=== PATIENT | male | born 1960 | race Caucasian/White ===

== ENCOUNTER 2018-02-01 15:57 | Emergency (ER) | payer OTHER ==
[2018-02-01 18:37] LABS: Absolute Lymphocytes (CBC) 0.8 K/uL (0.7-4.9); Absolute Monocytes 0.9 K/uL (0.1-1.3); Absolute Neutrophil 6.6 K/uL (1.8-8.0); Basophils % 0.3 % (0-1.3); Eosinophils % 0.9 % (0-4.4); Hematocrit 43.7 % (39.6-49.0); Lymphocytes % 9.2 % (15.3-44.8); MCH 28.8 pg (27.0-35.0); MCV 84.3 fL (80-100); MPV 9.5 fL (7.6-11.3); Monocytes % 10.8 % (3.3-12.3); RBC Red Blood Cell Count 5.19 M/uL (4.33-5.43)
[2018-02-01 18:41] LABS: Protime INR 1.15
[2018-02-01 18:49] LABS: Potassium 3.8 mmol/L (3.5-5.1)
--- NOTE | 2018-02-01 19:10 | RAD REPORT ---
EXAM DESCRIPTION: VAS - Extremity Venous Uni Ltd - 02/01/2018 7:02 pm CLINICAL HISTORY: Pain;Swelling Leg swelling and edema. COMPARISON: Extremity Venous Uni Ltd dated 12/02/2015Extremity Venous Uni Ltd dated 12/02/2015 FINDINGS: Right lower extremity venous system was interrogated with Doppler technique. Normal flow, compressibility and augmentation was noted. There is no DVT present. IMPRESSION: No evidence of right lower extremity deep venous thrombosis.
--- NOTE | 2018-02-01 19:13 | RAD REPORT ---
EXAM DESCRIPTION: VAS - Lower Extremity Artery Uni Ltd - 02/01/2018 7:02 pm CLINICAL HISTORY: Swelling;Pain COMPARISON: Extremity Venous Uni Ltd dated 12/02/2015 FINDINGS: The examination was very limited by body habitus. Grayscale, color, Doppler and spectral D oppler was performed. Flow was seen in the MOLD YARD SUPERVISOR, SFA, popliteal and posterior tibial arteries, however , waveforms are very blunted and accuracy of the amplitude measurements and waveforms is questionable . The vessels, however, do not appear occluded. Right dorsalis pedis was not well seen. IMPRESSION: Very limited study as detailed above. A vessel occlusion is not seen to the level of the ankle. Further diagnostic information is not possible from this exam.
--- NOTE | 2018-02-01 21:18 | EDPHYS ---
Physician Documentation [facility] Name: Lyle Kilpatrick Age: 57 yrs Sex: Male : 1960 Arrival Date: 02/01/2018 Time: 16:02 Bed 5 Private MD: Jason Treviño ED Physician Baltazar Still HPI: 02/01 18:00 This 57 yrs old Male presents to ER via Wheelchair with complaints of Right pm1 leg swelling and pain. 18:00 The patient presents with pain, swelling. The complaints affect the medial aspect of pm1 right thigh. Context: The problem was sustained at home, resulted from an unknown cause, the patient can fully bear weight, the patient is able to ambulate, Problem is a result from a previous injury: No. Onset: The symptoms/episode began/occurred yesterday. Modifying factors: The symptoms are alleviated by nothing. the symptoms are aggravated by nothing. Associated signs and symptoms: Pertinent negatives fever, chest pain, shortness of breath. Treatment prior to arrival includes: prescription medications, Ultram or Ultracet. Severity of symptoms: in the emergency department the symptoms are unchanged. Patient was seen at [facility] and had ultrasounds preformed of right lower leg and discharged to home with tramadol. Historical: - Allergies: 16:05 No Known Allergies; sv - PMHx: 16:05 CHF; Atrial Fib; Hypothyroidism; sv - PSHx: 16:05 Cholecystectomy; sv - Immunization history:: Adult Immunizations up to date. - Social history:: Smoking status: Patient/guardian denies using tobacco. - Ebola Screening: : No symptoms or risks identified at this time. ROS: 18:00 Constitutional: Negative for fever, chills, and weight loss, Eyes: Negative for injury, pm1 pain, redness, and discharge, ENT: Negative for injury, pain, and discharge, Neck: Negative for injury, pain, and swelling, Respiratory: Negative for shortness of breath, cough, wheezing, and pleuritic chest pain, Abdomen/GI: Negative for abdominal pain, nausea, vomiting, diarrhea, and constipation. 18:00 Back: Negative for injury and pain, : Negative for injury, bleeding, discharge, and swelling, MS/Extremity: Negative for injury and deformity, Skin: Negative for injury, rash, and discoloration, Neuro: Negative for headache, weakness, numbness, tingling, and seizure. 18:00 Cardiovascular: Positive for edema, right lower leg, Negative for chest pain, orthopnea, palpitations. Exam: 18:00 Constitutional: This is a well developed, well nourished patient who is awake, alert, pm1 and in no acute distress. Head/Face: Normocephalic, atraumatic. Eyes: Pupils equal round and reactive to light, extra-ocular motions intact. Lids and lashes normal. Conjunctiva and sclera are non-icteric and not injected. Cornea within normal limits. Periorbital areas with no swelling, redness, or edema. ENT: Nares patent. No nasal discharge, no septal abnormalities noted. Tympanic membranes are normal and external auditory canals are clear. Oropharynx with no redness, swelling, or masses, exudates, or evidence of obstruction, uvula midline. Mucous membranes moist. Neck: Trachea midline, no thyromegaly or masses palpated, and no cervical lymphadenopathy. Supple, full range of motion without nuchal rigidity, or vertebral point tenderness. No Meningismus. Chest/axilla: Normal chest wall appearance and motion. Nontender with no deformity. No lesions are appreciated. Cardiovascular: Regular rate and rhythm with a normal S1 and S2. No gallops, murmurs, or rubs. Normal PMI, no JVD. No pulse deficits. Respiratory: Lungs have equal breath sounds bilaterally, clear to auscultation and percussion. No rales, rhonchi or wheezes noted. No increased work of breathing, no retractions or nasal flaring. 18:00 Back: No spinal tenderness. No costovertebral tenderness. Full range of motion. Skin: Warm, dry with normal turgor. Normal color with no rashes, no lesions, and no evidence of cellulitis. 18:00 Abdomen/GI: Inspection: obese Bowel sounds: normal, Palpation: abdomen is soft and non-tender. 18:00 Musculoskeletal/extremity: Extremities: grossly normal except: noted in the medial aspect of right thigh: swelling, ROM: intact in all extremities, Circulation is intact in all extremities. Pulses: noted to be 2+ in the right dorsalis pedis artery. Vital Signs: 16:05 BP 158 / 81; Pulse 69; Resp 22; Temp 97; Pulse Ox 95% ; Weight 215 kg; Height 5 ft. 9 sv in. (175.26 cm); Pain 8/10; 17:55 BP 162 / 80; Pulse 72; Resp 21; Pulse Ox 95% on R/A; sg 19:40 BP 159 / 80; Pulse 64; Resp 17; Pulse Ox 95% on R/A; tl2 21:32 BP 141 / 71; Pulse 64; Resp 20; Temp 97.2; Pulse Ox 97% ; Pain 5/10; tl1 16:05 Body Mass Index 70.00 (215.00 kg, 175.26 cm) sv MDM: 17:43 Patient medically screened. pm1 21:00 Data reviewed: vital signs. Data interpreted: Pulse oximetry: on room air is 95 %. pm1 Interpretation: normal. Counseling: I had a detailed discussion with the patient and/or guardian regarding: the historical points, exam findings, and any diagnostic results supporting the discharge/admit diagnosis. 02/01 18:20 Order name: CBC with Diff; Complete Time: 18:53 pm1 02/01 18:20 Order name: Ptt, Activated; Complete Time: 18:53 pm1 02/01 17:58 Order name: Lower Extremity Artery Leosphere US; Complete Time: 19:24 pm1 02/01 17:58 Order name: Extremity Venous Leosphere US; Complete Time: 19:24 pm1 02/01 18:20 Order name: PT-INR; Complete Time: 18:53 pm1 02/01 18:20 Order name: BMP; Complete Time: 18:53 pm1 02/01 18:20 Order name: IV Saline Lock; Complete Time: 18:24 pm1 Administered Medications: 21:26 Drug: [place] 10 mg-325 mg 1 tabs Route: PO; tl1 21:27 Follow up: Response: No adverse reaction; Medication administered at discharge. tl1 Disposition: 02/02 10:58 Co-signature as Attending Physician, Baltazar Still MD I agree with the assessment and kdr plan of care. Disposition: 02/01/18 21:18 Discharged to Home. Impression: Edema, unspecified - right leg. - Condition is Stable. - Discharge Instructions: Peripheral Edema. - Prescriptions for Tylenol- Codeine #3 300-30 mg Oral Tablet - take 2 tablets by ORAL route every 6 hours As needed; 20 tablet. - Medication Reconciliation Form, Thank You Letter, Antibiotic Education, Prescription Opioid Use form. - Follow up: Emergency Department; When: As needed; Reason: Worsening of condition. Follow up: Jason Treviño DO; When: 2 - 3 days; Reason: Recheck today's complaints, Continuance of care, Re-evaluation by your physician. - Problem is new. - Symptoms have improved. Signatures: Dispatcher [employer] EDRose Marie Levine RN RN Baltazar Still MD MD [facility] Jami Huddleston RN RN tl1 Neo Foster NP WOOD MACHINIST pm1 Corrections: (The following items were deleted from the chart) 02/01 21:34 21:18 02/01/2018 21:18 Discharged to Home. Impression: Edema, unspecified - right leg. tl1 Condition is Stable. Forms are Medication Reconciliation Form, Thank You Letter, Antibiotic Education, Prescription Opioid Use. Follow up: Emergency Department; When: As needed; Reason: Worsening of condition. Follow up: Jason Treviño; When: 2 - 3 days; Reason: Recheck today's complaints, Continuance of care, Re-evaluation by your physician. Problem is new. Symptoms have improved. pm1
--- NOTE | 2018-02-01 21:18 | ER ---
Nurse's Notes [facility] Name: Lyle Kilpatrick Age: 57 yrs Sex: Male : 1960 Arrival Date: 02/01/2018 Time: 16:02 Bed 5 Private MD: Jason Treviño Diagnosis: Edema, unspecified-right leg Presentation: 02/01 16:03 Presenting complaint: Patient states: right leg and foot numbness and swelling started sv yesterday. Pt was seen at [facility] and discharged home. Tramadol taken before coming. Transition of care: patient was not received from another setting of care. Onset of symptoms was January 31, 2018. Care prior to arrival: None. 16:03 Method Of Arrival: Wheelchair sv 16:03 Acuity: HETAL 3 sv 17:30 Risk Assessment: Do you want to hurt yourself or someone else? Patient reports no hb desire to harm self or others. Initial Sepsis Screen: Does the patient meet any 2 criteria? No. Patient's initial sepsis screen is negative. Does the patient have a suspected source of infection? No. Patient's initial sepsis screen is negative. Historical: - Allergies: 16:05 No Known Allergies; sv - PMHx: 16:05 CHF; Atrial Fib; Hypothyroidism; sv - PSHx: 16:05 Cholecystectomy; sv - Immunization history:: Adult Immunizations up to date. - Social history:: Smoking status: Patient/guardian denies using tobacco. - Ebola Screening: : No symptoms or risks identified at this time. Screenin:00 Abuse screen: Denies threats or abuse. Denies injuries from another. Nutritional hb screening: No deficits noted. Tuberculosis screening: No symptoms or risk factors identified. Fall Risk Total Nair Fall Scale indicates Low Risk Score (25-44 pts). Fall prevention measures have been instituted. Side Rails Up X 2 Frequent Obs/Assesments occuring Family Present and informed to notify staff if they need to leave bedside As available Patient and Family Educated on Fall Prevention Program and strategies. Assessment: 17:20 General: Appears in no apparent distress. comfortable, well groomed, well developed, sg well nourished, Behavior is calm, cooperative, appropriate for age. Pain: Denies pain. Neuro: No deficits noted. Cardiovascular: Heart tones S1 S2 present Capillary refill is sluggish in bilateral fingers toes Patient's skin is warm and dry. Chest pain is denied. Cardiovascular: Edema is 2+ to left midcalf, left ankle, left foot, right midcalf, right ankle and right foot. Respiratory: Airway is patent Respiratory effort is even, labored, Respiratory pattern is regular, symmetrical, Breath sounds are clear. GI: Abdomen is round obese, Reports normal bowel habits, tolerance of fluids, tolerance of food. : No signs and/or symptoms were reported regarding the genitourinary system. EENT: No signs and/or symptoms were reported regarding the EENT system. Derm: Skin is intact, is healthy with good turgor, Skin is dry, Skin is normal, Skin temperature is warm. Musculoskeletal: Circulation, motion, and sensation intact. Range of motion: intact in all extremities, Swelling present in RLE and LLE. 18:20 Reassessment: Patient appears in no apparent distress at this time. Patient is alert, sg oriented x 3, equal unlabored respirations, skin warm/dry/pink. Vital Signs: 16:05 BP 158 / 81; Pulse 69; Resp 22; Temp 97; Pulse Ox 95% ; Weight 215 kg; Height 5 ft. 9 sv in. (175.26 cm); Pain 8/10; 17:55 BP 162 / 80; Pulse 72; Resp 21; Pulse Ox 95% on R/A; sg 19:40 BP 159 / 80; Pulse 64; Resp 17; Pulse Ox 95% on R/A; tl2 21:32 BP 141 / 71; Pulse 64; Resp 20; Temp 97.2; Pulse Ox 97% ; Pain 5/10; tl1 16:05 Body Mass Index 70.00 (215.00 kg, 175.26 cm) sv ED Course: 16:02 Patient arrived in ED. sb2 16:02 Jason Treviño DO is Private Physician. sb2 16:04 Triage completed. sv 16:05 Arm band placed on right wrist. sv 17:43 Neo Foster NP is PHCP. pm1 17:43 Baltazar Still MD is Attending Physician. pm1 17:53 Inserted saline lock: 20 gauge in right antecubital area, using aseptic technique. 3 Blood collected. 18:28 Initial lab(s) drawn, by in, sent to lab. 3 18:35 Patient has correct armband on for positive identification. Placed in gown. Bed in low hb position. Call light in reach. Side rails up X 1. 19:02 Lower Extremity Artery Uni Ltd US In Process Unspecified. EDMS 19:03 Extremity Venous Uni Ltd US In Process Unspecified. EDMS 21:16 Jami Huddleston, RN is Primary Nurse. tl1 21:16 Jason Treviño DO is Referral Physician. pm1 21:34 No provider procedures requiring assistance completed. IV discontinued, intact, tl1 bleeding controlled, No redness/swelling at site. Administered Medications: 21:26 Drug: [place] 10 mg-325 mg 1 tabs Route: PO; tl1 21:27 Follow up: Response: No adverse reaction; Medication administered at discharge. tl1 Outcome: 21:18 Discharge ordered by MD. pm1 21:33 Discharged to home via wheelchair. tl1 21:33 Condition: stable 21:33 Discharge instructions given to patient, family, Instructed on discharge instructions, follow up and referral plans. medication usage, Demonstrated understanding of instructions, follow-up care, medications, Prescriptions given X 1. 21:34 Patient left the ED. tl1 Signatures: Dispatcher [employer] EDRose Marie Levine RN RN sv Gay, Steven, RN RN Jami Huddleston, RN RN tl1 Neo Foster, URVASHI BLASTING GANG MINER pm1 Brooklyn Enciso RN RN hb Knox, Taylor, RN RN tl2 Kendy Lopez 3 Lilliana Regan sb2 Corrections: (The following items were deleted from the chart) 16:06 16:03 Presenting complaint: Patient states: right leg and foot numbness and swelling sv started yesterday. Pt was seen at [facility] and discharged home. sv
[2018-02-01] MEDS ORDERED: HYDROCODONE/APAP 10/325 TAB ONE (21:23)
[2018-02-01 21:59] VITALS: BP 141/71; TEMP 97.2; O2SAT 97
== END 2018-02-01 21:34 | disposition home or self-care (01) ==
LOC: ER 15:57
DX: R60.9 Edema, unspecified (principal)
CPT/HCPCS: 36415; 80048; 85025; 85610; 85730; 93926; 93971; 99284

== ENCOUNTER 2019-05-12 10:29 | Emergency (ER) | payer OTHER ==
[2019-05-12 11:39] LABS: Absolute Lymphocytes (CBC) 0.7 K/uL (0.7-4.9); Basophils % 0.6 % (0-1.3); Hematocrit 38.2 % (39.6-49.0); Lymphocytes % 14.8 % (15.3-44.8); MPV 9.1 fL (7.6-11.3); RBC Red Blood Cell Count 4.52 M/uL (4.33-5.43)
[2019-05-12 11:58] LABS: Albumin 3.6 g/dL (3.4-5.0); Bilirubin Total 0.6 mg/dL (0.2-1.0); Potassium 4.2 mmol/L (3.5-5.1); Protein, Total 7.3 g/dL (6.4-8.2)
[2019-05-12] MEDS ORDERED: CLINDAMYCIN 600MG/D5W 600 MG/50 ML BAG IV ONE (12:03)
--- NOTE | 2019-05-12 12:05 | ER ---
Nurse's Notes [facility] Name: Lyle Kilpatrick Age: 58 yrs Sex: Male : 1960 Arrival Date: 05/12/2019 Time: 10:33 Bed 25 Private MD: Diagnosis: Cellulitis and acute lymphangitis of other parts of limb Presentation: 05/12 10:41 Presenting complaint: Patient states: Home health nurse sent patient to ER for ss evaluation of wound to R leg. patient has been having treatment for wound to R leg x 3 months, and has had wound vac in place, but when the nurse this morning came to look at it, she told him that she saw another blister that was concerning. Wound vac was removed and sent to ER. Transition of care: patient was not received from another setting of care. Onset of symptoms is unknown. Risk Assessment: Do you want to hurt yourself or someone else? Patient reports no desire to harm self or others. Initial Sepsis Screen: Does the patient meet any 2 criteria? No. Patient's initial sepsis screen is negative. Does the patient have a suspected source of infection? Yes: Skin breakdown/wound. Care prior to arrival: None. 10:41 Method Of Arrival: Wheelchair ss 10:41 Acuity: HETAL 3 ss Historical: - Allergies: 10:45 No Known Allergies; ss - PMHx: 10:45 Atrial Fib; CHF; Hypothyroidism; ss - PSHx: 10:45 Cholecystectomy; ss - Immunization history:: Flu vaccine is not up to date. - Social history:: Smoking status: Patient/guardian denies using tobacco, Patient/guardian denies using alcohol, street drugs, The patient lives with family. - Ebola Screening: : Patient denies exposure to infectious person Patient denies travel to an Ebola-affected area in the 21 days before illness onset. - Family history:: not pertinent. Screenin:10 Abuse screen: Denies threats or abuse. Denies injuries from another. Nutritional ca1 screening: No deficits noted. Tuberculosis screening: No symptoms or risk factors identified. Fall Risk IV access (20 points). Gait- Impaired (20 pts.). Assessment: 11:10 General: Appears in no apparent distress. comfortable, obese, Behavior is calm, ca1 cooperative, appropriate for age. Pain: Complains of pain in lateral aspect of right calf Pain currently is 4 out of 10 on a pain scale. Pain began 2-3 days ago. Neuro: Level of Consciousness is awake, alert, obeys commands, Oriented to person, place, time, situation, Appropriate for age. Derm: Skin is healthy with good turgor, Skin is pink, warm \T\ dry. Wound noted lateral aspect of right calf Wound is draining pus which is foul smelling.. Red and raised with a blister >2.5cm in diameter. Musculoskeletal: Circulation, motion, and sensation intact. Capillary refill < 3 seconds, Swelling present in right foot and left foot. 12:05 Reassessment: Patient appears in no apparent distress at this time. Patient and/or ca1 family updated on plan of care and expected duration. Pain level reassessed. Patient is alert, oriented x 3, equal unlabored respirations, skin warm/dry/pink. Pending completion of IV antibiotics. To be discharged once completed. 12:51 Reassessment: Patient appears in no apparent distress at this time. Patient is alert, ca1 oriented x 3, equal unlabored respirations, skin warm/dry/pink. Wound dressed, wet to dry. Instructed to follow up with Home Health nurse. Vital Signs: 10:41 BP 129 / 68; Pulse 67; Resp 17; Temp 98.5(TE); Pulse Ox 98% on R/A; Weight 198.67 kg ss (M); Height 5 ft. 9 in. (175.26 cm); Pain 0/10; 12:30 BP 132 / 72; Pulse 71; Resp 16 S; Pulse Ox 98% on R/A; ca1 10:41 Body Mass Index 64.68 (198.67 kg, 175.26 cm) ED Course: 10:33 Patient arrived in ED. mr 10:41 Arm band placed on right wrist. ss 10:44 Triage completed. ss 10:49 Martha Rg MD is Attending Physician. ma2 11:05 Kimberly Rajan RN is Primary Nurse. ca1 11:10 Patient has correct armband on for positive identification. Placed in gown. Bed in low ca1 position. Call light in reach. Side rails up X 1. Pulse ox on. NIBP on. Warm blanket given. 11:20 No provider procedures requiring assistance completed. Inserted saline lock: 22 gauge ca1 in left antecubital area, using aseptic technique. Blood collected. 11:20 Initial lab(s) drawn, by me, sent to lab. First set of blood cultures drawn by me. ca1 11:59 Second set of blood cultures drawn by lab staff. ca1 12:30 Dressings: 4X4s. Dressings: Pito wrap applied over. ca1 12:45 IV discontinued, intact, bleeding controlled, No redness/swelling at site. Pressure ca1 dressing applied. Administered Medications: 12:09 Drug: Clindamycin 600 mg Route: IVPB; Infused Over: 30 mins; Site: left antecubital; ca1 12:50 Follow up: Response: No adverse reaction; IV Status: Completed infusion ca1 Outcome: 12:04 Discharge ordered by . ma2 12:45 Discharged to home via ambulance, with family. ca1 12:45 Condition: stable 12:45 Discharge instructions given to patient, Instructed on discharge instructions, follow up and referral plans. no drinking with medication, no driving heavy equipment, medication usage, Demonstrated understanding of instructions, follow-up care, medications, wound care, Prescriptions given X 2. 12:55 Patient left the ED. eb Addendum: 05/15/2019 08:06 Addendum: Culture Results: Positive wound culture. Bacteria is resistant to, has i w intermediate sensitivity, or is not tested against prescribed antibiotics. Report given to MANDI for further evaluation and then to supervisor evaporator for follow up with patient. Phone call Attempt #1 sister states pt has a follow up with Dr. hernandez today at 1:45, will wait to see Dr. Hernandez, advised to call back if needed. Signatures: Evelia Elizabeth Laney Giron RN RN Radha Dockery RN RN Martha Rg MD MD [facility] Yumiko Juarez Kimberly Rajan RN RN ca1 Corrections: (The following items were deleted from the chart) 05/12 12:54 12:53 IV discontinued, intact, bleeding controlled, No redness/swelling at site. ca1 Pressure dressing applied, ca1
--- NOTE | 2019-05-12 12:05 | EDPHYS ---
Physician Documentation [facility] Name: Lyle Kilpatrick Age: 58 yrs Sex: Male : 1960 Arrival Date: 05/12/2019 Time: 10:33 Bed 25 Private MD: ED Physician aMrtha Rg HPI: 05/12 11:20 This 58 yrs old Male presents to ER via Wheelchair with complaints of Wound ma2 Infection. 11:20 Associated signs and symptoms: Pertinent negatives: apnea, burning of skin, diarrhea, ma2 dizziness, loss of consciousness, palpitations, tearfulness, vomiting. Severity of symptoms: At their worst the symptoms were moderate in the emergency department the symptoms are unchanged. has a chronic wound of right leg that got worse over the last 3 days, no fever. Historical: - Allergies: 10:45 No Known Allergies; ss - PMHx: 10:45 Atrial Fib; CHF; Hypothyroidism; ss - PSHx: 10:45 Cholecystectomy; ss - Immunization history:: Flu vaccine is not up to date. - Social history:: Smoking status: Patient/guardian denies using tobacco, Patient/guardian denies using alcohol, street drugs, The patient lives with family. - Ebola Screening: : Patient denies exposure to infectious person Patient denies travel to an Ebola-affected area in the 21 days before illness onset. - Family history:: not pertinent. ROS: 11:20 Constitutional: Negative for fever, chills, and weight loss. ma2 11:20 All other systems are negative. Exam: 11:20 Constitutional: This is a well developed, well nourished patient who is awake, alert, ma2 and in no acute distress. Chest/axilla: Normal chest wall appearance and motion. Nontender with no deformity. No lesions are appreciated. Cardiovascular: Regular rate and rhythm with a normal S1 and S2. No gallops, murmurs, or rubs. Normal PMI, no JVD. No pulse deficits. Respiratory: Lungs have equal breath sounds bilaterally, clear to auscultation and percussion. No rales, rhonchi or wheezes noted. No increased work of breathing, no retractions or nasal flaring. Abdomen/GI: Soft, non-tender, with normal bowel sounds. No distension or tympany. No guarding or rebound. No evidence of tenderness throughout. MS/ Extremity: right lower leg cellulitis 5x5cm with puss draining, mild edema around, no subqair.. Pulses equal, no cyanosis. Neurovascular intact. Full, normal range of motion. Vital Signs: 10:41 BP 129 / 68; Pulse 67; Resp 17; Temp 98.5(TE); Pulse Ox 98% on R/A; Weight 198.67 kg ss (M); Height 5 ft. 9 in. (175.26 cm); Pain 0/10; 12:30 BP 132 / 72; Pulse 71; Resp 16 S; Pulse Ox 98% on R/A; ca1 10:41 Body Mass Index 64.68 (198.67 kg, 175.26 cm) ss MDM: 10:49 Patient medically screened. [facility] 11:20 Differential diagnosis: cellulitis, draining abscess no symstemic evolvement. [facility] 12:04 Data reviewed: vital signs, nurses notes. Counseling: I had a detailed discussion with [facility] the patient and/or guardian regarding: the historical points, exam findings, and any diagnostic results supporting the discharge/admit diagnosis, the presence of at least one elevated blood pressure reading (>120/80) during this emergency department visit, the need for outpatient follow up. Response to treatment: the patient's symptoms have markedly improved after treatment. 05/12 11:20 Order name: CMP; Complete Time: 12:02 [facility] 05/12 11:20 Order name: CBC with Diff; Complete Time: 11:41 [facility] 05/12 11:20 Order name: Blood Culture Adult (2) [facility] 05/12 11:31 Order name: Wound Culture ca1 Administered Medications: 12:09 Drug: Clindamycin 600 mg Route: IVPB; Infused Over: 30 mins; Site: left antecubital; ca1 12:50 Follow up: Response: No adverse reaction; IV Status: Completed infusion ca1 Disposition: 05/12/19 12:04 Discharged to Home. Impression: Cellulitis and acute lymphangitis of other parts of limb. - Condition is Stable. - Discharge Instructions: Cellulitis, Adult. - Prescriptions for Clindamycin HCl 300 mg Oral Capsule - take 1 capsule by ORAL route every 6 hours for 10 days; 40 capsule. Tylenol- Codeine #3 300-30 mg Oral Tablet - take 2 tablet by ORAL route every 6 hours As needed; 30 tablet. - Medication Reconciliation Form, Thank You Letter, Antibiotic Education, Prescription Opioid Use form. - Follow up: Private Physician; When: Tomorrow; Reason: Continuance of care. Signatures: Dispatcher [employer] Radha Miguel RN RN Martha Rg MD MD ma2 Yumiko Juarez Cheryl, RN RN ca1 Corrections: (The following items were deleted from the chart) 12:55 12:04 05/12/2019 12:04 Discharged to Home. Impression: Cellulitis and acute eb lymphangitis of other parts of limb. Condition is Stable. Forms are Medication Reconciliation Form, Thank You Letter, Antibiotic Education, Prescription Opioid Use. Follow up: Private Physician; When: Tomorrow; Reason: Continuance of care. ma2
[2019-05-12 13:04] VITALS: TEMP 98.5; O2SAT 98
[2019-05-12 13:06] VITALS: BP 132/72
--- OUTSIDE RECORDS SUMMARY | 2019-05-13 07:08 | XMS REPORT ---
:1960 [facility] [address] [place] [address] Dr. Pereira [address] [place] [id number] Care Team Providers Name Role Phone POONAM SHEPHERD Unavailable Unavailable Problems This patient has no known problems. Allergies, Adverse Reactions, Alerts This patient has no known allergies or adverse reactions. Medications This patient has no known medications. Results Test Description Test Time Test Comments Text Results Atomic Results Result Comments AFB CULTURE + SMEAR 2018-03-25 20:40:00 Test Item Value Reference Range Comments CULTURE (BEAKER) (test ktrm=5127) No acid-fast bacilli isolated in 42 days AFB SMEAR (BEAKER) (test mmfv=710) No acid fast bacilli seen FUNGUS CULTURE + [id number] 09:54:00 Test Item Value Reference Range Comments CULTURE (BEAKER) (test No fungus isolated in 28 days tjby=4934) FUNGUS SMEAR (BEAKER) (test No fungi seen qsat=3176) RAD, CHEST, 1 VIEW, NON [id number] 09:28:00Reason for exam:->preopShould this be performed at the bedside?->YesAddendum BeginsREPORT STATUS:A Reason for exam: Peroneal nerve biopsy right Signed: Dung Cartagena Verified Date/Time: 03/12/2018 09:28:11 Reading Location: [facility] B1 C013V Neuro Reading RoomAddendum EndsFINAL REPORT Chest one view compared to May 07, 2014 Discussion: There is cardiac prominence. There may be some mild interstitial congestion butno focal infiltrate. No effusion or pneumothorax. Signed: Dung Cartagena Verified Date/Time:02/19 14:22:08 Reading Location: [facility] B1 C013W Consult Reading Room POCT- GLUCOSE [id number] 18:10:00 Test Item Value Reference Range Comments POC-GLUCOSE METER (BEAKER) 125 mg/dL 70-110 TESTED AT [address] (test vixx=6320) [facility] [address] [id number] 15:30:00 Test Item Value Reference Range Comments MAGNESIUM (BEAKER) (test jifc=237) 1.8 mg/dL 1.6-2.6 BASIC METABOLIC [id number] 09:22:00 Test Item Value Reference Range Comments SODIUM (BEAKER) (test 134 meq/L 136-145 ukgk=773) POTASSIUM (BEAKER) (test 4.4 meq/L 3.5-5.1 Specimen slightly xouc=542) hemolyzed CHLORIDE (BEAKER) (test 99 meq/L 98-107 tlzz=423) CO2 (BEAKER) (test 27 meq/L 22-29 vkoi=155) BLOOD UREA NITROGEN 18 mg/dL 7-21 (BEAKER) (test ynuu=561) CREATININE (BEAKER) (test 1.13 mg/dL 0.57-1.25 Specimen slightly ribl=880) hemolyzed GLUCOSE RANDOM (BEAKER) 103 mg/dL 70-105 (test dkss=303) CALCIUM (BEAKER) (test 9.6 mg/dL 8.4-10.2 wgns=062) EGFR (BEAKER) (test 66 mL/min/1.73 sq m ESTIMATED GFR IS NOT dszr=0511) ACCURATE CREATININE CLEARANCE IN PREDICTING GLOMERULAR FILTRATION RATE. ESTIMATED GFR IS NOT APPLICABLE FOR DIALYSIS PATIENTS. POCT-GLUCOSE [id number] 08:38:00 Test Item Value Reference Range Comments POC-GLUCOSE METER (BEAKER) 112 mg/dL 70-110 TESTED AT [address] (test snfu=4517) [facility] [address] CREATINE KINASE (CK)2018-02-24 07:12:00 Test Item Value Reference Range Comments CREATINE KINASE TOTAL (BEAKER) (test onws=612) 1449 U/L 29-200 PROTHROMBIN [id number] 06:24:00 Test Item Value Reference Range Comments PROTIME (BEAKER) (test lvph=703) 17.4 seconds 11.7-14.7 INR (BEAKER) (test omeu=853) 1.4 <=5.9 RECOMMENDED COUMADIN/WARFARIN INR THERAPY RANGESSTANDARD DOSE: 2.0 - 3.0 Includes: PROPHYLAXIS forvenous thrombosis, systemic embolization; TREATMENT for venous thrombosis and/or pulmonary embolus.HIGH RISK: Target INR is 2.5-3.5 for patients with mechanical heart valves.While on warfarin.CBC W/PLT COUNT &amp ; AUTO [id number] 06:02:00 Test Item Value Reference Range Comments WHITE BLOOD CELL COUNT (BEAKER) (test tbug=705) 5.9 K/ L 3.5-10.5 RED BLOOD CELL COUNT (BEAKER) (test xwet=625) 4.03 M/ L 4.63-6.08 HEMOGLOBIN (BEAKER) (test csrf=857) 11.2 GM/DL 13.7-17.5 HEMATOCRIT (BEAKER) (test iohx=721) 35.5 % 40.1-51.0 MEAN CORPUSCULAR VOLUME (BEAKER) (test ohsr=126) 88.1 fL 79.0-92.2 MEAN CORPUSCULAR HEMOGLOBIN (BEAKER) (test 27.8 pg 25.7-32.2 zckq=681) MEAN CORPUSCULAR HEMOGLOBIN CONC (BEAKER) (test 31.5 GM/DL 32.3-36.5 wuuu=296) RED CELL DISTRIBUTION WIDTH (BEAKER) (test 14.8 % 11.6-14.4 nsrn=445) PLATELET COUNT (BEAKER) (test sqpl=048) 355 K/CU MM 150-450 MEAN PLATELET VOLUME (BEAKER) (test kbnj=336) 9.4 fL 9.4-12.4 NUCLEATED RED BLOOD CELLS (BEAKER) (test 0 /100 WBC 0-0 veit=688) NEUTROPHILS RELATIVE PERCENT (BEAKER) (test 61 % jgny=067) LYMPHOCYTES RELATIVE PERCENT (BEAKER) (test 17 % fiei=150) MONOCYTES RELATIVE PERCENT (BEAKER) (test 13 % dmtr=477) EOSINOPHILS RELATIVE PERCENT (BEAKER) (test 7 % lfob=171) BASOPHILS RELATIVE PERCENT (BEAKER) (test 1 % gjiq=803) NEUTROPHILS ABSOLUTE COUNT (BEAKER) (test 3.63 K/ L 1.78-5.38 klqu=666) LYMPHOCYTES ABSOLUTE COUNT (BEAKER) (test 1.03 K/ L 1.32-3.57 nkeo=541) MONOCYTES ABSOLUTE COUNT (BEAKER) (test 0.77 K/ L 0.30-0.82 ivrz=365) EOSINOPHILS ABSOLUTE COUNT (BEAKER) (test 0.39 K/ L 0.04-0.54 bbuf=649) BASOPHILS ABSOLUTE COUNT (BEAKER) (test 0.04 K/ L 0.01-0.08 whst=345) IMMATURE GRANULOCYTES-RELATIVE PERCENT (BEAKER) 1 % 0-1 (test trre=1669) POCT-GLUCOSE [id number] 20:59:00 Test Item Value Reference Range Comments POC-GLUCOSE METER (BEAKER) 112 mg/dL 70-110 TESTED AT [address] (test jark=2267) [place] [id number] POCT-GLUCOSE [id number] 17:02:00 Test Item Value Reference Range Comments POC-GLUCOSE METER (BEAKER) 109 mg/dL 70-110 TESTED AT [address] (test tfnu=1387) [place] [id number] POCT-GLUCOSE [id number] 11:39:00 Test Item Value Reference Range Comments POC-GLUCOSE METER (BEAKER) 97 mg/dL 70-110 TESTED AT [address] (test flda=0169) [place] [id number] POCT-GLUCOSE [id number] 07:35:00 Test Item Value Reference Range Comments POC-GLUCOSE METER (BEAKER) 109 mg/dL 70-110 TESTED AT [address] (test sdow=8432) [place] [address] CREATINE KINASE (CK)2018-02-23 07:19:00 Test Item Value Reference Range Comments CREATINE KINASE TOTAL (BEAKER) (test mqqg=969) 1548 U/L 29-200 PROTHROMBIN [id number] 07:06:00 Test Item Value Reference Range Comments PROTIME (BEAKER) (test fegn=858) 18.5 seconds 11.7-14.7 INR (BEAKER) (test ziss=181) 1.5 <=5.9 RECOMMENDED COUMADIN/WARFARIN INR THERAPY RANGESSTANDARD DOSE: 2.0 - 3.0 Includes: PROPHYLAXIS forvenous thrombosis, systemic embolization; TREATMENT for venous thrombosis and/or pulmonary embolus.HIGH RISK: Target INR is 2.5-3.5 for patients with mechanical heart valves.While on warfarin.CBC W/PLT COUNT &amp ; AUTO [id number] 06:54:00 Test Item Value Reference Range Comments WHITE BLOOD CELL COUNT (BEAKER) (test wpvx=182) 5.4 K/ L 3.5-10.5 RED BLOOD CELL COUNT (BEAKER) (test ftxd=916) 4.17 M/ L 4.63-6.08 HEMOGLOBIN (BEAKER) (test cozf=428) 11.7 GM/DL 13.7-17.5 HEMATOCRIT (BEAKER) (test sfjz=427) 36.9 % 40.1-51.0 MEAN CORPUSCULAR VOLUME (BEAKER) (test ubqe=590) 88.5 fL 79.0-92.2 MEAN CORPUSCULAR HEMOGLOBIN (BEAKER) (test 28.1 pg 25.7-32.2 opar=852) MEAN CORPUSCULAR HEMOGLOBIN CONC (BEAKER) (test 31.7 GM/DL 32.3-36.5 sfxl=435) RED CELL DISTRIBUTION WIDTH (BEAKER) (test 15.1 % 11.6-14.4 dkul=611) PLATELET COUNT (BEAKER) (test fntm=237) 363 K/CU MM 150-450 MEAN PLATELET VOLUME (BEAKER) (test hpyd=085) 9.6 fL 9.4-12.4 NUCLEATED RED BLOOD CELLS (BEAKER) (test 0 /100 WBC 0-0 mbae=941) NEUTROPHILS RELATIVE PERCENT (BEAKER) (test 61 % ylyp=066) LYMPHOCYTES RELATIVE PERCENT (BEAKER) (test 16 % zrkx=911) MONOCYTES RELATIVE PERCENT (BEAKER) (test 14 % jpax=732) EOSINOPHILS RELATIVE PERCENT (BEAKER) (test 7 % qbjk=586) BASOPHILS RELATIVE PERCENT (BEAKER) (test 1 % nlmp=362) NEUTROPHILS ABSOLUTE COUNT (BEAKER) (test 3.29 K/ L 1.78-5.38 utah=904) LYMPHOCYTES ABSOLUTE COUNT (BEAKER) (test 0.85 K/ L 1.32-3.57 ecug=165) MONOCYTES ABSOLUTE COUNT (BEAKER) (test 0.73 K/ L 0.30-0.82 eldb=793) EOSINOPHILS ABSOLUTE COUNT (BEAKER) (test 0.39 K/ L 0.04-0.54 fsnu=586) BASOPHILS ABSOLUTE COUNT (BEAKER) (test 0.05 K/ L 0.01-0.08 neft=322) IMMATURE GRANULOCYTES-RELATIVE PERCENT (BEAKER) 2 % 0-1 (test rogl=1917) POCT-GLUCOSE [id number] 21:04:00 Test Item Value Reference Range Comments POC-GLUCOSE METER (BEAKER) 135 mg/dL 70-110 TESTED AT [address] (test xhdb=7380) [facility] [address] POCT-GLUCOSE [id number] 17:31:00 Test Item Value Reference Range Comments POC-GLUCOSE METER (BEAKER) 113 mg/dL 70-110 TESTED AT [address] (test ykja=1177) [facility] [address] POCT-GLUCOSE [id number] 12:18:00 Test Item Value Reference Range Comments POC-GLUCOSE METER (BEAKER) 107 mg/dL 70-110 TESTED AT [address] (test ixru=0046) [place] [id number] POCT-GLUCOSE [id number] 08:14:00 Test Item Value Reference Range Comments POC-GLUCOSE METER (BEAKER) 107 mg/dL 70-110 TESTED AT [address] (test cxwq=6016) [facility] [address] CREATINE KINASE (CK)2018-02-22 07:55:00 Test Item Value Reference Range Comments CREATINE KINASE TOTAL (BEAKER) (test dbzz=435) 1559 U/L 29-200 PROTHROMBIN [id number] 06:50:00 Test Item Value Reference Range Comments PROTIME (BEAKER) (test emix=568) 18.4 seconds 11.7-14.7 INR (BEAKER) (test sirw=041) 1.5 <=5.9 RECOMMENDED COUMADIN/WARFARIN INR THERAPY RANGESSTANDARD DOSE: 2.0 - 3.0 Includes: PROPHYLAXIS forvenous thrombosis, systemic embolization; TREATMENT for venous thrombosis and/or pulmonary embolus.HIGH RISK: Target INR is 2.5-3.5 for patients with mechanical heart valves.While on warfarin.CBC W/PLT COUNT &amp ; AUTO [id number] 06:33:00 Test Item Value Reference Range Comments WHITE BLOOD CELL COUNT (BEAKER) (test qywh=942) 5.9 K/ L 3.5-10.5 RED BLOOD CELL COUNT (BEAKER) (test hdrr=742) 4.18 M/ L 4.63-6.08 HEMOGLOBIN (BEAKER) (test ydll=352) 11.7 GM/DL 13.7-17.5 HEMATOCRIT (BEAKER) (test acui=897) 37.3 % 40.1-51.0 MEAN CORPUSCULAR VOLUME (BEAKER) (test vprl=050) 89.2 fL 79.0-92.2 MEAN CORPUSCULAR HEMOGLOBIN (BEAKER) (test 28.0 pg 25.7-32.2 sots=500) MEAN CORPUSCULAR HEMOGLOBIN CONC (BEAKER) (test 31.4 GM/DL 32.3-36.5 humh=543) RED CELL DISTRIBUTION WIDTH (BEAKER) (test 14.9 % 11.6-14.4 dfap=493) PLATELET COUNT (BEAKER) (test sqte=897) 387 K/CU MM 150-450 MEAN PLATELET VOLUME (BEAKER) (test hqgf=937) 9.8 fL 9.4-12.4 NUCLEATED RED BLOOD CELLS (BEAKER) (test 0 /100 WBC 0-0 odxg=035) NEUTROPHILS RELATIVE PERCENT (BEAKER) (test 64 % umik=998) LYMPHOCYTES RELATIVE PERCENT (BEAKER) (test 15 % fevi=028) MONOCYTES RELATIVE PERCENT (BEAKER) (test 14 % mbav=874) EOSINOPHILS RELATIVE PERCENT (BEAKER) (test 5 % bepe=377) BASOPHILS RELATIVE PERCENT (BEAKER) (test 1 % yrhu=267) NEUTROPHILS ABSOLUTE COUNT (BEAKER) (test 3.78 K/ L 1.78-5.38 omdv=605) LYMPHOCYTES ABSOLUTE COUNT (BEAKER) (test 0.87 K/ L 1.32-3.57 gatz=361) MONOCYTES ABSOLUTE COUNT (BEAKER) (test 0.82 K/ L 0.30-0.82 xsps=793) EOSINOPHILS ABSOLUTE COUNT (BEAKER) (test 0.31 K/ L 0.04-0.54 kguo=242) BASOPHILS ABSOLUTE COUNT (BEAKER) (test 0.04 K/ L 0.01-0.08 nnji=602) IMMATURE GRANULOCYTES-RELATIVE PERCENT (BEAKER) 1 % 0-1 (test calh=6002) POCT-GLUCOSE [id number] 21:52:00 Test Item Value Reference Range Comments POC-GLUCOSE METER (BEAKER) 124 mg/dL 70-110 TESTED AT [address] (test lnom=9746) [facility] [address] POCT-GLUCOSE [id number] 17:58:00 Test Item Value Reference Range Comments POC-GLUCOSE METER (BEAKER) 111 mg/dL 70-110 TESTED AT [address] (test dpzq=2496) [facility] [address] POCT-GLUCOSE [id number] 12:17:00 Test Item Value Reference Range Comments POC-GLUCOSE METER (BEAKER) 115 mg/dL 70-110 TESTED AT [address] (test ckgz=8185) [facility] [address] POCT-GLUCOSE [id number] 09:11:00 Test Item Value Reference Range Comments POC-GLUCOSE METER (BEAKER) 112 mg/dL 70-110 TESTED AT [address] (test eilf=8009) [facility] [address] CREATINE KINASE (CK)2018-02-21 06:20:00 Test Item Value Reference Range Comments CREATINE KINASE TOTAL (BEAKER) (test sucp=318) 1509 U/L 29-200 PROTHROMBIN [id number] 05:55:00 Test Item Value Reference Range Comments PROTIME (BEAKER) (test anoe=929) 17.7 seconds 11.7-14.7 INR (BEAKER) (test kbgg=838) 1.5 <=5.9 RECOMMENDED COUMADIN/WARFARIN INR THERAPY RANGESSTANDARD DOSE: 2.0 - 3.0 Includes: PROPHYLAXIS forvenous thrombosis, systemic embolization; TREATMENT for venous thrombosis and/or pulmonary embolus.HIGH RISK: Target INR is 2.5-3.5 for patients with mechanical heart valves.While on warfarin.CBC W/PLT COUNT &amp ; AUTO [id number] 05:42:00 Test Item Value Reference Range Comments WHITE BLOOD CELL COUNT (BEAKER) (test mwuo=482) 7.5 K/ L 3.5-10.5 RED BLOOD CELL COUNT (BEAKER) (test elph=656) 4.16 M/ L 4.63-6.08 HEMOGLOBIN (BEAKER) (test voax=172) 11.6 GM/DL 13.7-17.5 HEMATOCRIT (BEAKER) (test xmxd=258) 36.8 % 40.1-51.0 MEAN CORPUSCULAR VOLUME (BEAKER) (test wsxf=605) 88.5 fL 79.0-92.2 MEAN CORPUSCULAR HEMOGLOBIN (BEAKER) (test 27.9 pg 25.7-32.2 upbo=756) MEAN CORPUSCULAR HEMOGLOBIN CONC (BEAKER) (test 31.5 GM/DL 32.3-36.5 qaad=105) RED CELL DISTRIBUTION WIDTH (BEAKER) (test 15.1 % 11.6-14.4 ftrs=821) PLATELET COUNT (BEAKER) (test wzyf=225) 388 K/CU MM 150-450 MEAN PLATELET VOLUME (BEAKER) (test zyfg=210) 9.4 fL 9.4-12.4 NUCLEATED RED BLOOD CELLS (BEAKER) (test 0 /100 WBC 0-0 lzfj=583) NEUTROPHILS RELATIVE PERCENT (BEAKER) (test 67 % bycd=519) LYMPHOCYTES RELATIVE PERCENT (BEAKER) (test 12 % grwr=565) MONOCYTES RELATIVE PERCENT (BEAKER) (test 14 % lqsg=451) EOSINOPHILS RELATIVE PERCENT (BEAKER) (test 4 % kjic=430) BASOPHILS RELATIVE PERCENT (BEAKER) (test 1 % lyte=177) NEUTROPHILS ABSOLUTE COUNT (BEAKER) (test 5.00 K/ L 1.78-5.38 blnl=272) LYMPHOCYTES ABSOLUTE COUNT (BEAKER) (test 0.90 K/ L 1.32-3.57 vsdz=600) MONOCYTES ABSOLUTE COUNT (BEAKER) (test 1.07 K/ L 0.30-0.82 ifvj=902) EOSINOPHILS ABSOLUTE COUNT (BEAKER) (test 0.33 K/ L 0.04-0.54 zhag=244) BASOPHILS ABSOLUTE COUNT (BEAKER) (test 0.05 K/ L 0.01-0.08 ltht=659) IMMATURE GRANULOCYTES-RELATIVE PERCENT (BEAKER) 2 % 0-1 (test rdwe=6815) POCT-GLUCOSE [id number] 21:06:00 Test Item Value Reference Range Comments POC-GLUCOSE METER (BEAKER) 153 mg/dL 70-[address] [facility] [address] [facility] (test lfow=5853) [facility] [address] POCT-GLUCOSE [id number] 12:35:00 Test Item Value Reference Range Comments POC-GLUCOSE METER (BEAKER) 99 mg/dL 70-[address] [facility] [address] [facility] (test mial=2817) [facility] [address] POCT-GLUCOSE [id number] 08:20:00 Test Item Value Reference Range Comments POC-GLUCOSE METER (BEAKER) 92 mg/dL 70-[address] [facility] [address] [facility] (test mcdi=8099) [facility] [address] T4, [id number] 07:10:00 Test Item Value Reference Range Comments FREE T4 (BEAKER) (test lflc=083) 0.97 ng/dL 0.70-1.48 TSH/FREE T4 IF [id number] 06:18:00 Test Item Value Reference Range Comments THYROID STIMULATING HORMONE (BEAKER) (test 20.29 uIU/mL 0.35-4.94 hxnf=676) BASIC METABOLIC [id number] 05:55:00 Test Item Value Reference Range Comments SODIUM (BEAKER) (test 133 meq/L 136-145 ianl=689) POTASSIUM (BEAKER) (test 4.6 meq/L 3.5-5.1 zxoh=822) CHLORIDE (BEAKER) (test 101 meq/L 98-107 prno=431) CO2 (BEAKER) (test 26 meq/L 22-29 tnsc=679) BLOOD UREA NITROGEN 20 mg/dL 7-21 (BEAKER) (test veli=022) CREATININE (BEAKER) (test 0.99 mg/dL 0.57-1.25 zpvf=753) GLUCOSE RANDOM (BEAKER) 99 mg/dL 70-105 (test izez=555) CALCIUM (BEAKER) (test 9.2 mg/dL 8.4-10.2 flic=033) EGFR (BEAKER) (test 77 mL/min/1.73 sq m ESTIMATED GFR IS NOT coac=7825) ACCURATE CREATININE CLEARANCE IN PREDICTING GLOMERULAR FILTRATION RATE. ESTIMATED GFR IS NOT APPLICABLE FOR DIALYSIS PATIENTS. CREATINE KINASE (CK)2018-02-20 05:55:00 Test Item Value Reference Range Comments CREATINE KINASE TOTAL (BEAKER) (test sjsa=891) 1481 U/L 29-200 PROTHROMBIN [id number] 05:36:00 Test Item Value Reference Range Comments PROTIME (BEAKER) (test onkf=698) 16.0 seconds 11.7-14.7 INR (BEAKER) (test yglv=326) 1.3 <=5.9 RECOMMENDED COUMADIN/WARFARIN INR THERAPY RANGESSTANDARD DOSE: 2.0 - 3.0 Includes: PROPHYLAXIS forvenous thrombosis, systemic embolization; TREATMENT for venous thrombosis and/or pulmonary embolus.HIGH RISK: Target INR is 2.5-3.5 for patients with mechanical heart valves.While on warfarin.CBC W/PLT COUNT &amp ; AUTO [id number] 05:19:00 Test Item Value Reference Range Comments WHITE BLOOD CELL COUNT (BEAKER) (test bczv=752) 6.8 K/ L 3.5-10.5 RED BLOOD CELL COUNT (BEAKER) (test lumf=303) 4.20 M/ L 4.63-6.08 HEMOGLOBIN (BEAKER) (test sann=925) 11.6 GM/DL 13.7-17.5 HEMATOCRIT (BEAKER) (test mzix=759) 37.3 % 40.1-51.0 MEAN CORPUSCULAR VOLUME (BEAKER) (test tbts=370) 88.8 fL 79.0-92.2 MEAN CORPUSCULAR HEMOGLOBIN (BEAKER) (test 27.6 pg 25.7-32.2 mzox=563) MEAN CORPUSCULAR HEMOGLOBIN CONC (BEAKER) (test 31.1 GM/DL 32.3-36.5 bgep=709) RED CELL DISTRIBUTION WIDTH (BEAKER) (test 15.2 % 11.6-14.4 rfdv=734) PLATELET COUNT (BEAKER) (test nwyh=357) 385 K/CU MM 150-450 MEAN PLATELET VOLUME (BEAKER) (test yspb=537) 9.4 fL 9.4-12.4 NUCLEATED RED BLOOD CELLS (BEAKER) (test 0 /100 WBC 0-0 fmzq=895) NEUTROPHILS RELATIVE PERCENT (BEAKER) (test 66 % xwyo=962) LYMPHOCYTES RELATIVE PERCENT (BEAKER) (test 14 % awwv=359) MONOCYTES RELATIVE PERCENT (BEAKER) (test 12 % nqko=877) EOSINOPHILS RELATIVE PERCENT (BEAKER) (test 5 % kcdg=437) BASOPHILS RELATIVE PERCENT (BEAKER) (test 1 % mtvc=445) NEUTROPHILS ABSOLUTE COUNT (BEAKER) (test 4.49 K/ L 1.78-5.38 qpfu=476) LYMPHOCYTES ABSOLUTE COUNT (BEAKER) (test 0.92 K/ L 1.32-3.57 vzup=121) MONOCYTES ABSOLUTE COUNT (BEAKER) (test 0.81 K/ L 0.30-0.82 pasi=873) EOSINOPHILS ABSOLUTE COUNT (BEAKER) (test 0.33 K/ L 0.04-0.54 uquy=500) BASOPHILS ABSOLUTE COUNT (BEAKER) (test 0.04 K/ L 0.01-0.08 xhqg=070) IMMATURE GRANULOCYTES-RELATIVE PERCENT (BEAKER) 3 % 0-1 (test pcun=9257) POCT-GLUCOSE [id number] 21:57:00 Test Item Value Reference Range Comments POC-GLUCOSE METER (BEAKER) 115 mg/dL 70-110 TESTED AT [address] (test weje=0020) [place] [address] POCT-GLUCOSE [id number] 18:03:00 Test Item Value Reference Range Comments POC-GLUCOSE METER (BEAKER) 138 mg/dL 70-110 TESTED AT [address] (test rjtg=4354) [place] [address] PROTEIN ELECTROPHORESIS, [id number] 17:26:00 Test Item Value Reference Range Comments ALBUMIN FRACTION (BEAKER) 2.2 g/dL 3.5-5.5 (test urwz=218) ALPHA 1 FRACTION (BEAKER) 0.5 g/dL 0.2-0.4 (test iqdf=743) ALPHA 2 FRACTION (BEAKER) 1.1 g/dL 0.5-0.9 (test xrjg=773) BETA FRACTION (BEAKER) (test 1.2 g/dL 0.6-1.1 xtzo=986) GAMMA GLOBULIN FRACTION 1.2 g/dL 0.7-1.7 (BEAKER) (test rfxb=011) INTERPRETATION-119 (BEAKER) Pattern consistent with acute (test qotj=3166) inflammation as well as renal protein loss. No monoclonal bands detected. [id number] Yumiko Wagner MD (BEAKER) (test yleq=3834) (electronic signature) PROTEIN TOTAL SERUM, SPEP 6.1 gm/dL 6.0-8.3 (BEAKER) (test qxnp=2052) [id number] 14:35:00 Test Item Value Reference Range Comments PARTIAL THROMBOPLASTIN TIME (BEAKER) (test 33.7 seconds 22.5-36.0 thwv=275) PROTHROMBIN [id number] 14:34:00 Test Item Value Reference Range Comments PROTIME (BEAKER) (test zrby=732) 16.1 seconds 11.7-14.7 INR (BEAKER) (test twfg=077) 1.3 <=5.9 RECOMMENDED COUMADIN/WARFARIN INR THERAPY RANGESSTANDARD DOSE: 2.0 - 3.0 Includes: PROPHYLAXIS forvenous thrombosis, systemic embolization; TREATMENT for venous thrombosis and/or pulmonary embolus.HIGH RISK: Target INR is 2.5-3.5 for patients with mechanical heart valves.POCT-GLUCOSE [id number] 13:04:00 Test Item Value Reference Range Comments POC-GLUCOSE METER (BEAKER) 111 mg/dL 70-110 TESTED AT [address] (test kdzq=2529) [facility] [id number] POCT-GLUCOSE [id number] 08:53:00 Test Item Value Reference Range Comments POC-GLUCOSE METER (BEAKER) 98 mg/dL 70-110 TESTED AT [address] (test laby=7779) [facility] [id number] CREATINE KINASE (CK)2018-02-19 03:18:00 Test Item Value Reference Range Comments CREATINE KINASE TOTAL (BEAKER) (test fedl=667) 1587 U/L 29-200 PROTHROMBIN [id number] 03:17:00 Test Item Value Reference Range Comments PROTIME (BEAKER) (test jbqz=138) 17.2 seconds 11.7-14.7 INR (BEAKER) (test zcis=386) 1.4 <=5.9 RECOMMENDED COUMADIN/WARFARIN INR THERAPY RANGESSTANDARD DOSE: 2.0 - 3.0 Includes: PROPHYLAXIS forvenous thrombosis, systemic embolization; TREATMENT for venous thrombosis and/or pulmonary embolus.HIGH RISK: Target INR is 2.5-3.5 for patients with mechanical heart valves.While on warfarin.CBC W/PLT COUNT &amp ; AUTO [id number] 02:48:00 Test Item Value Reference Range Comments WHITE BLOOD CELL COUNT (BEAKER) (test yjld=092) 8.2 K/ L 3.5-10.5 RED BLOOD CELL COUNT (BEAKER) (test jvqo=688) 4.37 M/ L 4.63-6.08 HEMOGLOBIN (BEAKER) (test uwgh=150) 12.1 GM/DL 13.7-17.5 HEMATOCRIT (BEAKER) (test qkyz=963) 38.8 % 40.1-51.0 MEAN CORPUSCULAR VOLUME (BEAKER) (test ykxm=065) 88.8 fL 79.0-92.2 MEAN CORPUSCULAR HEMOGLOBIN (BEAKER) (test 27.7 pg 25.7-32.2 cioj=601) MEAN CORPUSCULAR HEMOGLOBIN CONC (BEAKER) (test 31.2 GM/DL 32.3-36.5 nkam=603) RED CELL DISTRIBUTION WIDTH (BEAKER) (test 15.2 % 11.6-14.4 uiqh=469) PLATELET COUNT (BEAKER) (test ghgb=033) 395 K/CU MM 150-450 MEAN PLATELET VOLUME (BEAKER) (test jgsa=853) 9.3 fL 9.4-12.4 NUCLEATED RED BLOOD CELLS (BEAKER) (test 0 /100 WBC 0-0 rgbs=907) NEUTROPHILS RELATIVE PERCENT (BEAKER) (test 67 % iokk=405) LYMPHOCYTES RELATIVE PERCENT (BEAKER) (test 13 % xuxv=061) MONOCYTES RELATIVE PERCENT (BEAKER) (test 12 % dagm=570) EOSINOPHILS RELATIVE PERCENT (BEAKER) (test 5 % zyos=867) BASOPHILS RELATIVE PERCENT (BEAKER) (test 1 % cfhs=140) NEUTROPHILS ABSOLUTE COUNT (BEAKER) (test 5.53 K/ L 1.78-5.38 voax=023) LYMPHOCYTES ABSOLUTE COUNT (BEAKER) (test 1.03 K/ L 1.32-3.57 taxi=711) MONOCYTES ABSOLUTE COUNT (BEAKER) (test 1.00 K/ L 0.30-0.82 ezwh=471) EOSINOPHILS ABSOLUTE COUNT (BEAKER) (test 0.37 K/ L 0.04-0.54 kswd=502) BASOPHILS ABSOLUTE COUNT (BEAKER) (test 0.04 K/ L 0.01-0.08 muhj=784) IMMATURE GRANULOCYTES-RELATIVE PERCENT (BEAKER) 3 % 0-1 (test vvxd=3890) POCT-GLUCOSE [id number] 23:49:00 Test Item Value Reference Range Comments POC-GLUCOSE METER (BEAKER) 161 mg/dL 70-110 TESTED AT [address] (test kvsf=4100) [facility] [id number] POCT-GLUCOSE [id number] 16:11:00 Test Item Value Reference Range Comments POC-GLUCOSE METER (BEAKER) 124 mg/dL 70-110 TESTED AT [address] (test aizb=8872) [facility] [address] POCT-GLUCOSE [id number] 12:21:00 Test Item Value Reference Range Comments POC-GLUCOSE METER (BEAKER) 145 mg/dL 70-110 TESTED AT [address] (test vvph=2624) [facility] [address] POCT-GLUCOSE [id number] 08:06:00 Test Item Value Reference Range Comments POC-GLUCOSE METER (BEAKER) 98 mg/dL 70-110 TESTED AT [address] (test ngzp=6681) [facility] [address] PROTHROMBIN [id number] 03:22:00 Test Item Value Reference Range Comments PROTIME (BEAKER) (test wbyc=044) 15.8 seconds 11.7-14.7 INR (BEAKER) (test egle=563) 1.3 <=5.9 RECOMMENDED COUMADIN/WARFARIN INR THERAPY RANGESSTANDARD DOSE: 2.0 - 3.0 Includes: PROPHYLAXIS forvenous thrombosis, systemic embolization; TREATMENT for venous thrombosis and/or pulmonary embolus.HIGH RISK: Target INR is 2.5-3.5 for patients with mechanical heart valves.While on warfarin.CREATINE KINASE (CK) 2018-02-18 03:11:00 Test Item Value Reference Range Comments CREATINE KINASE TOTAL (BEAKER) (test lxud=514) 1703 U/L 29-200 CBC W/PLT COUNT & AUTO [id number] 02:56:00 Test Item Value Reference Range Comments WHITE BLOOD CELL COUNT (BEAKER) (test nuzd=067) 10.2 K/ L 3.5-10.5 RED BLOOD CELL COUNT (BEAKER) (test sobv=899) 4.22 M/ L 4.63-6.08 HEMOGLOBIN (BEAKER) (test tvhq=538) 11.7 GM/DL 13.7-17.5 HEMATOCRIT (BEAKER) (test otuo=124) 37.4 % 40.1-51.0 MEAN CORPUSCULAR VOLUME (BEAKER) (test svhz=743) 88.6 fL 79.0-92.2 MEAN CORPUSCULAR HEMOGLOBIN (BEAKER) (test 27.7 pg 25.7-32.2 weaj=439) MEAN CORPUSCULAR HEMOGLOBIN CONC (BEAKER) (test 31.3 GM/DL 32.3-36.5 wuhk=254) RED CELL DISTRIBUTION WIDTH (BEAKER) (test 15.2 % 11.6-14.4 xstk=613) PLATELET COUNT (BEAKER) (test pxhl=684) 414 K/CU MM 150-450 MEAN PLATELET VOLUME (BEAKER) (test zlho=327) 9.5 fL 9.4-12.4 NUCLEATED RED BLOOD CELLS (BEAKER) (test 0 /100 WBC 0-0 ibfo=209) NEUTROPHILS RELATIVE PERCENT (BEAKER) (test 68 % shgu=219) LYMPHOCYTES RELATIVE PERCENT (BEAKER) (test 13 % qied=702) MONOCYTES RELATIVE PERCENT (BEAKER) (test 10 % aahw=297) EOSINOPHILS RELATIVE PERCENT (BEAKER) (test 4 % lomp=359) BASOPHILS RELATIVE PERCENT (BEAKER) (test 1 % hqxz=780) NEUTROPHILS ABSOLUTE COUNT (BEAKER) (test 6.88 K/ L 1.78-5.38 hubd=414) LYMPHOCYTES ABSOLUTE COUNT (BEAKER) (test 1.27 K/ L 1.32-3.57 wjis=365) MONOCYTES ABSOLUTE COUNT (BEAKER) (test 1.06 K/ L 0.30-0.82 uqtf=331) EOSINOPHILS ABSOLUTE COUNT (BEAKER) (test 0.39 K/ L 0.04-0.54 iydc=514) BASOPHILS ABSOLUTE COUNT (BEAKER) (test 0.06 K/ L 0.01-0.08 hyig=988) IMMATURE GRANULOCYTES-RELATIVE PERCENT (BEAKER) 5 % 0-1 (test ytvy=1025) POCT-GLUCOSE [id number] 20:48:00 Test Item Value Reference Range Comments POC-GLUCOSE METER (BEAKER) 148 mg/dL 70-110 TESTED AT [address] (test msla=9485) [facility] [address] POCT-GLUCOSE [id number] 16:47:00 Test Item Value Reference Range Comments POC-GLUCOSE METER (BEAKER) 106 mg/dL 70-110 TESTED AT [address] (test kadu=9456) [place] [address] CBC W/PLT COUNT & AUTO [id number] 12:51:00 Test Item Value Reference Range Comments WHITE BLOOD CELL COUNT (BEAKER) (test acxk=871) 9.8 K/ L 3.5-10.5 RED BLOOD CELL COUNT (BEAKER) (test pfqg=874) 4.35 M/ L 4.63-6.08 HEMOGLOBIN (BEAKER) (test koey=545) 12.0 GM/DL 13.7-17.5 HEMATOCRIT (BEAKER) (test kfhq=118) 38.8 % 40.1-51.0 MEAN CORPUSCULAR VOLUME (BEAKER) (test ltzn=570) 89.2 fL 79.0-92.2 MEAN CORPUSCULAR HEMOGLOBIN (BEAKER) (test 27.6 pg 25.7-32.2 klsw=957) MEAN CORPUSCULAR HEMOGLOBIN CONC (BEAKER) (test 30.9 GM/DL 32.3-36.5 cvxa=805) RED CELL DISTRIBUTION WIDTH (BEAKER) (test 15.2 % 11.6-14.4 uazl=960) PLATELET COUNT (BEAKER) (test pmtw=043) 422 K/CU MM 150-450 MEAN PLATELET VOLUME (BEAKER) (test fddz=944) 9.8 fL 9.4-12.4 NUCLEATED RED BLOOD CELLS (BEAKER) (test 0 /100 WBC 0-0 lkuj=705) (CELLAVISION MANUAL DIFF)2018-02-17 12:51:00 Test Item Value Reference Range Comments NEUTROPHILS - REL (CELLAVISION)(BEAKER) (test 71 % icfi=9219) LYMPHOCYTES - REL (CELLAVISION)(BEAKER) (test 13 % rkvc=7291) MONOCYTES - REL (CELLAVISION)(BEAKER) (test 4 % urhp=5030) EOSINOPHILS - REL (CELLAVISION)(BEAKER) (test 3 % nblr=9242) METAMYELOCYTES - REL (CELLAVISION)(BEAKER) (test 2 % 0-0 jltx=8426) MYELOCYTES - REL (CELLAVISION)(BEAKER) (test 1 % 0-0 ylde=2670) BANDS - REL (CELLAVISION)(BEAKER) (test inlt=9535) 5 % 0-10 ATYPICAL LYMPHOCYTES - REL (CELLAVISION)(BEAKER) 1 % 0-0 (test yiym=6119) NEUTROPHILS - ABS (CELLAVISION)(BEAKER) (test 6.96 K/ul 1.78-5.38 suxc=4108) LYMPHOCYTES - ABS (CELLAVISION)(BEAKER) (test 1.27 K/ul 1.32-3.57 jfyd=7325) MONOCYTES - ABS (CELLAVISION)(BEAKER) (test 0.39 K/uL 0.30-0.82 vazb=0264) EOSINOPHILS - ABS (CELLAVISION)(BEAKER) (test 0.29 K/uL 0.04-0.54 lbjl=7886) METAMYELOCYTES - ABS (CELLAVISION)(BEAKER) (test 0.20 K/uL 0.00-0.00 vxkg=7634) MYELOCYTES-ABS (CELLAVISION)(BEAKER) (test 0.10 K/uL 0.00-0.00 mzkg=0692) BANDS - ABS (CELLAVISION)(BEAKER) (test xxot=8812) 0.49 K/uL 0.00-0.80 ATYPICAL LYMPHOCYTES - ABS (CELLAVISION)(BEAKER) 0.10 K/uL 0.00-0.00 (test kfqv=4115) TOTAL COUNTED (BEAKER) (test orsg=2901) 100 SMUDGE CELLS (BEAKER) (test clsl=0603) Present GIANT PLATELETS (BEAKER) (test pxnc=661) Present POLYCHROMATOPHILLIC RBCS(BEAKER) (test ydsh=566) 1+ few ANISOCYTOSIS (BEAKER) (test urpa=110) 1+ few MICROCYTES (BEAKER) (test niru=505) 1+ few PLATELET CONCENTRATION (CELLAVISION)(BEAKER) (test Adequate zcgs=1830) Received comment: User comments: Slide comments:POCT-GLUCOSE [id number] 12: 34:00 Test Item Value Reference Range Comments POC-GLUCOSE METER (BEAKER) 114 mg/dL 70-[address] [facility] [address] (test vzaa=4015) [facility] [address] SURGICALLY OBTAINED CULTURE + GRAM [id number] 08:07:00 Test Item Value Reference Range Comments CULTURE (BEAKER) (test zwkq=4847) No growth GRAM STAIN RESULT (BEAKER) (test No WBCs dsdg=5617) GRAM STAIN RESULT (BEAKER) (test No organisms seen reyf=27092) POCT-GLUCOSE [id number] 07:35:00 Test Item Value Reference Range Comments POC-GLUCOSE METER (BEAKER) 108 mg/dL 70-[address] [facility] [address] [facility] (test odks=9780) [facility] [address] BASIC METABOLIC [id number] 07:06:00 Test Item Value Reference Range Comments SODIUM (BEAKER) (test 132 meq/L 136-145 afov=513) POTASSIUM (BEAKER) (test 4.9 meq/L 3.5-5.1 gife=342) CHLORIDE (BEAKER) (test 101 meq/L 98-107 gprl=193) CO2 (BEAKER) (test 22 meq/L 22-29 wshc=585) BLOOD UREA NITROGEN 17 mg/dL 7-21 (BEAKER) (test aqyo=125) CREATININE (BEAKER) (test 1.02 mg/dL 0.57-1.25 zuzf=961) GLUCOSE RANDOM (BEAKER) 97 mg/dL 70-105 (test frpi=487) CALCIUM (BEAKER) (test 9.7 mg/dL 8.4-10.2 tbcs=458) EGFR (BEAKER) (test 75 mL/min/1.73 sq m ESTIMATED GFR IS NOT wsow=0571) ACCURATE CREATININE CLEARANCE IN PREDICTING GLOMERULAR FILTRATION RATE. ESTIMATED GFR IS NOT APPLICABLE FOR DIALYSIS PATIENTS. CREATINE KINASE (CK)2018-02-17 07:06:00 Test Item Value Reference Range Comments CREATINE KINASE TOTAL (BEAKER) (test zcbh=560) 1855 U/L 29-200 PROTHROMBIN [id number] 06:47:00 Test Item Value Reference Range Comments PROTIME (BEAKER) (test vbqu=101) 15.7 seconds 11.7-14.7 INR (BEAKER) (test xolw=826) 1.3 <=5.9 RECOMMENDED COUMADIN/WARFARIN INR THERAPY RANGESSTANDARD DOSE: 2.0 - 3.0 Includes: PROPHYLAXIS forvenous thrombosis, systemic embolization; TREATMENT for venous thrombosis and/or pulmonary embolus.HIGH RISK: Target INR is 2.5-3.5 for patients with mechanical heart valves.While on warfarin.POCT-GLUCOSE [id number] 21:29:00 Test Item Value Reference Range Comments POC-GLUCOSE METER (NELL) 124 mg/dL 70-[address] [facility] [address] (test aqgw=8310) [facility] [address] NEEDLE EMG, 2 [id number] 19:19:00Reason for exam:->muscle weakness and numbness in RLE. Myopathy vs vasculitisShould this be performed at the bedside?->YesBaylor Mad [facility] HospitalNeurophysiology DepartmentELECTROMYOGRAPHY/NERVE CONDUCTION STUDY [address] [place] [address] Name: Og Kilpatrick : Date of : 1960 Gender: Male Date of Exam: 02/16/2018 6:18 PMReferring Physician: Dr. Brannon SharpExamining Physician: Dr. Alicia Mead Patient History: Patient presents with a 2 week history of sudden onset of numbness in the right leg that then progressed to weakness of the foot and leg over the next day or so, accompanied by progressive swelling, erythema, bruising and blistering of right matos and inner thigh on right side. He endorses some improvement in foot strength. Exam shows no strength with right dorsiflexion/eversion/inversion and toe flexion/extension, moderate weakness in plantar flexion, knee extension and hipflexion, good strength in knee flexion; normal findings in upper and left lower limbs. This study was done to evaluate for myopathy (had elevated CK), right lumbosacral plexopathy or mononeuropathyTemperature: 29 CMotor Nerve Conduction:Nerve and Site Latency Amplitude Segment LatencyDifference Distance ConductionVelocityMedian.RWrist 4.2 ms 10.1 mV Abductor pollicis brevis-Wrist 4.2 ms Elbow 9.3 ms 8.4 mV Wrist- Elbow 5.1 ms 260 mm 51 m/sUlnar.RWrist 3.0 ms 14.5 mV Abductor digiti minimi ( manus)-Wrist 3.0 ms Below elbow 7.8 ms 13.0 mV Wrist-Below elbow 4.8 ms 250 mm 52 m/sAbove elbow 10.2 ms 13.0 mV Below elbow-Above elbow 2.4 ms 110 mm 46 m/ sTibial.R *Edema and thick scaly skinAnkle NR NR Abductor hallucis-Ankle Popliteal fossa NR NR Ankle-Popliteal fossa Peroneal.R *Edema and thick scaly skinAnkle NR NR Extensor digitorum brevis-Ankle Fibula (head) NR NR Ankle- Fibula (head) Tibial.LAnkle 6.3 ms 6.1 mV Abductor hallucis-Ankle Poplitealfossa TI TI Ankle-Popliteal fossa * Technically limited by body habitusPeroneal.R *Thick scaly skinAnkle NR NR Extensor digitorum brevis-Ankle Fibula (head) NR NR Ankle-Fibula (head) Peroneal.LFibula 1.8 ms 3.0 mV Tibialis anterior-Fibula Knee 4.5 ms 3.4 mV Fibula-Knee 2.7 ms 100 mm 37 m/sF- Wave StudiesNerve M-Latency F-LatencyMedian.R 9.3 28.3Ulnar.R 10.2 33.0Tibial.L 7.7 55.0Sensory Nerve Conduction:Nerve and Site Onset Latency PeakLatency Amplitude Segment LatencyDifference Distance ConductionVelocityMedian.RWrist 2.8 ms 4.1 ms *3.3 corrected for temp 37 彚V Digit II (index finger)- Wrist 2.8 ms 130 mm 46 m/sUlnar.RWrist 2.7 ms 4.0 ms *3.2 corrected for temp 15 𓮝V Digit V (little finger)-Wrist 2.7 ms 110 mm 41 m/sRadial.RForearm 1.7 ms 2.8 ms 34 륦V Anatomical snuff box-Forearm 1.7 ms 100 mm 36 m/ sSural.R *Edema and thick scaly skinLower leg NR NR NR Ankle-Lower leg 140 mm Sural.L *Edema and thick scaly skinLower leg NR NR NR Ankle-Lower leg 140mm Needle EMG Examination: Insertional Spontaneous Activity Volitional MUAPsMuscle Insertional Fibs +Wave Fasc Duration Amplitude Poly Recruitment Gastrocnemius (Medial head).R Increased 1+ 2+ None Normal Normal None Normal Vastus medialis.R Increased 2+ 2+ None - - - No units Vastus lateralis.R Normal None None None Normal Normal None Normal Tibialis posterior.R CRD 2+ 2+ None - - - No units Extensor hallucis longus.R Normal None None None - - - No units Gluteus Medius.R Normal None None None Normal Normal None Normal Tibialis anterior.L Normal None None None Normal Normal None Normal Gastrocnemius ( Medial head).L Normal None None None Normal Normal None Normal Vastus medialis.L Normal None None None Normal Normal None Normal 1st dorsal interosseous.R Normal None None None Normal Normal None Normal Biceps brachii.R Normal None None None Normal Normal None Normal Deltoid.R Normal None None None Normal Normal None Normal Biceps femoris (short head).R Normal None None None Normal Normal None Normal Summary of findings: 1. Sensory studies of the sural nerves showed no response, but limited by artifact likely secondary to marked thickening of skin. The right median, ulnar, and radial nerves showed normal peak latencies when corrected for temperature and normal amplitudes.2. Motor studies of the right median and ulnar nerves showed normal findings. The left tibial distal stimulation was normal, but proximal stimulation limited by body habitus. The left peroneal at TA showed normal findingsexcept mild velocity slowing. The right tibial and both peroneal at EDB's studies showed no responses, but noted severe thick skin changes bilaterally and edema on the right. F-wave latencies of the right median, ulnar and left tibial nerves were normal.3. Electromyography of the right upper and both lower limbs was done using a disposable concentric needle. There was abnormal spontaneous activity in the right gastrocnemius, vastus medialis, and tibialis posterior. There were no units recruitedin right EHL, tibialis posterior and vastus medialis. The remainder of the muscles tested showed normal findings. Limitations:- Severe edema in right lower limb and thickened skin in both feet limitedstudies of sural, right tibial and peroneal nerves - Deferred right peroneal at TA due to open skin lesions- Electromyography of the right iliopsoas and paraspinals limited by body habitus- Electromyography of the tibialis anterior and adductor longus deferred due to skin changesConclusions: This is an abnormal but limited (see above) electrodiagnostic study due to the followin. Subacute severe denervation in selected muscles of the right lower limb (vastus medialis, tibialis posterior, gastrocnemius) but unclear if this is myopathic or neurogenic in origin since no units were recruited and conductions were limited by edema and thickened skin changes. The differential for these findings includes partial neurogenic injury at the distal sciatic and femoral nerves, a partial lumbosacral plexopathy, or focal muscle necrosis (though the latter does not explain clinical sensory deficits). There is no electrophysiologic evidence of generalized myopathy. A large-fiber peripheral polyneuropathy could not be properly evaluated given limitations in conductions but no findings in the upper limb. Alicia Kimble M.D. 07: 19 PMPOCT-GLUCOSE [id number] 17:14:00 Test Item Value Reference Range Comments POC-GLUCOSE METER (BEAKER) 115 mg/dL 70-110 TESTED AT [address] (test gnvi=6839) [place] [id number] POCT-GLUCOSE [id number] 12:59:00 Test Item Value Reference Range Comments POC-GLUCOSE METER (BEAKER) 100 mg/dL 70-110 TESTED AT [address] (test cuvh=1859) [place] [id number] CBC W/PLT COUNT & AUTO [id number] 11:12:00 Test Item Value Reference Range Comments WHITE BLOOD CELL COUNT (BEAKER) (test iuwd=811) 11.4 K/ L 3.5-10.5 RED BLOOD CELL COUNT (BEAKER) (test wcna=092) 4.34 M/ L 4.63-6.08 HEMOGLOBIN (BEAKER) (test zgdq=651) 12.0 GM/DL 13.7-17.5 HEMATOCRIT (BEAKER) (test zlox=651) 39.2 % 40.1-51.0 MEAN CORPUSCULAR VOLUME (BEAKER) (test bqik=616) 90.3 fL 79.0-92.2 MEAN CORPUSCULAR HEMOGLOBIN (BEAKER) (test 27.6 pg 25.7-32.2 grql=378) MEAN CORPUSCULAR HEMOGLOBIN CONC (BEAKER) (test 30.6 GM/DL 32.3-36.5 eild=085) RED CELL DISTRIBUTION WIDTH (BEAKER) (test 15.4 % 11.6-14.4 zqaj=382) PLATELET COUNT (BEAKER) (test ezwm=339) 368 K/CU MM 150-450 MEAN PLATELET VOLUME (BEAKER) (test kkgi=605) 9.8 fL 9.4-12.4 NUCLEATED RED BLOOD CELLS (BEAKER) (test 0 /100 WBC 0-0 tfgk=035) (CELLAVISION MANUAL DIFF)2018-02-16 11:12:00 Test Item Value Reference Range Comments NEUTROPHILS - REL (CELLAVISION)(BEAKER) (test 68 % fwai=8757) LYMPHOCYTES - REL (CELLAVISION)(BEAKER) (test 14 % swlg=4145) MONOCYTES - REL (CELLAVISION)(BEAKER) (test 7 % ungy=2397) EOSINOPHILS - REL (CELLAVISION)(BEAKER) (test 3 % tdbc=4029) METAMYELOCYTES - REL (CELLAVISION)(BEAKER) (test 2 % 0-0 vgam=7959) MYELOCYTES - REL (CELLAVISION)(BEAKER) (test 3 % 0-0 bnkj=9326) BANDS - REL (CELLAVISION)(BEAKER) (test npss=0924) 3 % 0-10 NEUTROPHILS - ABS (CELLAVISION)(BEAKER) (test 7.75 K/ul 1.78-5.38 dqrz=4854) LYMPHOCYTES - ABS (CELLAVISION)(BEAKER) (test 1.60 K/ul 1.32-3.57 kawk=4724) MONOCYTES - ABS (CELLAVISION)(BEAKER) (test 0.80 K/uL 0.30-0.82 qnxw=7090) EOSINOPHILS - ABS (CELLAVISION)(BEAKER) (test 0.34 K/uL 0.04-0.54 zqld=7096) METAMYELOCYTES - ABS (CELLAVISION)(BEAKER) (test 0.23 K/uL 0.00-0.00 aesu=8786) MYELOCYTES-ABS (CELLAVISION)(BEAKER) (test 0.34 K/uL 0.00-0.00 jdic=4747) BANDS - ABS (CELLAVISION)(BEAKER) (test qobd=8987) 0.34 K/uL 0.00-0.80 TOTAL COUNTED (BEAKER) (test xkgs=1381) 100 WBC MORPHOLOGY (BEAKER) (test khwg=831) Normal PLT MORPHOLOGY (BEAKER) (test kgzr=046) Normal POIKILOCYTES (BEAKER) (test utqc=927) 1+ few SPHEROCYTES (BEAKER) (test ndnb=929) 1+ few ARTIFACT (CELLAVISION)(BEAKER) (test wpki=7959) Present PLATELET CONCENTRATION (CELLAVISION)(BEAKER) (test Adequate vlpd=9719) Received comment: User comments: Slide comments:POCT-GLUCOSE [id number] 08: 46:00 Test Item Value Reference Range Comments POC-GLUCOSE METER (BEAKER) 149 mg/dL 70-110 TESTED AT [address] (test gcwv=7690) [facility] [address] PROTHROMBIN [id number] 07:02:00 Test Item Value Reference Range Comments PROTIME (BEAKER) (test xjmg=896) 16.1 seconds 11.7-14.7 INR (BEAKER) (test zyhh=831) 1.3 <=5.9 RECOMMENDED COUMADIN/WARFARIN INR THERAPY RANGESSTANDARD DOSE: 2.0 - 3.0 Includes: PROPHYLAXIS forvenous thrombosis, systemic embolization; TREATMENT for venous thrombosis and/or pulmonary embolus.HIGH RISK: Target INR is 2.5-3.5 for patients with mechanical heart valves.While on warfarin.BASIC METABOLIC [id number] 06:42:00 Test Item Value Reference Range Comments SODIUM (BEAKER) (test 133 meq/L 136-145 selv=257) POTASSIUM (BEAKER) (test 4.9 meq/L 3.5-5.1 daib=533) CHLORIDE (BEAKER) (test 100 meq/L 98-107 vlbw=101) CO2 (BEAKER) (test 25 meq/L 22-29 fsya=561) BLOOD UREA NITROGEN 17 mg/dL 7-21 (BEAKER) (test llwm=932) CREATININE (BEAKER) (test 1.11 mg/dL 0.57-1.25 itne=529) GLUCOSE RANDOM (BEAKER) 97 mg/dL 70-105 (test pcmh=762) CALCIUM (BEAKER) (test 9.7 mg/dL 8.4-10.2 pshu=928) EGFR (BEAKER) (test 68 mL/min/1.73 sq m ESTIMATED GFR IS NOT gnyz=7920) ACCURATE CREATININE CLEARANCE IN PREDICTING GLOMERULAR FILTRATION RATE. ESTIMATED GFR IS NOT APPLICABLE FOR DIALYSIS PATIENTS. CREATINE KINASE (CK)2018-02-16 06:42:00 Test Item Value Reference Range Comments CREATINE KINASE TOTAL (BEAKER) (test aisa=186) 2082 U/L 29-200 POCT-GLUCOSE [id number] 21:35:00 Test Item Value Reference Range Comments POC-GLUCOSE METER (BEAKER) 134 mg/dL 70-[address] [facility] [address] [facility] (test zxxy=9896) [facility] [address] CBC W/PLT COUNT & AUTO [id number] 12:57:00 Test Item Value Reference Range Comments WHITE BLOOD CELL COUNT (BEAKER) (test bzff=456) 12.6 K/ L 3.5-10.5 RED BLOOD CELL COUNT (BEAKER) (test pwpg=123) 4.26 M/ L 4.63-6.08 HEMOGLOBIN (BEAKER) (test hilm=476) 11.7 GM/DL 13.7-17.5 HEMATOCRIT (BEAKER) (test lzjw=056) 37.6 % 40.1-51.0 MEAN CORPUSCULAR VOLUME (BEAKER) (test awcq=877) 88.3 fL 79.0-92.2 MEAN CORPUSCULAR HEMOGLOBIN (BEAKER) (test 27.5 pg 25.7-32.2 uiij=531) MEAN CORPUSCULAR HEMOGLOBIN CONC (BEAKER) (test 31.1 GM/DL 32.3-36.5 tytu=179) RED CELL DISTRIBUTION WIDTH (BEAKER) (test 15.6 % 11.6-14.4 homt=123) PLATELET COUNT (BEAKER) (test fquw=965) 329 K/CU MM 150-450 MEAN PLATELET VOLUME (BEAKER) (test aihz=397) 9.8 fL 9.4-12.4 NUCLEATED RED BLOOD CELLS (BEAKER) (test 0 /100 WBC 0-0 jupb=155) (CELLAVISION MANUAL DIFF)2018-02-15 12:57:00 Test Item Value Reference Range Comments NEUTROPHILS - REL (CELLAVISION)(BEAKER) (test 68 % rnzv=0402) LYMPHOCYTES - REL (CELLAVISION)(BEAKER) (test 8 % rcjv=8246) MONOCYTES - REL (CELLAVISION)(BEAKER) (test 13 % zebs=9760) EOSINOPHILS - REL (CELLAVISION)(BEAKER) (test 2 % dxne=0629) METAMYELOCYTES - REL (CELLAVISION)(BEAKER) (test 3 % 0-0 ihvm=0398) MYELOCYTES - REL (CELLAVISION)(BEAKER) (test 2 % 0-0 yjln=9331) BANDS - REL (CELLAVISION)(BEAKER) (test yaan=9405) 2 % 0-10 ATYPICAL LYMPHOCYTES - REL (CELLAVISION)(BEAKER) 2 % 0-0 (test mhhj=2666) NEUTROPHILS - ABS (CELLAVISION)(BEAKER) (test 8.57 K/ul 1.78-5.38 gumr=5988) LYMPHOCYTES - ABS (CELLAVISION)(BEAKER) (test 1.01 K/ul 1.32-3.57 ppsw=2829) MONOCYTES - ABS (CELLAVISION)(BEAKER) (test 1.64 K/uL 0.30-0.82 tuzx=7487) EOSINOPHILS - ABS (CELLAVISION)(BEAKER) (test 0.25 K/uL 0.04-0.54 vjnx=2129) METAMYELOCYTES - ABS (CELLAVISION)(BEAKER) (test 0.38 K/uL 0.00-0.00 jjhz=2638) MYELOCYTES-ABS (CELLAVISION)(BEAKER) (test 0.25 K/uL 0.00-0.00 xqcj=5997) BANDS - ABS (CELLAVISION)(BEAKER) (test lgvu=0031) 0.25 K/uL 0.00-0.80 ATYPICAL LYMPHOCYTES - ABS (CELLAVISION)(BEAKER) 0.25 K/uL 0.00-0.00 (test wotx=7099) TOTAL COUNTED (BEAKER) (test efhk=2992) 100 RBC MORPHOLOGY (BEAKER) (test hmak=530) Normal SMUDGE CELLS (BEAKER) (test usrk=9334) Present GIANT PLATELETS (BEAKER) (test nkin=334) Present ARTIFACT (CELLAVISION)(BEAKER) (test mwuf=2139) Present PLATELET CONCENTRATION (CELLAVISION)(BEAKER) (test Adequate sgkm=8657) Received comment: User comments: Slide comments:U/S, EXTREMITY (NON-VASCULAR), RIGHT, [id number] 12:55:00Reason for exam:->R thigh, if any collection , concern for hematomaFINAL REPORT TECHNIQUE: Focused navarro scale ultrasound of the right thigh to assess for fluid collection. INDICATION: 57-year-old man with weakness of right lower extremity. COMPARISON: None. IMPRESSION:Edema in the soft tissues of the visualized right thigh. No fluid collection/hematoma. Signed: Angy Bautistaeprosalind Verified Date/Time: 02/15/2018 12:55:15 Reading Location:[address] Ultrasound Reading Room CREATINE KINASE (CK)2018-02-15 08:12:00 Test Item Value Reference Range Comments CREATINE KINASE TOTAL (BEAKER) (test lhwc=178) 2222 U/L 29-200 BASIC METABOLIC [id number] 07:16:00 Test Item Value Reference Range Comments SODIUM (BEAKER) (test 132 meq/L 136-145 kgug=243) POTASSIUM (BEAKER) (test 4.9 meq/L 3.5-5.1 pgjk=922) CHLORIDE (BEAKER) (test 101 meq/L 98-107 dala=431) CO2 (BEAKER) (test 20 meq/L 22-29 soki=515) BLOOD UREA NITROGEN 17 mg/dL 7-21 (BEAKER) (test kbof=491) CREATININE (BEAKER) (test 1.01 mg/dL 0.57-1.25 kfmg=147) GLUCOSE RANDOM (BEAKER) 92 mg/dL 70-105 (test ahfb=412) CALCIUM (BEAKER) (test 9.2 mg/dL 8.4-10.2 odad=967) EGFR (BEAKER) (test 76 mL/min/1.73 sq m ESTIMATED GFR IS NOT biuq=7106) ACCURATE CREATININE CLEARANCE IN PREDICTING GLOMERULAR FILTRATION RATE. ESTIMATED GFR IS NOT APPLICABLE FOR DIALYSIS PATIENTS. HIV-1 ANTIGEN WITH HIV-1/2 [id number] 07:04:00 Test Item Value Reference Range Comments HIV-1 ANTIGEN WITH HIV 1\\T\\2 ANTIBODY (2) Nonreactive Nonreactive (BEAKER) (test spjw=4057) PROTHROMBIN [id number] 06:29:00 Test Item Value Reference Range Comments PROTIME (BEAKER) (test kifi=705) 16.1 seconds 11.7-14.7 INR (BEAKER) (test ibwd=075) 1.3 <=5.9 RECOMMENDED COUMADIN/WARFARIN INR THERAPY RANGESSTANDARD DOSE: 2.0 - 3.0 Includes: PROPHYLAXIS forvenous thrombosis, systemic embolization; TREATMENT for venous thrombosis and/or pulmonary embolus.HIGH RISK: Target INR is 2.5-3.5 for patients with mechanical heart valves.While on warfarin.POCT-GLUCOSE [id number] 21:17:00 Test Item Value Reference Range Comments POC-GLUCOSE METER (BEAKER) 113 mg/dL 70-[address] [facility] [address] [facility] (test ztps=8328) [facility] [address] CBC W/PLT COUNT & AUTO [id number] 12:43:00 Test Item Value Reference Range Comments WHITE BLOOD CELL COUNT (BEAKER) (test cjmx=637) 11.8 K/ L 3.5-10.5 RED BLOOD CELL COUNT (BEAKER) (test xaxv=244) 4.11 M/ L 4.63-6.08 HEMOGLOBIN (BEAKER) (test fndd=543) 11.4 GM/DL 13.7-17.5 HEMATOCRIT (BEAKER) (test immv=636) 36.1 % 40.1-51.0 MEAN CORPUSCULAR VOLUME (BEAKER) (test qcvb=172) 87.8 fL 79.0-92.2 MEAN CORPUSCULAR HEMOGLOBIN (BEAKER) (test 27.7 pg 25.7-32.2 wtmg=887) MEAN CORPUSCULAR HEMOGLOBIN CONC (BEAKER) (test 31.6 GM/DL 32.3-36.5 swns=123) RED CELL DISTRIBUTION WIDTH (BEAKER) (test 15.5 % 11.6-14.4 spsf=294) PLATELET COUNT (BEAKER) (test ehtv=444) 307 K/CU MM 150-450 MEAN PLATELET VOLUME (BEAKER) (test wxmb=884) 10.2 fL 9.4-12.4 NUCLEATED RED BLOOD CELLS (BEAKER) (test 0 /100 WBC 0-0 lcdp=272) (CELLAVISION MANUAL DIFF)2018-02-14 12:43:00 Test Item Value Reference Range Comments NEUTROPHILS - REL (CELLAVISION)(BEAKER) (test 62 % irvf=3275) LYMPHOCYTES - REL (CELLAVISION)(BEAKER) (test 9 % pjyp=2416) MONOCYTES - REL (CELLAVISION)(BEAKER) (test 7 % trgp=9160) EOSINOPHILS - REL (CELLAVISION)(BEAKER) (test 6 % bloi=1872) METAMYELOCYTES - REL (CELLAVISION)(BEAKER) (test 2 % 0-0 nvrr=4999) MYELOCYTES - REL (CELLAVISION)(BEAKER) (test 1 % 0-0 pspc=7504) BANDS - REL (CELLAVISION)(BEAKER) (test hyyg=6059) 13 % 0-10 NEUTROPHILS - ABS (CELLAVISION)(BEAKER) (test 7.32 K/ul 1.78-5.38 elrf=4173) LYMPHOCYTES - ABS (CELLAVISION)(BEAKER) (test 1.06 K/ul 1.32-3.57 fdyi=3207) MONOCYTES - ABS (CELLAVISION)(BEAKER) (test 0.83 K/uL 0.30-0.82 cosx=2814) EOSINOPHILS - ABS (CELLAVISION)(BEAKER) (test 0.71 K/uL 0.04-0.54 mmwk=7954) METAMYELOCYTES - ABS (CELLAVISION)(BEAKER) (test 0.24 K/uL 0.00-0.00 pkqy=3414) MYELOCYTES-ABS (CELLAVISION)(BEAKER) (test 0.12 K/uL 0.00-0.00 abto=0473) BANDS - ABS (CELLAVISION)(BEAKER) (test hakt=0218) 1.53 K/uL 0.00-0.80 TOTAL COUNTED (BEAKER) (test abdu=9096) 100 WBC MORPHOLOGY (BEAKER) (test bukp=658) Normal PLT MORPHOLOGY (BEAKER) (test anjk=647) Normal POLYCHROMATOPHILLIC RBCS(BEAKER) (test hsto=558) 1+ few ANISOCYTOSIS (BEAKER) (test tmhp=349) 1+ few POIKILOCYTES (BEAKER) (test mhfl=051) 1+ few ARTIFACT (CELLAVISION)(BEAKER) (test wtfo=5548) Present PLATELET CONCENTRATION (CELLAVISION)(BEAKER) (test Adequate wtin=2014) Received comment: User comments: Slide comments:TISSUE [id number] 11:47: 00Surgical Pathology Report Case: [id number] Authorizing Provider: Gilles Muñoz MD Collected : 02/12/2018 1602 Ordering Location: [address] Received: 02/12/2018 1602 Service Pathologist: Shona Faust MD Specimen: Skin A. RIGHT LEG, SKIN PUNCH BIOPSY- LYMPHEDEMA- PURPURA- STASIS CHANGES- SUBEPIDERMAL VESICLE, POSSIBLY SECONDARY(SEE NOTE BELOW)NOTE: The differential diagnosis for the subepidermal vesicle includes secondary to vascular compromise, Clinical correlation is recommended.This case has also been reviewed at the [facility] Dermatopathology Consensus Conference. Signing Pathologist Direct Phone Line:[phone] signed by Shona Faust MD on 02/14/2018 at 11:47 AMPreliminary result electronically signed by Shona Faust MD on 02/13/2018 at 5:10 [id number]; [id number] obesity, non-traumatic rhabdomyolysis, weakness of right lower extremity, atrial fibrillation, hypertension. Right leg pain with numbness. Differential diagnosis: purpura, necrosis due to vasoocclusive phenomenon, rule out dermatomyositis.Skin punch biopsy right legThe specimen is received in a formalin-filled containerand labeled with the patient's information and labeled "skin punch biopsy right leg" and consisting of skin punch biopsy measuring 0.3 cm in diameter x 0.5 cm in depth. Resection margin is inked blue. The specimen is bisected submitted entirely A1. CG/pl A. Sections reveal skin with increased blood vessels, focally with fibrin thrombi, and extravasated red blood cells, consistent with stasis changes. There is also dermal edema, with dilated vascular channels without blood. There is focal epidermal necrosis/necrotic keratinocytes with separation of the epidermis from the dermis.The following special studies were performed on this case and the interpretation is incorporated in the diagnostic reportabove:D2-40 - Positive in lymphatic channelsCOMPREHENSIVE METABOLIC [id number] 11:40:00 Test Item Value Reference Range Comments TOTAL PROTEIN (BEAKER) 6.8 gm/dL 6.0-8.3 (test zlaz=988) ALBUMIN (BEAKER) (test 2.7 g/dL 3.5-5.0 xlmu=5421) ALKALINE PHOSPHATASE 109 U/L 40-150 (BEAKER) (test glas=478) BILIRUBIN TOTAL (BEAKER) 0.6 mg/dL 0.2-1.2 (test idfl=069) SODIUM (BEAKER) (test 133 meq/L 136-145 ymkd=858) POTASSIUM (BEAKER) (test 4.8 meq/L 3.5-5.1 qujv=779) CHLORIDE (BEAKER) (test 102 meq/L 98-107 krcx=761) CO2 (BEAKER) (test 25 meq/L 22-29 swqu=733) BLOOD UREA NITROGEN 15 mg/dL 7-21 (BEAKER) (test egvg=810) CREATININE (BEAKER) (test 0.93 mg/dL 0.57-1.25 eylu=259) GLUCOSE RANDOM (BEAKER) 114 mg/dL 70-105 (test cwmi=385) CALCIUM (BEAKER) (test 9.6 mg/dL 8.4-10.2 arkn=708) AST (SGOT) (BEAKER) (test 139 U/L 5-34 wbzz=133) ALT (SGPT) (BEAKER) (test 152 U/L 6-55 nfqz=825) EGFR (BEAKER) (test 83 mL/min/1.73 sq m ESTIMATED GFR IS NOT infm=5752) ACCURATE CREATININE CLEARANCE IN PREDICTING GLOMERULAR FILTRATION RATE. ESTIMATED GFR IS NOT APPLICABLE FOR DIALYSIS PATIENTS. CREATINE KINASE (CK)2018-02-14 11:40:00 Test Item Value Reference Range Comments CREATINE KINASE TOTAL (BEAKER) (test hxkc=709) 2477 U/L 29-200 CALCIUM, [id number] 07:18:00 Test Item Value Reference Range Comments CALCIUM IONIZED (BEAKER) (test mzue=911) 1.02 mmol/L 1.12-1.27 PH, BLOOD (BEAKER) (test fpxv=9310) 7.45 VITAMIN D, [id number] 06:53:00 Test Item Value Reference Range Comments VITAMIN D 25-OH (BEAKER) (test czjg=1099) 37.1 ng/mL 6.6-49.9 Effective 04/12/2017: Reference Range ChangeNew: 6.6-49.9 ng/mL Previous: 13.0 -47.8 ng/mLRecommended Vitamin D Target Range: 30.0-40.0 ng/mLPROTHROMBIN TIME/ [id number] 04:49:00 Test Item Value Reference Range Comments PROTIME (BEAKER) (test zkvp=317) 16.1 seconds 11.7-14.7 INR (BEAKER) (test llbo=093) 1.3 <=5.9 RECOMMENDED COUMADIN/WARFARIN INR THERAPY RANGESSTANDARD DOSE: 2.0 - 3.0 Includes: PROPHYLAXIS forvenous thrombosis, systemic embolization; TREATMENT for venous thrombosis and/or pulmonary embolus.HIGH RISK: Target INR is 2.5-3.5 for patients with mechanical heart valves.While on warfarin.ANTI-NUCLEAR ANTIBODY (OLIVIER)2018-02-14 03:08:00 Test Item Value Reference Range Comments ANTI-NUCLEAR ANTIBODY (OLIVIER) (BEAKER) (test Negative Negative vlpg=741) Test performed by IFA method.Test performed by IFA method.CBC W/PLT COUNT & AUTO [id number] 14:29:00 Test Item Value Reference Range Comments WHITE BLOOD CELL COUNT (BEAKER) (test rcjp=225) 12.9 K/ L 3.5-10.5 RED BLOOD CELL COUNT (BEAKER) (test tjfh=031) 4.10 M/ L 4.63-6.08 HEMOGLOBIN (BEAKER) (test wulx=391) 11.6 GM/DL 13.7-17.5 HEMATOCRIT (BEAKER) (test ytoj=629) 36.1 % 40.1-51.0 MEAN CORPUSCULAR VOLUME (BEAKER) (test kpwo=209) 88.0 fL 79.0-92.2 MEAN CORPUSCULAR HEMOGLOBIN (BEAKER) (test 28.3 pg 25.7-32.2 qscq=750) MEAN CORPUSCULAR HEMOGLOBIN CONC (BEAKER) (test 32.1 GM/DL 32.3-36.5 wohx=793) RED CELL DISTRIBUTION WIDTH (BEAKER) (test 15.5 % 11.6-14.4 mklw=301) PLATELET COUNT (BEAKER) (test rjxp=592) 289 K/CU MM 150-450 MEAN PLATELET VOLUME (BEAKER) (test jmff=288) 10.1 fL 9.4-12.4 NUCLEATED RED BLOOD CELLS (BEAKER) (test 0 /100 WBC 0-0 qfpi=846) (CELLAVISION MANUAL DIFF)2018-02-13 14:29:00 Test Item Value Reference Range Comments NEUTROPHILS - REL (CELLAVISION)(BEAKER) (test 74 % ixir=7405) LYMPHOCYTES - REL (CELLAVISION)(BEAKER) (test 4 % zajf=4202) MONOCYTES - REL (CELLAVISION)(BEAKER) (test 8 % fsih=3560) EOSINOPHILS - REL (CELLAVISION)(BEAKER) (test 2 % pszh=2858) METAMYELOCYTES - REL (CELLAVISION)(BEAKER) (test 1 % 0-0 evvt=9909) MYELOCYTES - REL (CELLAVISION)(BEAKER) (test 2 % 0-0 jgkn=3238) BANDS - REL (CELLAVISION)(BEAKER) (test 8 % 0-10 rqsw=9036) ATYPICAL LYMPHOCYTES - REL (CELLAVISION)(BEAKER) 1 % 0-0 (test fxsb=9233) NEUTROPHILS - ABS (CELLAVISION)(BEAKER) (test 9.55 K/ul 1.78-5.38 puxz=1447) LYMPHOCYTES - ABS (CELLAVISION)(BEAKER) (test 0.52 K/ul 1.32-3.57 pifs=0197) MONOCYTES - ABS (CELLAVISION)(BEAKER) (test 1.03 K/uL 0.30-0.82 lasr=5344) EOSINOPHILS - ABS (CELLAVISION)(BEAKER) (test 0.26 K/uL 0.04-0.54 iesp=0879) METAMYELOCYTES - ABS (CELLAVISION)(BEAKER) (test 0.13 K/uL 0.00-0.00 donr=2918) MYELOCYTES-ABS (CELLAVISION)(BEAKER) (test 0.26 K/uL 0.00-0.00 yrro=7973) BANDS - ABS (CELLAVISION)(BEAKER) (test 1.03 K/uL 0.00-0.80 bvtx=7732) ATYPICAL LYMPHOCYTES - ABS (CELLAVISION)(BEAKER) 0.13 K/uL 0.00-0.00 (test yyvv=6209) TOTAL COUNTED (BEAKER) (test vzmi=1955) 100 MANUAL NRBC PER 100 CELLS (BEAKER) (test 1 /100 WBC 0-0 xwld=7480) WBC MORPHOLOGY (BEAKER) (test oslp=198) Normal PLT MORPHOLOGY (BEAKER) (test bawd=494) Normal POLYCHROMATOPHILLIC RBCS(BEAKER) (test ybcx=557) 1+ few ANISOCYTOSIS (BEAKER) (test hfao=093) 1+ few ARTIFACT (CELLAVISION)(BEAKER) (test weyw=7044) Present PLATELET CONCENTRATION (CELLAVISION)(BEAKER) Adequate (test mhlf=4845) Received comment: User comments: Slide comments:CREATINE KINASE (CK), TOTAL AND [id number] 06:58:00 Test Item Value Reference Range Comments CREATINE KINASE TOTAL (BEAKER) (test hyiz=737) 3865 U/L 29-200 CREATINE KINASE-MB (BEAKER) (test kkgf=234) 5.2 ng/mL 0.0-6.6 CREATINE KINASE-MB INDEX (BEAKER) (test yoky=241) 0.1 % CK-MB Reference Range:<6.7 Normal6.7-10.0 Borderline>10.0 AbnormalB-TYPE NATRIURETIC FACTOR (BNP)2018-02-13 06:52:00 Test Item Value Reference Range Comments B-TYPE NATRIURETIC PEPTIDE (BEAKER) (test 215 pg/mL 0-100 hdcc=619) COMPREHENSIVE METABOLIC [id number] 06:52:00 Test Item Value Reference Range Comments TOTAL PROTEIN (BEAKER) 6.7 gm/dL 6.0-8.3 (test ulus=277) ALBUMIN (BEAKER) (test 2.7 g/dL 3.5-5.0 ednx=5275) ALKALINE PHOSPHATASE 109 U/L 40-150 (BEAKER) (test dbbx=856) BILIRUBIN TOTAL (BEAKER) 0.8 mg/dL 0.2-1.2 (test qrek=933) SODIUM (BEAKER) (test 134 meq/L 136-145 dahu=390) POTASSIUM (BEAKER) (test 4.8 meq/L 3.5-5.1 pxjz=372) CHLORIDE (BEAKER) (test 103 meq/L 98-107 dexb=252) CO2 (BEAKER) (test 23 meq/L 22-29 aqhz=848) BLOOD UREA NITROGEN 15 mg/dL 7-21 (BEAKER) (test yscu=618) CREATININE (BEAKER) (test 0.94 mg/dL 0.57-1.25 rbce=433) GLUCOSE RANDOM (BEAKER) 93 mg/dL 70-105 (test oghh=970) CALCIUM (BEAKER) (test 9.1 mg/dL 8.4-10.2 kkye=603) AST (SGOT) (BEAKER) (test 170 U/L 5-34 fygh=392) ALT (SGPT) (BEAKER) (test 162 U/L 6-55 ieug=568) EGFR (BEAKER) (test 82 mL/min/1.73 sq m ESTIMATED GFR IS NOT xeea=0599) ACCURATE CREATININE CLEARANCE IN PREDICTING GLOMERULAR FILTRATION RATE. ESTIMATED GFR IS NOT APPLICABLE FOR DIALYSIS PATIENTS. PROTHROMBIN TIME/[id number] 06:49:00 Test Item Value Reference Range Comments PROTIME (BEAKER) (test ckbs=569) 16.5 seconds 11.7-14.7 INR (BEAKER) (test ytbp=050) 1.3 <=5.9 RECOMMENDED COUMADIN/WARFARIN INR THERAPY RANGESSTANDARD DOSE: 2.0 - 3.0 Includes: PROPHYLAXIS forvenous thrombosis, systemic embolization; TREATMENT for venous thrombosis and/or pulmonary embolus.HIGH RISK: Target INR is 2.5-3.5 for patients with mechanical heart valves.While on warfarin.HEPATITIS PANEL, [id number] 17:49:00 Test Item Value Reference Range Comments HEPATITIS A IGM ANTIBODY (BEAKER) (test Nonreactive Nonreactive pqmd=877) HEPATITIS B CORE IGM ANTIBODY (BEAKER) (test Nonreactive Nonreactive dbjb=478) HEPATITIS C ANTIBODY (BEAKER) (test vmxf=363) Nonreactive Nonreactive HEPATITIS B SURFACE ANTIGEN (2) (BEAKER) (test Nonreactive Nonreactive cdna=7632) PROTHROMBIN TIME/[id number] 17:21:00 Test Item Value Reference Range Comments PROTIME (BEAKER) (test euao=315) 15.8 seconds 11.7-14.7 INR (BEAKER) (test qbhn=824) 1.3 <=5.9 RECOMMENDED COUMADIN/WARFARIN INR THERAPY RANGESSTANDARD DOSE: 2.0 - 3.0 Includes: PROPHYLAXIS forvenous thrombosis, systemic embolization; TREATMENT for venous thrombosis and/or pulmonary embolus.HIGH RISK: Target INR is 2.5-3.5 for patients with mechanical heart valves.[id number] 15:12:00 Test Item Value Reference Range Comments CRYOGLOBULIN (BEAKER) (test zlsv=635) Negative CBC W/PLT COUNT & AUTO [id number] 15:01:00 Test Item Value Reference Range Comments WHITE BLOOD CELL COUNT (BEAKER) (test efpa=050) 12.7 K/ L 3.5-10.5 RED BLOOD CELL COUNT (BEAKER) (test bwku=738) 4.31 M/ L 4.63-6.08 HEMOGLOBIN (BEAKER) (test aeck=086) 11.9 GM/DL 13.7-17.5 HEMATOCRIT (BEAKER) (test nihv=192) 38.2 % 40.1-51.0 MEAN CORPUSCULAR VOLUME (BEAKER) (test xopc=209) 88.6 fL 79.0-92.2 MEAN CORPUSCULAR HEMOGLOBIN (BEAKER) (test 27.6 pg 25.7-32.2 ehcp=837) MEAN CORPUSCULAR HEMOGLOBIN CONC (BEAKER) (test 31.2 GM/DL 32.3-36.5 mgcu=242) RED CELL DISTRIBUTION WIDTH (BEAKER) (test 15.7 % 11.6-14.4 zbye=873) PLATELET COUNT (BEAKER) (test sjqs=761) 258 K/CU MM 150-450 MEAN PLATELET VOLUME (BEAKER) (test bbof=586) 10.4 fL 9.4-12.4 NUCLEATED RED BLOOD CELLS (BEAKER) (test 0 /100 WBC 0-0 zfzr=094) (CELLAVISION MANUAL DIFF)2018-02-12 15:01:00 Test Item Value Reference Range Comments NEUTROPHILS - REL (CELLAVISION)(BEAKER) (test 74 % twkq=5598) LYMPHOCYTES - REL (CELLAVISION)(BEAKER) (test 2 % hlfj=2728) MONOCYTES - REL (CELLAVISION)(BEAKER) (test 7 % ayrc=6645) METAMYELOCYTES - REL (CELLAVISION)(BEAKER) (test 1 % 0-0 bxzr=6958) MYELOCYTES - REL (CELLAVISION)(BEAKER) (test 2 % 0-0 wjto=7984) BANDS - REL (CELLAVISION)(BEAKER) (test rekx=8031) 14 % 0-10 NEUTROPHILS - ABS (CELLAVISION)(BEAKER) (test 9.40 K/ul 1.78-5.38 kggd=8637) LYMPHOCYTES - ABS (CELLAVISION)(BEAKER) (test 0.25 K/ul 1.32-3.57 qfws=0983) MONOCYTES - ABS (CELLAVISION)(BEAKER) (test 0.89 K/uL 0.30-0.82 ikbb=1730) METAMYELOCYTES - ABS (CELLAVISION)(BEAKER) (test 0.13 K/uL 0.00-0.00 evbj=9614) MYELOCYTES-ABS (CELLAVISION)(BEAKER) (test 0.25 K/uL 0.00-0.00 zhfv=8388) BANDS - ABS (CELLAVISION)(BEAKER) (test mhlg=5651) 1.78 K/uL 0.00-0.80 TOTAL COUNTED (BEAKER) (test cuhj=4420) 100 WBC MORPHOLOGY (BEAKER) (test bqld=135) Normal PLT MORPHOLOGY (BEAKER) (test znqs=642) Normal POLYCHROMATOPHILLIC RBCS(BEAKER) (test aega=433) 1+ few ANISOCYTOSIS (BEAKER) (test wnfj=819) 1+ few ARTIFACT (CELLAVISION)(BEAKER) (test rnsa=1682) Present PLATELET CONCENTRATION (CELLAVISION)(BEAKER) (test Adequate zhwb=6635) Received comment: User comments: Slide comments:RETICULOCYTE [id number] 14: 13:00 Test Item Value Reference Range Comments RETICULOCYTE COUNT PCT (BEAKER) (test boql=734) 1.5 % 0.5-1.8 DOUBLE-STRANDED DNA (DSDNA) [id number] 08:42:00 Test Item Value Reference Range Comments ANTI-DNA DS (BEAKER) (test jums=6199) Negative POCT-GLUCOSE [id number] 08:21:00 Test Item Value Reference Range Comments POC-GLUCOSE METER (BEAKER) 105 mg/dL 70-[address] [facility] [address] [facility] (test dxus=6179) [facility] [address] CREATINE KINASE (CK), TOTAL AND [id number] 07:18:00 Test Item Value Reference Range Comments CREATINE KINASE TOTAL (BEAKER) (test yvuf=270) 5563 U/L 29-200 CREATINE KINASE-MB (BEAKER) (test xkpt=250) 6.8 ng/mL 0.0-6.6 CREATINE KINASE-MB INDEX (BEAKER) (test wqho=185) 0.1 % CK-MB Reference Range:<6.7 Normal6.7-10.0 Borderline>10.0 [id number] 07:03:00 Test Item Value Reference Range Comments PHOSPHORUS (BEAKER) (test tsso=889) 3.4 mg/dL 2.3-4.7 [id number] 07:03:00 Test Item Value Reference Range Comments MAGNESIUM (BEAKER) (test bjor=603) 2.1 mg/dL 1.6-2.6 BASIC METABOLIC [id number] 07:03:00 Test Item Value Reference Range Comments SODIUM (BEAKER) (test 133 meq/L 136-145 gljg=343) POTASSIUM (BEAKER) (test 5.1 meq/L 3.5-5.1 qrwa=429) CHLORIDE (BEAKER) (test 101 meq/L 98-107 ypwq=064) CO2 (BEAKER) (test 24 meq/L 22-29 rcxx=827) BLOOD UREA NITROGEN 15 mg/dL 7-21 (BEAKER) (test otrs=931) CREATININE (BEAKER) (test 0.96 mg/dL 0.57-1.25 yicy=796) GLUCOSE RANDOM (BEAKER) 109 mg/dL 70-105 (test hhgh=510) CALCIUM (BEAKER) (test 9.5 mg/dL 8.4-10.2 cxtg=071) EGFR (BEAKER) (test 80 mL/min/1.73 sq m ESTIMATED GFR IS NOT mink=5349) ACCURATE CREATININE CLEARANCE IN PREDICTING GLOMERULAR FILTRATION RATE. ESTIMATED GFR IS NOT APPLICABLE FOR DIALYSIS PATIENTS. HEPATIC FUNCTION [id number] 07:03:00 Test Item Value Reference Range Comments TOTAL PROTEIN (BEAKER) (test lywm=261) 6.8 gm/dL 6.0-8.3 ALBUMIN (BEAKER) (test kynz=3205) 2.8 g/dL 3.5-5.0 BILIRUBIN TOTAL (BEAKER) (test zpla=254) 0.8 mg/dL 0.2-1.2 BILIRUBIN DIRECT (BEAKER) (test nzcz=237) 0.5 mg/dL 0.1-0.5 ALKALINE PHOSPHATASE (BEAKER) (test jeul=517) 120 U/L 40-150 AST (SGOT) (BEAKER) (test dtsi=374) 224 U/L 5-34 ALT (SGPT) (BEAKER) (test rehm=704) 193 U/L 6-55 RHEUMATOID FACTOR AB, REFLEX TO [id number] 05:42:00 Test Item Value Reference Range Comments RHEUMATOID FACTOR (BEAKER) (test btwj=244) Positive RHEUMATOID FACTOR [id number] 05:42:00 Test Item Value Reference Range Comments RHEUMATOID FACTOR TITER (BEAKER) (test ymgv=0565) :2 POCT-GLUCOSE [id number] 21:43:00 Test Item Value Reference Range Comments POC-GLUCOSE METER (BEAKER) 142 mg/dL 70-[address] [facility] [address] [facility] (test lrss=3134) [place] [address] CBC W/PLT COUNT & AUTO [id number] 12:18:00 Test Item Value Reference Range Comments WHITE BLOOD CELL COUNT (BEAKER) (test dzzg=984) 12.0 K/ L 3.5-10.5 RED BLOOD CELL COUNT (BEAKER) (test tgbh=694) 4.18 M/ L 4.63-6.08 HEMOGLOBIN (BEAKER) (test tbhu=041) 11.4 GM/DL 13.7-17.5 HEMATOCRIT (BEAKER) (test vtbr=397) 36.7 % 40.1-51.0 MEAN CORPUSCULAR VOLUME (BEAKER) (test iydl=864) 87.8 fL 79.0-92.2 MEAN CORPUSCULAR HEMOGLOBIN (BEAKER) (test 27.3 pg 25.7-32.2 kfje=364) MEAN CORPUSCULAR HEMOGLOBIN CONC (BEAKER) (test 31.1 GM/DL 32.3-36.5 mdux=980) RED CELL DISTRIBUTION WIDTH (BEAKER) (test 15.7 % 11.6-14.4 vvzd=853) PLATELET COUNT (BEAKER) (test tgrm=132) 255 K/CU MM 150-450 MEAN PLATELET VOLUME (BEAKER) (test uqbm=083) 10.3 fL 9.4-12.4 NUCLEATED RED BLOOD CELLS (BEAKER) (test 0 /100 WBC 0-0 qddp=477) (CELLAVISION MANUAL DIFF)2018-02-11 12:18:00 Test Item Value Reference Range Comments NEUTROPHILS - REL (CELLAVISION)(BEAKER) (test 71 % xcjl=6903) LYMPHOCYTES - REL (CELLAVISION)(BEAKER) (test 5 % axgz=3667) MONOCYTES - REL (CELLAVISION)(BEAKER) (test 9 % drvk=4388) EOSINOPHILS - REL (CELLAVISION)(BEAKER) (test 2 % cudp=7332) METAMYELOCYTES - REL (CELLAVISION)(BEAKER) (test 2 % 0-0 glds=2437) MYELOCYTES - REL (CELLAVISION)(BEAKER) (test 4 % 0-0 igei=1752) BANDS - REL (CELLAVISION)(BEAKER) (test uwun=2718) 7 % 0-10 NEUTROPHILS - ABS (CELLAVISION)(BEAKER) (test 8.52 K/ul 1.78-5.38 mqds=1133) LYMPHOCYTES - ABS (CELLAVISION)(BEAKER) (test 0.60 K/ul 1.32-3.57 bgdc=6175) MONOCYTES - ABS (CELLAVISION)(BEAKER) (test 1.08 K/uL 0.30-0.82 svdh=1646) EOSINOPHILS - ABS (CELLAVISION)(BEAKER) (test 0.24 K/uL 0.04-0.54 ikwf=4436) METAMYELOCYTES - ABS (CELLAVISION)(BEAKER) (test 0.24 K/uL 0.00-0.00 woyg=8204) MYELOCYTES-ABS (CELLAVISION)(BEAKER) (test 0.48 K/uL 0.00-0.00 ewsu=0450) BANDS - ABS (CELLAVISION)(BEAKER) (test iqnu=5407) 0.84 K/uL 0.00-0.80 TOTAL COUNTED (BEAKER) (test uccj=8096) 100 RBC MORPHOLOGY (BEAKER) (test lzqr=287) Normal SMUDGE CELLS (BEAKER) (test ctwo=5771) Present GIANT PLATELETS (BEAKER) (test kbqd=390) Present PLATELET CONCENTRATION (CELLAVISION)(BEAKER) (test Adequate tiqa=9874) Received comment: User comments: Slide comments:CREATINE KINASE (CK), TOTAL AND [id number] 07:41:00 Test Item Value Reference Range Comments CREATINE KINASE TOTAL (BEAKER) (test yzox=894) 6548 U/L 29-200 CREATINE KINASE-MB (BEAKER) (test xrsh=744) 7.2 ng/mL 0.0-6.6 CREATINE KINASE-MB INDEX (BEAKER) (test qqvi=204) 0.1 % CK-MB Reference Range:<6.7 Normal6.7-10.0 Borderline>10.0 [id number] 07:33:00 Test Item Value Reference Range Comments PHOSPHORUS (BEAKER) (test eefh=983) 3.5 mg/dL 2.3-4.7 [id number] 07:33:00 Test Item Value Reference Range Comments MAGNESIUM (BEAKER) (test xtxo=180) 2.2 mg/dL 1.6-2.6 BASIC METABOLIC [id number] 07:33:00 Test Item Value Reference Range Comments SODIUM (BEAKER) (test 136 meq/L 136-145 pmzg=313) POTASSIUM (BEAKER) (test 4.8 meq/L 3.5-5.1 xrst=293) CHLORIDE (BEAKER) (test 104 meq/L 98-107 tkvs=894) CO2 (BEAKER) (test 24 meq/L 22-29 pike=897) BLOOD UREA NITROGEN 18 mg/dL 7-21 (BEAKER) (test psul=413) CREATININE (BEAKER) (test 0.96 mg/dL 0.57-1.25 mzsi=774) GLUCOSE RANDOM (BEAKER) 104 mg/dL 70-105 (test tqjq=017) CALCIUM (BEAKER) (test 9.4 mg/dL 8.4-10.2 fvsl=368) EGFR (BEAKER) (test 80 mL/min/1.73 sq m ESTIMATED GFR IS NOT boic=5475) ACCURATE CREATININE CLEARANCE IN PREDICTING GLOMERULAR FILTRATION RATE. ESTIMATED GFR IS NOT APPLICABLE FOR DIALYSIS PATIENTS. HEPATIC FUNCTION [id number] 07:33:00 Test Item Value Reference Range Comments TOTAL PROTEIN (BEAKER) (test iwwb=306) 6.5 gm/dL 6.0-8.3 ALBUMIN (BEAKER) (test gkby=6883) 2.8 g/dL 3.5-5.0 BILIRUBIN TOTAL (BEAKER) (test ltpt=892) 0.7 mg/dL 0.2-1.2 BILIRUBIN DIRECT (BEAKER) (test lmfg=875) 0.5 mg/dL 0.1-0.5 ALKALINE PHOSPHATASE (BEAKER) (test awlo=445) 115 U/L 40-150 AST (SGOT) (BEAKER) (test etnp=945) 228 U/L 5-34 ALT (SGPT) (BEAKER) (test vhvl=415) 185 U/L 6-55 COMPLEMENT COMPONENT [id number] 07:13:00 Test Item Value Reference Range Comments C4 COMPLEMENT (BEAKER) (test dwzy=440) 33 mg/dL 15-57 COMPLEMENT COMPONENT [id number] 07:13:00 Test Item Value Reference Range Comments C3 COMPLEMENT (BEAKER) (test bdmv=766) 169 mg/dL 82-193 PTH, [id number] 07:12:00 Test Item Value Reference Range Comments PARATHYROID HORMONE INTACT (BEAKER) (test 92.1 pg/mL 8.5-72.5 ifov=616) CALCIUM, [id number] 07:09:00 Test Item Value Reference Range Comments CALCIUM IONIZED (BEAKER) (test twxs=205) 1.03 mmol/L 1.12-1.27 PH, BLOOD (BEAKER) (test izlz=2114) 7.44 POCT-GLUCOSE [id number] 21:37:00 Test Item Value Reference Range Comments POC-GLUCOSE METER (BEAKER) 146 mg/dL 70-[address] [facility] [address] [facility] (test qopc=8808) [facility] [address] PTH, [id number] 20:32:00 Test Item Value Reference Range Comments PARATHYROID HORMONE INTACT (BEAKER) (test 83.3 pg/mL 8.5-72.5 wpll=204) [id number] 20:26:00 Test Item Value Reference Range Comments FIBRINOGEN LEVEL (BEAKER) (test ltqb=950) 1018 mg/dl 225-434 CALCIUM, [id number] 19:27:00 Test Item Value Reference Range Comments CALCIUM IONIZED (BEAKER) (test gtch=461) 1.09 mmol/L 1.12-1.27 PH, BLOOD (BEAKER) (test oykf=8725) 7.32 CREATINE KINASE (CK), TOTAL AND [id number] 10:07:00 Test Item Value Reference Range Comments CREATINE KINASE TOTAL (BEAKER) (test olfr=393) 8268 U/L 29-200 CREATINE KINASE-MB (BEAKER) (test qnmh=190) 9.1 ng/mL 0.0-6.6 CREATINE KINASE-MB INDEX (BEAKER) (test kzvj=533) 0.1 % CK-MB Reference Range:<6.7 Normal6.7-10.0 Borderline>10.0 [id number] 07:12:00 Test Item Value Reference Range Comments PHOSPHORUS (BEAKER) (test vcds=840) 3.2 mg/dL 2.3-4.7 [id number] 07:12:00 Test Item Value Reference Range Comments MAGNESIUM (BEAKER) (test yzgp=831) 2.3 mg/dL 1.6-2.6 BASIC METABOLIC [id number] 07:12:00 Test Item Value Reference Range Comments SODIUM (BEAKER) (test 135 meq/L 136-145 vzht=618) POTASSIUM (BEAKER) (test 4.3 meq/L 3.5-5.1 zzgt=035) CHLORIDE (BEAKER) (test 101 meq/L 98-107 smen=262) CO2 (BEAKER) (test 25 meq/L 22-29 uxfm=853) BLOOD UREA NITROGEN 25 mg/dL 7-21 (BEAKER) (test jtcg=715) CREATININE (BEAKER) (test 1.21 mg/dL 0.57-1.25 lsky=376) GLUCOSE RANDOM (BEAKER) 119 mg/dL 70-105 (test cgzt=210) CALCIUM (BEAKER) (test 9.4 mg/dL 8.4-10.2 pkfb=222) EGFR (BEAKER) (test 61 mL/min/1.73 sq m ESTIMATED GFR IS NOT wckz=3364) ACCURATE CREATININE CLEARANCE IN PREDICTING GLOMERULAR FILTRATION RATE. ESTIMATED GFR IS NOT APPLICABLE FOR DIALYSIS PATIENTS. CBC W/PLT COUNT & AUTO [id number] 05:27:00 Test Item Value Reference Range Comments WHITE BLOOD CELL COUNT (BEAKER) (test ulib=963) 10.9 K/ L 3.5-10.5 RED BLOOD CELL COUNT (BEAKER) (test jzsb=654) 4.30 M/ L 4.63-6.08 HEMOGLOBIN (BEAKER) (test oaew=311) 11.9 GM/DL 13.7-17.5 HEMATOCRIT (BEAKER) (test nttu=374) 37.0 % 40.1-51.0 MEAN CORPUSCULAR VOLUME (BEAKER) (test jpcg=931) 86.0 fL 79.0-92.2 MEAN CORPUSCULAR HEMOGLOBIN (BEAKER) (test 27.7 pg 25.7-32.2 fsuj=584) MEAN CORPUSCULAR HEMOGLOBIN CONC (BEAKER) (test 32.2 GM/DL 32.3-36.5 ryxg=175) RED CELL DISTRIBUTION WIDTH (BEAKER) (test 15.4 % 11.6-14.4 czpp=848) PLATELET COUNT (BEAKER) (test xado=083) 274 K/CU MM 150-450 MEAN PLATELET VOLUME (BEAKER) (test tfzd=997) 10.7 fL 9.4-12.4 NUCLEATED RED BLOOD CELLS (BEAKER) (test 0 /100 WBC 0-0 kxkf=098) NEUTROPHILS RELATIVE PERCENT (BEAKER) (test 75 % iskd=433) LYMPHOCYTES RELATIVE PERCENT (BEAKER) (test 9 % tapz=678) MONOCYTES RELATIVE PERCENT (BEAKER) (test 10 % sauq=811) EOSINOPHILS RELATIVE PERCENT (BEAKER) (test 2 % zprz=827) BASOPHILS RELATIVE PERCENT (BEAKER) (test 1 % pstm=198) NEUTROPHILS ABSOLUTE COUNT (BEAKER) (test 8.13 K/ L 1.78-5.38 bpcp=085) LYMPHOCYTES ABSOLUTE COUNT (BEAKER) (test 0.92 K/ L 1.32-3.57 gzed=861) MONOCYTES ABSOLUTE COUNT (BEAKER) (test 1.07 K/ L 0.30-0.82 xlex=633) EOSINOPHILS ABSOLUTE COUNT (BEAKER) (test 0.18 K/ L 0.04-0.54 jbpz=958) BASOPHILS ABSOLUTE COUNT (BEAKER) (test 0.05 K/ L 0.01-0.08 kqnn=401) IMMATURE GRANULOCYTES-RELATIVE PERCENT (BEAKER) 5 % 0-1 (test zilf=8784) [id number] 02:32:00 Test Item Value Reference Range Comments FIBRINOGEN LEVEL (BEAKER) (test ixpy=120) 1050 mg/dl 225-434 RAPID DRUG SCREEN, [id number] 02:29:00 Test Item Value Reference Range Comments BARBITURATE URINE (BEAKER) (test lwno=352) Negative Negative BENZODIAZEPINE SCREEN URINE (BEAKER) (test Negative Negative khrr=758) COCAINE (METAB.) SCREEN (BEAKER) (test ktpm=0055) Negative Negative METHADONE SCREEN (BEAKER) (test leca=8458) Negative Negative OPIATE SCREEN URINE (BEAKER) (test ieyu=926) Positive Negative CANNABINOID SCREEN URINE (BEAKER) (test iszm=012) Negative Negative AMPH/METHAMPH SCREEN (BEAKER) (test ckmt=2394) Negative Negative PHENCYCLIDINE SCREEN URINE (BEAKER) (test mwnz=604) Negative Negative OXYCODONE SCREEN URINE (BEAKER) (test ubjh=9355) Negative Negative DRUG CUTOFF CONC.Cocaine 300 ng/mL Cannabinoid 50 ng/mL Benzodiazepine 200 ng/mLBarbiturate 200 ng/ mLPhencyclidine 25 ng/mLOpiate 300 ng/mLMethadone 300 ng/mLAmphetamine/ 1000 ng/mL MethamphetamineOxycodone 300 ng/mLThis assay provides an unconfirmed qualitative test result for the clinical management of patients in emergency situations. Chain of custody not maintained. Some yfsj-nqh-mygrjzq medications, as well as adulterants, may cause inaccurate results. Clinical correlation should be applied. A more comprehensive drug screen or confirmation of a detected drug may be performed upon request.[id number] 02:01:00 Test Item Value Reference Range Comments PHOSPHORUS (BEAKER) (test gieo=824) 2.7 mg/dL 2.3-4.7 [id number] 02:01:00 Test Item Value Reference Range Comments MAGNESIUM (BEAKER) (test avcq=013) 2.3 mg/dL 1.6-2.6 URINALYSIS W/ [id number] 01:40:00 Test Item Value Reference Range Comments COLOR (BEAKER) (test wqsp=403) Yellow CLARITY (BEAKER) (test trmz=346) Clear SPECIFIC GRAVITY UA (BEAKER) (test gkjz=770) 1.017 1.001-1.035 PH UA (BEAKER) (test cevv=801) 6.0 5.0-8.0 PROTEIN UA (BEAKER) (test ryqs=003) 20 mg/dL Negative GLUCOSE UA (BEAKER) (test mdqd=981) Negative Negative KETONES UA (BEAKER) (test bgfl=791) Negative Negative BILIRUBIN UA (BEAKER) (test lavl=787) Negative Negative BLOOD UA (BEAKER) (test cgpv=705) Moderate Negative NITRITE UA (BEAKER) (test utug=551) Negative Negative LEUKOCYTE ESTERASE UA (BEAKER) (test wofz=626) Negative Negative UROBILINOGEN UA (BEAKER) (test nsbk=405) 3.0 mg/dL 0.2-1.0 RBC UA (BEAKER) (test eeyb=952) 34 /HPF WBC UA (BEAKER) (test wqaz=113) 3 /HPF MUCUS (BEAKER) (test ntgr=3920) Rare SQUAMOUS EPITHELIAL (BEAKER) (test lauk=964) 1 /HPF SOURCE(BEAKER) (test vjdc=9136) POCT-GLUCOSE [id number] 21:30:00 Test Item Value Reference Range Comments POC-GLUCOSE METER (BEAKER) 96 mg/dL 70-[address] [facility] [address] (test shqd=9942) [facility] [address] U/S, ABDOMINAL, [id number] 19:51:00Reason for exam:->abd distensionFINAL REPORT HISTORY : Abdominal distention COMPARISON : None COMMENT : Complete ultrasound examination of the abdomen was performed. The liver is homogenous in echo-texture without evidence of a focal mass. The patient is status post cholecystectomy. The common bile duct was not visualized. The visualized portions of the pancreas are within normal limits. The spleen is enlarged measuring 13.7 cm in length. The right kidney measures 13.2 x 5.1 x 6.2 cm and the left kidney 14.8 x 5.7 x 5.6 cm in maximum size. There is no evidence of cysts, masses, stones or hydronephrosis. The portal vein measures to a maximum of 1.6 cm in diameter. There is no ascites or pleural effusion. The visualized inferior vena cava, hepatic veins and abdominal aorta are within normal limits. Themaximum diameter of the abdominal aorta is 2.0 cm. IMPRESSION : 1. Examination limited secondary tothe patient's body habitus and shadowing bowel gas. 2. Splenomegaly. 3. Status post cholecystectomy.4. Common bile duct not visualized. 5. Dilated main portal vein , a nonspecific finding but which can be seen in portal hypertension. Signed: Kim Whitaker Verified Date/Time: 02/09/2018 19:51:53 Reading Location : [address] Consult Reading Room C-REACTIVE [id number] 19:01:00 Test Item Value Reference Range Comments C-REACTIVE PROTEIN (BEAKER) (test mfig=475) 32.66 mg/dL 0.00-0.50 URIC [id number] 18:57:00 Test Item Value Reference Range Comments URIC ACID (BEAKER) (test sjpe=357) 8.8 mg/dL 2.6-7.2 LACTATE DEHYDROGENASE (LDH)2018-02-09 18:57:00 Test Item Value Reference Range Comments LACTATE DEHYDROGENASE (BEAKER) (test paim=943) 633 U/L 125-220 HEMOGLOBIN [id number] 18:50:00 Test Item Value Reference Range Comments HEMOGLOBIN A1C (BEAKER) (test bsip=129) 6.3 % 4.3-6.1 [id number] 18:05:00 Test Item Value Reference Range Comments PROTIME (BEAKER) (test jpwb=937) 16.5 seconds 11.7-14.7 INR (BEAKER) (test lcsl=299) 1.3 <=5.9 PARTIAL THROMBOPLASTIN TIME (BEAKER) (test 37.6 seconds 22.5-36.0 vrcq=029) RECOMMENDED COUMADIN/WARFARIN INR THERAPY RANGESSTANDARD DOSE: 2.0 - 3.0 Includes: PROPHYLAXIS forvenous thrombosis, systemic embolization; TREATMENT for venous thrombosis and/or pulmonary embolus.HIGH RISK: Target INR is 2.5-3.5 for patients with mechanical heart valves.CREATINE KINASE (CK), TOTAL AND [id number] 15:38:00 Test Item Value Reference Range Comments CREATINE KINASE TOTAL (BEAKER) (test dqpc=155) 39535 U/L 29-200 CREATINE KINASE-MB (BEAKER) (test dmnv=656) 21.6 ng/mL 0.0-6.6 CREATINE KINASE-MB INDEX (BEAKER) (test dkla=087) 0.2 % CK-MB Reference Range:<6.7 Normal6.7-10.0 Borderline>10.0 AbnormalTROPONIN [id number] 15:14:00 Test Item Value Reference Range Comments TROPONIN I (BEAKER) (test lroq=799) 0.03 ng/mL 0.00-0.03 Troponin I (TnI) levels must be interpreted in the context of the presenting symptoms and the clinical findings. Elevated TnI levels indicate myocardial damage, but are not specific for ischemic heart disease. Elevated TnI levels are seen in patients with other cardiac conditions (including myocarditis and congestive heart failure), and slight TnI elevations occur in patients with other conditions, including sepsis, renal failure, acidosis, acute neurological disease, and persistent tachyarrhythmia.CBC W/PLT COUNT & AUTO [id number] 15:14:00 Test Item Value Reference Range Comments WHITE BLOOD CELL COUNT (BEAKER) (test pehq=032) 12.8 K/ L 3.5-10.5 RED BLOOD CELL COUNT (BEAKER) (test qicu=247) 4.88 M/ L 4.63-6.08 HEMOGLOBIN (BEAKER) (test adxz=986) 13.5 GM/DL 13.7-17.5 HEMATOCRIT (BEAKER) (test vxlk=218) 42.1 % 40.1-51.0 MEAN CORPUSCULAR VOLUME (BEAKER) (test swbt=209) 86.3 fL 79.0-92.2 MEAN CORPUSCULAR HEMOGLOBIN (BEAKER) (test 27.7 pg 25.7-32.2 iwzh=131) MEAN CORPUSCULAR HEMOGLOBIN CONC (BEAKER) (test 32.1 GM/DL 32.3-36.5 iuhf=866) RED CELL DISTRIBUTION WIDTH (BEAKER) (test 15.3 % 11.6-14.4 xpdq=114) PLATELET COUNT (BEAKER) (test oyqm=670) 281 K/CU MM 150-450 MEAN PLATELET VOLUME (BEAKER) (test rnwd=548) 10.4 fL 9.4-12.4 NUCLEATED RED BLOOD CELLS (BEAKER) (test 0 /100 WBC 0-0 nceu=173) NEUTROPHILS RELATIVE PERCENT (BEAKER) (test 75 % zear=597) LYMPHOCYTES RELATIVE PERCENT (BEAKER) (test 7 % jdev=361) MONOCYTES RELATIVE PERCENT (BEAKER) (test 11 % vekg=229) EOSINOPHILS RELATIVE PERCENT (BEAKER) (test 2 % ecam=394) BASOPHILS RELATIVE PERCENT (BEAKER) (test 1 % toiv=024) NEUTROPHILS ABSOLUTE COUNT (BEAKER) (test 9.62 K/ L 1.78-5.38 dnac=583) LYMPHOCYTES ABSOLUTE COUNT (BEAKER) (test 0.91 K/ L 1.32-3.57 yfty=493) MONOCYTES ABSOLUTE COUNT (BEAKER) (test 1.42 K/ L 0.30-0.82 htoa=867) EOSINOPHILS ABSOLUTE COUNT (BEAKER) (test 0.19 K/ L 0.04-0.54 qnnk=302) BASOPHILS ABSOLUTE COUNT (BEAKER) (test 0.06 K/ L 0.01-0.08 dfys=899) IMMATURE GRANULOCYTES-RELATIVE PERCENT (BEAKER) 5 % 0-1 (test sola=8230) B-TYPE NATRIURETIC FACTOR (BNP)2018-02-09 15:11:00 Test Item Value Reference Range Comments B-TYPE NATRIURETIC PEPTIDE (BEAKER) (test 137 pg/mL 0-100 tjmn=061) BASIC METABOLIC [id number] 15:06:00 Test Item Value Reference Range Comments SODIUM (BEAKER) (test 134 meq/L 136-145 zmsw=311) POTASSIUM (BEAKER) (test 4.4 meq/L 3.5-5.1 ofoc=342) CHLORIDE (BEAKER) (test 99 meq/L 98-107 kzdr=243) CO2 (BEAKER) (test 23 meq/L 22-29 aenv=456) BLOOD UREA NITROGEN 25 mg/dL 7-21 (BEAKER) (test yuyo=367) CREATININE (BEAKER) (test 1.27 mg/dL 0.57-1.25 uflc=698) GLUCOSE RANDOM (BEAKER) 103 mg/dL 70-105 (test xruh=356) CALCIUM (BEAKER) (test 9.7 mg/dL 8.4-10.2 hdga=576) EGFR (BEAKER) (test 58 mL/min/1.73 sq m ESTIMATED GFR IS NOT fnvd=2178) ACCURATE CREATININE CLEARANCE IN PREDICTING GLOMERULAR FILTRATION RATE. ESTIMATED GFR IS NOT APPLICABLE FOR DIALYSIS PATIENTS.
== END 2019-05-12 12:55 | disposition home or self-care (01) ==
LOC: ER 10:29 → SUPCPDRO 10:29 → ER 12:55
DX: L03.115 Cellulitis of right lower limb (principal); L03.125 Acute lymphangitis of right lower limb
CPT/HCPCS: 36415; 80053; 85025; 87040; 87070; 87077; 87186; 87205; 96365; 99284

== ENCOUNTER 2019-05-17 10:48 | Inpatient (IN) | payer OTHER ==
[2019-05-16 12:24] LABS: Protime INR 1.38
--- OUTSIDE RECORDS SUMMARY | 2019-05-17 10:56 | XMS REPORT ---
:1960 [facility] Address [address] [place] [address] Dr. Pereira [address] [place] [id number] Care Team Providers Name Role Phone POONAM [...] Value Reference Range Comments CULTURE (BEAKER) (test ndft=8111) No acid-fast bacilli isolated in 42 days AFB SMEAR (BEAKER) (test kfbp=537) No acid fast bacilli seen FUNGUS CULTURE + [id number] 09:54:00 Test Item Value Reference Range Comments CULTURE (BEAKER) (test No fungus isolated in 28 days mrys=4678) FUNGUS SMEAR (BEAKER) (test No fungi seen rpdn=7051) RAD, CHEST, 1 VIEW, NON [id number] 09:28:00Reason for exam:->preopShould this be performed at the bedside?->YesAddendum BeginsREPORT STATUS:A Reason for exam: Peroneal nerve biopsy right Signed: Dung Cartagena Verified Date/Time: 03/12/2018 09:28:11 Reading Location: [facility] B1 C013V Neuro Reading RoomAddendum EndsFINAL REPORT Chest one view compared to May 07, 2014 Discussion: There is cardiac prominence. There may be some mild interstitial congestion butno focal infiltrate. No effusion or pneumothorax. Signed: Dung Cartagena Verified Date/Time:02/19 14:22:08 Reading Location: [facility] B1 C013W Consult Reading Room POCT- GLUCOSE [id number] 18:10:00 Test Item Value Reference Range Comments POC-GLUCOSE METER (BEAKER) 125 mg/dL 70-110 TESTED AT [address] (test egin=0837) [facility] [address] [id number] 15:30:00 Test Item Value Reference Range Comments MAGNESIUM (BEAKER) (test lnog=045) 1.8 mg/dL 1.6-2.6 BASIC METABOLIC [id number] 09:22:00 Test Item Value Reference Range Comments SODIUM (BEAKER) (test 134 meq/L 136-145 kugo=085) POTASSIUM (BEAKER) (test 4.4 meq/L 3.5-5.1 Specimen slightly ryzb=705) hemolyzed CHLORIDE (BEAKER) (test 99 meq/L 98-107 yuem=168) CO2 (BEAKER) (test 27 meq/L 22-29 gijx=842) BLOOD UREA NITROGEN 18 mg/dL 7-21 (BEAKER) (test hcmp=801) CREATININE (BEAKER) (test 1.13 mg/dL 0.57-1.25 Specimen slightly qiyg=379) hemolyzed GLUCOSE RANDOM (BEAKER) 103 mg/dL 70-105 (test xelb=525) CALCIUM (BEAKER) (test 9.6 mg/dL 8.4-10.2 wolr=527) EGFR (BEAKER) (test 66 mL/min/1.73 sq m ESTIMATED GFR IS NOT adpi=7071) ACCURATE CREATININE CLEARANCE IN PREDICTING GLOMERULAR FILTRATION RATE. ESTIMATED GFR IS NOT APPLICABLE FOR DIALYSIS PATIENTS. POCT-GLUCOSE [id number] 08:38:00 Test Item Value Reference Range Comments POC-GLUCOSE METER (BEAKER) 112 mg/dL 70-110 TESTED AT [address] (test notd=5911) [facility] [address] CREATINE KINASE (CK)2018-02-24 07:12:00 Test Item Value Reference Range Comments CREATINE KINASE TOTAL (BEAKER) (test kjun=875) 1449 U/L 29-200 PROTHROMBIN [id number] 06:24:00 Test Item Value Reference Range Comments PROTIME (BEAKER) (test cylx=879) 17.4 seconds 11.7-14.7 INR (BEAKER) (test cife=555) 1.4 <=5.9 RECOMMENDED COUMADIN/WARFARIN INR THERAPY RANGESSTANDARD DOSE: 2.0 - 3.0 Includes: PROPHYLAXIS forvenous thrombosis, systemic embolization; TREATMENT for venous thrombosis and/or pulmonary embolus.HIGH RISK: Target INR is 2.5-3.5 for patients with mechanical heart valves.While on warfarin.CBC W/PLT COUNT &amp ; AUTO [id number] 06:02:00 Test Item Value Reference Range Comments WHITE BLOOD CELL COUNT (BEAKER) (test foyw=629) 5.9 K/ L 3.5-10.5 RED BLOOD CELL COUNT (BEAKER) (test icpc=689) 4.03 M/ L 4.63-6.08 HEMOGLOBIN (BEAKER) (test cwbj=662) 11.2 GM/DL 13.7-17.5 HEMATOCRIT (BEAKER) (test kveh=862) 35.5 % 40.1-51.0 MEAN CORPUSCULAR VOLUME (BEAKER) (test tkps=873) 88.1 fL 79.0-92.2 MEAN CORPUSCULAR HEMOGLOBIN (BEAKER) (test 27.8 pg 25.7-32.2 thvh=547) MEAN CORPUSCULAR HEMOGLOBIN CONC (BEAKER) (test 31.5 GM/DL 32.3-36.5 fbso=227) RED CELL DISTRIBUTION WIDTH (BEAKER) (test 14.8 % 11.6-14.4 ydsx=759) PLATELET COUNT (BEAKER) (test idol=371) 355 K/CU MM 150-450 MEAN PLATELET VOLUME (BEAKER) (test rdub=457) 9.4 fL 9.4-12.4 NUCLEATED RED BLOOD CELLS (BEAKER) (test 0 /100 WBC 0-0 hkip=699) NEUTROPHILS RELATIVE PERCENT (BEAKER) (test 61 % wyvl=650) LYMPHOCYTES RELATIVE PERCENT (BEAKER) (test 17 % mgfz=106) MONOCYTES RELATIVE PERCENT (BEAKER) (test 13 % gsid=635) EOSINOPHILS RELATIVE PERCENT (BEAKER) (test 7 % pwxv=226) BASOPHILS RELATIVE PERCENT (BEAKER) (test 1 % zhoz=336) NEUTROPHILS ABSOLUTE COUNT (BEAKER) (test 3.63 K/ L 1.78-5.38 rrbz=169) LYMPHOCYTES ABSOLUTE COUNT (BEAKER) (test 1.03 K/ L 1.32-3.57 tdjf=768) MONOCYTES ABSOLUTE COUNT (BEAKER) (test 0.77 K/ L 0.30-0.82 xlyx=806) EOSINOPHILS ABSOLUTE COUNT (BEAKER) (test 0.39 K/ L 0.04-0.54 egwx=626) BASOPHILS ABSOLUTE COUNT (BEAKER) (test 0.04 K/ L 0.01-0.08 fgry=459) IMMATURE GRANULOCYTES-RELATIVE PERCENT (BEAKER) 1 % 0-1 (test djrr=3036) POCT-GLUCOSE [id number] 20:59:00 Test Item Value Reference Range Comments POC-GLUCOSE METER (BEAKER) 112 mg/dL 70-110 TESTED AT [address] (test qsiu=7690) [place] [id number] POCT-GLUCOSE [id number] 17:02:00 Test Item Value Reference Range Comments POC-GLUCOSE METER (BEAKER) 109 mg/dL 70-110 TESTED AT [address] (test rjwp=9896) [place] [id number] POCT-GLUCOSE [id number] 11:39:00 Test Item Value Reference Range Comments POC-GLUCOSE METER (BEAKER) 97 mg/dL 70-110 TESTED AT [address] (test etdz=6084) [place] [address] POCT-GLUCOSE [id number] 07:35:00 Test Item Value Reference Range Comments POC-GLUCOSE METER (BEAKER) 109 mg/dL 70-110 TESTED AT [address] (test dvks=2590) [place] [address] CREATINE KINASE (CK)2018-02-23 07:19:00 Test Item Value Reference Range Comments CREATINE KINASE TOTAL (BEAKER) (test czbu=692) 1548 U/L 29-200 PROTHROMBIN [id number] 07:06:00 Test Item Value Reference Range Comments PROTIME (BEAKER) (test uade=054) 18.5 seconds 11.7-14.7 INR (BEAKER) (test pkmw=280) 1.5 <=5.9 RECOMMENDED COUMADIN/WARFARIN INR THERAPY RANGESSTANDARD DOSE: 2.0 - 3.0 Includes: PROPHYLAXIS forvenous thrombosis, systemic embolization; TREATMENT for venous thrombosis and/or pulmonary embolus.HIGH RISK: Target INR is 2.5-3.5 for patients with mechanical heart valves.While on warfarin.CBC W/PLT COUNT &amp ; AUTO [id number] 06:54:00 Test Item Value Reference Range Comments WHITE BLOOD CELL COUNT (BEAKER) (test gtsu=681) 5.4 K/ L 3.5-10.5 RED BLOOD CELL COUNT (BEAKER) (test rlcp=676) 4.17 M/ L 4.63-6.08 HEMOGLOBIN (BEAKER) (test yttq=052) 11.7 GM/DL 13.7-17.5 HEMATOCRIT (BEAKER) (test ugqh=952) 36.9 % 40.1-51.0 MEAN CORPUSCULAR VOLUME (BEAKER) (test ibfg=444) 88.5 fL 79.0-92.2 MEAN CORPUSCULAR HEMOGLOBIN (BEAKER) (test 28.1 pg 25.7-32.2 mtgp=398) MEAN CORPUSCULAR HEMOGLOBIN CONC (BEAKER) (test 31.7 GM/DL 32.3-36.5 mgsl=224) RED CELL DISTRIBUTION WIDTH (BEAKER) (test 15.1 % 11.6-14.4 epaq=486) PLATELET COUNT (BEAKER) (test kisc=871) 363 K/CU MM 150-450 MEAN PLATELET VOLUME (BEAKER) (test ndmd=401) 9.6 fL 9.4-12.4 NUCLEATED RED BLOOD CELLS (BEAKER) (test 0 /100 WBC 0-0 pygf=894) NEUTROPHILS RELATIVE PERCENT (BEAKER) (test 61 % orjz=796) LYMPHOCYTES RELATIVE PERCENT (BEAKER) (test 16 % hadd=216) MONOCYTES RELATIVE PERCENT (BEAKER) (test 14 % caah=512) EOSINOPHILS RELATIVE PERCENT (BEAKER) (test 7 % kpjr=214) BASOPHILS RELATIVE PERCENT (BEAKER) (test 1 % beqm=889) NEUTROPHILS ABSOLUTE COUNT (BEAKER) (test 3.29 K/ L 1.78-5.38 yylo=961) LYMPHOCYTES ABSOLUTE COUNT (BEAKER) (test 0.85 K/ L 1.32-3.57 sfef=091) MONOCYTES ABSOLUTE COUNT (BEAKER) (test 0.73 K/ L 0.30-0.82 vwqk=648) EOSINOPHILS ABSOLUTE COUNT (BEAKER) (test 0.39 K/ L 0.04-0.54 ezsv=131) BASOPHILS ABSOLUTE COUNT (BEAKER) (test 0.05 K/ L 0.01-0.08 vhac=901) IMMATURE GRANULOCYTES-RELATIVE PERCENT (BEAKER) 2 % 0-1 (test vvqx=5158) POCT-GLUCOSE [id number] 21:04:00 Test Item Value Reference Range Comments POC-GLUCOSE METER (BEAKER) 135 mg/dL 70-110 TESTED AT [address] (test rkmd=1795) [facility] [address] POCT-GLUCOSE [id number] 17:31:00 Test Item Value Reference Range Comments POC-GLUCOSE METER (BEAKER) 113 mg/dL 70-110 TESTED AT [address] (test xciq=1139) [facility] [address] POCT-GLUCOSE [id number] 12:18:00 Test Item Value Reference Range Comments POC-GLUCOSE METER (BEAKER) 107 mg/dL 70-110 TESTED AT [address] (test dqxw=5262) [place] [id number] POCT-GLUCOSE [id number] 08:14:00 Test Item Value Reference Range Comments POC-GLUCOSE METER (BEAKER) 107 mg/dL 70-110 TESTED AT [address] (test riee=9106) [facility] [address] CREATINE KINASE (CK)2018-02-22 07:55:00 Test Item Value Reference Range Comments CREATINE KINASE TOTAL (BEAKER) (test vaxb=728) 1559 U/L 29-200 PROTHROMBIN TIME/ 06:50:00 Test Item Value Reference Range Comments PROTIME (BEAKER) (test wgxs=700) 18.4 seconds 11.7-14.7 INR (BEAKER) (test yyxk=956) 1.5 <=5.9 RECOMMENDED COUMADIN/WARFARIN INR THERAPY RANGESSTANDARD DOSE: 2.0 - 3.0 Includes: PROPHYLAXIS forvenous thrombosis, systemic embolization; TREATMENT for venous thrombosis and/or pulmonary embolus.HIGH RISK: Target INR is 2.5-3.5 for patients with mechanical heart valves.While on warfarin.CBC W/PLT COUNT &amp ; AUTO [id number] 06:33:00 Test Item Value Reference Range Comments WHITE BLOOD CELL COUNT (BEAKER) (test wfct=723) 5.9 K/ L 3.5-10.5 RED BLOOD CELL COUNT (BEAKER) (test akja=656) 4.18 M/ L 4.63-6.08 HEMOGLOBIN (BEAKER) (test qjaw=088) 11.7 GM/DL 13.7-17.5 HEMATOCRIT (BEAKER) (test gbgm=156) 37.3 % 40.1-51.0 MEAN CORPUSCULAR VOLUME (BEAKER) (test sddc=211) 89.2 fL 79.0-92.2 MEAN CORPUSCULAR HEMOGLOBIN (BEAKER) (test 28.0 pg 25.7-32.2 bpmb=174) MEAN CORPUSCULAR HEMOGLOBIN CONC (BEAKER) (test 31.4 GM/DL 32.3-36.5 lnji=345) RED CELL DISTRIBUTION WIDTH (BEAKER) (test 14.9 % 11.6-14.4 vxcp=817) PLATELET COUNT (BEAKER) (test yqzt=135) 387 K/CU MM 150-450 MEAN PLATELET VOLUME (BEAKER) (test wfzh=887) 9.8 fL 9.4-12.4 NUCLEATED RED BLOOD CELLS (BEAKER) (test 0 /100 WBC 0-0 ogdr=047) NEUTROPHILS RELATIVE PERCENT (BEAKER) (test 64 % fvzz=968) LYMPHOCYTES RELATIVE PERCENT (BEAKER) (test 15 % apac=521) MONOCYTES RELATIVE PERCENT (BEAKER) (test 14 % whft=558) EOSINOPHILS RELATIVE PERCENT (BEAKER) (test 5 % dcqr=237) BASOPHILS RELATIVE PERCENT (BEAKER) (test 1 % trbh=613) NEUTROPHILS ABSOLUTE COUNT (BEAKER) (test 3.78 K/ L 1.78-5.38 jytr=390) LYMPHOCYTES ABSOLUTE COUNT (BEAKER) (test 0.87 K/ L 1.32-3.57 jkrp=418) MONOCYTES ABSOLUTE COUNT (BEAKER) (test 0.82 K/ L 0.30-0.82 tbpy=690) EOSINOPHILS ABSOLUTE COUNT (BEAKER) (test 0.31 K/ L 0.04-0.54 dhne=081) BASOPHILS ABSOLUTE COUNT (BEAKER) (test 0.04 K/ L 0.01-0.08 havh=412) IMMATURE GRANULOCYTES-RELATIVE PERCENT (BEAKER) 1 % 0-1 (test zdfu=5788) POCT-GLUCOSE [id number] 21:52:00 Test Item Value Reference Range Comments POC-GLUCOSE METER (BEAKER) 124 mg/dL 70-110 TESTED AT [address] (test edmp=1491) [facility] [address] POCT-GLUCOSE [id number] 17:58:00 Test Item Value Reference Range Comments POC-GLUCOSE METER (BEAKER) 111 mg/dL 70-110 TESTED AT [address] (test wlmk=1384) [facility] [address] POCT-GLUCOSE [id number] 12:17:00 Test Item Value Reference Range Comments POC-GLUCOSE METER (BEAKER) 115 mg/dL 70-110 TESTED AT [address] (test jaah=3239) [facility] [address] POCT-GLUCOSE [id number] 09:11:00 Test Item Value Reference Range Comments POC-GLUCOSE METER (BEAKER) 112 mg/dL 70-110 TESTED AT [address] (test hssn=5970) [facility] [address] CREATINE KINASE (CK)2018-02-21 06:20:00 Test Item Value Reference Range Comments CREATINE KINASE TOTAL (BEAKER) (test ebqo=757) 1509 U/L 29-200 PROTHROMBIN [id number] 05:55:00 Test Item Value Reference Range Comments PROTIME (BEAKER) (test rrsr=724) 17.7 seconds 11.7-14.7 INR (BEAKER) (test cbef=264) 1.5 <=5.9 RECOMMENDED COUMADIN/WARFARIN INR THERAPY RANGESSTANDARD DOSE: 2.0 - 3.0 Includes: PROPHYLAXIS forvenous thrombosis, systemic embolization; TREATMENT for venous thrombosis and/or pulmonary embolus.HIGH RISK: Target INR is 2.5-3.5 for patients with mechanical heart valves.While on warfarin.CBC W/PLT COUNT &amp ; AUTO [id number] 05:42:00 Test Item Value Reference Range Comments WHITE BLOOD CELL COUNT (BEAKER) (test ecjl=386) 7.5 K/ L 3.5-10.5 RED BLOOD CELL COUNT (BEAKER) (test vkri=812) 4.16 M/ L 4.63-6.08 HEMOGLOBIN (BEAKER) (test ybvy=296) 11.6 GM/DL 13.7-17.5 HEMATOCRIT (BEAKER) (test ctsp=441) 36.8 % 40.1-51.0 MEAN CORPUSCULAR VOLUME (BEAKER) (test nysm=830) 88.5 fL 79.0-92.2 MEAN CORPUSCULAR HEMOGLOBIN (BEAKER) (test 27.9 pg 25.7-32.2 dejl=522) MEAN CORPUSCULAR HEMOGLOBIN CONC (BEAKER) (test 31.5 GM/DL 32.3-36.5 csbo=291) RED CELL DISTRIBUTION WIDTH (BEAKER) (test 15.1 % 11.6-14.4 lgta=744) PLATELET COUNT (BEAKER) (test jexk=717) 388 K/CU MM 150-450 MEAN PLATELET VOLUME (BEAKER) (test txed=975) 9.4 fL 9.4-12.4 NUCLEATED RED BLOOD CELLS (BEAKER) (test 0 /100 WBC 0-0 yndo=664) NEUTROPHILS RELATIVE PERCENT (BEAKER) (test 67 % xetn=075) LYMPHOCYTES RELATIVE PERCENT (BEAKER) (test 12 % srdi=293) MONOCYTES RELATIVE PERCENT (BEAKER) (test 14 % hxtx=689) EOSINOPHILS RELATIVE PERCENT (BEAKER) (test 4 % zpyp=174) BASOPHILS RELATIVE PERCENT (BEAKER) (test 1 % solz=433) NEUTROPHILS ABSOLUTE COUNT (BEAKER) (test 5.00 K/ L 1.78-5.38 fcgl=593) LYMPHOCYTES ABSOLUTE COUNT (BEAKER) (test 0.90 K/ L 1.32-3.57 uyni=385) MONOCYTES ABSOLUTE COUNT (BEAKER) (test 1.07 K/ L 0.30-0.82 olpe=624) EOSINOPHILS ABSOLUTE COUNT (BEAKER) (test 0.33 K/ L 0.04-0.54 jhzp=336) BASOPHILS ABSOLUTE COUNT (BEAKER) (test 0.05 K/ L 0.01-0.08 ijjl=737) IMMATURE GRANULOCYTES-RELATIVE PERCENT (BEAKER) 2 % 0-1 (test vjar=1143) POCT-GLUCOSE [id number] 21:06:00 Test Item Value Reference Range Comments POC-GLUCOSE METER (BEAKER) 153 mg/dL 70-110 TESTED AT [facility] [address] [facility] (test dvyb=8536) [facility] [address] POCT-GLUCOSE [id number] 12:35:00 Test Item Value Reference Range Comments POC-GLUCOSE METER (BEAKER) 99 mg/dL 70-110 TESTED AT [facility] [address] [facility] (test cfbk=7996) [facility] [address] POCT-GLUCOSE [id number] 08:20:00 Test Item Value Reference Range Comments POC-GLUCOSE METER (BEAKER) 92 mg/dL 70-110 TESTED AT [facility] [address] [facility] (test zsyf=1652) [facility] [address] T4, [id number] 07:10:00 Test Item Value Reference Range Comments FREE T4 (BEAKER) (test omtz=417) 0.97 ng/dL 0.70-1.48 TSH/FREE T4 IF [id number] 06:18:00 Test Item Value Reference Range Comments THYROID STIMULATING HORMONE (BEAKER) (test 20.29 uIU/mL 0.35-4.94 iohr=948) BASIC METABOLIC [id number] 05:55:00 Test Item Value Reference Range Comments SODIUM (BEAKER) (test 133 meq/L 136-145 rurk=604) POTASSIUM (BEAKER) (test 4.6 meq/L 3.5-5.1 ntuw=382) CHLORIDE (BEAKER) (test 101 meq/L 98-107 tbhj=184) CO2 (BEAKER) (test 26 meq/L 22-29 dxpd=942) BLOOD UREA NITROGEN 20 mg/dL 7-21 (BEAKER) (test lano=160) CREATININE (BEAKER) (test 0.99 mg/dL 0.57-1.25 roue=746) GLUCOSE RANDOM (BEAKER) 99 mg/dL 70-105 (test xrjb=196) CALCIUM (BEAKER) (test 9.2 mg/dL 8.4-10.2 xxqm=855) EGFR (BEAKER) (test 77 mL/min/1.73 sq m ESTIMATED GFR IS NOT tfsj=0742) ACCURATE CREATININE CLEARANCE IN PREDICTING GLOMERULAR FILTRATION RATE. ESTIMATED GFR IS NOT APPLICABLE FOR DIALYSIS PATIENTS. CREATINE KINASE (CK)2018-02-20 05:55:00 Test Item Value Reference Range Comments CREATINE KINASE TOTAL (BEAKER) (test ckdh=501) 1481 U/L 29-200 PROTHROMBIN [id number] 05:36:00 Test Item Value Reference Range Comments PROTIME (BEAKER) (test bjzb=127) 16.0 seconds 11.7-14.7 INR (BEAKER) (test tlxn=215) 1.3 <=5.9 RECOMMENDED COUMADIN/WARFARIN INR THERAPY RANGESSTANDARD DOSE: 2.0 - 3.0 Includes: PROPHYLAXIS forvenous thrombosis, systemic embolization; TREATMENT for venous thrombosis and/or pulmonary embolus.HIGH RISK: Target INR is 2.5-3.5 for patients with mechanical heart valves.While on warfarin.CBC W/PLT COUNT &amp ; AUTO [id number] 05:19:00 Test Item Value Reference Range Comments WHITE BLOOD CELL COUNT (BEAKER) (test zgpx=253) 6.8 K/ L 3.5-10.5 RED BLOOD CELL COUNT (BEAKER) (test sbuc=676) 4.20 M/ L 4.63-6.08 HEMOGLOBIN (BEAKER) (test ytxu=088) 11.6 GM/DL 13.7-17.5 HEMATOCRIT (BEAKER) (test abtf=826) 37.3 % 40.1-51.0 MEAN CORPUSCULAR VOLUME (BEAKER) (test jxcl=093) 88.8 fL 79.0-92.2 MEAN CORPUSCULAR HEMOGLOBIN (BEAKER) (test 27.6 pg 25.7-32.2 rmwl=953) MEAN CORPUSCULAR HEMOGLOBIN CONC (BEAKER) (test 31.1 GM/DL 32.3-36.5 nnjh=860) RED CELL DISTRIBUTION WIDTH (BEAKER) (test 15.2 % 11.6-14.4 tcdr=116) PLATELET COUNT (BEAKER) (test jvxk=948) 385 K/CU MM 150-450 MEAN PLATELET VOLUME (BEAKER) (test wudh=887) 9.4 fL 9.4-12.4 NUCLEATED RED BLOOD CELLS (BEAKER) (test 0 /100 WBC 0-0 thfc=564) NEUTROPHILS RELATIVE PERCENT (BEAKER) (test 66 % qqcb=381) LYMPHOCYTES RELATIVE PERCENT (BEAKER) (test 14 % duzk=633) MONOCYTES RELATIVE PERCENT (BEAKER) (test 12 % elec=145) EOSINOPHILS RELATIVE PERCENT (BEAKER) (test 5 % qndl=936) BASOPHILS RELATIVE PERCENT (BEAKER) (test 1 % xgnu=254) NEUTROPHILS ABSOLUTE COUNT (BEAKER) (test 4.49 K/ L 1.78-5.38 aoul=732) LYMPHOCYTES ABSOLUTE COUNT (BEAKER) (test 0.92 K/ L 1.32-3.57 nwft=956) MONOCYTES ABSOLUTE COUNT (BEAKER) (test 0.81 K/ L 0.30-0.82 gtpw=392) EOSINOPHILS ABSOLUTE COUNT (BEAKER) (test 0.33 K/ L 0.04-0.54 ffxg=697) BASOPHILS ABSOLUTE COUNT (BEAKER) (test 0.04 K/ L 0.01-0.08 tyss=892) IMMATURE GRANULOCYTES-RELATIVE PERCENT (BEAKER) 3 % 0-1 (test xfip=5940) POCT-GLUCOSE [id number] 21:57:00 Test Item Value Reference Range Comments POC-GLUCOSE METER (BEAKER) 115 mg/dL 70-110 TESTED AT [address] (test fezm=2825) [place] [address] POCT-GLUCOSE [id number] 18:03:00 Test Item Value Reference Range Comments POC-GLUCOSE METER (BEAKER) 138 mg/dL 70-110 TESTED AT [address] (test igad=6184) [place] [address] PROTEIN ELECTROPHORESIS, [id number] 17:26:00 Test Item Value Reference Range Comments ALBUMIN FRACTION (BEAKER) 2.2 g/dL 3.5-5.5 (test jrjb=553) ALPHA 1 FRACTION (BEAKER) 0.5 g/dL 0.2-0.4 (test wmkb=137) ALPHA 2 FRACTION (BEAKER) 1.1 g/dL 0.5-0.9 (test syop=429) BETA FRACTION (BEAKER) (test 1.2 g/dL 0.6-1.1 acaj=680) GAMMA GLOBULIN FRACTION 1.2 g/dL 0.7-1.7 (BEAKER) (test wjks=274) INTERPRETATION-119 (BEAKER) Pattern consistent with acute (test idkx=9353) inflammation as well as renal protein loss. No monoclonal bands detected. [id number] Yumiko Wagner MD (BEAKER) (test kuys=2248) (electronic signature) PROTEIN TOTAL SERUM, SPEP 6.1 gm/dL 6.0-8.3 (BEAKER) (test vayq=3165) [id number] 14:35:00 Test Item Value Reference Range Comments PARTIAL THROMBOPLASTIN TIME (BEAKER) (test 33.7 seconds 22.5-36.0 mqqv=323) PROTHROMBIN TIME/[id number] 14:34:00 Test Item Value Reference Range Comments PROTIME (BEAKER) (test gkvv=073) 16.1 seconds 11.7-14.7 INR (BEAKER) (test usmp=062) 1.3 <=5.9 RECOMMENDED COUMADIN/WARFARIN INR THERAPY RANGESSTANDARD DOSE: 2.0 - 3.0 Includes: PROPHYLAXIS forvenous thrombosis, systemic embolization; TREATMENT for venous thrombosis and/or pulmonary embolus.HIGH RISK: Target INR is 2.5-3.5 for patients with mechanical heart valves.POCT-GLUCOSE [id number] 13:04:00 Test Item Value Reference Range Comments POC-GLUCOSE METER (BEAKER) 111 mg/dL 70-110 TESTED AT [address] (test ysnh=7537) [facility] [id number] POCT-GLUCOSE [id number] 08:53:00 Test Item Value Reference Range Comments POC-GLUCOSE METER (BEAKER) 98 mg/dL 70-110 TESTED AT [address] (test zgcr=5357) [facility] [id number] CREATINE KINASE (CK)2018-02-19 03:18:00 Test Item Value Reference Range Comments CREATINE KINASE TOTAL (BEAKER) (test lifu=820) 1587 U/L 29-200 PROTHROMBIN [id number] 03:17:00 Test Item Value Reference Range Comments PROTIME (BEAKER) (test fztb=312) 17.2 seconds 11.7-14.7 INR (BEAKER) (test aqmy=141) 1.4 <=5.9 RECOMMENDED COUMADIN/WARFARIN INR THERAPY RANGESSTANDARD DOSE: 2.0 - 3.0 Includes: PROPHYLAXIS forvenous thrombosis, systemic embolization; TREATMENT for venous thrombosis and/or pulmonary embolus.HIGH RISK: Target INR is 2.5-3.5 for patients with mechanical heart valves.While on warfarin.CBC W/PLT COUNT &amp ; AUTO [id number] 02:48:00 Test Item Value Reference Range Comments WHITE BLOOD CELL COUNT (BEAKER) (test oscl=431) 8.2 K/ L 3.5-10.5 RED BLOOD CELL COUNT (BEAKER) (test oayw=946) 4.37 M/ L 4.63-6.08 HEMOGLOBIN (BEAKER) (test npbq=567) 12.1 GM/DL 13.7-17.5 HEMATOCRIT (BEAKER) (test hsqj=366) 38.8 % 40.1-51.0 MEAN CORPUSCULAR VOLUME (BEAKER) (test hzqt=490) 88.8 fL 79.0-92.2 MEAN CORPUSCULAR HEMOGLOBIN (BEAKER) (test 27.7 pg 25.7-32.2 rmgf=266) MEAN CORPUSCULAR HEMOGLOBIN CONC (BEAKER) (test 31.2 GM/DL 32.3-36.5 mjvm=554) RED CELL DISTRIBUTION WIDTH (BEAKER) (test 15.2 % 11.6-14.4 dbsx=230) PLATELET COUNT (BEAKER) (test iktu=777) 395 K/CU MM 150-450 MEAN PLATELET VOLUME (BEAKER) (test vygb=362) 9.3 fL 9.4-12.4 NUCLEATED RED BLOOD CELLS (BEAKER) (test 0 /100 WBC 0-0 bpta=494) NEUTROPHILS RELATIVE PERCENT (BEAKER) (test 67 % icss=161) LYMPHOCYTES RELATIVE PERCENT (BEAKER) (test 13 % uhfo=387) MONOCYTES RELATIVE PERCENT (BEAKER) (test 12 % xtsg=089) EOSINOPHILS RELATIVE PERCENT (BEAKER) (test 5 % uqxw=637) BASOPHILS RELATIVE PERCENT (BEAKER) (test 1 % xpal=013) NEUTROPHILS ABSOLUTE COUNT (BEAKER) (test 5.53 K/ L 1.78-5.38 nvcg=799) LYMPHOCYTES ABSOLUTE COUNT (BEAKER) (test 1.03 K/ L 1.32-3.57 cfhz=111) MONOCYTES ABSOLUTE COUNT (BEAKER) (test 1.00 K/ L 0.30-0.82 gzhi=309) EOSINOPHILS ABSOLUTE COUNT (BEAKER) (test 0.37 K/ L 0.04-0.54 rftw=173) BASOPHILS ABSOLUTE COUNT (BEAKER) (test 0.04 K/ L 0.01-0.08 nalj=230) IMMATURE GRANULOCYTES-RELATIVE PERCENT (BEAKER) 3 % 0-1 (test mdtw=6192) POCT-GLUCOSE [id number] 23:49:00 Test Item Value Reference Range Comments POC-GLUCOSE METER (BEAKER) 161 mg/dL 70-110 TESTED AT [address] (test uflc=8943) [facility] [id number] POCT-GLUCOSE [id number] 16:11:00 Test Item Value Reference Range Comments POC-GLUCOSE METER (BEAKER) 124 mg/dL 70-110 TESTED AT [address] (test rekv=8289) [facility] [id number] POCT-GLUCOSE [id number] 12:21:00 Test Item Value Reference Range Comments POC-GLUCOSE METER (BEAKER) 145 mg/dL 70-110 TESTED AT [address] (test dzxr=4940) [facility] [address] POCT-GLUCOSE [id number] 08:06:00 Test Item Value Reference Range Comments POC-GLUCOSE METER (BEAKER) 98 mg/dL 70-110 TESTED AT [address] (test giqh=7014) [facility] [id number] PROTHROMBIN [id number] 03:22:00 Test Item Value Reference Range Comments PROTIME (BEAKER) (test djiw=556) 15.8 seconds 11.7-14.7 INR (BEAKER) (test wwro=363) 1.3 <=5.9 RECOMMENDED COUMADIN/WARFARIN INR THERAPY RANGESSTANDARD DOSE: 2.0 - 3.0 Includes: PROPHYLAXIS forvenous thrombosis, systemic embolization; TREATMENT for venous thrombosis and/or pulmonary embolus.HIGH RISK: Target INR is 2.5-3.5 for patients with mechanical heart valves.While on warfarin.CREATINE KINASE (CK) 2018-02-18 03:11:00 Test Item Value Reference Range Comments CREATINE KINASE TOTAL (BEAKER) (test bgul=603) 1703 U/L 29-200 CBC W/PLT COUNT & AUTO [id number] 02:56:00 Test Item Value Reference Range Comments WHITE BLOOD CELL COUNT (BEAKER) (test lcph=064) 10.2 K/ L 3.5-10.5 RED BLOOD CELL COUNT (BEAKER) (test qpfi=726) 4.22 M/ L 4.63-6.08 HEMOGLOBIN (BEAKER) (test vtpn=278) 11.7 GM/DL 13.7-17.5 HEMATOCRIT (BEAKER) (test ltwx=308) 37.4 % 40.1-51.0 MEAN CORPUSCULAR VOLUME (BEAKER) (test rrgg=239) 88.6 fL 79.0-92.2 MEAN CORPUSCULAR HEMOGLOBIN (BEAKER) (test 27.7 pg 25.7-32.2 rqvj=812) MEAN CORPUSCULAR HEMOGLOBIN CONC (BEAKER) (test 31.3 GM/DL 32.3-36.5 ewcg=777) RED CELL DISTRIBUTION WIDTH (BEAKER) (test 15.2 % 11.6-14.4 olkd=453) PLATELET COUNT (BEAKER) (test oaug=877) 414 K/CU MM 150-450 MEAN PLATELET VOLUME (BEAKER) (test vhrd=550) 9.5 fL 9.4-12.4 NUCLEATED RED BLOOD CELLS (BEAKER) (test 0 /100 WBC 0-0 drfr=273) NEUTROPHILS RELATIVE PERCENT (BEAKER) (test 68 % dwzg=806) LYMPHOCYTES RELATIVE PERCENT (BEAKER) (test 13 % oecu=085) MONOCYTES RELATIVE PERCENT (BEAKER) (test 10 % dmlg=096) EOSINOPHILS RELATIVE PERCENT (BEAKER) (test 4 % ztzg=539) BASOPHILS RELATIVE PERCENT (BEAKER) (test 1 % gwwo=527) NEUTROPHILS ABSOLUTE COUNT (BEAKER) (test 6.88 K/ L 1.78-5.38 qopj=597) LYMPHOCYTES ABSOLUTE COUNT (BEAKER) (test 1.27 K/ L 1.32-3.57 sfty=347) MONOCYTES ABSOLUTE COUNT (BEAKER) (test 1.06 K/ L 0.30-0.82 lisa=337) EOSINOPHILS ABSOLUTE COUNT (BEAKER) (test 0.39 K/ L 0.04-0.54 hzvy=569) BASOPHILS ABSOLUTE COUNT (BEAKER) (test 0.06 K/ L 0.01-0.08 bmnw=976) IMMATURE GRANULOCYTES-RELATIVE PERCENT (BEAKER) 5 % 0-1 (test unlt=4790) POCT-GLUCOSE [id number] 20:48:00 Test Item Value Reference Range Comments POC-GLUCOSE METER (BEAKER) 148 mg/dL 70-110 TESTED AT [address] (test zqlu=7742) [facility] [address] POCT-GLUCOSE [id number] 16:47:00 Test Item Value Reference Range Comments POC-GLUCOSE METER (BEAKER) 106 mg/dL 70-110 TESTED AT [address] (test vsou=0491) [place] [address] CBC W/PLT COUNT & AUTO [id number] 12:51:00 Test Item Value Reference Range Comments WHITE BLOOD CELL COUNT (BEAKER) (test wvot=418) 9.8 K/ L 3.5-10.5 RED BLOOD CELL COUNT (BEAKER) (test nahy=047) 4.35 M/ L 4.63-6.08 HEMOGLOBIN (BEAKER) (test zorv=302) 12.0 GM/DL 13.7-17.5 HEMATOCRIT (BEAKER) (test rzid=781) 38.8 % 40.1-51.0 MEAN CORPUSCULAR VOLUME (BEAKER) (test ppaj=704) 89.2 fL 79.0-92.2 MEAN CORPUSCULAR HEMOGLOBIN (BEAKER) (test 27.6 pg 25.7-32.2 lsvr=841) MEAN CORPUSCULAR HEMOGLOBIN CONC (BEAKER) (test 30.9 GM/DL 32.3-36.5 lxqq=786) RED CELL DISTRIBUTION WIDTH (BEAKER) (test 15.2 % 11.6-14.4 dvyb=868) PLATELET COUNT (BEAKER) (test gdyv=631) 422 K/CU MM 150-450 MEAN PLATELET VOLUME (BEAKER) (test hgnr=237) 9.8 fL 9.4-12.4 NUCLEATED RED BLOOD CELLS (BEAKER) (test 0 /100 WBC 0-0 ormc=090) (CELLAVISION MANUAL DIFF)2018-02-17 12:51:00 Test Item Value Reference Range Comments NEUTROPHILS - REL (CELLAVISION)(BEAKER) (test 71 % pqbb=6164) LYMPHOCYTES - REL (CELLAVISION)(BEAKER) (test 13 % leit=2489) MONOCYTES - REL (CELLAVISION)(BEAKER) (test 4 % ctst=3418) EOSINOPHILS - REL (CELLAVISION)(BEAKER) (test 3 % oplj=6082) METAMYELOCYTES - REL (CELLAVISION)(BEAKER) (test 2 % 0-0 hmtt=2706) MYELOCYTES - REL (CELLAVISION)(BEAKER) (test 1 % 0-0 vaaj=7580) BANDS - REL (CELLAVISION)(BEAKER) (test xneh=0034) 5 % 0-10 ATYPICAL LYMPHOCYTES - REL (CELLAVISION)(BEAKER) 1 % 0-0 (test bqjz=8075) NEUTROPHILS - ABS (CELLAVISION)(BEAKER) (test 6.96 K/ul 1.78-5.38 mwuj=9006) LYMPHOCYTES - ABS (CELLAVISION)(BEAKER) (test 1.27 K/ul 1.32-3.57 wcxq=0243) MONOCYTES - ABS (CELLAVISION)(BEAKER) (test 0.39 K/uL 0.30-0.82 vemd=3990) EOSINOPHILS - ABS (CELLAVISION)(BEAKER) (test 0.29 K/uL 0.04-0.54 yjdi=9953) METAMYELOCYTES - ABS (CELLAVISION)(BEAKER) (test 0.20 K/uL 0.00-0.00 fyca=8228) MYELOCYTES-ABS (CELLAVISION)(BEAKER) (test 0.10 K/uL 0.00-0.00 btdz=5044) BANDS - ABS (CELLAVISION)(BEAKER) (test ekdg=2317) 0.49 K/uL 0.00-0.80 ATYPICAL LYMPHOCYTES - ABS (CELLAVISION)(BEAKER) 0.10 K/uL 0.00-0.00 (test fxix=5330) TOTAL COUNTED (BEAKER) (test puux=7668) 100 SMUDGE CELLS (BEAKER) (test sclm=3480) Present GIANT PLATELETS (BEAKER) (test rjes=237) Present POLYCHROMATOPHILLIC RBCS(BEAKER) (test eopz=063) 1+ few ANISOCYTOSIS (BEAKER) (test jfxo=447) 1+ few MICROCYTES (BEAKER) (test jgue=329) 1+ few PLATELET CONCENTRATION (CELLAVISION)(BEAKER) (test Adequate kkjw=5606) Received comment: User comments: Slide comments:POCT-GLUCOSE [id number] 12: 34:00 Test Item Value Reference Range Comments POC-GLUCOSE METER (BEAKER) 114 mg/dL 70-110 TESTED AT [facility] [address] (test qxkz=6831) [facility] [address] SURGICALLY OBTAINED CULTURE + GRAM [id number] 08:07:00 Test Item Value Reference Range Comments CULTURE (BEAKER) (test tjtx=5467) No growth GRAM STAIN RESULT (BEAKER) (test No WBCs feoh=9143) GRAM STAIN RESULT (BEAKER) (test No organisms seen rnpn=91576) POCT-GLUCOSE [id number] 07:35:00 Test Item Value Reference Range Comments POC-GLUCOSE METER (BEAKER) 108 mg/dL 70-110 TESTED AT [facility] [address] [facility] (test wzvq=0512) [facility] [address] BASIC METABOLIC [id number] 07:06:00 Test Item Value Reference Range Comments SODIUM (BEAKER) (test 132 meq/L 136-145 ukaq=266) POTASSIUM (BEAKER) (test 4.9 meq/L 3.5-5.1 eire=091) CHLORIDE (BEAKER) (test 101 meq/L 98-107 nxuy=693) CO2 (BEAKER) (test 22 meq/L 22-29 qdvl=642) BLOOD UREA NITROGEN 17 mg/dL 7-21 (BEAKER) (test jtzv=593) CREATININE (BEAKER) (test 1.02 mg/dL 0.57-1.25 oqwj=949) GLUCOSE RANDOM (BEAKER) 97 mg/dL 70-105 (test iibq=396) CALCIUM (BEAKER) (test 9.7 mg/dL 8.4-10.2 cxmh=591) EGFR (BEAKER) (test 75 mL/min/1.73 sq m ESTIMATED GFR IS NOT kddx=6319) ACCURATE CREATININE CLEARANCE IN PREDICTING GLOMERULAR FILTRATION RATE. ESTIMATED GFR IS NOT APPLICABLE FOR DIALYSIS PATIENTS. CREATINE KINASE (CK)2018-02-17 07:06:00 Test Item Value Reference Range Comments CREATINE KINASE TOTAL (BEAKER) (test iqbw=328) 1855 U/L 29-200 PROTHROMBIN [id number] 06:47:00 Test Item Value Reference Range Comments PROTIME (BEAKER) (test vskt=860) 15.7 seconds 11.7-14.7 INR (BEAKER) (test ngcz=249) 1.3 <=5.9 RECOMMENDED COUMADIN/WARFARIN INR THERAPY RANGESSTANDARD DOSE: 2.0 - 3.0 Includes: PROPHYLAXIS forvenous thrombosis, systemic embolization; TREATMENT for venous thrombosis and/or pulmonary embolus.HIGH RISK: Target INR is 2.5-3.5 for patients with mechanical heart valves.While on warfarin.POCT-GLUCOSE [id number] 21:29:00 Test Item Value Reference Range Comments POC-GLUCOSE METER (NELL) 124 mg/dL 70-110 TESTED AT [facility] [address] (test lxci=6911) [facility] [address] NEEDLE EMG, 2 [id number] 19:19:00Reason for exam:->muscle weakness and numbness in RLE. Myopathy vs vasculitisShould this be performed at the bedside?->YesB[facility] CenterNeurophysiology DepartmentELECTROMYOGRAPHY/NERVE CONDUCTION STUDY [address] [place] [address] Name: Og Kilpatrick : Date [...] 4.1 ms *3.3 corrected for temp 37 𗨝V Digit II (index finger)- Wrist 2.8 ms 130 mm 46 m/sUlnar.RWrist 2.7 ms 4.0 ms *3.2 corrected for temp 15 ꘘV Digit V (little finger)-Wrist 2.7 ms 110 mm 41 m/sRadial.RForearm 1.7 ms 2.8 ms 34 㢢V Anatomical snuff box-Forearm 1.7 ms 100 mm [...] limb. Alicia Kimble M.D. 07: 19 PMPOCT-GLUCOSE [id number] 17:14:00 Test Item Value Reference Range Comments POC-GLUCOSE METER (BEAKER) 115 mg/dL 70-110 TESTED AT [address] (test rije=7943) [place] [id number] POCT-GLUCOSE [id number] 12:59:00 Test Item Value Reference Range Comments POC-GLUCOSE METER (BEAKER) 100 mg/dL 70-110 TESTED AT [address] (test jpuj=2395) [place] [id number] CBC W/PLT COUNT & AUTO [id number] 11:12:00 Test Item Value Reference Range Comments WHITE BLOOD CELL COUNT (BEAKER) (test nbfn=519) 11.4 K/ L 3.5-10.5 RED BLOOD CELL COUNT (BEAKER) (test qmou=458) 4.34 M/ L 4.63-6.08 HEMOGLOBIN (BEAKER) (test mmsl=902) 12.0 GM/DL 13.7-17.5 HEMATOCRIT (BEAKER) (test sldc=017) 39.2 % 40.1-51.0 MEAN CORPUSCULAR VOLUME (BEAKER) (test bjwl=330) 90.3 fL 79.0-92.2 MEAN CORPUSCULAR HEMOGLOBIN (BEAKER) (test 27.6 pg 25.7-32.2 afln=534) MEAN CORPUSCULAR HEMOGLOBIN CONC (BEAKER) (test 30.6 GM/DL 32.3-36.5 iycj=484) RED CELL DISTRIBUTION WIDTH (BEAKER) (test 15.4 % 11.6-14.4 dgek=009) PLATELET COUNT (BEAKER) (test gbah=827) 368 K/CU MM 150-450 MEAN PLATELET VOLUME (BEAKER) (test ezxg=454) 9.8 fL 9.4-12.4 NUCLEATED RED BLOOD CELLS (BEAKER) (test 0 /100 WBC 0-0 fkhc=533) (CELLAVISION MANUAL DIFF)2018-02-16 11:12:00 Test Item Value Reference Range Comments NEUTROPHILS - REL (CELLAVISION)(BEAKER) (test 68 % uayb=4801) LYMPHOCYTES - REL (CELLAVISION)(BEAKER) (test 14 % rvth=8927) MONOCYTES - REL (CELLAVISION)(BEAKER) (test 7 % gvpe=3754) EOSINOPHILS - REL (CELLAVISION)(BEAKER) (test 3 % vbtl=7869) METAMYELOCYTES - REL (CELLAVISION)(BEAKER) (test 2 % 0-0 gjzh=3992) MYELOCYTES - REL (CELLAVISION)(BEAKER) (test 3 % 0-0 wppg=3832) BANDS - REL (CELLAVISION)(BEAKER) (test enih=8900) 3 % 0-10 NEUTROPHILS - ABS (CELLAVISION)(BEAKER) (test 7.75 K/ul 1.78-5.38 tdcz=0446) LYMPHOCYTES - ABS (CELLAVISION)(BEAKER) (test 1.60 K/ul 1.32-3.57 cbmd=2833) MONOCYTES - ABS (CELLAVISION)(BEAKER) (test 0.80 K/uL 0.30-0.82 ektw=2660) EOSINOPHILS - ABS (CELLAVISION)(BEAKER) (test 0.34 K/uL 0.04-0.54 qidu=5923) METAMYELOCYTES - ABS (CELLAVISION)(BEAKER) (test 0.23 K/uL 0.00-0.00 twox=8660) MYELOCYTES-ABS (CELLAVISION)(BEAKER) (test 0.34 K/uL 0.00-0.00 jvvz=5316) BANDS - ABS (CELLAVISION)(BEAKER) (test fiah=6521) 0.34 K/uL 0.00-0.80 TOTAL COUNTED (BEAKER) (test kkqw=2316) 100 WBC MORPHOLOGY (BEAKER) (test fgyo=104) Normal PLT MORPHOLOGY (BEAKER) (test qkps=956) Normal POIKILOCYTES (BEAKER) (test elaf=505) 1+ few SPHEROCYTES (BEAKER) (test kxzs=056) 1+ few ARTIFACT (CELLAVISION)(BEAKER) (test vuug=4907) Present PLATELET CONCENTRATION (CELLAVISION)(BEAKER) (test Adequate eknu=1211) Received comment: User comments: Slide comments:POCT-GLUCOSE [id number] 08: 46:00 Test Item Value Reference Range Comments POC-GLUCOSE METER (BEAKER) 149 mg/dL 70-110 TESTED AT [address] (test fkvr=4068) [facility] [address] PROTHROMBIN [id number] 07:02:00 Test Item Value Reference Range Comments PROTIME (BEAKER) (test tnha=238) 16.1 seconds 11.7-14.7 INR (BEAKER) (test ebdc=110) 1.3 <=5.9 RECOMMENDED COUMADIN/WARFARIN INR THERAPY RANGESSTANDARD DOSE: 2.0 - 3.0 Includes: PROPHYLAXIS forvenous thrombosis, systemic embolization; TREATMENT for venous thrombosis and/or pulmonary embolus.HIGH RISK: Target INR is 2.5-3.5 for patients with mechanical heart valves.While on warfarin.BASIC METABOLIC [id number] 06:42:00 Test Item Value Reference Range Comments SODIUM (BEAKER) (test 133 meq/L 136-145 igce=509) POTASSIUM (BEAKER) (test 4.9 meq/L 3.5-5.1 aguj=556) CHLORIDE (BEAKER) (test 100 meq/L 98-107 tysx=321) CO2 (BEAKER) (test 25 meq/L 22-29 xksu=421) BLOOD UREA NITROGEN 17 mg/dL 7-21 (BEAKER) (test eatp=347) CREATININE (BEAKER) (test 1.11 mg/dL 0.57-1.25 ikjq=642) GLUCOSE RANDOM (BEAKER) 97 mg/dL 70-105 (test txcj=894) CALCIUM (BEAKER) (test 9.7 mg/dL 8.4-10.2 zycv=499) EGFR (BEAKER) (test 68 mL/min/1.73 sq m ESTIMATED GFR IS NOT utbn=4803) ACCURATE CREATININE CLEARANCE IN PREDICTING GLOMERULAR FILTRATION RATE. ESTIMATED GFR IS NOT APPLICABLE FOR DIALYSIS PATIENTS. CREATINE KINASE (CK)2018-02-16 06:42:00 Test Item Value Reference Range Comments CREATINE KINASE TOTAL (BEAKER) (test bjng=130) 2082 U/L 29-200 POCT-GLUCOSE [id number] 21:35:00 Test Item Value Reference Range Comments POC-GLUCOSE METER (BEAKER) 134 mg/dL 70-110 TESTED AT [facility] [address] [facility] (test hgen=3795) [facility] [address] CBC W/PLT COUNT & AUTO [id number] 12:57:00 Test Item Value Reference Range Comments WHITE BLOOD CELL COUNT (BEAKER) (test epes=907) 12.6 K/ L 3.5-10.5 RED BLOOD CELL COUNT (BEAKER) (test bdjn=997) 4.26 M/ L 4.63-6.08 HEMOGLOBIN (BEAKER) (test zpef=045) 11.7 GM/DL 13.7-17.5 HEMATOCRIT (BEAKER) (test mbkq=843) 37.6 % 40.1-51.0 MEAN CORPUSCULAR VOLUME (BEAKER) (test zfoq=952) 88.3 fL 79.0-92.2 MEAN CORPUSCULAR HEMOGLOBIN (BEAKER) (test 27.5 pg 25.7-32.2 gclk=974) MEAN CORPUSCULAR HEMOGLOBIN CONC (BEAKER) (test 31.1 GM/DL 32.3-36.5 kcaz=303) RED CELL DISTRIBUTION WIDTH (BEAKER) (test 15.6 % 11.6-14.4 zhzi=008) PLATELET COUNT (BEAKER) (test dkji=663) 329 K/CU MM 150-450 MEAN PLATELET VOLUME (BEAKER) (test flqg=586) 9.8 fL 9.4-12.4 NUCLEATED RED BLOOD CELLS (BEAKER) (test 0 /100 WBC 0-0 czax=876) (CELLAVISION MANUAL DIFF)2018-02-15 12:57:00 Test Item Value Reference Range Comments NEUTROPHILS - REL (CELLAVISION)(BEAKER) (test 68 % agxg=9495) LYMPHOCYTES - REL (CELLAVISION)(BEAKER) (test 8 % rwnm=2635) MONOCYTES - REL (CELLAVISION)(BEAKER) (test 13 % brff=4569) EOSINOPHILS - REL (CELLAVISION)(BEAKER) (test 2 % abbr=0029) METAMYELOCYTES - REL (CELLAVISION)(BEAKER) (test 3 % 0-0 aufe=8223) MYELOCYTES - REL (CELLAVISION)(BEAKER) (test 2 % 0-0 tlsw=4504) BANDS - REL (CELLAVISION)(BEAKER) (test afub=8633) 2 % 0-10 ATYPICAL LYMPHOCYTES - REL (CELLAVISION)(BEAKER) 2 % 0-0 (test uhgd=9155) NEUTROPHILS - ABS (CELLAVISION)(BEAKER) (test 8.57 K/ul 1.78-5.38 olvo=2757) LYMPHOCYTES - ABS (CELLAVISION)(BEAKER) (test 1.01 K/ul 1.32-3.57 djlk=3537) MONOCYTES - ABS (CELLAVISION)(BEAKER) (test 1.64 K/uL 0.30-0.82 onwz=0419) EOSINOPHILS - ABS (CELLAVISION)(BEAKER) (test 0.25 K/uL 0.04-0.54 ieox=1221) METAMYELOCYTES - ABS (CELLAVISION)(BEAKER) (test 0.38 K/uL 0.00-0.00 dgcp=0774) MYELOCYTES-ABS (CELLAVISION)(BEAKER) (test 0.25 K/uL 0.00-0.00 brky=6506) BANDS - ABS (CELLAVISION)(BEAKER) (test dwhl=4539) 0.25 K/uL 0.00-0.80 ATYPICAL LYMPHOCYTES - ABS (CELLAVISION)(BEAKER) 0.25 K/uL 0.00-0.00 (test jipn=1034) TOTAL COUNTED (BEAKER) (test cbzp=7576) 100 RBC MORPHOLOGY (BEAKER) (test amhj=636) Normal SMUDGE CELLS (BEAKER) (test gkkd=1427) Present GIANT PLATELETS (BEAKER) (test jytk=990) Present ARTIFACT (CELLAVISION)(BEAKER) (test zxma=1640) Present PLATELET CONCENTRATION (CELLAVISION)(BEAKER) (test Adequate tnvv=8773) Received comment: User comments: Slide comments:U/S, EXTREMITY (NON-VASCULAR), RIGHT, [id number] 12:55:00Reason for exam:->R thigh, if any collection , concern for hematomaFINAL REPORT TECHNIQUE: Focused navarro scale ultrasound of the right thigh to assess for fluid collection. INDICATION: 57-year-old man with weakness of right lower extremity. COMPARISON: None. IMPRESSION:Edema in the soft tissues of the visualized right thigh. No fluid collection/hematoma. Signed: Angy Bautistaeprosalind Verified Date/Time: 02/15/2018 12:55:15 Reading Location:[address] Ultrasound Reading Room CREATINE KINASE (CK)2018-02-15 08:12:00 Test Item Value Reference Range Comments CREATINE KINASE TOTAL (BEAKER) (test mtqn=170) 2222 U/L 29-200 BASIC METABOLIC [id number] 07:16:00 Test Item Value Reference Range Comments SODIUM (BEAKER) (test 132 meq/L 136-145 hqhu=645) POTASSIUM (BEAKER) (test 4.9 meq/L 3.5-5.1 mlpr=468) CHLORIDE (BEAKER) (test 101 meq/L 98-107 gidj=624) CO2 (BEAKER) (test 20 meq/L 22-29 kzdl=541) BLOOD UREA NITROGEN 17 mg/dL 7-21 (BEAKER) (test ydzd=550) CREATININE (BEAKER) (test 1.01 mg/dL 0.57-1.25 mqro=367) GLUCOSE RANDOM (BEAKER) 92 mg/dL 70-105 (test rske=554) CALCIUM (BEAKER) (test 9.2 mg/dL 8.4-10.2 psfw=022) EGFR (BEAKER) (test 76 mL/min/1.73 sq m ESTIMATED GFR IS NOT vlbv=4785) ACCURATE CREATININE CLEARANCE IN PREDICTING GLOMERULAR FILTRATION RATE. ESTIMATED GFR IS NOT APPLICABLE FOR DIALYSIS PATIENTS. HIV-1 ANTIGEN WITH HIV-1/2 [id number] 07:04:00 Test Item Value Reference Range Comments HIV-1 ANTIGEN WITH HIV 1\\T\\2 ANTIBODY (2) Nonreactive Nonreactive (BEAKER) (test jcpk=1625) PROTHROMBIN [id number] 06:29:00 Test Item Value Reference Range Comments PROTIME (BEAKER) (test zddz=875) 16.1 seconds 11.7-14.7 INR (BEAKER) (test swlx=383) 1.3 <=5.9 RECOMMENDED COUMADIN/WARFARIN INR THERAPY RANGESSTANDARD DOSE: 2.0 - 3.0 Includes: PROPHYLAXIS forvenous thrombosis, systemic embolization; TREATMENT for venous thrombosis and/or pulmonary embolus.HIGH RISK: Target INR is 2.5-3.5 for patients with mechanical heart valves.While on warfarin.POCT-GLUCOSE [id number] 21:17:00 Test Item Value Reference Range Comments POC-GLUCOSE METER (BEAKER) 113 mg/dL 70-110 TESTED AT [facility] [address] [facility] (test ciue=6544) [facility] [address] CBC W/PLT COUNT & AUTO [id number] 12:43:00 Test Item Value Reference Range Comments WHITE BLOOD CELL COUNT (BEAKER) (test bqlg=352) 11.8 K/ L 3.5-10.5 RED BLOOD CELL COUNT (BEAKER) (test ojhj=977) 4.11 M/ L 4.63-6.08 HEMOGLOBIN (BEAKER) (test bfxz=974) 11.4 GM/DL 13.7-17.5 HEMATOCRIT (BEAKER) (test frxl=328) 36.1 % 40.1-51.0 MEAN CORPUSCULAR VOLUME (BEAKER) (test tymb=501) 87.8 fL 79.0-92.2 MEAN CORPUSCULAR HEMOGLOBIN (BEAKER) (test 27.7 pg 25.7-32.2 vayl=834) MEAN CORPUSCULAR HEMOGLOBIN CONC (BEAKER) (test 31.6 GM/DL 32.3-36.5 bkcv=655) RED CELL DISTRIBUTION WIDTH (BEAKER) (test 15.5 % 11.6-14.4 iwzx=855) PLATELET COUNT (BEAKER) (test qsww=023) 307 K/CU MM 150-450 MEAN PLATELET VOLUME (BEAKER) (test oqet=792) 10.2 fL 9.4-12.4 NUCLEATED RED BLOOD CELLS (BEAKER) (test 0 /100 WBC 0-0 dnpr=120) (CELLAVISION MANUAL DIFF)2018-02-14 12:43:00 Test Item Value Reference Range Comments NEUTROPHILS - REL (CELLAVISION)(BEAKER) (test 62 % eipu=5168) LYMPHOCYTES - REL (CELLAVISION)(BEAKER) (test 9 % xunu=8152) MONOCYTES - REL (CELLAVISION)(BEAKER) (test 7 % wbfg=4388) EOSINOPHILS - REL (CELLAVISION)(BEAKER) (test 6 % luxp=4127) METAMYELOCYTES - REL (CELLAVISION)(BEAKER) (test 2 % 0-0 ydxz=5581) MYELOCYTES - REL (CELLAVISION)(BEAKER) (test 1 % 0-0 axgy=3674) BANDS - REL (CELLAVISION)(BEAKER) (test vkxi=9174) 13 % 0-10 NEUTROPHILS - ABS (CELLAVISION)(BEAKER) (test 7.32 K/ul 1.78-5.38 yfga=9592) LYMPHOCYTES - ABS (CELLAVISION)(BEAKER) (test 1.06 K/ul 1.32-3.57 sosz=6694) MONOCYTES - ABS (CELLAVISION)(BEAKER) (test 0.83 K/uL 0.30-0.82 jsrb=5909) EOSINOPHILS - ABS (CELLAVISION)(BEAKER) (test 0.71 K/uL 0.04-0.54 qusm=6943) METAMYELOCYTES - ABS (CELLAVISION)(BEAKER) (test 0.24 K/uL 0.00-0.00 ffhh=7187) MYELOCYTES-ABS (CELLAVISION)(BEAKER) (test 0.12 K/uL 0.00-0.00 gtqo=3273) BANDS - ABS (CELLAVISION)(BEAKER) (test iqdj=9543) 1.53 K/uL 0.00-0.80 TOTAL COUNTED (BEAKER) (test owfs=2047) 100 WBC MORPHOLOGY (BEAKER) (test obfi=414) Normal PLT MORPHOLOGY (BEAKER) (test cbhn=739) Normal POLYCHROMATOPHILLIC RBCS(BEAKER) (test ocwx=769) 1+ few ANISOCYTOSIS (BEAKER) (test qmxr=582) 1+ few POIKILOCYTES (BEAKER) (test jlik=102) 1+ few ARTIFACT (CELLAVISION)(BEAKER) (test hezz=3345) Present PLATELET CONCENTRATION (CELLAVISION)(BEAKER) (test Adequate fntu=8175) Received comment: User comments: Slide comments:TISSUE [id number] 11:47: 00Surgical Pathology Report Case: [id number] Authorizing Provider: Gilles Muñoz MD Collected : 02/12/2018 1602 Ordering Location: [address] Received: 02/12/2018 1602 Service Pathologist: Shona Faust MD Specimen: Skin A. RIGHT LEG, SKIN PUNCH BIOPSY- LYMPHEDEMA- PURPURA- STASIS CHANGES- SUBEPIDERMAL VESICLE, POSSIBLY SECONDARY(SEE NOTE BELOW)NOTE: The differential diagnosis for the subepidermal vesicle includes secondary to vascular compromise, Clinical correlation is recommended.This case has also been reviewed at the [facility] Dermatopathology Consensus Conference. Signing Pathologist Direct Phone Line:[phone] signed by Shona Faust MD on 02/14/2018 at 11:47 AMPreliminary result electronically signed by Shona Faust MD on 02/13/2018 at 5:10 [id number]; [id number] obesity, non-traumatic rhabdomyolysis, weakness of right lower [...] reportabove:D2-40 - Positive in lymphatic channelsCOMPREHENSIVE METABOLIC [id number] 11:40:00 Test Item Value Reference Range Comments TOTAL PROTEIN (BEAKER) 6.8 gm/dL 6.0-8.3 (test jeyv=576) ALBUMIN (BEAKER) (test 2.7 g/dL 3.5-5.0 xflt=6093) ALKALINE PHOSPHATASE 109 U/L 40-150 (BEAKER) (test xefe=907) BILIRUBIN TOTAL (BEAKER) 0.6 mg/dL 0.2-1.2 (test zrrn=029) SODIUM (BEAKER) (test 133 meq/L 136-145 cdbl=447) POTASSIUM (BEAKER) (test 4.8 meq/L 3.5-5.1 bzaj=830) CHLORIDE (BEAKER) (test 102 meq/L 98-107 tzqf=476) CO2 (BEAKER) (test 25 meq/L 22-29 jcle=228) BLOOD UREA NITROGEN 15 mg/dL 7-21 (BEAKER) (test cgza=471) CREATININE (BEAKER) (test 0.93 mg/dL 0.57-1.25 qfci=818) GLUCOSE RANDOM (BEAKER) 114 mg/dL 70-105 (test pisy=581) CALCIUM (BEAKER) (test 9.6 mg/dL 8.4-10.2 nkqs=353) AST (SGOT) (BEAKER) (test 139 U/L 5-34 emvw=468) ALT (SGPT) (BEAKER) (test 152 U/L 6-55 lqmo=190) EGFR (BEAKER) (test 83 mL/min/1.73 sq m ESTIMATED GFR IS NOT olzp=1683) ACCURATE CREATININE CLEARANCE IN PREDICTING GLOMERULAR FILTRATION RATE. ESTIMATED GFR IS NOT APPLICABLE FOR DIALYSIS PATIENTS. CREATINE KINASE (CK)2018-02-14 11:40:00 Test Item Value Reference Range Comments CREATINE KINASE TOTAL (BEAKER) (test plli=596) 2477 U/L 29-200 CALCIUM, [id number] 07:18:00 Test Item Value Reference Range Comments CALCIUM IONIZED (BEAKER) (test gmqi=029) 1.02 mmol/L 1.12-1.27 PH, BLOOD (BEAKER) (test yrcu=9547) 7.45 VITAMIN D, [id number] 06:53:00 Test Item Value Reference Range Comments VITAMIN D 25-OH (BEAKER) (test lhnl=8214) 37.1 ng/mL 6.6-49.9 Effective 04/12/2017: Reference Range ChangeNew: 6.6-49.9 ng/mL Previous: 13.0 -47.8 ng/mLRecommended Vitamin D Target Range: 30.0-40.0 ng/mLPROTHROMBIN TIME/ [id number] 04:49:00 Test Item Value Reference Range Comments PROTIME (BEAKER) (test sxdt=042) 16.1 seconds 11.7-14.7 INR (BEAKER) (test qvzv=278) 1.3 <=5.9 RECOMMENDED COUMADIN/WARFARIN INR THERAPY RANGESSTANDARD DOSE: 2.0 - 3.0 Includes: PROPHYLAXIS forvenous thrombosis, systemic embolization; TREATMENT for venous thrombosis and/or pulmonary embolus.HIGH RISK: Target INR is 2.5-3.5 for patients with mechanical heart valves.While on warfarin.ANTI-NUCLEAR ANTIBODY (OLIVIER)2018-02-14 03:08:00 Test Item Value Reference Range Comments ANTI-NUCLEAR ANTIBODY (OLIVIER) (BEAKER) (test Negative Negative ogla=079) Test performed by IFA method.Test performed by IFA method.CBC W/PLT COUNT & AUTO [id number] 14:29:00 Test Item Value Reference Range Comments WHITE BLOOD CELL COUNT (BEAKER) (test hafp=586) 12.9 K/ L 3.5-10.5 RED BLOOD CELL COUNT (BEAKER) (test ybnf=948) 4.10 M/ L 4.63-6.08 HEMOGLOBIN (BEAKER) (test kpgo=604) 11.6 GM/DL 13.7-17.5 HEMATOCRIT (BEAKER) (test djub=015) 36.1 % 40.1-51.0 MEAN CORPUSCULAR VOLUME (BEAKER) (test rxda=920) 88.0 fL 79.0-92.2 MEAN CORPUSCULAR HEMOGLOBIN (BEAKER) (test 28.3 pg 25.7-32.2 proj=756) MEAN CORPUSCULAR HEMOGLOBIN CONC (BEAKER) (test 32.1 GM/DL 32.3-36.5 eqhx=231) RED CELL DISTRIBUTION WIDTH (BEAKER) (test 15.5 % 11.6-14.4 oggp=758) PLATELET COUNT (BEAKER) (test ivyi=127) 289 K/CU MM 150-450 MEAN PLATELET VOLUME (BEAKER) (test wnpn=322) 10.1 fL 9.4-12.4 NUCLEATED RED BLOOD CELLS (BEAKER) (test 0 /100 WBC 0-0 ohrq=648) (CELLAVISION MANUAL DIFF)2018-02-13 14:29:00 Test Item Value Reference Range Comments NEUTROPHILS - REL (CELLAVISION)(BEAKER) (test 74 % zrkv=6988) LYMPHOCYTES - REL (CELLAVISION)(BEAKER) (test 4 % chgt=2497) MONOCYTES - REL (CELLAVISION)(BEAKER) (test 8 % eaia=8593) EOSINOPHILS - REL (CELLAVISION)(BEAKER) (test 2 % toqg=2589) METAMYELOCYTES - REL (CELLAVISION)(BEAKER) (test 1 % 0-0 gcmy=8753) MYELOCYTES - REL (CELLAVISION)(BEAKER) (test 2 % 0-0 jedj=8280) BANDS - REL (CELLAVISION)(BEAKER) (test 8 % 0-10 qlrd=2147) ATYPICAL LYMPHOCYTES - REL (CELLAVISION)(BEAKER) 1 % 0-0 (test inwr=8590) NEUTROPHILS - ABS (CELLAVISION)(BEAKER) (test 9.55 K/ul 1.78-5.38 jmkh=1204) LYMPHOCYTES - ABS (CELLAVISION)(BEAKER) (test 0.52 K/ul 1.32-3.57 bfas=4133) MONOCYTES - ABS (CELLAVISION)(BEAKER) (test 1.03 K/uL 0.30-0.82 zozc=1691) EOSINOPHILS - ABS (CELLAVISION)(BEAKER) (test 0.26 K/uL 0.04-0.54 zzgs=6308) METAMYELOCYTES - ABS (CELLAVISION)(BEAKER) (test 0.13 K/uL 0.00-0.00 ypck=0212) MYELOCYTES-ABS (CELLAVISION)(BEAKER) (test 0.26 K/uL 0.00-0.00 vwtp=7785) BANDS - ABS (CELLAVISION)(BEAKER) (test 1.03 K/uL 0.00-0.80 ldfb=8288) ATYPICAL LYMPHOCYTES - ABS (CELLAVISION)(BEAKER) 0.13 K/uL 0.00-0.00 (test dhsm=7155) TOTAL COUNTED (BEAKER) (test meto=6123) 100 MANUAL NRBC PER 100 CELLS (BEAKER) (test 1 /100 WBC 0-0 uwfm=7528) WBC MORPHOLOGY (BEAKER) (test lmyl=096) Normal PLT MORPHOLOGY (BEAKER) (test sfhv=156) Normal POLYCHROMATOPHILLIC RBCS(BEAKER) (test mmod=956) 1+ few ANISOCYTOSIS (BEAKER) (test zwnh=064) 1+ few ARTIFACT (CELLAVISION)(BEAKER) (test losy=6300) Present PLATELET CONCENTRATION (CELLAVISION)(BEAKER) Adequate (test zsrz=9995) Received comment: User comments: Slide comments:CREATINE KINASE (CK), TOTAL AND [id number] 06:58:00 Test Item Value Reference Range Comments CREATINE KINASE TOTAL (BEAKER) (test fppa=027) 3865 U/L 29-200 CREATINE KINASE-MB (BEAKER) (test yfbf=136) 5.2 ng/mL 0.0-6.6 CREATINE KINASE-MB INDEX (BEAKER) (test emie=601) 0.1 % CK-MB Reference Range:<6.7 Normal6.7-10.0 Borderline>10.0 AbnormalB-TYPE NATRIURETIC FACTOR (BNP)2018-02-13 06:52:00 Test Item Value Reference Range Comments B-TYPE NATRIURETIC PEPTIDE (BEAKER) (test 215 pg/mL 0-100 ihib=981) COMPREHENSIVE METABOLIC [id number] 06:52:00 Test Item Value Reference Range Comments TOTAL PROTEIN (BEAKER) 6.7 gm/dL 6.0-8.3 (test cavw=269) ALBUMIN (BEAKER) (test 2.7 g/dL 3.5-5.0 xlxq=9477) ALKALINE PHOSPHATASE 109 U/L 40-150 (BEAKER) (test ebnk=687) BILIRUBIN TOTAL (BEAKER) 0.8 mg/dL 0.2-1.2 (test mhhk=755) SODIUM (BEAKER) (test 134 meq/L 136-145 dpuw=719) POTASSIUM (BEAKER) (test 4.8 meq/L 3.5-5.1 vlxx=810) CHLORIDE (BEAKER) (test 103 meq/L 98-107 pyfl=984) CO2 (BEAKER) (test 23 meq/L 22-29 hlqd=264) BLOOD UREA NITROGEN 15 mg/dL 7-21 (BEAKER) (test ykde=109) CREATININE (BEAKER) (test 0.94 mg/dL 0.57-1.25 cdzf=402) GLUCOSE RANDOM (BEAKER) 93 mg/dL 70-105 (test ljsh=272) CALCIUM (BEAKER) (test 9.1 mg/dL 8.4-10.2 dsbc=235) AST (SGOT) (BEAKER) (test 170 U/L 5-34 gnsy=522) ALT (SGPT) (BEAKER) (test 162 U/L 6-55 bkrz=393) EGFR (BEAKER) (test 82 mL/min/1.73 sq m ESTIMATED GFR IS NOT dnrc=4351) ACCURATE CREATININE CLEARANCE IN PREDICTING GLOMERULAR FILTRATION RATE. ESTIMATED GFR IS NOT APPLICABLE FOR DIALYSIS PATIENTS. PROTHROMBIN TIME/[id number] 06:49:00 Test Item Value Reference Range Comments PROTIME (BEAKER) (test przl=812) 16.5 seconds 11.7-14.7 INR (BEAKER) (test hwgl=449) 1.3 <=5.9 RECOMMENDED COUMADIN/WARFARIN INR THERAPY RANGESSTANDARD DOSE: 2.0 - 3.0 Includes: PROPHYLAXIS forvenous thrombosis, systemic embolization; TREATMENT for venous thrombosis and/or pulmonary embolus.HIGH RISK: Target INR is 2.5-3.5 for patients with mechanical heart valves.While on warfarin.HEPATITIS PANEL, [id number] 17:49:00 Test Item Value Reference Range Comments HEPATITIS A IGM ANTIBODY (BEAKER) (test Nonreactive Nonreactive fhej=153) HEPATITIS B CORE IGM ANTIBODY (BEAKER) (test Nonreactive Nonreactive pjsm=334) HEPATITIS C ANTIBODY (BEAKER) (test jghf=167) Nonreactive Nonreactive HEPATITIS B SURFACE ANTIGEN (2) (BEAKER) (test Nonreactive Nonreactive eykh=1288) PROTHROMBIN TIME/[id number] 17:21:00 Test Item Value Reference Range Comments PROTIME (BEAKER) (test umqz=743) 15.8 seconds 11.7-14.7 INR (BEAKER) (test zvav=868) 1.3 <=5.9 RECOMMENDED COUMADIN/WARFARIN INR THERAPY RANGESSTANDARD DOSE: 2.0 - 3.0 Includes: PROPHYLAXIS forvenous thrombosis, systemic embolization; TREATMENT for venous thrombosis and/or pulmonary embolus.HIGH RISK: Target INR is 2.5-3.5 for patients with mechanical heart valves.[id number] 15:12:00 Test Item Value Reference Range Comments CRYOGLOBULIN (BEAKER) (test yyhn=850) Negative CBC W/PLT COUNT & AUTO [id number] 15:01:00 Test Item Value Reference Range Comments WHITE BLOOD CELL COUNT (BEAKER) (test dntj=099) 12.7 K/ L 3.5-10.5 RED BLOOD CELL COUNT (BEAKER) (test ndyy=809) 4.31 M/ L 4.63-6.08 HEMOGLOBIN (BEAKER) (test vbtg=029) 11.9 GM/DL 13.7-17.5 HEMATOCRIT (BEAKER) (test hjjm=922) 38.2 % 40.1-51.0 MEAN CORPUSCULAR VOLUME (BEAKER) (test gcux=297) 88.6 fL 79.0-92.2 MEAN CORPUSCULAR HEMOGLOBIN (BEAKER) (test 27.6 pg 25.7-32.2 fwjx=242) MEAN CORPUSCULAR HEMOGLOBIN CONC (BEAKER) (test 31.2 GM/DL 32.3-36.5 onci=054) RED CELL DISTRIBUTION WIDTH (BEAKER) (test 15.7 % 11.6-14.4 ytdk=814) PLATELET COUNT (BEAKER) (test vqyu=723) 258 K/CU MM 150-450 MEAN PLATELET VOLUME (BEAKER) (test lfzd=337) 10.4 fL 9.4-12.4 NUCLEATED RED BLOOD CELLS (BEAKER) (test 0 /100 WBC 0-0 intg=435) (CELLAVISION MANUAL DIFF)2018-02-12 15:01:00 Test Item Value Reference Range Comments NEUTROPHILS - REL (CELLAVISION)(BEAKER) (test 74 % klfu=5637) LYMPHOCYTES - REL (CELLAVISION)(BEAKER) (test 2 % fmgj=3218) MONOCYTES - REL (CELLAVISION)(BEAKER) (test 7 % jrdt=9378) METAMYELOCYTES - REL (CELLAVISION)(BEAKER) (test 1 % 0-0 vyqb=5360) MYELOCYTES - REL (CELLAVISION)(BEAKER) (test 2 % 0-0 xmhr=8882) BANDS - REL (CELLAVISION)(BEAKER) (test boqv=5743) 14 % 0-10 NEUTROPHILS - ABS (CELLAVISION)(BEAKER) (test 9.40 K/ul 1.78-5.38 nbru=1557) LYMPHOCYTES - ABS (CELLAVISION)(BEAKER) (test 0.25 K/ul 1.32-3.57 yums=1040) MONOCYTES - ABS (CELLAVISION)(BEAKER) (test 0.89 K/uL 0.30-0.82 aqvf=8128) METAMYELOCYTES - ABS (CELLAVISION)(BEAKER) (test 0.13 K/uL 0.00-0.00 lndg=9105) MYELOCYTES-ABS (CELLAVISION)(BEAKER) (test 0.25 K/uL 0.00-0.00 untg=5290) BANDS - ABS (CELLAVISION)(BEAKER) (test iylp=4966) 1.78 K/uL 0.00-0.80 TOTAL COUNTED (BEAKER) (test ffzd=9815) 100 WBC MORPHOLOGY (BEAKER) (test jwmk=870) Normal PLT MORPHOLOGY (BEAKER) (test hutp=138) Normal POLYCHROMATOPHILLIC RBCS(BEAKER) (test hexr=972) 1+ few ANISOCYTOSIS (BEAKER) (test zytt=733) 1+ few ARTIFACT (CELLAVISION)(BEAKER) (test bzke=3450) Present PLATELET CONCENTRATION (CELLAVISION)(BEAKER) (test Adequate lejb=4216) Received comment: User comments: Slide comments:RETICULOCYTE [id number] 14: 13:00 Test Item Value Reference Range Comments RETICULOCYTE COUNT PCT (BEAKER) (test ilkp=897) 1.5 % 0.5-1.8 DOUBLE-STRANDED DNA (DSDNA) [id number] 08:42:00 Test Item Value Reference Range Comments ANTI-DNA DS (BEAKER) (test dodf=5365) Negative POCT-GLUCOSE [id number] 08:21:00 Test Item Value Reference Range Comments POC-GLUCOSE METER (BEAKER) 105 mg/dL 70-110 TESTED AT [facility] [address] [facility] (test ozff=1457) [facility] [address] CREATINE KINASE (CK), TOTAL AND [id number] 07:18:00 Test Item Value Reference Range Comments CREATINE KINASE TOTAL (BEAKER) (test uouk=559) 5563 U/L 29-200 CREATINE KINASE-MB (BEAKER) (test ejrn=664) 6.8 ng/mL 0.0-6.6 CREATINE KINASE-MB INDEX (BEAKER) (test symy=332) 0.1 % CK-MB Reference Range:<6.7 Normal6.7-10.0 Borderline>10.0 [id number] 07:03:00 Test Item Value Reference Range Comments PHOSPHORUS (BEAKER) (test zsja=173) 3.4 mg/dL 2.3-4.7 [id number] 07:03:00 Test Item Value Reference Range Comments MAGNESIUM (BEAKER) (test gyiw=455) 2.1 mg/dL 1.6-2.6 BASIC METABOLIC [id number] 07:03:00 Test Item Value Reference Range Comments SODIUM (BEAKER) (test 133 meq/L 136-145 jcxl=960) POTASSIUM (BEAKER) (test 5.1 meq/L 3.5-5.1 jtcy=907) CHLORIDE (BEAKER) (test 101 meq/L 98-107 psqx=226) CO2 (BEAKER) (test 24 meq/L 22-29 zhky=984) BLOOD UREA NITROGEN 15 mg/dL 7-21 (BEAKER) (test yrud=467) CREATININE (BEAKER) (test 0.96 mg/dL 0.57-1.25 blsg=769) GLUCOSE RANDOM (BEAKER) 109 mg/dL 70-105 (test qozz=724) CALCIUM (BEAKER) (test 9.5 mg/dL 8.4-10.2 qdye=784) EGFR (BEAKER) (test 80 mL/min/1.73 sq m ESTIMATED GFR IS NOT cxwn=3002) ACCURATE CREATININE CLEARANCE IN PREDICTING GLOMERULAR FILTRATION RATE. ESTIMATED GFR IS NOT APPLICABLE FOR DIALYSIS PATIENTS. HEPATIC FUNCTION [id number] 07:03:00 Test Item Value Reference Range Comments TOTAL PROTEIN (BEAKER) (test pcgg=302) 6.8 gm/dL 6.0-8.3 ALBUMIN (BEAKER) (test jlmi=3489) 2.8 g/dL 3.5-5.0 BILIRUBIN TOTAL (BEAKER) (test ziyy=235) 0.8 mg/dL 0.2-1.2 BILIRUBIN DIRECT (BEAKER) (test mwta=234) 0.5 mg/dL 0.1-0.5 ALKALINE PHOSPHATASE (BEAKER) (test jygy=272) 120 U/L 40-150 AST (SGOT) (BEAKER) (test csln=296) 224 U/L 5-34 ALT (SGPT) (BEAKER) (test ixza=386) 193 U/L 6-55 RHEUMATOID FACTOR AB, REFLEX TO [id number] 05:42:00 Test Item Value Reference Range Comments RHEUMATOID FACTOR (BEAKER) (test jglz=905) Positive RHEUMATOID FACTOR [id number] 05:42:00 Test Item Value Reference Range Comments RHEUMATOID FACTOR TITER (BEAKER) (test wpwm=5574) :2 POCT-GLUCOSE [id number] 21:43:00 Test Item Value Reference Range Comments POC-GLUCOSE METER (BEAKER) 142 mg/dL 70-110 TESTED AT [facility] [address] [facility] (test jlkj=1834) [place] [address] CBC W/PLT COUNT & AUTO [id number] 12:18:00 Test Item Value Reference Range Comments WHITE BLOOD CELL COUNT (BEAKER) (test rvnf=955) 12.0 K/ L 3.5-10.5 RED BLOOD CELL COUNT (BEAKER) (test dxnw=988) 4.18 M/ L 4.63-6.08 HEMOGLOBIN (BEAKER) (test zbto=600) 11.4 GM/DL 13.7-17.5 HEMATOCRIT (BEAKER) (test gadx=724) 36.7 % 40.1-51.0 MEAN CORPUSCULAR VOLUME (BEAKER) (test ozqd=222) 87.8 fL 79.0-92.2 MEAN CORPUSCULAR HEMOGLOBIN (BEAKER) (test 27.3 pg 25.7-32.2 tupe=411) MEAN CORPUSCULAR HEMOGLOBIN CONC (BEAKER) (test 31.1 GM/DL 32.3-36.5 yjgp=707) RED CELL DISTRIBUTION WIDTH (BEAKER) (test 15.7 % 11.6-14.4 mbip=243) PLATELET COUNT (BEAKER) (test agog=539) 255 K/CU MM 150-450 MEAN PLATELET VOLUME (BEAKER) (test ciim=523) 10.3 fL 9.4-12.4 NUCLEATED RED BLOOD CELLS (BEAKER) (test 0 /100 WBC 0-0 yrwh=207) (CELLAVISION MANUAL DIFF)2018-02-11 12:18:00 Test Item Value Reference Range Comments NEUTROPHILS - REL (CELLAVISION)(BEAKER) (test 71 % allh=6419) LYMPHOCYTES - REL (CELLAVISION)(BEAKER) (test 5 % dhof=5421) MONOCYTES - REL (CELLAVISION)(BEAKER) (test 9 % vsvh=1957) EOSINOPHILS - REL (CELLAVISION)(BEAKER) (test 2 % xfkx=2741) METAMYELOCYTES - REL (CELLAVISION)(BEAKER) (test 2 % 0-0 kztc=1513) MYELOCYTES - REL (CELLAVISION)(BEAKER) (test 4 % 0-0 gukd=0230) BANDS - REL (CELLAVISION)(BEAKER) (test yulz=5367) 7 % 0-10 NEUTROPHILS - ABS (CELLAVISION)(BEAKER) (test 8.52 K/ul 1.78-5.38 zdym=7068) LYMPHOCYTES - ABS (CELLAVISION)(BEAKER) (test 0.60 K/ul 1.32-3.57 qrpy=3880) MONOCYTES - ABS (CELLAVISION)(BEAKER) (test 1.08 K/uL 0.30-0.82 gwbu=2460) EOSINOPHILS - ABS (CELLAVISION)(BEAKER) (test 0.24 K/uL 0.04-0.54 glsp=8836) METAMYELOCYTES - ABS (CELLAVISION)(BEAKER) (test 0.24 K/uL 0.00-0.00 mxze=7733) MYELOCYTES-ABS (CELLAVISION)(BEAKER) (test 0.48 K/uL 0.00-0.00 ahrm=6955) BANDS - ABS (CELLAVISION)(BEAKER) (test vzyi=6098) 0.84 K/uL 0.00-0.80 TOTAL COUNTED (BEAKER) (test ofwu=1107) 100 RBC MORPHOLOGY (BEAKER) (test wjbv=358) Normal SMUDGE CELLS (BEAKER) (test xdkh=9913) Present GIANT PLATELETS (BEAKER) (test hszc=166) Present PLATELET CONCENTRATION (CELLAVISION)(BEAKER) (test Adequate afsq=8765) Received comment: User comments: Slide comments:CREATINE KINASE (CK), TOTAL AND [id number] 07:41:00 Test Item Value Reference Range Comments CREATINE KINASE TOTAL (BEAKER) (test jzpa=580) 6548 U/L 29-200 CREATINE KINASE-MB (BEAKER) (test laru=370) 7.2 ng/mL 0.0-6.6 CREATINE KINASE-MB INDEX (BEAKER) (test dokj=552) 0.1 % CK-MB Reference Range:<6.7 Normal6.7-10.0 Borderline>10.0 [id number] 07:33:00 Test Item Value Reference Range Comments PHOSPHORUS (BEAKER) (test oypy=579) 3.5 mg/dL 2.3-4.7 [id number] 07:33:00 Test Item Value Reference Range Comments MAGNESIUM (BEAKER) (test soeu=562) 2.2 mg/dL 1.6-2.6 BASIC METABOLIC [id number] 07:33:00 Test Item Value Reference Range Comments SODIUM (BEAKER) (test 136 meq/L 136-145 zyji=444) POTASSIUM (BEAKER) (test 4.8 meq/L 3.5-5.1 hxmp=603) CHLORIDE (BEAKER) (test 104 meq/L 98-107 bnmj=152) CO2 (BEAKER) (test 24 meq/L 22-29 iyve=554) BLOOD UREA NITROGEN 18 mg/dL 7-21 (BEAKER) (test pmss=726) CREATININE (BEAKER) (test 0.96 mg/dL 0.57-1.25 bmfl=931) GLUCOSE RANDOM (BEAKER) 104 mg/dL 70-105 (test ebdn=244) CALCIUM (BEAKER) (test 9.4 mg/dL 8.4-10.2 ezkg=513) EGFR (BEAKER) (test 80 mL/min/1.73 sq m ESTIMATED GFR IS NOT wjhx=0514) ACCURATE CREATININE CLEARANCE IN PREDICTING GLOMERULAR FILTRATION RATE. ESTIMATED GFR IS NOT APPLICABLE FOR DIALYSIS PATIENTS. HEPATIC FUNCTION [id number] 07:33:00 Test Item Value Reference Range Comments TOTAL PROTEIN (BEAKER) (test qrcn=660) 6.5 gm/dL 6.0-8.3 ALBUMIN (BEAKER) (test vksq=2664) 2.8 g/dL 3.5-5.0 BILIRUBIN TOTAL (BEAKER) (test qbtl=167) 0.7 mg/dL 0.2-1.2 BILIRUBIN DIRECT (BEAKER) (test wxpu=914) 0.5 mg/dL 0.1-0.5 ALKALINE PHOSPHATASE (BEAKER) (test mnph=028) 115 U/L 40-150 AST (SGOT) (BEAKER) (test uixj=426) 228 U/L 5-34 ALT (SGPT) (BEAKER) (test csiq=206) 185 U/L 6-55 COMPLEMENT COMPONENT [id number] 07:13:00 Test Item Value Reference Range Comments C4 COMPLEMENT (BEAKER) (test tzeo=945) 33 mg/dL 15-57 COMPLEMENT COMPONENT [id number] 07:13:00 Test Item Value Reference Range Comments C3 COMPLEMENT (BEAKER) (test otoi=630) 169 mg/dL 82-193 PTH, [id number] 07:12:00 Test Item Value Reference Range Comments PARATHYROID HORMONE INTACT (BEAKER) (test 92.1 pg/mL 8.5-72.5 aifc=686) CALCIUM, [id number] 07:09:00 Test Item Value Reference Range Comments CALCIUM IONIZED (BEAKER) (test qczj=205) 1.03 mmol/L 1.12-1.27 PH, BLOOD (BEAKER) (test mhoe=0284) 7.44 POCT-GLUCOSE [id number] 21:37:00 Test Item Value Reference Range Comments POC-GLUCOSE METER (BEAKER) 146 mg/dL 70-110 TESTED AT [facility] [address] [facility] (test smij=4015) [facility] [address] PTH, [id number] 20:32:00 Test Item Value Reference Range Comments PARATHYROID HORMONE INTACT (BEAKER) (test 83.3 pg/mL 8.5-72.5 tfph=861) [id number] 20:26:00 Test Item Value Reference Range Comments FIBRINOGEN LEVEL (BEAKER) (test hecs=694) 1018 mg/dl 225-434 CALCIUM, [id number] 19:27:00 Test Item Value Reference Range Comments CALCIUM IONIZED (BEAKER) (test lxaw=055) 1.09 mmol/L 1.12-1.27 PH, BLOOD (BEAKER) (test zahq=8207) 7.32 CREATINE KINASE (CK), TOTAL AND [id number] 10:07:00 Test Item Value Reference Range Comments CREATINE KINASE TOTAL (BEAKER) (test yjcd=706) 8268 U/L 29-200 CREATINE KINASE-MB (BEAKER) (test xbta=322) 9.1 ng/mL 0.0-6.6 CREATINE KINASE-MB INDEX (BEAKER) (test lcur=315) 0.1 % CK-MB Reference Range:<6.7 Normal6.7-10.0 Borderline>10.0 [id number] 07:12:00 Test Item Value Reference Range Comments PHOSPHORUS (BEAKER) (test orvg=193) 3.2 mg/dL 2.3-4.7 [id number] 07:12:00 Test Item Value Reference Range Comments MAGNESIUM (BEAKER) (test ptir=261) 2.3 mg/dL 1.6-2.6 BASIC METABOLIC [id number] 07:12:00 Test Item Value Reference Range Comments SODIUM (BEAKER) (test 135 meq/L 136-145 sauj=748) POTASSIUM (BEAKER) (test 4.3 meq/L 3.5-5.1 ueag=587) CHLORIDE (BEAKER) (test 101 meq/L 98-107 yxqx=947) CO2 (BEAKER) (test 25 meq/L 22-29 rdim=815) BLOOD UREA NITROGEN 25 mg/dL 7-21 (BEAKER) (test kube=646) CREATININE (BEAKER) (test 1.21 mg/dL 0.57-1.25 dhye=927) GLUCOSE RANDOM (BEAKER) 119 mg/dL 70-105 (test gwov=538) CALCIUM (BEAKER) (test 9.4 mg/dL 8.4-10.2 ftya=235) EGFR (BEAKER) (test 61 mL/min/1.73 sq m ESTIMATED GFR IS NOT zotu=1519) ACCURATE CREATININE CLEARANCE IN PREDICTING GLOMERULAR FILTRATION RATE. ESTIMATED GFR IS NOT APPLICABLE FOR DIALYSIS PATIENTS. CBC W/PLT COUNT & AUTO [id number] 05:27:00 Test Item Value Reference Range Comments WHITE BLOOD CELL COUNT (BEAKER) (test pgxa=403) 10.9 K/ L 3.5-10.5 RED BLOOD CELL COUNT (BEAKER) (test hzim=063) 4.30 M/ L 4.63-6.08 HEMOGLOBIN (BEAKER) (test stvw=813) 11.9 GM/DL 13.7-17.5 HEMATOCRIT (BEAKER) (test okxo=080) 37.0 % 40.1-51.0 MEAN CORPUSCULAR VOLUME (BEAKER) (test ozmn=207) 86.0 fL 79.0-92.2 MEAN CORPUSCULAR HEMOGLOBIN (BEAKER) (test 27.7 pg 25.7-32.2 vvrd=130) MEAN CORPUSCULAR HEMOGLOBIN CONC (BEAKER) (test 32.2 GM/DL 32.3-36.5 suuk=564) RED CELL DISTRIBUTION WIDTH (BEAKER) (test 15.4 % 11.6-14.4 ehoq=035) PLATELET COUNT (BEAKER) (test grna=351) 274 K/CU MM 150-450 MEAN PLATELET VOLUME (BEAKER) (test mank=170) 10.7 fL 9.4-12.4 NUCLEATED RED BLOOD CELLS (BEAKER) (test 0 /100 WBC 0-0 nkvm=072) NEUTROPHILS RELATIVE PERCENT (BEAKER) (test 75 % agzu=050) LYMPHOCYTES RELATIVE PERCENT (BEAKER) (test 9 % skgw=209) MONOCYTES RELATIVE PERCENT (BEAKER) (test 10 % usrp=323) EOSINOPHILS RELATIVE PERCENT (BEAKER) (test 2 % mfmz=303) BASOPHILS RELATIVE PERCENT (BEAKER) (test 1 % lspa=111) NEUTROPHILS ABSOLUTE COUNT (BEAKER) (test 8.13 K/ L 1.78-5.38 agdh=008) LYMPHOCYTES ABSOLUTE COUNT (BEAKER) (test 0.92 K/ L 1.32-3.57 jmiu=350) MONOCYTES ABSOLUTE COUNT (BEAKER) (test 1.07 K/ L 0.30-0.82 rwps=523) EOSINOPHILS ABSOLUTE COUNT (BEAKER) (test 0.18 K/ L 0.04-0.54 kdba=984) BASOPHILS ABSOLUTE COUNT (BEAKER) (test 0.05 K/ L 0.01-0.08 gtvj=269) IMMATURE GRANULOCYTES-RELATIVE PERCENT (BEAKER) 5 % 0-1 (test kkax=7123) [id number] 02:32:00 Test Item Value Reference Range Comments FIBRINOGEN LEVEL (BEAKER) (test ulzs=279) 1050 mg/dl 225-434 RAPID DRUG SCREEN, [id number] 02:29:00 Test Item Value Reference Range Comments BARBITURATE URINE (BEAKER) (test ivac=238) Negative Negative BENZODIAZEPINE SCREEN URINE (BEAKER) (test Negative Negative kvtr=128) COCAINE (METAB.) SCREEN (BEAKER) (test oult=1643) Negative Negative METHADONE SCREEN (BEAKER) (test samz=5471) Negative Negative OPIATE SCREEN URINE (BEAKER) (test jtqm=805) Positive Negative CANNABINOID SCREEN URINE (BEAKER) (test tjmi=236) Negative Negative AMPH/METHAMPH SCREEN (BEAKER) (test mrmy=8765) Negative Negative PHENCYCLIDINE SCREEN URINE (BEAKER) (test kijm=439) Negative Negative OXYCODONE SCREEN URINE (BEAKER) (test opcx=3230) Negative Negative DRUG CUTOFF CONC.Cocaine 300 ng/mL Cannabinoid 50 ng/mL Benzodiazepine 200 ng/mLBarbiturate 200 ng/ mLPhencyclidine 25 ng/mLOpiate 300 ng/mLMethadone 300 ng/mLAmphetamine/ 1000 ng/mL MethamphetamineOxycodone 300 ng/mLThis assay provides an unconfirmed qualitative test result for the clinical management of patients in emergency situations. Chain of custody not maintained. Some wkah-caa-xtzmbiz medications, as well as adulterants, may cause inaccurate results. Clinical correlation should be applied. A more comprehensive drug screen or confirmation of a detected drug may be performed upon request.[id number] 02:01:00 Test Item Value Reference Range Comments PHOSPHORUS (BEAKER) (test enre=934) 2.7 mg/dL 2.3-4.7 [id number] 02:01:00 Test Item Value Reference Range Comments MAGNESIUM (BEAKER) (test foop=929) 2.3 mg/dL 1.6-2.6 URINALYSIS W/ [id number] 01:40:00 Test Item Value Reference Range Comments COLOR (BEAKER) (test pscq=779) Yellow CLARITY (BEAKER) (test navm=530) Clear SPECIFIC GRAVITY UA (BEAKER) (test dfxb=542) 1.017 1.001-1.035 PH UA (BEAKER) (test khga=375) 6.0 5.0-8.0 PROTEIN UA (BEAKER) (test dtkm=408) 20 mg/dL Negative GLUCOSE UA (BEAKER) (test dzqg=718) Negative Negative KETONES UA (BEAKER) (test lcaj=614) Negative Negative BILIRUBIN UA (BEAKER) (test eaas=110) Negative Negative BLOOD UA (BEAKER) (test kzdr=048) Moderate Negative NITRITE UA (BEAKER) (test caxd=757) Negative Negative LEUKOCYTE ESTERASE UA (BEAKER) (test kbwg=771) Negative Negative UROBILINOGEN UA (BEAKER) (test mond=706) 3.0 mg/dL 0.2-1.0 RBC UA (BEAKER) (test lwsn=378) 34 /HPF WBC UA (BEAKER) (test oshv=950) 3 /HPF MUCUS (BEAKER) (test tnah=7351) Rare SQUAMOUS EPITHELIAL (BEAKER) (test tmvm=708) 1 /HPF SOURCE(BEAKER) (test lfcy=8504) POCT-GLUCOSE [id number] 21:30:00 Test Item Value Reference Range Comments POC-GLUCOSE METER (BEAKER) 96 mg/dL 70-110 TESTED AT [facility] [address] (test nxux=7921) [facility] [address] U/S, ABDOMINAL, [id number] 19:51:00Reason for exam:->abd distensionFINAL REPORT HISTORY : [...] Verified Date/Time: 02/09/2018 19:51:53 Reading Location : [address] Consult Reading Room C-REACTIVE [id number] 19:01:00 Test Item Value Reference Range Comments C-REACTIVE PROTEIN (BEAKER) (test lucz=268) 32.66 mg/dL 0.00-0.50 URIC [id number] 18:57:00 Test Item Value Reference Range Comments URIC ACID (BEAKER) (test qyei=954) 8.8 mg/dL 2.6-7.2 LACTATE DEHYDROGENASE (LDH)2018-02-09 18:57:00 Test Item Value Reference Range Comments LACTATE DEHYDROGENASE (BEAKER) (test gbsv=431) 633 U/L 125-220 HEMOGLOBIN [id number] 18:50:00 Test Item Value Reference Range Comments HEMOGLOBIN A1C (BEAKER) (test qhoa=219) 6.3 % 4.3-6.1 [id number] 18:05:00 Test Item Value Reference Range Comments PROTIME (BEAKER) (test ydpq=837) 16.5 seconds 11.7-14.7 INR (BEAKER) (test xyta=818) 1.3 <=5.9 PARTIAL THROMBOPLASTIN TIME (BEAKER) (test 37.6 seconds 22.5-36.0 manf=233) RECOMMENDED COUMADIN/WARFARIN INR THERAPY RANGESSTANDARD DOSE: 2.0 - 3.0 Includes: PROPHYLAXIS forvenous thrombosis, systemic embolization; TREATMENT for venous thrombosis and/or pulmonary embolus.HIGH RISK: Target INR is 2.5-3.5 for patients with mechanical heart valves.CREATINE KINASE (CK), TOTAL AND [id number] 15:38:00 Test Item Value Reference Range Comments CREATINE KINASE TOTAL (BEAKER) (test plpu=470) 99984 U/L 29-200 CREATINE KINASE-MB (BEAKER) (test ymny=577) 21.6 ng/mL 0.0-6.6 CREATINE KINASE-MB INDEX (BEAKER) (test qklt=324) 0.2 % CK-MB Reference Range:<6.7 Normal6.7-10.0 Borderline>10.0 AbnormalTROPONIN [id number] 15:14:00 Test Item Value Reference Range Comments TROPONIN I (BEAKER) (test orbc=446) 0.03 ng/mL 0.00-0.03 Troponin I (TnI) levels [...] and persistent tachyarrhythmia.CBC W/PLT COUNT & AUTO [id number] 15:14:00 Test Item Value Reference Range Comments WHITE BLOOD CELL COUNT (BEAKER) (test ompl=871) 12.8 K/ L 3.5-10.5 RED BLOOD CELL COUNT (BEAKER) (test rcki=190) 4.88 M/ L 4.63-6.08 HEMOGLOBIN (BEAKER) (test gaev=216) 13.5 GM/DL 13.7-17.5 HEMATOCRIT (BEAKER) (test keym=383) 42.1 % 40.1-51.0 MEAN CORPUSCULAR VOLUME (BEAKER) (test dlmw=441) 86.3 fL 79.0-92.2 MEAN CORPUSCULAR HEMOGLOBIN (BEAKER) (test 27.7 pg 25.7-32.2 csjt=439) MEAN CORPUSCULAR HEMOGLOBIN CONC (BEAKER) (test 32.1 GM/DL 32.3-36.5 nhkr=376) RED CELL DISTRIBUTION WIDTH (BEAKER) (test 15.3 % 11.6-14.4 inhh=448) PLATELET COUNT (BEAKER) (test xywa=628) 281 K/CU MM 150-450 MEAN PLATELET VOLUME (BEAKER) (test cyij=547) 10.4 fL 9.4-12.4 NUCLEATED RED BLOOD CELLS (BEAKER) (test 0 /100 WBC 0-0 lder=009) NEUTROPHILS RELATIVE PERCENT (BEAKER) (test 75 % lqjf=352) LYMPHOCYTES RELATIVE PERCENT (BEAKER) (test 7 % ganq=578) MONOCYTES RELATIVE PERCENT (BEAKER) (test 11 % mili=590) EOSINOPHILS RELATIVE PERCENT (BEAKER) (test 2 % atsq=986) BASOPHILS RELATIVE PERCENT (BEAKER) (test 1 % klou=558) NEUTROPHILS ABSOLUTE COUNT (BEAKER) (test 9.62 K/ L 1.78-5.38 lcjy=465) LYMPHOCYTES ABSOLUTE COUNT (BEAKER) (test 0.91 K/ L 1.32-3.57 vyzj=529) MONOCYTES ABSOLUTE COUNT (BEAKER) (test 1.42 K/ L 0.30-0.82 jtff=022) EOSINOPHILS ABSOLUTE COUNT (BEAKER) (test 0.19 K/ L 0.04-0.54 khqg=098) BASOPHILS ABSOLUTE COUNT (BEAKER) (test 0.06 K/ L 0.01-0.08 park=820) IMMATURE GRANULOCYTES-RELATIVE PERCENT (BEAKER) 5 % 0-1 (test pprq=5071) B-TYPE NATRIURETIC FACTOR (BNP)2018-02-09 15:11:00 Test Item Value Reference Range Comments B-TYPE NATRIURETIC PEPTIDE (BEAKER) (test 137 pg/mL 0-100 qspr=068) BASIC METABOLIC [id number] 15:06:00 Test Item Value Reference Range Comments SODIUM (BEAKER) (test 134 meq/L 136-145 pvpi=086) POTASSIUM (BEAKER) (test 4.4 meq/L 3.5-5.1 wfak=598) CHLORIDE (BEAKER) (test 99 meq/L 98-107 mxux=534) CO2 (BEAKER) (test 23 meq/L 22-29 ygws=932) BLOOD UREA NITROGEN 25 mg/dL 7-21 (BEAKER) (test koqu=477) CREATININE (BEAKER) (test 1.27 mg/dL 0.57-1.25 zoka=345) GLUCOSE RANDOM (BEAKER) 103 mg/dL 70-105 (test kpos=633) CALCIUM (BEAKER) (test 9.7 mg/dL 8.4-10.2 rkgl=217) EGFR (BEAKER) (test 58 mL/min/1.73 sq m ESTIMATED GFR IS NOT zsxv=8914) ACCURATE CREATININE CLEARANCE IN PREDICTING GLOMERULAR FILTRATION RATE. ESTIMATED GFR IS NOT APPLICABLE FOR DIALYSIS PATIENTS.
[2019-05-17] MEDS ORDERED: Levofloxacin500mg IV 500 MG/100 ML BAG IV ONE (11:10)
[2019-05-17] MEDS ORDERED: Ringers Lactate 1,000 ML IV ONE (11:10)
[2019-05-17] MEDS ORDERED: BUPIVACA 0.5%/EPI 0.0005%/PF 30 ML VIAL ONE (12:04)
[2019-05-17] MEDS ORDERED: FENTANYL CITR 100 MCG/2 ML ONE (12:26)
[2019-05-17] MEDS ORDERED: LIDOCAINE 2% MPF 5 ML VIAL ONE (12:26)
[2019-05-17] MEDS ORDERED: PROPOFOL 200 MG/20 ML VIAL IV ONE ×2 (12:26→13:11)
[2019-05-17] MEDS ORDERED: MIDAZOLAM HCL 2 MG/2 ML INJ ONE (12:26)
[2019-05-17] MEDS ORDERED: EPHEDRINE SULF 50 MG/ML VIAL ONE (13:03)
[2019-05-17] MEDS ORDERED: Phenylephrine HCl 10 MG/ML 1 ML VIAL ONE (13:20)
--- NOTE | 2019-05-17 13:32 | P.OP ---
Preoperative diagnosis: RIGHT calf abscess Postoperative diagnosis: RIGHT calf abscess Primary procedure: Incision and Drainage of RIGHT calf abscess Secondary procedure: Debridement of RIGHT calf abscess Anesthesia: GETA Estimated blood loss: ~50cc Specimen: cultures, necrotic tissues Findings: necrotic tissues extending to muscle Complications: None Transferred to: Recovery Room Condition: Good
[2019-05-17] MEDS ORDERED: HYDROCODONE/APAP 7.5/325 MG TAB PO PRN (13:39)
[2019-05-17] MEDS ORDERED: VANCOMYCIN 1.5 GM in NA CHLORIDE 0.9% 500 ML IVPB SCH ×2 (15:05→18:00)
[2019-05-17] MEDS: INSULIN -REGULAR HUMAN 50 UNIT/0.5 ML ML SQ SCH ×2 (16:30→21:00)
--- NOTE | 2019-05-17 16:43 | RAD REPORT ---
EXAM DESCRIPTION: CT - Pelvis Wo Cont - 05/17/2019 4:01 pm CLINICAL HISTORY: Pelvic pain. Wound infection COMPARISON: None. TECHNIQUE: Computed axial tomography of the pelvis was obtained All CT scans are performed using dose optimization technique as appropriate and may include automated exposure control or mA/KV adjustment according to patient size. FINDINGS: Limited examination secondary to body habitus. No fracture or dislocation is seen. No abscess visualized. Muscles normal size and density. Small to moderate umbilical hernia containing fat No ascites. No evidence of diverticulitis. The visualized bowel caliber and wall thickness is normal IMPRESSION: No acute abnormality is displayed
--- NOTE | 2019-05-17 17:16 | RAD REPORT ---
EXAM DESCRIPTION: CT - Femur Right Wo Con - 05/17/2019 4:01 pm CLINICAL HISTORY: Right leg pain. Wound infection COMPARISON: None. TECHNIQUE: Computed axial tomography of the right lower extremity obtained. Coronal and sagittal rec onstruction All CT scans are performed using dose optimization technique as appropriate and may include automated exposure control or mA/KV adjustment according to patient size. FINDINGS: Marked edema is present within the medial subcutaneous tissues of the mid aspect of the ri ght femur to below the right knee. Below the level of the knee within the anterolateral tissues is a soft tissue collection measuring 7 centimeters in AP diameter which contains air. The entire area is not included in the field of view a s only images to the level of the proximal tibia obtained. No bony destructive lesions seen. Small to moderate knee joint effusion IMPRESSION: A 7 centimeter soft tissue collection within the anterolateral aspect of the level of th e proximal tibia contains air and is compatible with abscess. This area is only partially imaged. It may indicate a necrotizing fasciitis or necrotizing infection Exam discussed with Dr. Hope
[2019-05-17] MEDS ORDERED: ACETIC ACID 0.25% IRRIG IRR ONE ×2 (17:58)
[2019-05-17] MEDS ORDERED: METRONIDAZOLE 500mg IVPB 500 MG/100 ML BAG IV SCH (18:00)
[2019-05-17] MEDS ORDERED: INFLUENZA VACCINE (for 3y+) 0.5 ML DOSE IMVAC ONE (18:00)
[2019-05-17 18:41] LABS: Absolute Lymphocytes (CBC) 0.8 K/uL (0.7-4.9); Basophils % 0.5 % (0-1.3); Hematocrit 34.7 % (39.6-49.0); Lymphocytes % 6.5 % (15.3-44.8); MPV 8.7 fL (7.6-11.3)
[2019-05-17 18:55] LABS: Albumin 2.7 g/dL (3.4-5.0); Bilirubin Total 1.2 mg/dL (0.2-1.0); Potassium 4.2 mmol/L (3.5-5.1); Protein, Total 6.1 g/dL (6.4-8.2)
[2019-05-17] MEDS ORDERED: MELATONIN 5 MG TABLET PO PRN (20:07)
[2019-05-17] MEDS ORDERED: HOME MED 1 EA UNK (Fluticasone/Salmeterol [Advair 250-50 Diskus] 1 EACH) IH PRN (20:07)
[2019-05-17] MEDS ORDERED: NA CHLORIDE 0.9% 1,000 ML IV ONE (20:18)
[2019-05-17] MEDS ORDERED: ATORVASTATIN 80 MG TAB PO SCH (21:00)
[2019-05-17] MEDS ORDERED: NA CHLORIDE 0.9% 1,000 ML IV SCH ×2 (22:00)
[2019-05-17 22:09] LABS: Absolute Lymphocytes (CBC) 1.1 K/uL (0.7-4.9); Basophils % 0.6 % (0-1.3); Hematocrit 31.4 % (39.6-49.0); Lymphocytes % 10.4 % (15.3-44.8); MPV 9.4 fL (7.6-11.3); RBC Red Blood Cell Count 3.76 M/uL (4.33-5.43)
[2019-05-17 22:10] LABS: Protime INR 1.66
[2019-05-17 22:22] LABS: Albumin 2.5 g/dL (3.4-5.0); Bilirubin Total 1.2 mg/dL (0.2-1.0); Potassium 4.1 mmol/L (3.5-5.1); Protein, Total 5.8 g/dL (6.4-8.2); Uric Acid 6.4 mg/dL (3.5-7.2)
[2019-05-17 22:35] VITALS: BMI 67.4
[2019-05-17 22:51] VITALS: O2SAT 97
[2019-05-17] MEDS ORDERED: ATORVASTATIN 20 MG TAB ONE (23:20)
[2019-05-17 23:57] VITALS: TEMP 98.8
[2019-05-17 23:59] VITALS: BP 105/57
--- NOTE | 2019-05-18 00:05 | OP ---
Date of Procedure: 05/17/2019 Surgeon: Jonh Crespo MD, Preoperative Diagnosis: Right calf abscess. Postoperative Diagnosis: Right calf abscess / Necrotizing Soft Tissue Infection Procedure Performed: 1. Incision and drainage of right calf abscess. 2. Debridement of right calf necrotic tissue. Anesthesia: General endotracheal. Estimated Blood Loss: 50 mL. Specimen: Cultures and necrotic tissue from right anterior lateral calf area compartment. Findings: Necrotic tissue extending the muscle. Complications: None. Disposition: Transferred to the recovery room in good condition. Procedure In Detail: After informed consent was obtained, the patient was brought to the operating room, prepped and draped in the usual sterile fashion after adequate anesthesia was achieved, a linear incision was made over the lateral aspect of the calf, dissecting down through subcutaneous tissues. Immediately encountered was a large abscess cavity with gross necrotic tissue. This area was therefore unroofed at this point and good john necrotic tissue was appreciated. This was cultured at this time and I removed all and necrotic tissue. It was soft and easy to remove by simple finger fracture and all necrotic tissues were removed by simple finger fracture until I got to some semi-viable tissues circumferentially around. I achieved hemostasis with electrocautery as the patient continued to be on anticoagulation prior to a surgical intervention. Hemostasis was achieved with electrocautery at the end of the procedure. I irrigated the area copiously after all grossly necrotic tissue was debrided back, although I have concern that there is additional necrotic tissue in the area which likely extends proximally in the limb. I have great concerns of the viability of this limb overall as the tissue planes were quite soft and necrotic concerning for necrotizing fasciits vs necrotizing soft tissue infection. This appeared to be a very significant necrotizing soft tissue infection. The area was copiously irrigated multiple times until completely clear. I then soaked Betadine and Kerlix and packed the wound with this and a sterile dressing was placed over top. The patient tolerated the procedure well without evidence of complication and was transferred to the PACU in stable condition. The patient will need additional surgery, and as such I will obtain imaging AYDE, and plan further surgery after discussion with patient and his family based on the findings. All counts were correct at the end of the case. RAMY/DAQUAN Voice ID: [id number] Report ID: [id number] [facility]
--- NOTE | 2019-05-18 04:09 | HP ---
Date of Admission: 05/17/2019 Primary Care Physician: Dr. Johnson. Consultants: Dr. Crespo with General Surgery. Chief Complaint: Right leg wound. History Of Present Illness: Patient is a 58-year-old male, who was admitted to the hospital directly from the PACU for significant leg wound, which will require further treatment and revision and possible amputation. Patient has a past medical history COPD, congestive heart failure, hypothyroidism, atrial fibrillation, hypertension, morbid obesity, who weighs 436 pounds, who was in his usual state of health until 3-1/2 months ago when the patient started having worsening wound on his leg, started off as blisters. Patient had been seen in the ER by his PCP and also in the wound healing center. Since then, had been on oral antibiotics. His recent cultures from May 12 grew out E coli and was on Levaquin and clindamycin. Patient's blood cultures from the have been negative to date. Patient was seen at Dr. Crespo's office today for evaluation of his wound. Dr. Crespo felt that this patient needed debridement and was taken to the OR. In the OR, patient had significant amount of pustular drainage from the wound, was an extensive wound, and necrotic tissues were found extending to the muscle. When seen, the patient was awake, alert, oriented x3, in some mild distress. His imaging studies of the lower extremity showed 7 cm soft tissue collection within the anterolateral aspect of the level of the proximal tibia, contains air compatible with abscess area only , partially imaged, may indicate necrotizing fasciitis. Pelvis x-ray did not show any bony destruction. Past Medical History: COPD, hypothyroidism, congestive heart failure, hypertension, atrial fibrillation, hypertensive heart disease. Surgical History: Patient has had multiple I and D's on his leg. Allergies: NO KNOWN DRUG ALLERGIES. Medications: List reviewed. Patient currently on Levaquin and clindamycin orally. Family History: Cancer runs in the family. Social History: No tobacco use, alcohol use, or illicit drug use. Review of Systems: Ten-point system reviewed and negative except as per HPI. Physical Examination: Vital Signs: Temperature 99, heart rate 87, blood pressure 95/56, respirations 28, O2 89% on room air. General: Awake, alert, oriented x3. Morbidly obese male, ill-appearing. BMI 66. HEENT: Normocephalic, atraumatic. PERRLA. EOMI. Moist mucous membranes. Oropharynx is clear. Conjunctivae are anicteric. Neck: Supple. Trachea midline. CV: S1, S2. Peripheral pulses present. Respiratory: Distant breath sounds. No wheezing or stridor. No crackles heard. No use of accessory muscles. Gastrointestinal: Abdomen is soft, nontender, nondistended. Positive bowel sounds. Difficult to completely assess due to body habitus. Extremities: No clubbing or cyanosis. Patient has right lower extremity edema. Skin: Patient has wound in the right groin, which is bandaged and incision site on the right lower extremity is bandaged and Pito wrapped. No drainage. Laboratory Data: INR is 1.38 from yesterday. Glucose 153. CBC and CMP are pending. Blood cultures from 05/12/2019, no growth to date. Final wound cultures from 05/12/2019 growing out E coli pansensitive except to tetracycline. Imaging Studies: CT scan of the pelvis shows no acute abnormality. CT scan of the lower extremity shows 7 cm soft tissue collection within the anterolateral aspect at the level of the proximal tibia, contains air, and is compatible with abscess area partially imaged indicating necrotizing fasciitis. Assessment And Plan: 58-year-old male with: 1. Right lower extremity wound secondary to necrotizing fasciitis and Escherichia coli. We will start on broad spectrum IV antibiotics. Patient will need urgent amputation. Unfortunately, this facility does not have the correct equipment including a tourniquet big enough for [id number] amputation. I spoke with surgeon, Dr. Crespo, who recommends transfer to higher level of care. Patient may also need disarticulation of the hip depending on spreading of the fasciitis. We will re-culture blood and wound. Patient has high level of mortality. Treatment plan explained. Family updated. 2. Wound on the right groin. We will obtain wound culture. Continue with wound care with acetic acid. 3. Congestive heart failure, diastolic dysfunction. We will monitor I's and O 's, free fluid restriction. 4. Chronic obstructive pulmonary disease, chronic bronchitis. 5. Hypothyroidism. We will continue Synthroid. 6. Hypertensive heart disease. 7. Essential hypertension, currently hypotensive. 8. Atrial fibrillation, on Eliquis, which is currently on hold. 9. Morbid obesity, BMI of 66. Plan: Admit the patient to Med-Surg, place as inpatient. Length of stay greater than 2 midnights. We will initiate transfer to [facility]. ADDENDUM: Labs reviewed and case discussed with night hospitalist Dr. Rosenbaum. Transfer was initiated to [facility] and then subsequently to [facility] as well as [facility] patient was denied by several facilities ultimately was accepted by [facility]. Patient was transferred to [facility] last night. MUKUL Voice ID: [id number] [facility]
[2019-05-18] MEDS ORDERED: LEVOTHYROXINE SOD 0.1 MG TAB PO SCH (06:30)
[2019-05-18] MEDS ORDERED: FUROSEMIDE 20 MG TABLET PO SCH (09:00)
[2019-05-18] MEDS ORDERED: Levofloxacin500mg IV 500 MG/100 ML BAG IV SCH (14:00)
--- NOTE | 2019-05-20 13:32 | RAD REPORT ---
EXAM DESCRIPTION: Chest Single View CLINICAL HISTORY: 58 years Male, S/P PICC insertion COMPARISON: None. FINDINGS: There is moderately severe cardiomegaly. A right-sided PICC line identified with distal tip in superior vena cava. The lung ward are clear of active infiltrates. The pulmonary vascularity is unremarkable. No active pleural disease is present. IMPRESSION: 1. Successful placement right-sided PICC line. 2. Moderately severe cardiomegaly. Electronically signed by: Matthew Cheney MD 05/17/2019 11:09 PM CONTINUITY READER Due to temporary technical issues with the PACS/Fluency reporting system, reports are being signed by the in house radiologist as a courtesy to ensure prompt reporting. The interpreting radiologist is f ully responsible for the content of the report.
== END 2019-05-18 | disposition short-term general hospital (02) | DRG 501 ==
LOC: OR 10:48 → 2ND 14:53 → 3RD-ICU 21:25
PROVIDERS: ADMIT Family Medicine; ATTEND Family Medicine
PROC: 0JDN0ZZ Extraction of Right Lower Leg Subcutaneous Tissue and Fascia, Open Approach (ICD-10-PCS; 2019-05-17)
PROC: 0Y9H0ZX Drainage of Right Lower Leg, Open Approach, Diagnostic (ICD-10-PCS; principal; 2019-05-17 13:00)
DX: M72.6 Necrotizing fasciitis (principal); I50.32 Chronic diastolic (congestive) heart failure; Z68.44 Body mass index [BMI] 60.0-69.9, adult; B96.20 Unspecified Escherichia coli [E. coli] as the cause of diseases classified elsewhere; I11.0 Hypertensive heart disease with heart failure; J44.9 Chronic obstructive pulmonary disease, unspecified; E03.9 Hypothyroidism, unspecified; I48.91 Unspecified atrial fibrillation; Z79.01 Long term (current) use of anticoagulants; E66.01 Morbid (severe) obesity due to excess calories; S30.92XA Unspecified superficial injury of abdominal wall, initial encounter
CPT/HCPCS: 36415; 71045; 72192; 73700; 80053; 82550; 82947; 83605; 83615; 84145; 84550; 85025; 85610; 85730; 86850; 86900; 86901; 87040; 87070; 87075; 87077; 87176; 87186; 87205; 88304; 94760; J2250; J2370; J2704; J3010; J7030; J7040; J7120

== ENCOUNTER 2022-11-02 11:01 | Emergency (ER) | payer OTHER ==
--- OUTSIDE RECORDS SUMMARY | 2022-11-02 11:12 | XMS REPORT | Continuity of Care Document ---
:1960 Author Organization [facility] t Address [address] [facility]. [address] [place] [address] Care Team Providers Name Role Phone Jason Treviño Primary Care Physician Janet Naylor Attending Clinician Unavailable GERALDINE RUIZ Attending Clinician Unavailable NWHUSEYIN ROSE Attending Clinician Unavailable Lab, Ang - Db Attending Clinician Unavailable Baltazar Meyer MD Attending Clinician BALTAZAR MEYER Attending Clinician Unavailable Geraldine Ruiz MD Attending Clinician Doctor Unassigned, [place] Attending Clinician Unavailable FatouMagnolia barr MA Attending Clinician Unavailable Neva Solorzano MD Attending Clinician [phone] NEVA SOLORZANO Attending Clinician Unavailable 2, Ad[facility] Attending Clinician Unavailable Unknown, Attending Attending Clinician Unavailable SHAWNEE SCHUMACHER Attending Clinician Unavailable JAIMEE Attending Clinician Unavailable Jason Treviño Attending Clinician [phone] Laura Thompson PA-C Attending Clinician Junior DIA, Jh Bradshaw Attending Clinician [phone] JOHN DOWNING Attending Clinician Unavailable POONAM SHEPHERD Attending Clinician Unavailable GERALDINE RUIZ Admitting Clinician Unavailable JAIMEE Admitting Clinician Unavailable JOHN DOWNING Admitting Clinician Unavailable MEETA KELLY Admitting Clinician Unavailable Payers Payer Name Policy Type Policy Number Effective Date Expiration Date S casey [facility] [id number] 2017 PLUS 00:00:00 [place] [id number] 2020 [facility] 00:00:00 [facility] [id number] 2018 HEALTHCARE 00:00:00 [facility] (MEDICAID HMO) Problems Condition Condition Condition Status Onset Resolution Last Treating Co mments Source Name Details Category Date Date Treatment Clinician Date Hyperlipid Hyperlipid Disease Active U nivers emia, emia, 4-04 ity of [place]spec[place] Medical hyperlipid hyperlipid Br anch emia type emia type Atrial Atrial Disease Active 2020-07 Univers fibrillati fibrillati 0-13 it y of on, on, 00:00: [place] unspecifie unspecifie 00 Me dical d type d type Branch Morbid Morbid Disease Active 2020-07 Univers obesity obesity 0-13 ity of 00:00: [place] 00 Medical Branch Nonrheumat Nonrheumat Disease Active 2020-07 U janeth ic aortic ic aortic 0-13 ity of valve valve 00:00: [place] stenosis stenosis 00 Medica l Branch Bicuspid Bicuspid Disease Active 2020-07 Unive rs aortic aortic 0-13 ity of valve valve 00:00: [place] 00 Medical Branch Chronic Chronic Disease Active 2020-07 Univers heart heart 0-13 ity of failure failure 00:00: [place] with with 00 Medical preserved preserved Bran ch ejection ejection fraction fraction Atrial Atrial Problem Active [place] fibrillati Fibrillati 6- Co mmuni on on 00:00: ty 00 [facility] Low back Low Back Problem Active [facility] pain Pain 6 Communi 00:00: ty 00 [facility] Hematoma Hematoma Problem Active [facility] of thigh of Thigh 6 Commun i 00:00: ty 00 [facility] Right leg Right Leg Problem Active [place] peripheral Peripheral 5-26 Co mmuni neuropathy Neuropathy 00[facility]00: [facility] History of History of Problem Active S maranday Deep vein Deep Vein 2-21 Comm uni thrombosis Thrombosis 00:00: ty 00 [facility]osp[facility] Clinics Hypothyroi Hypothyroi Problem Active 2018-07 S [facility] dism dism 2-17 Communi 00:00: [facility] Morbid Morbid Problem Active 2018-07 [place] obesity Obesity 2-17 Communi 00:00: ty 00 [facility]osp[facility] Clinics Depressive Depressive Problem Active 2018-07 S [place] disorder Disorder 2-17 Commun i 00:00: ty 00 [facility] Asthma Asthma Problem Active 2018-07 [place] 2-17 Communi 00:00: [facility] Open wound Open Wound Problem Active 2018-07 S weeny 2-17 Communi 00:00: ty 00 [facility] Arrhythmia Arrhythmia Disease Recurre 2018-07 Overvie w[facility]: g of this Medical 00 note Center might be different from the original. Afib with slowed rate into the 30s, especiall y at night Necrotizin Necrotizin Disease Recurre 2018-[address] [facility] g nce 1-16 [facility] fasciitis fasciitis 00:00: Medi stefano of lower of lower 00 Center leg leg Sepsis Sepsis Disease Recurre 2018-[address] [facility] nce 1-16 [facility] 00:00: Medical 00 Center Depression Depression Disease Active 2018-[address] 1-16 [facility] 00:[facility]: Medical 00 Center Asthma Asthma Disease Active 2018-[address] [facility] 1-16 [facility] 00:00: Medical 00 Center Hypothyroi Hypothyroi Disease Active 2018-[address] dism dism -16 [facility] 00:00: Medical 00 Center Abscess of Abscess of Disease Active 2018-[address] right right 1-16 [facility] lower lower 00:00: Medical extremity extremity 00 Cent er Anemia of Anemia of Disease Active 2018-[address] [facility] chronic chronic 1-16 [facility] disease disease 00:00: Medical 00 Center CKD CKD Disease Active 2018-[address] [facility] (chronic (chronic 1-16 [facility] kidney kidney 00:00: Medical disease) disease) 00 Center Hyponatrem Hyponatrem Disease Active 2018-[address] ia ia 1-16 [facility] 00:00: Medical 00 Center Necrotizin Necrotizin Disease Active 2018-07 Overview : [facility] g soft g soft -15 [facility] tissue tissue 00:00: g of this Medical infection infection 00 note Cent er might be different from the original. Added automatic ally from request for surgery [id number] Morbid Morbid Disease Recurre [facility] obesity obesity nce 8-10 [facility] with body with body 00:00: Medi stefano mass index mass index 00 Ce nter (BMI) of (BMI) of 60.0 to 60.0 to 69.9 in 69.9 in adult adult Weakness Weakness Disease Active [facility] t of right of right 8-10 [facility] lower lower 00:00: Medical extremity extremity 00 Cent er Primary Primary Disease Active Univers hypothyroi hypothyroi 3-07 it y of dism dism 00:00: [place] [address] Medical Branch Chronic Chronic Disease Recurre 2013-[address] [facility] diastolic diastolic nce 2 Luke s CHF CHF 00:00: Medical (congestiv (congestiv 00 Ce nter e heart e heart failure) failure) Hypertensi Hypertensi Disease Recurre 2013-[address] [facility] on on nce 08-03 [facility] 00:00: Medical 00 Center MERLE MERLE Disease Recurre 2013-[address] [facility] (obstructi (obstructi nce 08-03 [facility] ve sleep ve sleep 00:00: Medica l apnea) apnea) 00 Center CAD CAD Disease Recurre 2013-[address] (coronary (coronary nce 2 Luke s artery artery 00:00: Medical disease) disease) 00 Center Hyperlipid Hyperlipid Disease Recurre 2013-[address] emia emia nce 2- [facility] 00:00: Medical 00 Center COPD COPD Disease Recurre 2013-[address] [facility] (chronic (chronic nce 08-03 [facility] obstructiv obstructiv 00:00: Me dical e e 00 Center pulmonary pulmonary disease) disease) Acute Acute Disease Active 2013-07 Overview: [facility] congestive congestive 08-03 [facility] heart heart 00:00: g of this Medical failure failure 00 note Center might be different from the original. SNOMED/[place] [id number] Atrial Atrial Disease Recurre 2013-[address] fibrillati fibrillati nce 07-11 [facility] on on 00:00: Medical 00 Center CHF CHF Disease Active 2013-[address] (congestiv (congestiv 07-08 [facility] e heart e heart 00:00: Medical failure) failure) 00 Center Hemodynami Hemodynami Disease Active [facility] instabilit instabilit Wi dicco y y Center [id number] Stage 3b Problem Comm on chronic Spirit kidney - CHI disease [facility] [id number] Prediabete Problem Co mmon s [facility] [id number] Mixed Problem Common hyperlipid [facility] emia [facility] [id number] [place] [id number] thigh pain [facility] [id number] Neuropathy Problem Co mmon of right [facility] extremity [facility] [id number] Acquired Problem Comm on hypothyroi [facility] dism [facility] Vitamin D Vitamin D Problem Com mon deficiency deficiency Sp kevan - [facility] Gastroesop GERD Problem Commo n hageal (gastroeso Spirit reflux phageal - [facility] disease reflux St disease) [facility] Seasonal Allergic Problem Commo n allergic rhinitis, Spiri t rhinitis seasonal [facility] Tinnitus Tinnitus Problem Commo n [facility] Arthralgia Arthralgia Problem C ommon [facility] [id number] Swelling Problem Comm on of thigh [facility] [id number] Right leg Problem Co mmon [id number] weakness [facility] [id number] Chronic Problem Common stasis Spirit dermatitis - [facility] of right [facility] Iron Iron Problem Common deficiency deficiency Sp kevan anemia anemia, - CHI unspecifie RUST iron [facility] deficiency Medica l anemia Center type [id number] Essential Problem Comm on (primary) Spirit hypertensi - [facility] on [facility] [id number] Persistent Problem Co mmon atrial Spirit fibrillati - [facility]I on [facility] [id number] Elevated Problem Comm on liver [facility] enzymes [facility] [id number] Other Problem Common fatigue [facility] [id number] Chronic Problem Commo n pain Spirit syndrome - [facility] [id number] Hematoma Problem Comm on of right Spirit lower - [facility] extremity, [facility] Center Allergies, Adverse Reactions, Alerts Allergy Allergy Status Severity Reaction(s) Onset Inactive Treating Comm ents Source Name Type Date Date Clinician NO KNOWN Drug Active Univers ALLERGIE Class ity of S [facility] NO KNOWN Allergy Active [facility] Family History Family Member Diagnosis Comments Start Date Stop Date Source Natural mother Cancer [facility] Natural mother Diabetes [facility] Natural mother Hyperlipidemia [facility] Natural mother Hypertension [facility] Natural father Cancer [facility] Social History Social Habit Start Date Stop Date Quantity Comments Source History of Common Spirit - Tobacco Use [facility] Exposure to 2022-10-11 2022-10-21 Not sure [facility]-CoV-2 00:00:00 10:08:00 [facility] (event) [place] Tobacco use and 2022-09-19 2022-09-19 Smokeless tobacco CH I [facility] exposure 00:00:00 00:00:00 non-user Medical Center Alcohol intake 2022-09-19 2022-09-19 Current non-drinker [facility] 00:[facility]:[address] [facility] (finding) Alcohol Comment 2018-05-09 2018-05-09 [facility] 00:00:00 00:00:00 Medicine Sex Ass[birth year] [facility] 00:00:00 00:00:00 Medical Center Smoking Status Start Date Stop Date Source Never smoked tobacco [facility] Medications Ordered Filled Start Stop Current Ordering Indication Dosage Frequency Signature Comments Components Source Medication Medication Date Date Medication? Clinician (SIG) Name Name indomethaci 2022- No 75mg Take 1 Uni vers n 75 mg CR -10-21 capsule by it y of capsule 10:59: 00:00 mouth in [place] 38 :00 [facility] Medical morning Branch and 1 capsule in the evening. Take with meals. indomethaci 2022- No 75mg Take 1 Uni vers n 75 mg CR 4-10-21 capsule by it y of capsule 10:59: 00:00 mouth in [place] 38 :00 the Medical morning Branch and 1 capsule in the evening. Take with meals. FUROSEMIDE 2023-0 Yes 20mg Take 20 mg U nivers ORAL 4-21 by mouth ity of 10:59: in the [place] [address] morning Medical and 20 mg Branch in the evening. FUROSEMIDE 2023-0 Yes 20mg Take 20 mg U nivers ORAL 4-21 by mouth ity of 10:59: in the [place] [address] morning Medical and 20 mg Branch in the evening. FUROSEMIDE 2023-0 Yes 20mg Take 20 mg U nivers ORAL 4-21 by mouth ity of 10:59: in the [place] [address] morning Medical and 20 mg Branch in the evening. atorvastati 2023-0 Yes 20mg Take 1 Univ ers n 20 mg 4-21 tablet by ity of tablet 10:59: mouth at [place] [address] bedtime. Medical Branch atorvastati 2023-0 Yes 20mg Take 1 Univ ers n 20 mg 4-21 tablet by ity of tablet 10:59: mouth at [place] [address] bedtime. Medical Branch atorvastati 2023-0 Yes 20mg Take 1 Univ ers n 20 mg 4-21 tablet by ity of tablet 10:59: mouth at [place] [address] bedtime. Medical Branch albuterol 2023-0 Yes 2{puff} Inhale 2 U nivers 90 4-21 Puffs ity of mcg/actuati 10:59: every 6 [place] as on inhaler 09 (six) Medical hours as Branch needed for Wheezing or Shortness of Breath. albuterol 2023-0 Yes 2{puff} Inhale 2 U nivers 90 4-21 Puffs ity of mcg/actuati 10:59: every 6 [place] as on inhaler 09 (six) Medical hours as Branch needed for Wheezing or Shortness of Breath. albuterol 2023-0 Yes 2{puff} Inhale 2 U nivers 90 4-21 Puffs ity of mcg/actuati 10:59: every 6 [place] as on inhaler 09 (six) Medical hours as Branch needed for Wheezing or Shortness of Breath. gabapentin 2023-0 Yes 100mg Take 1 Univ ers 100 mg 4-21 capsule by ity of capsule 10:56: mouth in [place] 33 the Medical morning. Branch gabapentin 2023-0 Yes 100mg Take 1 Univ ers 100 mg 4-21 capsule by ity of capsule 10:56: mouth in [place] [address] the Medical morning. Branch gabapentin 2022-0 Yes 100mg Take 1 Univ ers 100 mg 4-21 capsule by ity of capsule 10:56: mouth in [place] [address] the Medical morning. Branch levothyroxi 2022-0 Yes [id number] 150ug Take 1 Univers ne 150 mcg 4-21 tablet by ity of tablet 00:00: mouth [place] 00 every Medical morning. Branch levothyroxi 2022-0 Yes [id number] 150ug Take 1 Univers ne 150 mcg 4-21 tablet by ity of tablet 00:00: mouth [place] 00 every Medical morning. Branch levothyroxi 2022-0 Yes [id number] 150ug Take 1 Univers ne 150 mcg 4-21 tablet by ity of tablet 00:00: mouth [place] 00 every Medical morning. Branch verapamil 2022-0 2023- No 80mg Take 1 Unive rs 80 mg 4-04 04-04 tablet by ity of tablet 14:55: 00:00 mouth in [place] 15 :00 the Medical morning Branch and 1 tablet at noon and 1 tablet in the evening. verapamil 3-0 2023- No 80mg Take 1 Unive rs 80 mg 4-04 04-04 tablet by ity of tablet 14:55: 00:00 mouth in [place] 15 :00 the Medical morning Branch and 1 tablet at noon and 1 tablet in the evening. verapamil 3-0 2023- No 80mg Take 1 Unive rs 80 mg 4-04 04-04 tablet by ity of tablet 14:55: 00:00 mouth in [place] 15 :00 the Medical morning Branch and 1 tablet at noon and 1 tablet in the evening. lisinopril 2023-0 2023- No 40mg Take 1 Univ ers 40 mg 4-04 04-04 tablet by ity of tablet 14:55: 00:00 mouth in [place] 09 :00 the Medical morning. Branch lisinopril 2023-0 2023- No 40mg Take 1 Univ ers 40 mg 4-04 04-04 tablet by ity of tablet 14:55: 00:00 mouth in [place] 09 :00 the Medical morning. Branch lisinopril 2023-0 2023- No 40mg Take 1 Univ ers 40 mg 4-04 04-04 tablet by ity of tablet 14:55: 00:00 mouth in [place] 09 :00 the Medical morning. Branch FUROSEMIDE 2023-0 Yes 20mg Take 20 mg U nivers ORAL 4-04 by mouth ity of 14:45: in the [place] [address] morning Medical and 20 mg Branch in the evening. atorvastati 2023-0 Yes 20mg Take 1 Univ ers n 20 mg 4-04 tablet by ity of tablet 14:45: mouth at [place] [address] bedtime. Medical Branch fluticasone 3-0 Yes 1{puff} Inhale 1 Univers propion-rudolph 4-04 Puff every it y of meteroL 14:45: 12 [place] [address] (twelve) Medical mcg/dose hours. Branch inhalation disk albuterol 2022-0 Yes 2{puff} Inhale 2 U nivers 90 4-04 Puffs ity of mcg/actuati 14:45: every 6 [place] as on inhaler 28 (six) Medical hours as Branch needed for Wheezing or Shortness of Breath. indomethaci 2022-0 Yes 75mg Take 1 Univ ers n 75 mg CR 4-04 capsule by ity of capsule 14:45: mouth in [place] [address] the Medical morning Branch and 1 capsule in the evening. Take with meals. gabapentin 2023-0 Yes 100mg Take 1 Univ ers 100 mg 4-04 capsule by ity of capsule 14:45: mouth in [place] [address] the Medical morning. Branch FUROSEMIDE 2022-0 Yes 20mg Take 20 mg U nivers ORAL 4-04 by mouth ity of 14:45: in the [place] [address] morning Medical and 20 mg Branch in the evening. atorvastati 2023-0 Yes 20mg Take 1 Univ ers n 20 mg 4-04 tablet by ity of tablet 14:45: mouth at [place] [address] bedtime. Medical Branch fluticasone 2022-0 Yes 1{puff} Inhale 1 Univers propion-rudolph 4-04 Puff every it y of meteroL 14:45: 12 [place] [address] (twelve) Medical mcg/dose hours. Branch inhalation disk albuterol 3-0 Yes 2{puff} Inhale 2 U nivers 90 4-04 Puffs ity of mcg/actuati 14:45: every 6 [place] as on inhaler 28 (six) Medical hours as Branch needed for Wheezing or Shortness of Breath. indomethaci 3-0 Yes 75mg Take 1 Univ ers n 75 mg CR 4-04 capsule by ity of capsule 14:45: mouth in [place] [address] the Medical morning Branch and 1 capsule in the evening. Take with meals. gabapentin 2023-0 Yes 100mg Take 1 Univ ers 100 mg 4-04 capsule by ity of capsule 14:45: mouth in [place] [address] the Medical morning. Branch FUROSEMIDE 2023-0 Yes 20mg Take 20 mg U nivers ORAL 4-04 by mouth ity of 14:45: in the [place] [address] morning Medical and 20 mg Branch in the evening. atorvastati 2023-0 Yes 20mg Take 1 Univ ers n 20 mg 4-04 tablet by ity of tablet 14:45: mouth at [place] [address] bedtime. Medical Branch fluticasone 2022-0 Yes 1{puff} Inhale 1 Univers propion-rudolph 4-04 Puff every it y of meteroL 14:45: 12 [place] [address] (twelve) Medical mcg/dose hours. Branch inhalation disk albuterol 2022-0 Yes 2{puff} Inhale 2 U nivers 90 4-04 Puffs ity of mcg/actuati 14:45: every 6 [place] as on inhaler 28 (six) Medical hours as Branch needed for Wheezing or Shortness of Breath. indomethaci 2023-0 Yes 75mg Take 1 Univ ers n 75 mg CR 4-04 capsule by ity of capsule 14:45: mouth in [place] [address] the Medical morning Branch and 1 capsule in the evening. Take with meals. gabapentin 2023-0 Yes 100mg Take 1 Univ ers 100 mg 4-04 capsule by ity of capsule 14:45: mouth in [place] [address] the Medical morning. Branch FUROSEMIDE 2023-0 Yes 20mg Take 20 mg U nivers ORAL 4-04 by mouth ity of 14:45: in the [place] [address] morning Medical and 20 mg Branch in the evening. atorvastati 2023-0 Yes 20mg Take 1 Univ ers n 20 mg 4-04 tablet by ity of tablet 14:45: mouth at [place] [address] bedtime. Medical Branch fluticasone 2022-0 Yes 1{puff} Inhale 1 Univers propion-rudolph 4-04 Puff every it y of meteroL 14:45: 12 [place] [address] (twelve) Medical mcg/dose hours. Branch inhalation disk albuterol 2022-0 Yes 2{puff} Inhale 2 U nivers 90 4-04 Puffs ity of mcg/actuati 14:45: every 6 [place] as on inhaler 28 (six) Medical hours as Branch needed for Wheezing or Shortness of Breath. indomethaci 3-0 Yes 75mg Take 1 Univ ers n 75 mg CR 4-04 capsule by ity of capsule 14:45: mouth in [place] [address] the Medical morning Branch and 1 capsule in the evening. Take with meals. gabapentin 3-0 Yes 100mg Take 1 Univ ers 100 mg 4-04 capsule by ity of capsule 14:45: mouth in [place] [address] the Medical morning. Branch fluticasone 3-0 Yes 1{puff} Inhale 1 Univers propion-rudolph 4-04 Puff every it y of meteroL 14:45: 12 [place] [address] (twelve) Medical mcg/dose hours. Branch inhalation disk fluticasone 3-0 Yes 1{puff} Inhale 1 Univers propion-rudolph 4-04 Puff every it y of meteroL 14:45: 12 [place] [facility] 28 (twelve) Medical mcg/dose hours. Branch inhalation disk fluticasone 3-0 Yes 1{puff} Inhale 1 Univers propion-rudolph 4-04 Puff every it y of meteroL 14:45: 12 [place] [address] (twelve) Medical mcg/dose hours. Branch inhalation disk amLODIPine 3-0 Yes [id number] 10mg Take 1 U nivers 10 mg 4-04 tablet by ity of tablet 00:00: mouth in [place] [address] the Medical morning. Branch amLODIPine 3-0 Yes [id number] 10mg Take 1 U nivers 10 mg 4-04 tablet by ity of tablet 00:00: mouth in [place] [address] the Medical morning. Branch amLODIPine 2023-0 Yes [id number] 10mg Take 1 U nivers 10 mg 4-04 tablet by ity of tablet 00:00: mouth in [place] [address] the Medical morning. Branch amLODIPine 2023-0 Yes [id number] 10mg Take 1 U nivers 10 mg 4-04 tablet by ity of tablet 00:00: mouth in [place] [address] the Medical morning. Branch amLODIPine 2023-0 Yes [id number] 10mg Take 1 U nivers 10 mg 4-04 tablet by ity of tablet 00:00: mouth in [place] [address] the Medical morning. Branch amLODIPine 2023-0 Yes [id number] 10mg Take 1 U nivers 10 mg 4-04 tablet by ity of tablet 00:00: mouth in [place] 00 the Medical morning. Branch amLODIPine 2022-0 Yes [id number] 10mg Take 1 U nivers 10 mg 4-04 tablet by ity of tablet 00:00: mouth in [place] 00 the Medical morning. Branch mometasone 2022-0 Yes 2{spray QD [address] [facility] (NASONEX) 3-20 } by Nasal [facility] 50 09:57: route in Medical mcg/actuati 56 the Center on nasal morning. spray fluticasone 0 Yes 1{puff} Inhale [address] -salmeterol 3-20 puff by Michela (ADVAIR) 09:56: mouth via Medi stefano 250-50 28 inhaler Center mcg/dose every 12 diskus (twelve) inhaler hours. albuterol 0 Yes 1{puff} Inhale [address] HFA 3-20 puff by Michela (VENTOLIN 09:56: mouth via Med ical HFA) 90 28 inhaler Center mcg/actuati every 6 on inhaler (six) hours as needed for Wheezing. levothyroxi 0 Yes 150ug Take [address] [facility] [facility] ne 3-20 tablet [facility] (SYNTHROID, 09:56: (150 mcg Me dical LEVOTHROID) 28 total) by [address] 150 MCG mouth tablet Every morning on an empty stomach. gabapentin 2022-0 Yes 100mg QD Take [address] [facility] (NEURONTIN) 2-17 capsule [facility] 100 MG 00:00: (100 mg Medical capsule 00 total) by Center mouth in the morning. atorvastati 2022-0 Yes 20mg QD Take [address] n (LIPITOR) 1-12 tablet (20 [facility] 20 MG 00:00: mg total) Medical tablet 00 by mouth Center in the morning. levothyroxi 2021-0 Yes [id number] 175ug Take 1 Univers ne 175 mcg 4-17 tablet by ity of tablet 00:00: mouth [place] 00 every Medical morning. Branch levothyroxi 2021-0 Yes [id number] 175ug Take 1 Univers ne 175 mcg 4-17 tablet by ity of tablet 00:00: mouth [place] 00 every Medical morning. Branch levothyroxi Yes [id number] 175ug Take 1 Univers ne 175 mcg 4-17 tablet by ity of tablet 00:00: mouth [place] 00 every Medical morning. Branch levothyroxi Yes [id number] 175ug Take 1 Univers ne 175 mcg 4-17 tablet by ity of tablet 00:00: mouth [place] 00 every Medical morning. Branch levothyroxi Yes [id number] 175ug Take 1 Univers ne 175 mcg 4-17 tablet by ity of tablet 00:00: mouth [place] 00 every Medical morning. Branch levothyroxi Yes [id number] 175ug Take 1 Univers ne 175 mcg 4-17 tablet by ity of tablet 00:00: mouth [place] 00 every Medical morning. Branch levothyroxi Yes [id number] 175ug Take 1 Univers ne 175 mcg 4-17 tablet by ity of tablet 00:00: mouth [place] 00 every Medical morning. Branch levothyroxi Yes [id number] 175ug Take 1 Univers ne 175 mcg 4-17 tablet by ity of tablet 00:00: mouth [place] 00 every Medical morning. Branch levothyroxi Yes [id number] 175ug Take 1 Univers ne 175 mcg 4-17 tablet by ity of tablet 00:00: mouth [place] 00 every Medical morning. Branch levothyroxi 2022- No [id number] 175ug Take 1 Univers ne 175 mcg 4-17 04-21 tablet by ity of tablet 00:00: 00:00 mouth [place] 00 :00 every Medical morning. Branch levothyroxi 2022- No [id number] 175ug Take 1 Univers ne 175 mcg 4-17 04-21 tablet by ity of tablet 00:00: 00:00 mouth [place] 00 :00 every Medical morning. Branch fluticasone Yes 1{puff} Inhale 1 Univers -salmeterol 4-13 Puff every it y of (ADVAIR 11:22: 12 [place] DISKUS) 08 (twelve) Medical 250-50 hours. Branch mcg/dose inhalation disk indomethaci Yes 75mg Take 75 mg Univers n 75 mg CR 4-13 by mouth 2 ity of capsule 11:22: (two) [place] 08 times Medical daily with Branch meals. fluticasone Yes 1{puff} Inhale 1 Univers -salmeterol 4-13 Puff every it y of (ADVAIR 11:22: 12 [place] DISKUS) 08 (twelve) Medical 250-50 hours. Branch mcg/dose inhalation disk indomethaci 2022-0 Yes 75mg Take 75 mg Univers n 75 mg CR 4-13 by mouth 2 ity of capsule 11:22: (two) [place] 08 times Medical daily with Branch meals. fluticasone 2022-0 Yes 1{puff} Inhale 1 Univers -salmeterol 4-13 Puff every it y of (ADVAIR 11:22: 12 [place] DISKUS) 08 (twelve) Medical 250-50 hours. Branch mcg/dose inhalation disk indomethaci 2022-0 Yes 75mg Take 75 mg [facility] 75 mg CR 4-13 by mouth 2 ity of capsule 11:22: (two) [place] 08 times Medical daily with Branch meals. fluticasone 2022-0 Yes 1{puff} Inhale 1 [facility] -salmeterol 4-13 Puff every it y of (ADVAIR 11:22: 12 [place] DISKUS) 08 (twelve) Medical 250-50 hours. Branch mcg/dose inhalation disk indomethaci 2-0 Yes 75mg Take 75 mg [facility] 75 mg CR 4-13 by mouth 2 ity of capsule 11:22: (two) [place] 08 times Medical daily with Branch meals. fluticasone 2022-0 Yes 1{puff} Inhale 1 [facility] -salmeterol 4-13 Puff every it y of (ADVAIR 11:22: 12 [place] DISKUS) 08 (twelve) Medical 250-50 hours. Branch mcg/dose inhalation disk indomethaci 2022-0 Yes 75mg Take 75 mg [facility] 75 mg CR 4-13 by mouth 2 ity of capsule 11:22: (two) [place] 08 times Medical daily with Branch meals. Amoxicillin Amoxicillin 2020-07- No 1{table BID Amoxicilli -Pot -Pot -07-04 t} n-Pot Clavulanate Clavulanate 00:00: 00:00 Clavulanat 875-125 MG 875-125 MG 00 :00 e 875-125 MG gabapentin 2020-07 Yes 100mg Take 100 Un deyanira 100 mg 0-13 mg by ity of capsule 10:39: mouth. [place] 52 [facility] Branch gabapentin 2020-07 Yes 100mg Take 100 Un deyanira 100 mg 0-13 mg by ity of capsule 10:39: mouth. [place] [address] Medical Branch gabapentin 2020-07 Yes 100mg Take 100 Un deyanira 100 mg 0-13 mg by ity of capsule 10:39: mouth. [address] Branch gabapentin 2020-07 Yes 100mg Take 100 Un deyanira 100 mg 0-13 mg by ity of capsule 10:39: mouth. [address] Branch gabapentin 2020-07 Yes 100mg Take 100 Un deyanira 100 mg 0-13 mg by ity of capsule 10:39: mouth. [address] Branch lisinopril 2020-07 Yes 40mg Take 40 mg U nivers 40 mg 0-13 by mouth ity of tablet 10:38: daily. [place] [address] Medical Branch FUROSEMIDE 2020-07 Yes 20mg Take 20 mg U nivers ORAL 0-13 by mouth. ity of 10:38: [place] [address] Medical Branch atorvastati 2020-07 Yes 20mg Take 20 mg [facility] n 20 mg 0-13 by mouth ity of tablet 10:38: at [place] [address] bedtime. Medical Branch verapamil 2020-07 Yes 80mg Take 80 mg Un deyanira 80 mg 0-13 by mouth 3 ity of tablet 10:38: (three) [place] 39 times Medical daily. Branch albuterol 2020-07 Yes 2{puff} Inhale 2 U nivers (PROAIR 0-13 Puffs ity of HFA) 90 10:38: every 6 [place] mcg/actuati 39 (six) Medical on inhaler hours as Branc h needed for Wheezing or Shortness of Breath. lisinopril 2020-07 Yes 40mg Take 40 mg U nivers 40 mg 0-13 by mouth ity of tablet 10:38: daily. [place] [address] Medical Branch FUROSEMIDE 2020-07 Yes 20mg Take 20 mg U nivers ORAL 0-13 by mouth. ity of 10:38: [place] [address] Medical Branch atorvastati 2020-07 Yes 20mg Take 20 mg [facility] n 20 mg 0-13 by mouth ity of tablet 10:38: at [place] [address] bedtime. Medical Branch verapamil 2020-07 Yes 80mg Take 80 mg Un deyanira 80 mg 0-13 by mouth 3 ity of tablet 10:38: (three) [place] 39 times Medical daily. Branch albuterol 2020-07 Yes 2{puff} Inhale 2 U nivers (PROAIR 0-13 Puffs ity of HFA) 90 10:38: every 6 [place] mcg/actuati 39 (six) Medical on inhaler hours as Branc h needed for Wheezing or Shortness of Breath. lisinopril 2020-07 Yes 40mg Take 40 mg U nivers 40 mg 0-13 by mouth ity of tablet 10:38: daily. [place] [address] Medical Branch FUROSEMIDE 2020-07 Yes 20mg Take 20 mg U nivers ORAL 0-13 by mouth. ity of 10:38: [place] [address] Medical Branch atorvastati 2020-07 Yes 20mg Take 20 mg [facility] n 20 mg 0-13 by mouth ity of tablet 10:38: at [place] [address] bedtime. Medical Branch verapamil 2020-07 Yes 80mg Take 80 mg Un deyanira 80 mg 0-13 by mouth 3 ity of tablet 10:38: (three) [place] [address] times Medical daily. Branch albuterol 2020-07 Yes 2{puff} Inhale 2 U nivers (PROAIR 0-13 Puffs ity of HFA) 90 10:38: every 6 [place] mcg/actuati 39 (six) Medical on inhaler hours as Branc h needed for Wheezing or Shortness of Breath. lisinopril 2020-07 Yes 40mg Take 40 mg U nivers 40 mg 0-13 by mouth ity of tablet 10:38: daily. [place] [address] Medical Branch FUROSEMIDE 2020-07 Yes 20mg Take 20 mg U nivers ORAL 0-13 by mouth. ity of 10:38: [place] [address] Medical Branch atorvastati 2020-07 Yes 20mg Take 20 mg [facility] n 20 mg 0-13 by mouth ity of tablet 10:38: at [place] [address] bedtime. Medical Branch verapamil 2020-07 Yes 80mg Take 80 mg Un deyanira 80 mg 0-13 by mouth 3 ity of tablet 10:38: (three) [place] 39 times Medical daily. Branch albuterol 2020-07 Yes 2{puff} Inhale 2 U nivers (PROAIR 0-13 Puffs ity of HFA) 90 10:38: every 6 [place] mcg/actuati 39 (six) Medical on inhaler hours as Branc h needed for Wheezing or Shortness of Breath. lisinopril 2020-07 Yes 40mg Take 40 mg U nivers 40 mg 0-13 by mouth ity of tablet 10:38: daily. [place] [address] Medical Branch FUROSEMIDE 2020-07 Yes 20mg Take 20 mg U nivers ORAL 0-13 by mouth. ity of 10:38: [place] [address] Medical Branch atorvastati 2020-07 Yes 20mg Take 20 mg [facility] n 20 mg 0-13 by mouth ity of tablet 10:38: at [place] [address] bedtime. Medical Branch verapamil 2020-07 Yes 80mg Take 80 mg Un deyanira 80 mg 0-13 by mouth 3 ity of tablet 10:38: (three) [place] [address] times Medical daily. Branch albuterol 2020-07 Yes 2{puff} Inhale 2 U nivers (PROAIR 0-13 Puffs ity of HFA) 90 10:38: every 6 [place] mcg/actuati 39 (six) Medical on inhaler hours as Branc h needed for Wheezing or Shortness of Breath. lisinopril 2018-07 Yes 40mg QD Take 1 [facility] (PRINIVIL,[facility] 0-07 tablet (40 [place] ESTRIL) 40 00:00: mg total) Me dical MG tablet 00 by mouth Center in the morning. Elastic Yes [id number] [place] Bandages & 1-15 during the [facility] Supports 00:00: day of (MEDICAL 00 Medicin COMPRESSION e STOCKINGS[place] [facility] [place] [id number] Bandages & 1-15 during the Col lege Supports 00:00: day of (MEDICAL 00 Medicin COMPRESSION e STOCKINGS[place] [facility] [place] 2017-07 Yes 1{puff} 1 Puff by [facility] -salmeterol 07-09 Inhalation [facility] llege (ADVAIR 19:29: route. of DISKUS) 56 Medicin 250-50 e MCG/DOSE inhaler Cholecalcif 2017-07 Yes Take by [place] [facility] 07-09 mouth two College (VITAMIN 19:29: times of D-3) 1000 56 daily. Medicin units CAPS e Naproxen 2017-07 Yes Take by [facility] Sodium 07-09 mouth as College (ALEVE OR) 19:29: needed. of 56 Medicin e lisinopril 2018-1 Yes 40mg Take 40 mg [facility] (PRINIVIL, 07-09 by mouth. [facility] ZESTRIL) 40 19:29: of MG tablet 56 Medicin e fluticasone 2017-07 Yes 1{puff} 1 Puff by [facility] -salmeterol 07-09 Inhalation [facility] l[facility] (ADVAIR 19:29: route. of DISKUS) 56 Medicin 250-50 e MCG/DOSE inhaler Cholecalcif 2017-07 Yes Take by [facility] edward 07-09 mouth two College (VITAMIN 19:29: times of D-3) 1000 56 daily. Medicin units CAPS e Naproxen 2017-07 Yes Take by [facility] Sodium 07-09 mouth as College (ALEVE OR) 19:29: needed. of 56 Medicin e lisinopril 2017-07 Yes 40mg Take 40 mg [facility] (PRINIVIL, 07-09 by mouth. [facility] ZESTRIL) 40 19:29: of MG tablet 56 Medicin e allopurinol 2017-07 Yes [facility] (ZYLOPRIM) 0-19 [place] 300 MG 00:00: of tablet 00 Medicin e allopurinol 2017-07 Yes [facility] (ZYLOPRIM) 0-19 [place] 300 MG 00:00: of tablet 00 Medicin e butalbital- 2017-07 Yes [facility] s aspirin-caf 0-08 ity of feine 00:00: [place] 50-325-40 00 Medical mg per Branch capsule butalbital- 2017-07 Yes Univer s aspirin-caf 0-08 ity of feine 00:00: [place] 50-325-40 00 Medical mg per Branch capsule butalbital- 2017-07 Yes Univer s aspirin-caf 0-08 ity of feine 00:00: [place] 50-325-40 00 Medical mg per Branch capsule butalbital- 2017-07 Yes Univer s aspirin-caf 0-08 ity of feine 00:00: [place] 50-325-40 00 Medical mg per Branch capsule butalbital- 2017-07 Yes Univer s aspirin-caf 0-08 ity of feine 00:00: [place] 50-325-40 00 Medical mg per Branch capsule butalbital- 2017-07 Yes Univer s aspirin-caf 0-08 ity of feine 00:00: [place] 50-325-40 00 Medical mg per Branch capsule butalbital- 2017-07 Yes Univer s aspirin-caf 0-08 ity of feine 00:00: [place] 50-325-40 00 Medical mg per Branch capsule butalbital- 2017-07 Yes Univer s aspirin-caf 0-08 ity of feine 00:00: [place] 50-325-40 00 Medical mg per Branch capsule butalbital- 2017-07 Yes Univer s aspirin-caf 0-08 ity of feine 00:00: [place] 50-325-40 00 Medical mg per Branch capsule butalbital- 2017-07 Yes [facility] aspirin-caf 0-08 [place] feine 00:00: of (FIORINAL) 00 Medicin 50-325-40 e MG CAPS butalbital- 2017-07 Yes [facility] aspirin-caf 0-08 [place] feine 00:00: of (FIORINAL) 00 Medicin 50-325-40 e MG CAPS butalbital- 2017-07- No Unive rs aspirin-caf 0-08 04-21 ity of feine 00:00: 00:00 [place] 50-325-40 00 :00 Medical mg per Branch capsule butalbital- 2017-07- No Unive rs aspirin-caf 0-08 04-21 ity of feine 00:00: 00:00 [place] 50-325-40 00 :00 Medical mg per Branch capsule levothyroxi 2017-[address] (SYNTHROID) 00:00: of 175 MCG 00 Medicin tablet e levothyroxi 2017-[address] (SYNTHROID) 00:00: of 175 MCG 00 Medicin tablet e ELIQUIS 5 Yes [facility] mg tablet 9-20 ity of 00:00: [place] 00 Medical Branch ELIQUIS 5 2018-0 Yes [facility] mg tablet 9-20 ity of 00:00: [place] 00 Medical Branch ELIQUIS 5 2018-0 Yes Univers mg tablet 9-20 ity of 00:00: [place] [facility] ELIQUIS 5 2017-0 Yes Univers mg tablet 9-20 ity of 00:00: [place] [facility] ELIQUIS 5 2017-0 Yes Univers mg tablet 9-20 ity of 00:00: [place] [facility] ELIQUIS 5 2018-0 Yes 2 (two) Unive rs mg tablet 9-20 times ity of 00:00: daily. Medical Branch ELIQUIS 5 2017-0 Yes 2 (two) Unive rs mg tablet 9-20 times ity of 00:00: daily. Medical Branch ELIQUIS 5 2017-0 Yes 2 (two) Unive rs mg tablet 9-20 times ity of 00:00: daily. Medical Branch ELIQUIS 5 2017-0 Yes 2 (two) Unive rs mg tablet 9-20 times ity of 00:00: daily. Medical Branch ELIQUIS 5 2017-0 Yes 2 (two) Unive rs mg tablet 9-20 times ity of 00:00: daily. Medical Branch ELIQUIS 5 2017-0 Yes 2 (two) Unive rs mg tablet 9-20 times ity of 00:00: daily. [facility] Branch ELIQUIS 5 2017-0 Yes 2 (two) Unive rs mg tablet 9-20 times ity of 00:00: daily. [place] [facility] Branch tamsulosin 2017-0 Yes Univers 0.4 mg 24 9-19 ity of hr capsule 00:00: [place] [facility] Branch tamsulosin 2018-0 Yes Univers 0.4 mg 24 9-19 ity of hr capsule 00:00: [place] [facility] Branch tamsulosin 2018-0 Yes Univers 0.4 mg 24 9-19 ity of hr capsule 00:00: [place] [facility] tamsulosin 2018-0 Yes Univers 0.4 mg 24 9-19 ity of hr capsule 00:00: [place] [facility] tamsulosin 2018-0 Yes Univers 0.4 mg 24 9-19 ity of hr capsule 00:00: [place] [facility] tamsulosin 2018-0 Yes Univers 0.4 mg 24 9-19 ity of hr capsule 00:00: [place] [facility] tamsulosin 2018-0 Yes Univers 0.4 mg 24 9-19 ity of hr capsule 00:00: [place] [facility] tamsulosin 2018-0 Yes Univers 0.4 mg 24 9-19 ity of hr capsule 00:00: [address] tamsulosin 2018-0 Yes Univers 0.4 mg 24 9-19 ity of hr capsule 00:00: [place] [facility] tamsulosin 2018-0 Yes Univers 0.4 mg 24 9- ity of hr capsule 00:00: [address] tamsulosin 2018-0 Yes Univers 0.4 mg 24 9- ity of hr capsule 00:00: [address] tamsulosin 2018-0 Yes Univers 0.4 mg 24 9- ity of hr capsule 00:00: [address] furosemide 2018-0 Yes 60mg QD Take 3 [facility] ([facility]IX[facility] tablet 00:00: (60 mg Medica l 00 total) by Center mouth daily. furosemide 2018-0 Yes 60mg Take 60 mg [facility] (LASIX) 20 8-26 by mouth. [facility] MG tablet 00:00: Medicin e furosemide 2018-0 Yes 60mg Take 60 mg [facility] (LASIX) 20 8-26 by mouth. [facility] MG tablet 00:00: Medicin e allopurinol 2018-0 Yes 300mg QD Take [address] (ZYLOPRIM) 8-25 tablet [facility] 300 MG 00:00: (300 mg Medical tablet 00 total) by Center mouth daily. tamsulosin 2018-0 Yes .4mg QD Take 1 [facility] (FLOMAX[facility] 8-25 capsule [facility] 0.4 mg Cap 00:00: (0.4 mg Medi stefano 24 hr 00 total) by Center capsule mouth daily. allopurinol 2018-0 Yes 300mg Take 300 U nivers 300 mg 8-25 mg by ity of tablet 00:00: mouth. [address] allopurinol 2018-0 Yes 300mg Take 300 U nivers 300 mg 8-25 mg by ity of tablet 00:00: mouth. [address] allopurinol 2018-0 Yes 300mg Take 300 U nivers 300 mg 8-25 mg by ity of tablet 00:00: mouth. [address] allopurinol 2018-0 Yes 300mg Take 300 U nivers 300 mg 8-25 mg by ity of tablet 00:00: mouth. [address] allopurinol 2018-0 Yes 300mg Take 300 U nivers 300 mg 8-25 mg by ity of tablet 00:00: mouth. [address] allopurinol 2018-0 Yes 300mg Take 1 [facility] vers 300 mg 8-25 tablet by ity of tablet 00:00: mouth. [address] allopurinol 2018-0 Yes 300mg Take 1 [facility] vers 300 mg 8-25 tablet by ity of tablet 00:00: mouth. [address] allopurinol 0 Yes 300mg Take 1 [facility] vers 300 mg 8-25 tablet by ity of tablet 00:00: mouth. [address] allopurinol Yes 300mg Take 1 [facility] vers 300 mg 8-25 tablet by ity of tablet 00:00: mouth. [address] Tamsulosin 0 Yes [place] HCl 0.4 MG 8-25 College CAPS 00:00: of 00 Medicin e verapamil 20180 Yes 80mg Take 80 mg [facility] (CALAN) 80 8-25 by mouth. [facility] MG tablet 00:00: of 00 Medicin e hydrocodone 0 Yes 1{tbl} Take 1 Tab [facility] -acetaminop 8-25 by mouth. Col lege hen (NORCO) 00:00: of 10-325 MG 00 Medicin per tablet e Tamsulosin 0 Yes [place] HCl 0.4 MG 8-25 College CAPS 00:00: of 00 Medicin e verapamil 2017-0 Yes 80mg Take 80 mg [facility] (CALAN) 80 8-25 by mouth. [facility] MG tablet 00:00: of 00 Medicin e hydrocodone 0 Yes 1{tbl} Take 1 Tab [facility] -acetaminop 8-25 by mouth. Col lege hen (NORCO) 00:00: of 10-325 MG 00 Medicin per tablet e allopurinol 0 2022- No 300mg Take 1 Un deyanira 300 mg 8-25 04-21 tablet by ity of tablet 00:00: 00:00 mouth. [place] 00 :00 [facility] allopurinol 2017-0 3- No 300mg Take 1 Un deyanira 300 mg 8-25 04-21 tablet by ity of tablet 00:00: 00:00 mouth. [place] 00 :00 [facility] apixaban 0 Yes 5mg Q.5D Take [address] (ELIQUIS) 5 8-22 tablet (5 [place] mg Tab 00:00: mg total) Medica l tablet 00 by mouth 2 Center (two) times daily. Apixaban 0 Yes [place] (ELIQUIS) 5 8-22 College MG TABS 00:00: of 00 Medicin e Apixaban 2018-0 Yes [facility] (ELIQUIS) 5 8-22 [place] MG TABS 00:00: of 00 Medicin e ProAir HFA ProAir HFA No 2{puffs QID ProAir HFA 108 (90 108 (90 _as_nee 108 (90 Base) Base) ded} Base) MCG/ACT MCG/ACT MCG/ACT acetaminoph acetaminoph No 2capsul acetaminop [place] en 500 mg en 500 mg e(s) hen 500 mg Communi capsule capsule capsule ty Take 2 Take 2 Take 2 Hospita capsules as capsules as capsules l needed by needed by as needed Clinics oral route. oral route. by oral route. Advair Advair No Advair [place] Diskus 250 Diskus 250 Diskus 250 Communi mcg-50 mcg-50 mcg-50 ty mcg/dose mcg/dose mcg/dose Hos to powder for powder for powder for l inhalation inhalation inhalation Clinics INHALE 1 INHALE 1 INHALE 1 DOSE BY DOSE BY DOSE BY MOUTH TWICE MOUTH TWICE MOUTH DAILY DAILY TWICE DAILY Advair Advair No 1{puff} BID [facility]air Diskus Diskus Diskus 250-50 250-50 250-50 MCG/DOSE MCG/DOSE MCG/DOSE atorvastati atorvastati No atorvastat [place] n 20 mg n 20 mg in 20 mg Commu ni tablet TAKE tablet TAKE tablet ty 1 TABLET BY 1 TABLET BY TAKE 1 Hospita MOUTH ONCE MOUTH ONCE TABLET BY l DAILY DAILY MOUTH ONCE Clinics DAILY Eliquis 5 Eliquis 5 No Eliquis 5 [place] mg tablet mg tablet mg tablet Communi TAKE 1 TAKE 1 TAKE 1 ty TABLET BY TABLET BY TABLET BY Hospita MOUTH TWICE MOUTH TWICE MOUTH l DAILY DAILY TWICE Clinics DAILY furosemide furosemide No furosemide [place] 20 mg 20 mg 20 mg Communi tablet Take tablet Take tablet ty 3 tablets 3 tablets Take 3 Hos to every day every day tablets l by oral by oral every day Clin ics route. route. by oral route. gabapentin gabapentin No gabapentin [place] 100 mg 100 mg 100 mg Communi capsule capsule capsule ty TAKE 1 TAKE 1 TAKE 1 Hospita CAPSULE BY CAPSULE BY CAPSULE BY l MOUTH ONCE MOUTH ONCE MOUTH ONCE Clinics DAILY DAILY DAILY levothyroxi levothyroxi No levothyrox [place] ne 200 mcg ne 200 mcg ine 200 Communi tablet TAKE tablet TAKE mcg tablet ty 1 TABLET BY 1 TABLET BY TAKE 1 Hospita MOUTH ONCE MOUTH ONCE TABLET BY l DAILY IN DAILY IN MOUTH ONCE C linics THE MORNING THE MORNING DAILY IN THE MORNING lisinopril lisinopril No lisinopril [place] 40 mg 40 mg 40 mg Communi tablet TAKE tablet TAKE tablet ty 1 TABLET BY 1 TABLET BY TAKE 1 Hospita MOUTH ONCE MOUTH ONCE TABLET BY l DAILY FOR DAILY FOR MOUTH ONCE Clinics 90 DAYS 90 DAYS DAILY FOR 90 DAYS melatonin melatonin No melatonin [place] 10 mg 10 mg 10 mg Communi capsule capsule capsule ty Take as Take as Take as Hospit a needed by needed by needed by l oral route. oral route. oral C linics route. ProAir HFA ProAir HFA No ProAir HFA [place] 90 90 90 Communi mcg/actuati mcg/actuati mcg/actuat ty on aerosol on aerosol ion Hos to inhaler inhaler aerosol l INHALE 1 INHALE 1 inhaler Clin ics PUFF BY PUFF BY INHALE 1 MOUTH EVERY MOUTH EVERY PUFF BY 4 HOURS 4 HOURS MOUTH EVERY 4 HOURS tamsulosin tamsulosin No tamsulosin [place] 0.4 mg 0.4 mg 0.4 mg Communi capsule capsule capsule ty TAKE 1 TAKE 1 TAKE 1 Hospita CAPSULE BY CAPSULE BY CAPSULE BY l MOUTH ONCE MOUTH ONCE MOUTH ONCE Clinics DAILY DAILY DAILY verapamil verapamil No verapamil [place] 40 mg 40 mg 40 mg Communi tablet 1 PO tablet 1 PO tablet 1 ty qd qd PO qd Hospita l Clinics Atorvastati Atorvastati No 1{table Atorvastat n Calcium n Calcium t} in Calcium 20 MG 20 MG 20 MG Verapamil Verapamil No 1{table BID Verapamil HCl 80 MG HCl 80 MG t} HCl 80 MG Lisinopril Lisinopril No QD Lisinopril 40MG 40MG 40MG Levothyroxi Levothyroxi No QD Levothyrox ne Sodium ne Sodium ine Sodium 200 MCG 200 MCG 200 MCG Verapamil Verapamil No 1{table BID Verapamil HCl 80 MG HCl 80 MG t} HCl 80 MG Furosemide Furosemide No 2{table QD Furosemide 20MG 20MG t} 20MG Gabapentin Gabapentin No QD Gabapentin 100 MG 100 MG 100 MG Advair Advair No 1{puff} BID [facility] Diskus Diskus Diskus 250-50 250-50 250-50 MCG/DOSE MCG/DOSE MCG/DOSE Atorvastati Atorvastati No 1{table QD Atorvastat n Calcium n Calcium t_at_be in Calcium 20 MG 20 MG dtime} 20 MG ProAir HFA ProAir HFA No 2{puffs QID ProAir HFA 108 (90 108 (90 _as_nee 108 (90 Base) Base) ded} Base) MCG/ACT MCG/ACT MCG/ACT Eliquis 5 Eliquis 5 No 1{table BID Eliquis 5 MG MG t} MG Gabapentin Gabapentin No QD Gabapentin 100 MG 100 MG 100 MG Levothyroxi Levothyroxi No QD Levothyrox ne Sodium ne Sodium ine Sodium 200 MCG 200 MCG 200 MCG Furosemide Furosemide No 2{table QD Furosemide 20MG 20MG t} 20MG ProAir HFA ProAir HFA No 2{puffs QID ProAir HFA 108 (90 108 (90 _as_nee 108 (90 Base) Base) ded} Base) MCG/ACT MCG/ACT MCG/ACT Eliquis 5 Eliquis 5 No 1{table BID Eliquis 5 MG MG t} MG Lisinopril Lisinopril No QD Lisinopril 40MG 40MG 40MG Atorvastati Atorvastati No 1{table QD Atorvastat n Calcium n Calcium t_at_be in Calcium 20 MG 20 MG dtime} 20 MG Advair Advair No 1{puff} BID Advair Diskus Diskus Diskus 250-50 250-50 250-50 MCG/DOSE MCG/DOSE MCG/DOSE Verapamil Verapamil No 1{table BID Verapamil HCl 80 MG HCl 80 MG t} HCl 80 MG Gabapentin Gabapentin No QD Gabapentin 100 MG 100 MG 100 MG Levothyroxi Levothyroxi No QD Levothyrox ne Sodium ne Sodium ine Sodium 200 MCG 200 MCG 200 MCG Verapamil Verapamil No 1{table BID Verapamil HCl 80 MG HCl 80 MG t} HCl 80 MG Lisinopril Lisinopril No QD Lisinopril 40MG 40MG 40MG Advair Advair No 1{puff} BID Advair Diskus Diskus Diskus 250-50 250-50 250-50 MCG/DOSE MCG/DOSE MCG/DOSE ProAir HFA ProAir HFA No 2{puffs QID ProAir HFA 108 (90 108 (90 _as_nee 108 (90 Base) Base) ded} Base) MCG/ACT MCG/ACT MCG/ACT Atorvastati Atorvastati No 1{table QD Atorvastat n Calcium n Calcium t_at_be in Calcium 20 MG 20 MG dtime} 20 MG Furosemide Furosemide No 2{table QD Furosemide 20MG 20MG t} 20MG Eliquis 5 Eliquis 5 No 1{table BID Eliquis 5 MG MG t} MG Gabapentin Gabapentin No QD Gabapentin 100 MG 100 MG 100 MG Levothyroxi Levothyroxi No QD Levothyrox ne Sodium ne Sodium ine Sodium 200 MCG 200 MCG 200 MCG Verapamil Verapamil No 1{table BID Verapamil HCl 80 MG HCl 80 MG t} HCl 80 MG Lisinopril Lisinopril No QD Lisinopril 40MG 40MG 40MG Advair Advair No 1{puff} BID Advair Diskus Diskus Diskus 250-50 250-50 250-50 MCG/DOSE MCG/DOSE MCG/DOSE ProAir HFA ProAir HFA No 2{puffs QID ProAir HFA 108 (90 108 (90 _as_nee 108 (90 Base) Base) ded} Base) MCG/ACT MCG/ACT MCG/ACT Atorvastati Atorvastati No 1{table QD Atorvastat n Calcium n Calcium t_at_be in Calcium 20 MG 20 MG dtime} 20 MG Furosemide Furosemide No 2{table QD Furosemide 20MG 20MG t} 20MG Eliquis 5 Eliquis 5 No 1{table BID Eliquis 5 MG MG t} MG ProAir HFA ProAir HFA No 2{puffs QID ProAir HFA 108 (90 108 (90 _as_nee 108 (90 Base) Base) ded} Base) MCG/ACT MCG/ACT MCG/ACT Levothyroxi Levothyroxi No QD Levothyrox ne Sodium ne Sodium ine Sodium 200 MCG 200 MCG 200 MCG Verapamil Verapamil No 1{table BID Verapamil HCl 80 MG HCl 80 MG t} HCl 80 MG Advair Advair No 1{puff} BID Advair Diskus Diskus Diskus 250-50 250-50 250-50 MCG/DOSE MCG/DOSE MCG/DOSE Eliquis 5 Eliquis 5 No 1{table BID Eliquis 5 MG MG t} MG Furosemide Furosemide No 2{table QD Furosemide 20MG 20MG t} 20MG Gabapentin Gabapentin No QD Gabapentin 100 MG 100 MG 100 MG Lisinopril Lisinopril No QD Lisinopril 40MG 40MG 40MG Atorvastati Atorvastati No 1{table QD Atorvastat n Calcium n Calcium t_at_be in Calcium 20 MG 20 MG dtime} 20 MG Atorvastati Atorvastati No 1{table QD Atorvastat n Calcium n Calcium t_at_be in Calcium 20 MG 20 MG dtime} 20 MG ProAir HFA ProAir HFA No 2{puffs QID ProAir HFA 108 (90 108 (90 _as_nee 108 (90 Base) Base) ded} Base) MCG/ACT MCG/ACT MCG/ACT Levothyroxi Levothyroxi No QD Levothyrox ne Sodium ne Sodium ine Sodium 200 MCG 200 MCG 200 MCG Lisinopril Lisinopril No QD Lisinopril 40MG 40MG 40MG Furosemide Furosemide No 2{table QD Furosemide 20MG 20MG t} 20MG Gabapentin Gabapentin No Gabapentin 100 MG 100 MG 100 MG Advair Advair No 1{puff} BID Advair Diskus Diskus Diskus 250-50 250-50 250-50 MCG/DOSE MCG/DOSE MCG/DOSE Eliquis 5 Eliquis 5 No 1{table BID Eliquis 5 MG MG t} MG Verapamil Verapamil No Verapamil HCl 80 MG HCl 80 MG HCl 80 MG Atorvastati Atorvastati No Atorvastat n Calcium n Calcium in Calcium 20 MG 20 MG 20 MG ProAir HFA ProAir HFA No 2{puffs QID ProAir HFA 108 (90 108 (90 _as_nee 108 (90 Base) Base) ded} Base) MCG/ACT MCG/ACT MCG/ACT Tamsulosin Tamsulosin No Tamsulosin HCl 0.4 MG HCl 0.4 MG HCl 0.4 MG Eliquis 5 Eliquis 5 No 1{table BID Eliquis 5 MG MG t} MG Furosemide Furosemide No 2{table QD Furosemide 20MG 20MG t} 20MG Levothyroxi Levothyroxi No QD Levothyrox ne Sodium ne Sodium ine Sodium 200 MCG 200 MCG 200 MCG Gabapentin Gabapentin No Gabapentin 100 MG 100 MG 100 MG Verapamil Verapamil No Verapamil HCl 80 MG HCl 80 MG HCl 80 MG Lisinopril Lisinopril No QD Lisinopril 40MG 40MG 40MG Advair Advair No 1{puff} BID Advair Diskus Diskus Diskus 250-50 250-50 250-50 MCG/DOSE MCG/DOSE MCG/DOSE Furosemide Furosemide No Furosemide 20 MG 20 MG 20 MG Tamsulosin Tamsulosin No Tamsulosin HCl 0.4 MG HCl 0.4 MG HCl 0.4 MG Eliquis 5 Eliquis 5 No Eliquis 5 MG MG MG Verapamil Verapamil No 1{table BID Verapamil HCl 40 MG HCl 40 MG t} HCl 40 MG Advair Advair No 1{puff} BID Advair Diskus Diskus Diskus 250-50 250-50 250-50 MCG/DOSE MCG/DOSE MCG/DOSE ProAir HFA ProAir HFA No 2{puffs QID ProAir HFA 108 (90 108 (90 _as_nee 108 (90 Base) Base) ded} Base) MCG/ACT MCG/ACT MCG/ACT Lisinopril Lisinopril No QD Lisinopril 40MG 40MG 40MG Atorvastati Atorvastati No Atorvastat n Calcium n Calcium in Calcium 20 MG 20 MG 20 MG Gabapentin Gabapentin No Gabapentin 100 MG 100 MG 100 MG Levothyroxi Levothyroxi No QD Levothyrox ne Sodium ne Sodium ine Sodium 200 MCG 200 MCG 200 MCG Furosemide Furosemide No Furosemide 20 MG 20 MG 20 MG Tamsulosin Tamsulosin No Tamsulosin HCl 0.4 MG HCl 0.4 MG HCl 0.4 MG Eliquis 5 Eliquis 5 No Eliquis 5 MG MG MG Verapamil Verapamil No 1{table BID Verapamil HCl 40 MG HCl 40 MG t} HCl 40 MG Advair Advair No 1{puff} BID Advair Diskus Diskus Diskus 250-50 250-50 250-50 MCG/DOSE MCG/DOSE MCG/DOSE ProAir HFA ProAir HFA No 2{puffs QID ProAir HFA 108 (90 108 (90 _as_nee 108 (90 Base) Base) ded} Base) MCG/ACT MCG/ACT MCG/ACT Lisinopril Lisinopril No QD Lisinopril 40MG 40MG 40MG Atorvastati Atorvastati No Atorvastat n Calcium n Calcium in Calcium 20 MG 20 MG 20 MG Gabapentin Gabapentin No Gabapentin 100 MG 100 MG 100 MG Levothyroxi Levothyroxi No QD Levothyrox ne Sodium ne Sodium ine Sodium 200 MCG 200 MCG 200 MCG Tamsulosin Tamsulosin No Tamsulosin HCl 0.4 MG HCl 0.4 MG HCl 0.4 MG Levothyroxi Levothyroxi No QD Levothyrox ne Sodium ne Sodium ine Sodium 200 MCG 200 MCG 200 MCG ProAir HFA ProAir HFA No 2{puffs QID ProAir HFA 108 (90 108 (90 _as_nee 108 (90 Base) Base) ded} Base) MCG/ACT MCG/ACT MCG/ACT Advair Advair No 1{puff} BID Advair Diskus Diskus Diskus 250-50 250-50 250-50 MCG/DOSE MCG/DOSE MCG/DOSE Atorvastati Atorvastati No 1{table QD Atorvastat n Calcium n Calcium t} in Calcium 20 MG 20 MG 20 MG Lisinopril Lisinopril No 1{table QD Lisinopril 40 MG 40 MG t} 40 MG Eliquis 5 Eliquis 5 No Eliquis 5 MG MG MG Furosemide Furosemide No 2{table QD Furosemide 20 MG 20 MG ts} 20 MG Gabapentin Gabapentin No 1{capsu QD Gabapentin 100 MG 100 MG le} 100 MG Verapamil Verapamil No 1{table BID Verapamil HCl 40 MG HCl 40 MG t} HCl 40 MG Furosemide Furosemide No Furosemide 20 MG 20 MG 20 MG Atorvastati Atorvastati No 1{table QD Atorvastat n Calcium n Calcium t} in Calcium 20 MG 20 MG 20 MG Eliquis 5 Eliquis 5 No 1{table BID Eliquis 5 MG MG t} MG Tamsulosin Tamsulosin No Tamsulosin HCl 0.4 MG HCl 0.4 MG HCl 0.4 MG Advair Advair No 1{puff} BID Advair Diskus Diskus Diskus 250-50 250-50 250-50 MCG/DOSE MCG/DOSE MCG/DOSE Levothyroxi Levothyroxi No QD Levothyrox ne Sodium ne Sodium ine Sodium 175 MCG 175 MCG 175 MCG Lisinopril Lisinopril No 1{table QD Lisinopril 40 MG 40 MG t} 40 MG Gabapentin Gabapentin No Gabapentin 100 MG 100 MG 100 MG Verapamil Verapamil No Verapamil HCl 40 MG HCl 40 MG HCl 40 MG ProAir HFA ProAir HFA No 2{puffs QID ProAir HFA 108 (90 108 (90 _as_nee 108 (90 Base) Base) ded} Base) MCG/ACT MCG/ACT MCG/ACT Advair Advair No 1{puff} BID Advair Diskus Diskus Diskus 250-50 250-50 250-50 MCG/DOSE MCG/DOSE MCG/DOSE Furosemide Furosemide No BID Furosemide 20 MG 20 MG 20 MG Levothyroxi Levothyroxi No QD Levothyrox ne Sodium ne Sodium ine Sodium 175 MCG 175 MCG 175 MCG Tamsulosin Tamsulosin No Tamsulosin HCl 0.4 MG HCl 0.4 MG HCl 0.4 MG Verapamil Verapamil No Verapamil HCl 40 MG HCl 40 MG HCl 40 MG ProAir HFA ProAir HFA No 2{puffs QID ProAir HFA 108 (90 108 (90 _as_nee 108 (90 Base) Base) ded} Base) MCG/ACT MCG/ACT MCG/ACT Atorvastati Atorvastati No 1{table QD Atorvastat n Calcium n Calcium t} in Calcium 20 MG 20 MG 20 MG Gabapentin Gabapentin No QD Gabapentin 100 MG 100 MG 100 MG Lisinopril Lisinopril No 1{table QD Lisinopril 40 MG 40 MG t} 40 MG Eliquis 5 Eliquis 5 No Eliquis 5 MG MG MG Advair Advair No 1{puff} BID Advair Diskus Diskus Diskus 250-50 250-50 250-50 MCG/DOSE MCG/DOSE MCG/DOSE ProAir HFA ProAir HFA No 2{puffs QID ProAir HFA 108 (90 108 (90 _as_nee 108 (90 Base) Base) ded} Base) MCG/ACT MCG/ACT MCG/ACT Levothyroxi Levothyroxi No QD Levothyrox ne Sodium ne Sodium ine Sodium 175 MCG 175 MCG 175 MCG Furosemide Furosemide No 1{table BID Furosemide 20 MG 20 MG t} 20 MG Verapamil Verapamil No Verapamil HCl 40 MG HCl 40 MG HCl 40 MG Eliquis 5 Eliquis 5 No Eliquis 5 MG MG MG Atorvastati Atorvastati No 1{table QD Atorvastat n Calcium n Calcium t} in Calcium 20 MG 20 MG 20 MG Gabapentin Gabapentin No QD Gabapentin 100 MG 100 MG 100 MG Lisinopril Lisinopril No 1{table QD Lisinopril 40 MG 40 MG t} 40 MG Tamsulosin Tamsulosin No Tamsulosin HCl 0.4 MG HCl 0.4 MG HCl 0.4 MG Furosemide Furosemide No Furosemide 20 MG 20 MG 20 MG Tamsulosin Tamsulosin No Tamsulosin HCl 0.4 MG HCl 0.4 MG HCl 0.4 MG Lisinopril Lisinopril No 1{table QD Lisinopril 40 MG 40 MG t} 40 MG Eliquis 5 Eliquis 5 No Eliquis 5 MG MG MG Gabapentin Gabapentin No QD Gabapentin 100 MG 100 MG 100 MG Levothyroxi Levothyroxi No QD Levothyrox ne Sodium ne Sodium ine Sodium 175 MCG 175 MCG 175 MCG ProAir HFA ProAir HFA No 2{puffs QID ProAir HFA 108 (90 108 (90 _as_nee 108 (90 Base) Base) ded} Base) MCG/ACT MCG/ACT MCG/ACT Advair Advair No 1{puff} BID Advair Diskus Diskus Diskus 250-50 250-50 250-50 MCG/DOSE MCG/DOSE MCG/DOSE Verapamil Verapamil No Verapamil HCl 40 MG HCl 40 MG HCl 40 MG Atorvastati Atorvastati No 1{table QD Atorvastat n Calcium n Calcium t} in Calcium 20 MG 20 MG 20 MG ProAir HFA ProAir HFA No 2{puffs QID ProAir HFA 108 (90 108 (90 _as_nee 108 (90 Base) Base) ded} Base) MCG/ACT MCG/ACT MCG/ACT Tamsulosin Tamsulosin No Tamsulosin HCl 0.4 MG HCl 0.4 MG HCl 0.4 MG Lisinopril Lisinopril No 1{table QD Lisinopril 40 MG 40 MG t} 40 MG Atorvastati Atorvastati No 1{table QD Atorvastat n Calcium n Calcium t} in Calcium 20 MG 20 MG 20 MG Eliquis 5 Eliquis 5 No Eliquis 5 MG MG MG Levothyroxi Levothyroxi No QD Levothyrox ne Sodium ne Sodium ine Sodium 175 MCG 175 MCG 175 MCG Gabapentin Gabapentin No Gabapentin 100 MG 100 MG 100 MG Advair Advair No 1{puff} BID Advair Diskus Diskus Diskus 250-50 250-50 250-50 MCG/DOSE MCG/DOSE MCG/DOSE Verapamil Verapamil No Verapamil HCl 40 MG HCl 40 MG HCl 40 MG Furosemide Furosemide No Furosemide 20 MG 20 MG 20 MG Verapamil Verapamil No Verapamil HCl 40 MG HCl 40 MG HCl 40 MG Gabapentin Gabapentin No 1{capsu QD Gabapentin 100 MG 100 MG le} 100 MG Atorvastati Atorvastati No 1{table QD Atorvastat n Calcium n Calcium t} in Calcium 20 MG 20 MG 20 MG Eliquis 5 Eliquis 5 No Eliquis 5 MG MG MG ProAir HFA ProAir HFA No 2{puffs QID ProAir HFA 108 (90 108 (90 _as_nee 108 (90 Base) Base) ded} Base) MCG/ACT MCG/ACT MCG/ACT Furosemide Furosemide No 1{table QD Furosemide 20 MG 20 MG t} 20 MG Tamsulosin Tamsulosin No Tamsulosin HCl 0.4 MG HCl 0.4 MG HCl 0.4 MG Levothyroxi Levothyroxi No QD Levothyrox ne Sodium ne Sodium ine Sodium 175 MCG 175 MCG 175 MCG amLODIPine amLODIPine No 1{table QD amLODIPine Besylate 10 Besylate 10 t} Besylate MG MG 10 MG Advair Advair No 1{puff} BID Advair Diskus Diskus Diskus 250-50 250-50 250-50 MCG/ACT MCG/ACT MCG/ACT Furosemide Furosemide No Furosemide 20 MG 20 MG 20 MG Atorvastati Atorvastati No 1{table QD Atorvastat n Calcium n Calcium t} in Calcium 20 MG 20 MG 20 MG Eliquis 5 Eliquis 5 No 1{table BID Eliquis 5 MG MG t} MG Tamsulosin Tamsulosin No Tamsulosin HCl 0.4 MG HCl 0.4 MG HCl 0.4 MG Advair Advair No 1{puff} BID Advair Diskus Diskus Diskus 250-50 250-50 250-50 MCG/DOSE MCG/DOSE MCG/DOSE Levothyroxi Levothyroxi No QD Levothyrox ne Sodium ne Sodium ine Sodium 175 MCG 175 MCG 175 MCG Lisinopril Lisinopril No 1{table QD Lisinopril 40 MG 40 MG t} 40 MG Gabapentin Gabapentin No Gabapentin 100 MG 100 MG 100 MG Verapamil Verapamil No Verapamil HCl 40 MG HCl 40 MG HCl 40 MG ProAir HFA ProAir HFA No 2{puffs QID ProAir HFA 108 (90 108 (90 _as_nee 108 (90 Base) Base) ded} Base) MCG/ACT MCG/ACT MCG/ACT Tamsulosin Tamsulosin No 1{capsu QD Tamsulosin HCl 0.4 MG HCl 0.4 MG le} HCl 0.4 MG Lisinopril Lisinopril No QD Lisinopril 40MG 40MG 40MG Levothyroxi Levothyroxi No QD Levothyrox ne Sodium ne Sodium ine Sodium 200 MCG 200 MCG 200 MCG Eliquis 5 Eliquis 5 No 1{table BID Eliquis 5 MG MG t} MG Furosemide Furosemide No 2{table QD Furosemide 20MG 20MG t} 20MG Gabapentin Gabapentin No QD Gabapentin 100 MG 100 MG 100 MG Tamsulosin Tamsulosin 2021- No 1{capsu QD Tamsulosin HCl 0.4 MG HCl 0.4 MG 07-25 le} HCl 0.4 MG 00:00 :00 Tamsulosin Tamsulosin 2021- No 1{capsu QD Tamsulosin HCl 0.4 MG HCl 0.4 MG 07-25 le} HCl 0.4 MG 00:00 :00 Tamsulosin Tamsulosin 2021- No 1{capsu QD Tamsulosin HCl 0.4 MG HCl 0.4 MG 07-25 le} HCl 0.4 MG 00:00 :00 Tamsulosin Tamsulosin 2021- No 1{capsu QD Tamsulosin HCl 0.4 MG HCl 0.4 MG 07-25 le} HCl 0.4 MG 00:00 :00 Tamsulosin Tamsulosin 2021- No 1{capsu QD Tamsulosin HCl 0.4 MG HCl 0.4 MG 07-25 le} HCl 0.4 MG 00:00 :00 Tamsulosin Tamsulosin 2021- No 1{capsu QD Tamsulosin HCl 0.4 MG HCl 0.4 MG 07-25 le} HCl 0.4 MG 00:00 :00 Immunizations Ordered Immunization Filled Immunization Date Status Commen ts Source Name Name Afluria Afluria 2018-05-14 [facility] Afluria Afluria 2018-05-14 Completed [facility] 12:26:00 [facility] Afluria Afluria 2018-05-14 Completed [facility] 12:26:00 [facility] Afluria Afluria 2018-05-14 Completed [facility] 12:26:00 [facility] Afluria Afluria 2018-05-14 Completed [facility] 12:26:00 [facility] Afluria Afluria 2018-05-14 Completed [facility] - 12:26:00 [facility] Afluria Afluria 2018-05-14 Completed [facility] 12:26:00 [facility] Afluria Afluria 2018-05-14 Completed [facility] - 12:26:00 [facility] Afluria Afluria 2018-05-14 Completed [facility] - 12:26:00 [facility] Afluria Afluria 2018-05-14 Completed [facility] - 12:26:00 [facility] Afluria Afluria 2018-05-14 Completed [facility] - 12:26:00 [facility] Afluria Afluria 2018-05-14 Completed [facility] 12:26:00 [facility] Afluria Afluria 2018-05-14 Completed [facility] - 12:26:00 [facility] Afluria Afluria 2018-05-14 Completed [facility] - 12:26:00 [facility] Afluria Afluria 2018-05-14 Completed [facility] - 12:26:00 [facility] Afluria Afluria 2018-05-14 Completed [facility] - 12:26:00 [facility] Afluria Afluria 2018-05-14 Completed [facility] 12:26:00 [facility] Afluria Afluria 2018-05-14 Completed [facility] 12:26:00 [facility] Influenza Virus 2018-05-03 Completed [facility]00 [facility] Influenza Virus 2018-05-03 Completed [facility] Vaccine 00:00:00 [facility] Influenza Virus 2018-05-03 Completed [facility] Vaccine 00:00:00 [facility] Influenza Virus 2018-05-03 Completed [facility] Vaccine 00:00:00 [facility] Influenza Virus 2018-05-03 Completed [facility] Vaccine 00:00:00 [facility] Influenza Virus 2018-05-03 Completed [facility] Vaccine 00:00:00 [facility] Influenza Virus 2018-05-03 Completed [facility] Vaccine 00:00:00 [facility] Influenza Virus 2018-05-03 Completed [facility] Vaccine 00:00:00 [facility] Influenza Virus 2018-05-03 Completed [facility] Vaccine 00:00:00 [facility] Influenza Virus 2018-05-03 Completed [facility] Vaccine 00:00:00 [facility] Influenza Virus 2018-05-03 Completed [facility] Vaccine 00:00:00 [facility] Influenza Virus 2018-05-03 Completed [facility] Vaccine 00:00:00 [facility] Influenza Quad-PF 2018-05-03 Completed [facility] 00:00:00 of Medicine Influenza Quad-PF 2018-05-03 Completed [facility] 00:00:00 of Medicine Influenza TIV (IM) 2014-06-[address] [facility] 00:00:00 [facility] Pneumococcal 2014-06-[address] [facility] Polysaccharide 00:00:00 [facility] nter (Pneumovax) Influenza Virus 2014-06-02 Completed [facility] Vaccine 00:00:00 [facility] Pneumococcal 2014-06-02 Completed [facility] Polysaccharide, 00:00:00 [place] [facility] PPSV23 (PNEUMOVAX) Branch Influenza Virus 2014-06-02 Completed [facility] Vaccine 00:00:00 [facility] Pneumococcal 2014-06-02 Completed [facility] Polysaccharide, 00:00:00 [place] [facility] PPSV23 (PNEUMOVAX) Branch Influenza Virus 2014-06-02 Completed [facility] Vaccine 00:00:00 [facility] Pneumococcal 2014-06-02 Completed [facility] f Polysaccharide, 00:00:00 [place] [facility] PPSV23 (PNEUMOVAX) Branch Influenza Virus 2014-06-02 Completed [facility] Vaccine 00:00:00 [facility] Pneumococcal 2014-06-02 Completed [facility] f Polysaccharide, 00:00:00 [place] [facility] PPSV23 (PNEUMOVAX) Branch Influenza Virus 2014-06-02 Completed [facility] Vaccine 00:00:00 [facility] Pneumococcal 2014-06-02 Completed [facility] f Polysaccharide, 00:00:00 [place] [facility] PPSV23 (PNEUMOVAX) Branch Influenza Virus 2014-06-02 Completed [facility] Vaccine 00:00:00 [facility] Pneumococcal 2014-06-02 Completed [facility] f Polysaccharide, 00:00:00 [place] [facility] PPSV23 (PNEUMOVAX) Branch Influenza Virus 2014-06-02 Completed [facility] Vaccine 00:00:00 [facility] Pneumococcal 2014-06-02 Completed [facility] Polysaccharide, 00:00:00 [place] [facility] PPSV23 (PNEUMOVAX) Branch Influenza Virus 2014-06-02 Completed [facility] Vaccine 00:00:00 [facility] Pneumococcal 2014-06-02 Completed [facility] f Polysaccharide, 00:00:00 [place] [facility] PPSV23 (PNEUMOVAX) Branch Influenza Virus 2014-06-02 Completed [facility] Vaccine 00:00:00 [facility] Pneumococcal 2014-06-02 Completed [facility] f Polysaccharide, 00:00:00 [place] [facility] PPSV23 (PNEUMOVAX) Branch Influenza Virus 2014-06-02 Completed [facility] Vaccine 00:00:00 [facility] Pneumococcal 2014-06-02 Completed [facility] f Polysaccharide, 00:00:00 [place] [facility] PPSV23 (PNEUMOVAX) Branch Influenza Virus 2014-06-02 Completed [facility] Vaccine 00:00:00 [facility] Pneumococcal 2014-06-02 Completed [facility] o f Polysaccharide, 00:00:00 [place] [facility] PPSV23 (PNEUMOVAX) Branch Influenza Virus 2014-06-02 Completed [facility] Vaccine 00:00:00 [facility] Pneumococcal 2014-06-02 Completed [facility] f Polysaccharide, 00:00:00 [place] [facility] PPSV23 (PNEUMOVAX) Branch Vital Signs Vital Name Observation Time Observation Value Comments Source Systolic blood 2022-10-21 15:29:00 148 mm[Hg] [facility] Diastolic blood 2022-10-21 15:29:00 75 mm[Hg] [facility] Body height 2022-10-21 15:28:00 172.7 cm [facility] Body weight 2022-10-21 15:28:00 179.624 kg [facility] BMI 2022-10-21 15:28:00 60.21 kg/m2 [facility] Systolic blood 2022-10-04 19:42:00 175 mm[Hg] [facility] Diastolic blood 2022-10-04 19:42:00 77 mm[Hg] [facility] Heart rate 2022-10-04 19:42:00 59 /min [facility] Oxygen saturation in 2022-10-04 19:42:00 94 /min [facility] Arterial blood by [facility] Pulse oximetry Branch Respiratory rate 2022-10-04 19:33:00 22 /min [facility] Body weight 2022-10-04 19:33:00 180.033 kg [facility] BMI 2022-10-04 19:33:00 60.35 kg/m2 [facility] HEIGHT 2022-09-19 09:53:00 172.7 cm WEIGHT 2022-09-19 09:53:00 181.439 kg HEIGHT 2022-09-19 09:53:00 172.7 cm WEIGHT 2022-09-19 09:53:00 181.439 kg height 2022-04-05 15:00:00 62 [in_i] [facility] weight 2022-04-05 15:00:00 402 [lb_av] [facility] temperature 2022-04-05 15:00:00 98.1 [degF] [facility] bmi 2022-04-05 15:00:00 73.52 kg/m2 [facility] oximetry 2022-04-05 15:00:00 96 % [facility] respiratory rate 2022-04-05 15:00:00 18 /min [facility] blood pressure 2022-04-05 15:00:00 118 mm[Hg] [facility] systolic [facility] blood pressure 2022-04-05 15:00:00 76 mm[Hg] [facility] - diastolic [facility] height 2021-09-15 11:00:00 62 [in_i] [facility] weight 2021-09-15 11:00:00 450 [lb_av] [facility] bmi 2021-09-15 11:00:00 80 kg/m2 [facility] height 2020-12-23 15:20:00 62 [in_i] [facility] weight 2020-12-23 15:20:00 455 [lb_av] [facility] temperature 2020-12-23 15:20:00 98.1 [degF] [facility] bmi 2020-12-23 15:20:00 80 kg/m2 [facility] oximetry 2020-12-23 15:20:00 92 % [facility] respiratory rate 2020-12-23 15:20:00 20 /min [facility] blood pressure 2020-12-23 15:20:00 135 mm[Hg] [facility] - systolic [facility] blood pressure 2020-12-23 15:20:00 80 mm[Hg] [facility] - diastolic [facility] BP Diastolic 2020-09-08 00:00:00 68 mm[Hg] [facility] s Height 2020-09-08 00:00:00 69 [in_i] [facility] s BMI (Body Mass 2020-09-08 00:00:00 66.7 kg/m2 [facility] s BP Systolic 2020-09-08 00:00:00 116 mm[Hg] [facility] s Body Weight 2020-09-08 00:00:00 7232 [oz_av] [facility] s Systolic blood 2019-08-15 18:34:00 118 mm[Hg] [facility] pressure Medicine Diastolic blood 2019-08-15 18:34:00 52 mm[Hg] [facility] Medicine Heart rate 2019-08-15 18:34:00 58 /min [facility] Body temperature 2019-08-15 18:34:00 36.61 [facility] Body weight 2019-08-15 18:34:00 208.655 kg [facility] BMI 2019-08-15 18:34:00 67.93 kg/m2 [facility] Systolic blood 2019-07-25 18:21:00 121 mm[Hg] [employer] [facility] Diastolic blood 2019-07-25 18:21:00 47 mm[Hg] [facility] pressure Medicine Heart rate 2019-07-25 18:21:00 73 /min [facility] Body weight 2019-07-25 18:21:00 209.108 kg [facility] BMI 2019-07-25 18:21:00 68.08 kg/m2 [facility] Systolic blood 2022-09-19 09:53:00 121 mm[Hg] [facility] Diastolic blood 2022-09-19 09:53:00 60 mm[Hg] [facility] Heart rate 2022-09-19 09:53:00 62 /min [facility] Body temperature 2022-09-19 09:53:00 36.83 Rosalie [facility] Body height 2022-09-19 09:53:00 172.7 cm [facility] Body weight 2022-09-19 09:53:00 181.439 kg [facility] BMI 2022-09-19 09:53:00 60.82 kg/m2 [facility] Procedures Procedure Date / Time Performing Clinician Source Performed [facility] PATIENT FINANCIAL 2022-10-04 19:05:47 Doctor Unassigned, [facility] [place] POLICY [facility] Procedure on Gallbladder [facility] Leg Surgery Procedure [facility] Cholecystectomy [facility] Plan of Care Planned Activity Planned Date Details Comments Source Future Scheduled 2023-09-[address] [facility] Test 00:00:00 [facility] Screening (12+) [code = Tobacco Cessation Counseling and Screening (12+)] Future Scheduled 2023-03-[address] [facility] Test 00:00:00 (Season Ended) [code = Medic co Center INFLUENZA VACCINE (Season Ended)] Future Scheduled 2021-08-[address] [facility] 00:[facility]:00 (procedure) [code = Medical Center 16667636] Diagnostic Test 2020-09-08 TSH, serum or plasma [facility] Pending 00:00:00 [code = TSH, serum or Hospit [facility] plasma] Diagnostic Test 2020-09-08 T4, free, serum [code [facility] Pending 00:00:00 = T4, free, serum] [facility] Diagnostic Test 2020-09-08 vitamin D, 25-hydroxy, [facility] Pending 00:00:00 total, serum [code = [facility] vitamin D, 25-hydroxy, total, serum] Diagnostic Test 2020-09-08 CBC w/ auto diff [code [facility] Pending 00:00:00 = CBC w/ auto diff] [facility] Diagnostic Test 2020-09-08 iron + total [facility] Pending 00:00:00 iron-binding capacity Hospit al [facility] (TIBC), serum [code = iron + total iron-binding capacity (TIBC), serum] Diagnostic Test 2020-09-08 CMP, serum or plasma [facility] Pending 00:00:00 [code = CMP, serum or Hospit al [facility] plasma] Future Scheduled 2008 SHINGLES VACCINES ([address] [facility] Test 00:00:00 of 2) [code = SHINGLES Medic al Center VACCINES (1 of 2)] Future Scheduled 1977 DTAP/TDAP/TD VACCINES [facility] 00:00:00 (1 - Tdap) [code = Medical C enter DTAP/TDAP/TD VACCINES (1 - Tdap)] Future Scheduled 1959-02-25 COVID-19 VACCINE (#1[facility] 00:00:00 [code = COVID-[address] VACCINE (#1)] Future Scheduled [address] [facility] 00:00:00 (combo) [code = CT Medical C enter Colonography (combo)] Future Scheduled [address] [facility] malignant neoplasm of [facility]ica [facility] Center colon (procedure) [code = 678169505] Future Scheduled [address] [facility] 00:[facility] malignant neoplasm [facility] colon (procedure) [code = 331867514] Future Scheduled [address] [facility] 00:00:00 malignant neoplasm of [facility]ica l Center colon (procedure) [code = 591793812] Future Scheduled [address] [facility] 00:00:00 malignant neoplasm of Medica [facility] colon (procedure) [code = 848934360] Future Scheduled 1960 Sigmoidoscopy [facility]code [facility] Medical Cente r Future Scheduled COLON CANCER [facility] ege of Test SCREENING: COLONOSCOPY Medic ine [code = COLON CANCER SCREENING: COLONOSCOPY] Future Scheduled TETANUS SHOT (ADULT) [facility] of Test [code = TETANUS SHOT Medicin e (ADULT)] Future Scheduled BMI FOLLOW UP PLAN [facility] of Test [code = BMI FOLLOW UP Medici ne PLAN] Future Scheduled HEPATITIS C SCREENING [facility] of Test [code = HEPATITIS C Medicine SCREENING] Future Scheduled HIV SCREENING [code = [employer] [facility] HIV SCREENING] Medicine Future Scheduled FLU VACCINE > 6 MONTHS [facility] of Test [code = FLU VACCINE > Medici ne 6 MONTHS] Future Scheduled COLON CANCER [facility] ege of Test SCREENING: COLONOSCOPY Medic ine [code = COLON CANCER SCREENING: COLONOSCOPY] Future Scheduled TETANUS SHOT (ADULT) [facility] of Test [code = TETANUS SHOT Medicin e (ADULT)] Future Scheduled BMI FOLLOW UP PLAN [facility] of Test [code = BMI FOLLOW UP Medici ne PLAN] Future Scheduled HEPATITIS C SCREENING [facility] of Test [code = HEPATITIS C Medicine SCREENING] Future Scheduled HIV SCREENING [code = [employer] [facility] HIV SCREENING] Medicine Future Scheduled FLU VACCINE > 6 MONTHS B [facility] of Test [code = FLU VACCINE > Medici ne 6 MONTHS] Encounters Start End Encounter Admission Attending Care Care Encounter Source Date/Time Date/Time Type Type Clinicians Facility Department ID 2022-07-29 Outpatient JEAN Naylor [facility] [id number] Common 08:57:02 Janet [id number] [facility] 2022-07-05 Outpatient JEAN Naylor [facility] [id number] Common 08:11:01 Janet [id number] [facility] 2022-02-14 Outpatient JEAN Naylor [facility] [id number] Common 11:16:01 aJnet [id number] [facility] 2022-02-10 Outpatient JEAN Naylor [facility] [id number] Common 13:22:01 Janet [id number] [facility] 2021-09-13 Outpatient [place], [facility] [id number] Common 13:18:02 Janet [facility] 2021-07-28 Outpatient [place], [facility] [id number] Common 13:51:33 Janet [id number] [facility] 2021-07-28 Outpatient [place], [facility] [id number] Common 13:20:20 Janet [id number] [facility] 2021-07-28 Outpatient [place], STLMLC [facility] [id number] Common 13:18:17 Janet 71466 [facility] 2023-10-05 2023-10-05 [facility] [id number] Univers 14:00:00 14:00:00 GERALDINE raines [facility] 2023-04-25 2023-04-25 Outpatient R KIMBERLY [facility] [id number] Univers 10:30:00 10:30:00 HUSEYIN [facility] 2022-11-08 2022-11-08 [facility] [id number] Univers 14:00:00 14:00:00 [facility] 2022-10-21 2022-10-21 Counseling Center Director Lab, Ang - Db [facility] 1.2.840.1 [id number] Univers 11:15:00 11:30:00 Visit Baltazar Meyer [facility] 350.1.13.10 [facility] 4.2.7.2.686 Diony as CAROLYN?BLEA [phone] [address] MEDICAL OFFICE BUILDING 2022-10-21 2022-10-21 Outpatient R ALYSSIA [facility] [id number] Univers 10:30:00 11:14:39 BALTAZAR terrell [facility] 2022-10-21 2022-10-21 [facility] [id number] [facility] 10:30:00 11:14:39 Visit Baltazar Padron [facility] 350.1.13.10 it y of [place] 4.2.7.2.686 Diony as CAROLYN?BLEA [phone] Wi dicsravanthi [facility] [address] MEDICAL OFFICE BUILDING 2022-10-18 2022-10-18 Outpatient R JONH, [facility] [id number] Univers 15:33:03 23:59:00 GERALDINE carbajaly o [facility] 2022-10-12 2022-10-12 Outpatient R JONH, [facility] [id number] Univers 11:00:00 11:00:00 GERALDINE carbajaly o [facility] 2022-10-12 2022-10-12 Outpatient R JONH, [facility] [id number] Univers 11:00:00 11:00:00 GERALDINE terrell o [facility] 2022-10-04 2022-10-04 Office [facility] [id number] Univers 14:40:00 14:59:03 Visit Geraldine [place] 350.1.13.10 it[place] [phone] Wi dicco NAL 9 [facility] 2022-10-04 2022-10-04 Outpatient R JONH, [facility] [id number] Univers 14:40:00 14:59:03 GERALDINE raines [facility] 2022-10-04 2022-10-04 Orders Doctor DUNG 1.2.840.114 [id number] Univers 00:00:00 00:00:00 Only Unassigned, DREW 350.1.13.[address] [place] [facility] 4.2.7.2.686 Diony as [phone] [address] 2022-10-04 2022-10-04 Telephone [facility] [id number] Univers 00:00:00 00:00:00 Geraldine [facility] 350.1.13.10 [place] [phone] Wi dical NAL 059 [facility] 2022-09-29 2022-09-29 Telephone GUICHO LainezC [id number] 00:[facility]00 00:00:00 [facility] 2022-09-28 2022-09-28 Telephone Jonh [facility] [id number] Univers 00:00:00 00:00:00 Geraldine DESAI 350.1.13.10 it billie [facility] 4.2.7.2.686 Dionyjaxson oneil SABIHA [phone] Wi dical [facility]9 [facility] 2022-09-19 2022-09-[address] [facility] [id number] 10:00:00 10:43:11 Visit [facility] 2022-09-19 2022-09-19 Outpatient THANH JEANINE [facility] [id number] 09:48:47 10:43:11 [facility] 2022-08-31 2022-08-31 Outpatient THANH JEANINE [facility] [id number] 00:00:00 00:00:00 [facility] 2022-08-22 2022-08-22 Outpatient THANH JEANINE [facility] [id number] 00:00:00 00:00:00 [facility] 2022-08-03 2022-08-03 (TEL) STLC STLC [id number] Co mmon 00:00:00 00:00:00 [facility] 2022-05-25 2022-05-25 (TEL) STLC STLC [id number] Co mmon 00:00:00 00:00:00 [facility] 2022-05-20 2022-05-20 (TEL) STLC STLMLC [id number] Co mmon 00:00:00 00:00:00 [facility] 2022-04-05 2022-04-05 OFFICE STLC STLC [id number] Co mmon 00:00:00 00:00:00 VISIT [facility] LEVEL 4 [facility] 2022-01-24 2022-01-24 (TEL) STLMLC STLMLC [id number] Co mmon 00:00:00 00:00:00 [facility] 2021-11-23 2021-11-23 Telephone [facility] [id number] Univers 00:00:00 00:00:00 Geraldine DESAI 350.1.13.10 it[place] [phone] Wi dical NAL [address] [place] [address] 2021-11-16 2021-11-16 [facility] [id number] Univers 00:00:00 00:00:00 Rynemeagan REILLYIRMA 350.1.13.10 it[place] [phone] [address] 2021-11-11 2021-11-11 [facility] [id number] Univers 12:41:52 23:59:00 [facility] 2021-11-11 2021-11-11 Outpatient [facility] [id number] Univers 13:00:00 13:00:00 [facility] 2021-10-28 2021-10-28 (TEL) STLMLC STLMLC [id number] Co mmon 00:00:00 00:00:00 [facility] 2021-10-28 2021-10-28 (TEL) STLMLC STLMLC [id number] Co mmon 00:00:00 00:00:00 [facility] 2021-10-22 2021-10-22 Out[facility] [id number] Univers 09:30:00 09:30:00 BALTAZAR terrell [facility] 2021-10-18 2021-10-18 Telephone [facility] 1.2.840.114 [id number] Univers 00:00:00 00:00:00 Baltazar [facility] 350.1.13.10 it y of [place] 4.2.7.2.686 Diony as CAROLYN?BLEA [phone] Wi dicsravanthi [facility] [address] [facility] OFFICE [facility] 2021-10-15 2021-10-15 Outpatient R ALYSSIA [facility] [id number] Univers 15:00:00 15:36:43 BALTAZAR terrell [facility] 2021-10-15 2021-10-15 Office Alyssia [facility] [id number] Univers 15:00:00 15:36:43 Visit Baltazar [facility] 350.1.13.10 it y [facility] 4.2.7.2.686 Diony as CAROLYN?BLEA [phone] Wi dicsravanthi [facility] [address] [facility] OFFICE [facility] 2021-10-15 2021-10-15 Outpatient R ALYSSIA [facility] [id number] Univers 15:00:00 15:00:00 BALTAZAR [facility] 2021-10-15 2021-10-15 Orders Doctor RAZO 1.2.840.114 [id number] Univers 00:00:00 00:00:00 Only Unassigned, DREW 350.1.13.[address] [place] [facility] 4.2.7.2.686 Diony as [phone] [address] 2021-10-13 2021-10-13 [facility] 1.2.840.114 [id number] Univers 11:20:00 11:41:31 Visit Geraldine DESAI 350.1.13.10 it[facility] 4.[place] [phone] Wi dical NAL 059 [facility] 2021-10-13 2021-10-13 Outpatient R JONH [facility] [id number] Univers 11:20:00 11:20:00 GERALDINE carbajaly o f [facility] 2021-10-13 2021-10-13 Counseling Center Director 2, Adc Lab [facility] 1.2.840.114 [id number] Univers 10:45:00 11:00:00 Visit Unknown, Attending LLOYD 350.1.13.1 0 it[place] of [place] [phone] Me dical NAL 353 [facility] 2021-10-13 2021-10-13 Outpatient R ENDY, [facility] [id number] Univers 10:45:00 10:45:00 SHAWNEE terrell [facility] 2021-09-15 2021-09-15 OFFICE STLMLC STLMLC [id number] Co mmon 00:00:00 00:00:00 VISIT [facility] ESTAB PT - CHI LEVEL 4 [facility] 2021-07-05 2021-07-05 OFFICE STLMLC STLMLC [id number] Co mmon 00:00:00 00:00:00 VISIT [facility] ESTAB PT - CHI LEVEL 1 [facility] 2021-06-24 2021-06-24 (TEL) STLMLC STLMLC [id number] Co mmon 00:00:00 00:00:00 [facility] 2021-06-14 2021-06-14 (TEL) STLMLC STLMLC [id number] Co mmon 00:00:00 00:00:00 [facility] 2021-06-10 2021-06-10 (TEL) STLMLC STLMLC [id number] Co mmon 00:00:00 00:00:00 [facility] 2021-05-17 2021-05-17 (TEL) STLMLC STLMLC [id number] Co mmon 00:00:00 00:00:00 [facility] 2021-04-23 2021-04-23 (TEL) STLMLC STLMLC [id number] Co mmon 00:00:00 00:00:00 [facility] 2021-04-14 2021-04-14 Office Jonh, [facility] 1.2.840.114 [id number] Univers 10:28:48 11:07:17 Visit Geraldine Desai 350.1.13.10 Diana 4.2.7.2.686 Meghan Saleh [phone] Me dical nal 059 [facility] 2021-04-14 2021-04-14 Outpatient R JONH [facility] [id number] Univers 11:00:00 11:00:00 GERALIDNE grey [facility] 2021-04-02 2021-04-02 (TEL) STLMLC STLMLC [id number] Co mmon 00:00:00 00:00:00 [facility] 2021-03-22 2021-03-22 Orders Doctor RAZO 1.2.840.114 [id number] Univers 00:00:00 00:00:00 Only Unassigned, DREW 350.1.13.[address] [place] [facility] 4.2.7.2.686 Diony as [phone] [address] 2021-03-22 2021-03-22 Outpatient STLMLC STLMLC [id number] Common 00:00:00 00:00:00 [facility] 2021-03-15 2021-03-15 (TEL) STLMLC STLMLC [id number] Co mmon 00:00:00 00:00:00 [facility] 2021-01-15 2021-01-15 Outpatient ERICKSON_R [facility] [id number] [place] 04:21:00 04:21:00 [facility] 2021-01-15 2021-01-15 Outpatient [facility] 8108 - [place] 04:21:00 04:21:00 [facility] 2020-12-30 2020-12-30 Outpatient STLMLC STLC [id number] Common 00:00:00 00:00:00 [facility] 2020-12-23 2020-12-23 OFFICE STLMLC STLC [id number] Co mmon 00:00:00 00:00:00 VISIT [facility] LEVEL 4 [facility] 2020-10-16 2020-10-16 Outpatient Radha MEYER [facility] [id number] Norma 15:00:00 15:00:00 BALTAZAR terrell [facility] 2020-09-08 2020-09-08 Outpatient [facility] [id number] [place] 11:45:00 11:45:00 [facility] 2020-09-08 2020-09-08 Jason [facility] [place] 00:00:00 00:00:00 [facility] Comm [facility] DO: [address] [facility] [address], HOSPITAL Clinic s [place], [facility] [address] KIM , Ph. 2020-09-08 2020-09-[address] [facility] [id number] 00:00:00 00:00:00 Jason [id number] Scott [id number] 2020-04-17 2020-04-17 Outpatient R ALYSSIA [facility] [id number] Univers 14:00:00 14:00:00 [facility] 2019-10-11 2019-10-11 [facility] [id number] Univers 10:30:00 10:30:00 [facility] 2019-08-15 2019-08-15 Office MAIDA Thompson 1.2.840.[id number] [place] [address] 12:03:29 14:38:48 Visit Laura AMBULATOR 350.1.13.21 College Y 0.2.7.2.686 of [id number] [facility] 815 e 2019-07-25 2019-07-25 Office MAIDA Pacheco [id number] 2016 [facility] 12:11:36 12:26:36 Visit Jh AMBULATOR 350.1.13.21 [employer] [place] Y 0.2.7.2.686 of [id number] [facility] 815 e Results Test Description Test Time Test Comments Results Result Comments Source AFB CULTURE + SMEAR 2019-07-02 12:03:00 Test Item Value Reference Range Interpretation Comme nts CULTURE (BEAKER) (test code = 1095) No acid-fast bacilli isolated i n 42 days AFB SMEAR (BEAKER) (test code = 994) No acid fast bacilli seen FUNGUS CULTURE + [id number] 16:00:00 Test Item Value Reference Range Interpretation Comments CULTURE (BEAKER) (test No fungus isolated in code = 1095) 28 days FUNGUS SMEAR (BEAKER) No fungi seen (test code = 1406) POCT-GLUCOSE [id number] 15:12:00 Test Item Value Reference Range Interpretation Comments POC-GLUCOSE METER 96 mg/dL 70-110 : TESTED A T [facility] 6720 (BEAKER) (test code = [facility], 1538) [id number]: Contract Paralegal/Techni josiah ID = [id number] for JOSE COSTA POCT-GLUCOSE [id number] 15:11:00 Test Item Value Reference Range Interpretation Comments POC-GLUCOSE METER 112 mg/dL 70-110 H : TESTED A T [facility] 6720 (BEAKER) (test code = [facility], 1538) [id number]: Contract Paralegal/Techni josiah ID = [id number] for NEVA ISRAEL POCT-GLUCOSE [id number] 15:02:00 Test Item Value Reference Range Interpretation Comments POC-GLUCOSE METER 122 mg/dL 70-110 H : TESTED A T [facility] 6720 (BEAKER) (test code = [facility], 1538) [id number]: Contract Paralegal/Techni josiah ID = [id number] for NEVA ISRAEL POCT-GLUCOSE [id number] 14:41:00 Test Item Value Reference Range Interpretation Comments POC-GLUCOSE METER 92 mg/dL 70-110 : TESTED A T [facility] 6720 (BEAKER) (test code = [facility], 1538) 12552: Contract Paralegal/Techni josiah ID = [id number] for PRINCESS VIKTOR POCT-GLUCOSE [id number] 14:36:00 Test Item Value Reference Range Interpretation Comments POC-GLUCOSE METER 112 mg/dL 70-110 H : TESTED A T [facility] 6720 (BEAKER) (test code = [facility], 1538) 76951: Contract Paralegal/Techni josiah ID = [id number] for PRINCESS ZEB CBC W/PLT COUNT & AUTO [id number] 05:48:00 Test Item Value Reference Range Interpretation Comments WHITE BLOOD CELL COUNT (BEAKER) 5.2 K/ L 3.5-10.5 (test code = 775) RED BLOOD CELL COUNT (AKER) 2.82 M/ L 4.63-6.08 L (test code = 761) HEMOGLOBIN (BEAKER) (test code = 7.6 GM/DL 13.7-17.5 L 410) HEMATOCRIT (BEAKER) (test code = 25.1 % 40.1-51.0 L 411) MEAN CORPUSCULAR VOLUME (BEAKER) 89.0 fL 79.0-92.2 (test code = 753) MEAN CORPUSCULAR HEMOGLOBIN 27.0 pg 25.7-32.2 (BEAKER) (test code = 751) MEAN CORPUSCULAR HEMOGLOBIN CONC 30.3 GM/DL 32.3-36.5 L (BEAKER) (test code = 752) RED CELL DISTRIBUTION WIDTH 17.3 % 11.6-14.4 H (BEAKER) (test code = 412) PLATELET COUNT (BEAKER) (test 194 K/CU MM 150-450 code = 756) MEAN PLATELET VOLUME (BEAKER) 10.5 fL 9.4-12.4 (test code = 754) NUCLEATED RED BLOOD CELLS 0 /100 WBC 0-0 (BEAKER) (test code = 413) NEUTROPHILS RELATIVE PERCENT 63 % (BEAKER) (test code = 429) LYMPHOCYTES RELATIVE PERCENT 20 % (BEAKER) (test code = 430) MONOCYTES RELATIVE PERCENT 12 % (BEAKER) (test code = 431) EOSINOPHILS RELATIVE PERCENT 3 % (BEAKER) (test code = 432) BASOPHILS RELATIVE PERCENT 1 % (BEAKER) (test code = 437) NEUTROPHILS ABSOLUTE COUNT 3.25 K/ L 1.78-5.38 (BEAKER) (test code = 670) LYMPHOCYTES ABSOLUTE COUNT 1.04 K/ L 1.32-3.57 L (BEAKER) (test code = 414) MONOCYTES ABSOLUTE COUNT (BEAKER) 0.60 K/ L 0.30-0.82 (test code = 415) EOSINOPHILS ABSOLUTE COUNT 0.15 K/ L 0.04-0.54 (BEAKER) (test code = 416) BASOPHILS ABSOLUTE COUNT (BEAKER) 0.03 K/ L 0.01-0.08 (test code = 417) IMMATURE GRANULOCYTES-RELATIVE 3 % 0-1 H PERCENT (BEAKER) (test code = 2801) POCT-GLUCOSE [id number] 09:06:00 Test Item Value Reference Range Interpretation Comments POC-GLUCOSE METER 110 mg/dL 70-110 : TESTED A T [facility] 6720 (BEAKER) (test code = [facility], [facility]) [id number]: Contract Paralegal/Techni josiah ID = [id number] for NEVA ISRAEL POCT-GLUCOSE [id number] 08:36:00 Test Item Value Reference Range Interpretation Comments POC-GLUCOSE METER 104 mg/dL 70-110 : TESTED A T [facility] 6720 (BEAKER) (test code = [facility], [facility]) 42253: Contract Paralegal/Techni josiah ID = [id number] for JOSE WILLIS POCT-GLUCOSE [id number] 08:00:00 Test Item Value Reference Range Interpretation Comments POC-GLUCOSE METER 101 mg/dL 70-110 : TESTED A T [facility] 6720 (BEAKER) (test code = [facility], [facility]) 23753: Contract Paralegal/Techni josiah ID = [id number] for NEVA ISRAEL POCT-GLUCOSE [id number] 20:53:00 Test Item Value Reference Range Interpretation Comments POC-GLUCOSE METER 117 mg/dL 70-110 H : TESTED A T [facility] 6720 (BEAKER) (test code = [facility], [facility]) 45405: Contract Paralegal/Techni josiah ID = [id number] for Lio Tamez POCT-GLUCOSE [id number] 20:30:00 Test Item Value Reference Range Interpretation Comments POC-GLUCOSE METER 134 mg/dL 70-110 H : TESTED A T [facility] 6720 (BEAKER) (test code = [facility], [facility]) 16384: Contract Paralegal/Techni josiah ID = [id number] for PRINCESS ZEB PERIPHERAL BLOOD SMEAR - PATH REVIEW LAB [id number] 13:55:00 Test Item Value Reference Range Interpretation Comments RBC MORPHOLOGY Polychromasia (BEAKER) (test code = 2846) RBC MORPHOLOGY Anisocytosis (BEAKER) (test code = 29453) WBC MORPHOLOGY Toxic Granulation (BEAKER) (test code = 2847) WBC MORPHOLOGY Left Shift (BEAKER) (test code = 01726) PERIPHERAL SMR REVIEW Cell counts confirmed. (BEAKER) (test code = 2640) [id number] Alice Deutsch, M.D. (BEAKER) (test code = (electronic signature) 9623) POCT-GLUCOSE [id number] 12:03:00 Test Item Value Reference Range Interpretation Comments POC-GLUCOSE METER 113 mg/dL 70-110 H : TESTED Jaxson George [facility] 6720 (BEAKER) (test code = [facility] [place], 1538) 31693: Contract Paralegal/Techni josiah ID = [id number] for PRINCESS ZEB CBC W/PLT COUNT & AUTO [id number] 08:49:00 Test Item Value Reference Range Interpretation Comments WHITE BLOOD CELL COUNT (BEAKER) 5.8 K/ L 3.5-10.5 (test code = 775) RED BLOOD CELL COUNT (BEAKER) 2.72 M/ L 4.63-6.08 L (test code = 761) HEMOGLOBIN (BEAKER) (test code = 7.2 GM/DL 13.7-17.5 L 410) HEMATOCRIT (BEAKER) (test code = 24.3 % 40.1-51.0 L 411) MEAN CORPUSCULAR VOLUME (BEAKER) 89.3 fL 79.0-92.2 (test code = 753) MEAN CORPUSCULAR HEMOGLOBIN 26.5 pg 25.7-32.2 (BEAKER) (test code = 751) MEAN CORPUSCULAR HEMOGLOBIN CONC 29.6 GM/DL 32.3-36.5 L (BEAKER) (test code = 752) RED CELL DISTRIBUTION WIDTH 17.3 % 11.6-14.4 H (BEAKER) (test code = 412) PLATELET COUNT (BEAKER) (test 221 K/CU MM 150-450 code = 756) MEAN PLATELET VOLUME (BEAKER) 10.6 fL 9.4-12.4 (test code = 754) NUCLEATED RED BLOOD CELLS 1 /100 WBC 0-0 H (BEAKER) (test code = 413) (CELLAVISION MANUAL DIFF)[id number] 08:49:00 Test Item Value Reference Range Interpretation Comments NEUTROPHILS - REL 63 % (CELLAVISION)(BEAKER) (test code = 2816) LYMPHOCYTES - REL 20 % (CELLAVISION)(BEAKER) (test code = 2817) MONOCYTES - REL 9 % (CELLAVISION)(BEAKER) (test code = 2818) EOSINOPHILS - REL 1 % (CELLAVISION)(BEAKER) (test code = 2819) BASOPHILS - REL 2 % (CELLAVISION)(BEAKER) (test code = 2820) METAMYELOCYTES - REL 1 % 0-0 H (CELLAVISION)(BEAKER) (test code = 2821) MYELOCYTES - REL 4 % 0-0 H (CELLAVISION)(BEAKER) (test code = 2822) NEUTROPHILS - ABS 3.65 K/ul 1.78-5.38 (CELLAVISION)(BEAKER) (test code = 2830) LYMPHOCYTES - ABS 1.16 K/ul 1.32-3.57 L (CELLAVISION)(BEAKER) (test code = 2831) MONOCYTES - ABS 0.52 K/uL 0.30-0.82 (CELLAVISION)(BEAKER) (test code = 2832) EOSINOPHILS - ABS 0.06 K/uL 0.04-0.54 (CELLAVISION)(BEAKER) (test code = 2834) BASOPHILS - ABS 0.12 K/uL 0.01-0.08 H (CELLAVISION)(BEAKER) (test code = 2835) METAMYELOCYTES - ABS 0.06 K/uL 0.00-0.00 H (CELLAVISION)(BEAKER) (test code = 2836) MYELOCYTES-ABS 0.23 K/uL 0.00-0.00 H (CELLAVISION)(BEAKER) (test code = 2837) TOTAL COUNTED (BEAKER) (test code = 100 1351) SMUDGE CELLS (BEAKER) (test code = Present 1371) GIANT PLATELETS (BEAKER) (test code Present = 313) ANISOCYTOSIS (BEAKER) (test code = 1+ few 961) POIKILOCYTES (BEAKER) (test code = 1+ few 966) OVALOCYTES (BEAKER) (test code = 1+ few 477) TEAR DROP CELLS (BEAKER) (test code 1+ few = 481) PLATELET CONCENTRATION Adequate (CELLAVISION)(BEAKER) (test code = 3438) Received comment: User comments: Slide comments:BASIC METABOLIC [id number] 05:09:00 Test Item Value Reference Range Interpretation Comments SODIUM (BEAKER) 137 meq/L 136-145 (test code = 381) POTASSIUM (BEAKER) 4.1 meq/L 3.5-5.1 (test code = 379) CHLORIDE (BEAKER) 107 meq/L 98-107 (test code = 382) CO2 (BEAKER) (test 26 meq/L 22-29 code = 355) BLOOD UREA NITROGEN 10 mg/dL 7-21 (BEAKER) (test code = 354) CREATININE (BEAKER) 0.90 mg/dL 0.57-1.25 (test code = 358) GLUCOSE RANDOM 127 mg/dL 70-105 H (BEAKER) (test code = 652) CALCIUM (BEAKER) 8.4 mg/dL 8.4-10.2 (test code = 697) EGFR (BEAKER) (test 86 mL/min/1.73 ESTIMA TORRES GFR IS code = 1092) sq m NOT ACCURATE CREATININE CLEARANCE IN PREDICTING GLOMERULAR FILTRATION RATE . ESTIMATED GFR I S NOT APPLICABLE FOR DIALYSIS PATIEN TS. POCT-GLUCOSE [id number] 22:36:00 Test Item Value Reference Range Interpretation Comments POC-GLUCOSE METER 132 mg/dL 70-110 H : TESTED A T [facility] 6720 (BEAKER) (test code = [facility], 1538) [id number]: Contract Paralegal/Techni josiah ID = [id number] for JOSE WILLIS POCT-GLUCOSE [id number] 12:19:00 Test Item Value Reference Range Interpretation Comments POC-GLUCOSE METER 117 mg/dL 70-110 H : TESTED A T [facility] (BEAKER) (test code = [facility], 1538) [id number]: Contract Paralegal/Techni josiah ID = [id number] for NEVA ISRAEL POCT-GLUCOSE [id number] 07:47:00 Test Item Value Reference Range Interpretation Comments POC-GLUCOSE METER 101 mg/dL 70-110 : TESTED A T [facility] (BEAKER) (test code = [facility] [employer] [facility], 153) [id number]: Contract Paralegal/Techni josiah ID = [id number] for SUNNY RASHEED, NEVA POCT-GLUCOSE [id number] 17:27:00 Test Item Value Reference Range Interpretation Comments POC-GLUCOSE METER 139 mg/dL 70-110 H : TESTED A T [facility] 6720 (BEAKER) (test code = PRINCE Garcia [place], 1538) [id number]: Contract Paralegal/Techni josiah ID = [id number] for NEVA ISRAEL POCT-GLUCOSE [id number] 12:26:00 Test Item Value Reference Range Interpretation Comments POC-GLUCOSE METER 113 mg/dL 70-110 H : TESTED A T [facility] 6720 (BEAKER) (test code = PRINCE Garcia [facility], 1538) [id number]: Contract Paralegal/Techni josiah ID = [id number] for NEVA ISRAEL CBC W/PLT COUNT & AUTO [id number] 10:58:00 Test Item Value Reference Range Interpretation Comments WHITE BLOOD CELL COUNT (BEAKER) 8.1 K/ L 3.5-10.5 (test code = 775) RED BLOOD CELL COUNT (BEAKER) 2.96 M/ L 4.63-6.08 L (test code = 761) HEMOGLOBIN (BEAKER) (test code = 8.0 GM/DL 13.7-17.5 L 410) HEMATOCRIT (BEAKER) (test code = 26.1 % 40.1-51.0 L 411) MEAN CORPUSCULAR VOLUME (BEAKER) 88.2 fL 79.0-92.2 (test code = 753) MEAN CORPUSCULAR HEMOGLOBIN 27.0 pg 25.7-32.2 (BEAKER) (test code = 751) MEAN CORPUSCULAR HEMOGLOBIN CONC 30.7 GM/DL 32.3-36.5 L (BEAKER) (test code = 752) RED CELL DISTRIBUTION WIDTH 16.9 % 11.6-14.4 H (BEAKER) (test code = 412) PLATELET COUNT (BEAKER) (test 249 K/CU MM 150-450 code = 756) MEAN PLATELET VOLUME (BEAKER) 11.1 fL 9.4-12.4 (test code = 754) NUCLEATED RED BLOOD CELLS 1 /100 WBC 0-0 H (BEAKER) (test code = 413) (CELLAVISION MANUAL DIFF)[id number] 10:58:00 Test Item Value Reference Range Interpretation Comments NEUTROPHILS - REL 68 % (CELLAVISION)(BEAKER) (test code = 2816) LYMPHOCYTES - REL 12 % (CELLAVISION)(BEAKER) (test code = 2817) MONOCYTES - REL 6 % (CELLAVISION)(BEAKER) (test code = 2818) EOSINOPHILS - REL 4 % (CELLAVISION)(BEAKER) (test code = 2819) METAMYELOCYTES - REL 3 % 0-0 H (CELLAVISION)(BEAKER) (test code = 2821) MYELOCYTES - REL 3 % 0-0 H (CELLAVISION)(BEAKER) (test code = 2822) BANDS - REL (CELLAVISION)(BEAKER) 2 % 0-10 (test code = 2826) BLASTS - REL (CELLAVISION)(BEAKER) 1 % 0-0 H (test code = 2827) NEUTROPHILS - ABS 5.51 K/ul 1.78-5.38 H (CELLAVISION)(BEAKER) (test code = 2830) LYMPHOCYTES - ABS 0.97 K/ul 1.32-3.57 L (CELLAVISION)(BEAKER) (test code = 2831) MONOCYTES - ABS 0.49 K/uL 0.30-0.82 (CELLAVISION)(BEAKER) (test code = 2832) EOSINOPHILS - ABS 0.32 K/uL 0.04-0.54 (CELLAVISION)(BEAKER) (test code = 2834) METAMYELOCYTES - ABS 0.24 K/uL 0.00-0.00 H (CELLAVISION)(BEAKER) (test code = 2836) MYELOCYTES-ABS 0.24 K/uL 0.00-0.00 H (CELLAVISION)(BEAKER) (test code = 2837) BANDS - ABS (CELLAVISION)(BEAKER) 0.16 K/uL 0.00-0.80 (test code = 2840) BLASTS - ABS (CELLAVISION)(BEAKER) 0.08 K/uL 0.00-0.00 H (test code = 2845) TOTAL COUNTED (BEAKER) (test code 100 = 1351) MANUAL NRBC PER 100 CELLS (BEAKER) 1 /100 WBC 0-0 H (test code = 1353) LARGE PLT(BEAKER) (test code = Present 2156) TOXIC GRANULATION (BEAKER) (test Present code = 771) POLYCHROMATOPHILLIC RBCS(BEAKER) 1+ few (test code = 478) HYPOCHROMIA (BEAKER) (test code = 1+ few 963) ANISOCYTOSIS (BEAKER) (test code = 1+ few 961) POIKILOCYTES (BEAKER) (test code = 1+ few 966) TEAR DROP CELLS (BEAKER) (test 1+ few code = 481) ARTIFACT (CELLAVISION)(BEAKER) Present (test code = 3432) PLATELET CONCENTRATION Adequate (CELLAVISION)(BEAKER) (test code = 3438) Received comment: User comments: Slide comments:POCT-GLUCOSE [id number] 09:02:00 Test Item Value Reference Range Interpretation Comments POC-GLUCOSE METER 85 mg/dL 70-110 : TESTED A T [facility] 6720 (BEAKER) (test code = [place], 1538) [id number]: Contract Paralegal/Techni josiah ID = [id number] for NEVA MCDOWELL [id number] 06:25:00 Test Item Value Reference Range Interpretation Comments PHOSPHORUS (BEAKER) (test code = 3.0 mg/dL 2.3-4.7 604) [id number] 06:25:00 Test Item Value Reference Range Interpretation Comments MAGNESIUM (BEAKER) (test code = 2.0 mg/dL 1.6-2.6 627) BASIC METABOLIC [id number] 06:25:00 Test Item Value Reference Range Interpretation Comments SODIUM (BEAKER) 137 meq/L 136-145 (test code = 381) POTASSIUM (BEAKER) 4.2 meq/L 3.5-5.1 (test code = 379) CHLORIDE (BEAKER) 105 meq/L 98-107 (test code = 382) CO2 (BEAKER) (test 27 meq/L 22-29 code = 355) BLOOD UREA NITROGEN 10 mg/dL 7-21 (BEAKER) (test code = 354) CREATININE (BEAKER) 0.92 mg/dL 0.57-1.25 (test code = 358) GLUCOSE RANDOM 95 mg/dL 70-105 (BEAKER) (test code = 652) CALCIUM (BEAKER) 8.6 mg/dL 8.4-10.2 (test code = 697) EGFR (BEAKER) (test 84 mL/min/1.73 ESTIMA TORRES GFR IS code = 1092) sq m NOT ACCURATE CREATININE CLEARANCE IN PREDICTING GLOMERULAR FILTRATION RATE . ESTIMATED GFR I S NOT APPLICABLE FOR DIALYSIS PATIEN TS. POCT-GLUCOSE [id number] 18:07:00 Test Item Value Reference Range Interpretation Comments POC-GLUCOSE METER 101 mg/dL 70-110 : TESTED A T [facility] 6720 (BEAKER) (test code = [facility] [place], 1538) [id number]: Contract Paralegal/Techni josiah ID = [id number] for Pe rfas, Marry POCT-GLUCOSE [id number] 11:46:00 Test Item Value Reference Range Interpretation Comments POC-GLUCOSE METER 101 mg/dL 70-110 : TESTED A T [facility] 6720 (BEAKER) (test code = [facility] [place], 1538) [id number]: Contract Paralegal/Techni josiah ID = [id number] for Pe rfas, Marry CBC W/PLT COUNT & AUTO [id number] 08:08:00 Test Item Value Reference Range Interpretation Comments WHITE BLOOD CELL COUNT (BEAKER) 8.5 K/ L 3.5-10.5 (test code = 775) RED BLOOD CELL COUNT (BEAKER) 2.98 M/ L 4.63-6.08 L (test code = 761) HEMOGLOBIN (BEAKER) (test code = 8.1 GM/DL 13.7-17.5 L 410) HEMATOCRIT (BEAKER) (test code = 26.0 % 40.1-51.0 L 411) MEAN CORPUSCULAR VOLUME (BEAKER) 87.2 fL 79.0-92.2 (test code = 753) MEAN CORPUSCULAR HEMOGLOBIN 27.2 pg 25.7-32.2 (BEAKER) (test code = 751) MEAN CORPUSCULAR HEMOGLOBIN CONC 31.2 GM/DL 32.3-36.5 L (BEAKER) (test code = 752) RED CELL DISTRIBUTION WIDTH 16.1 % 11.6-14.4 H (BEAKER) (test code = 412) PLATELET COUNT (BEAKER) (test 233 K/CU MM 150-450 code = 756) MEAN PLATELET VOLUME (BEAKER) 10.3 fL 9.4-12.4 (test code = 754) NUCLEATED RED BLOOD CELLS 2 /100 WBC 0-0 H (BEAKER) (test code = 413) (CELLAVISION MANUAL DIFF)2019-05-24 08:08:00 Test Item Value Reference Range Interpretation Comments NEUTROPHILS - REL 71 % (CELLAVISION)(BEAKER) (test code = 2816) LYMPHOCYTES - REL 12 % (CELLAVISION)(BEAKER) (test code = 2817) MONOCYTES - REL 6 % (CELLAVISION)(BEAKER) (test code = 2818) EOSINOPHILS - REL 2 % (CELLAVISION)(BEAKER) (test code = 2819) MYELOCYTES - REL 1 % 0-0 H (CELLAVISION)(BEAKER) (test code = 2822) BANDS - REL (CELLAVISION)(BEAKER) 6 % 0-10 (test code = 2826) ATYPICAL LYMPHOCYTES - REL 2 % 0-0 H (CELLAVISION)(BEAKER) (test code = 2829) NEUTROPHILS - ABS 6.04 K/ul 1.78-5.38 H (CELLAVISION)(BEAKER) (test code = 2830) LYMPHOCYTES - ABS 1.02 K/ul 1.32-3.57 L (CELLAVISION)(BEAKER) (test code = 2831) MONOCYTES - ABS 0.51 K/uL 0.30-0.82 (CELLAVISION)(BEAKER) (test code = 2832) EOSINOPHILS - ABS 0.17 K/uL 0.04-0.54 (CELLAVISION)(BEAKER) (test code = 2834) MYELOCYTES-ABS 0.09 K/uL 0.00-0.00 H (CELLAVISION)(BEAKER) (test code = 2837) BANDS - ABS (CELLAVISION)(BEAKER) 0.51 K/uL 0.00-0.80 (test code = 2840) ATYPICAL LYMPHOCYTES - ABS 0.17 K/uL 0.00-0.00 H (CELLAVISION)(BEAKER) (test code = 2858) TOTAL COUNTED (BEAKER) (test code = 100 1351) RBC MORPHOLOGY (BEAKER) (test code Normal = 762) WBC MORPHOLOGY (BEAKER) (test code Normal = 487) PLT MORPHOLOGY (BEAKER) (test code Normal = 486) POLYCHROMATOPHILLIC RBCS(BEAKER) 1+ few (test code = 478) POCT-GLUCOSE [id number] 06:00:00 Test Item Value Reference Range Interpretation Comments POC-GLUCOSE METER 100 mg/dL 70-110 : TESTED A T [facility] 6720 (BEAKER) (test code = [place], 1538) [address]: Contract Paralegal/Techni josiah ID = [id number] for MARIA SALCIDO [id number] 03:23:00 Test Item Value Reference Range Interpretation Comments PHOSPHORUS (BEAKER) (test code = 3.2 mg/dL 2.3-4.7 604) [id number] 03:23:00 Test Item Value Reference Range Interpretation Comments MAGNESIUM (BEAKER) (test code = 2.1 mg/dL 1.6-2.6 627) BASIC METABOLIC [id number] 03:23:00 Test Item Value Reference Range Interpretation Comments SODIUM (BEAKER) 137 meq/L 136-145 (test code = 381) POTASSIUM (BEAKER) 4.3 meq/L 3.5-5.1 (test code = 379) CHLORIDE (BEAKER) 106 meq/L 98-107 (test code = 382) CO2 (BEAKER) (test 26 meq/L 22-29 code = 355) BLOOD UREA NITROGEN 11 mg/dL 7-21 (BEAKER) (test code = 354) CREATININE (BEAKER) 0.91 mg/dL 0.57-1.25 (test code = 358) GLUCOSE RANDOM 102 mg/dL 70-105 (BEAKER) (test code = 652) CALCIUM (BEAKER) 8.4 mg/dL 8.4-10.2 (test code = 697) EGFR (BEAKER) (test 85 mL/min/1.73 ESTIMA TORRES GFR IS code = 1092) sq m NOT ACCURATE CREATININE CLEARANCE IN PREDICTING GLOMERULAR FILTRATION RATE . ESTIMATED GFR I S NOT APPLICABLE FOR DIALYSIS PATIEN TS. POCT-GLUCOSE [id number] 18:27:00 Test Item Value Reference Range Interpretation Comments POC-GLUCOSE METER 102 mg/dL 70-110 : TESTED A T [facility] 6720 (BEAKER) (test code = PRINCE Garcia [place], 1538) [id number]: Contract Paralegal/Techni josiah ID = [id number] for Stephenie Singleton POCT-GLUCOSE [id number] 12:42:00 Test Item Value Reference Range Interpretation Comments POC-GLUCOSE METER 102 mg/dL 70-110 : TESTED A T [facility] 6720 (BEAKER) (test code = [place], 1538) [id number]: Contract Paralegal/Techni josiah ID = [id number] for Stephenie Singleton CBC W/PLT COUNT & AUTO [id number] 08:52:00 Test Item Value Reference Range Interpretation Comments WHITE BLOOD CELL COUNT (BEAKER) 7.3 K/ L 3.5-10.5 (test code = 775) RED BLOOD CELL COUNT (BEAKER) 2.94 M/ L 4.63-6.08 L (test code = 761) HEMOGLOBIN (BEAKER) (test code = 8.1 GM/DL 13.7-17.5 L 410) HEMATOCRIT (BEAKER) (test code = 25.9 % 40.1-51.0 L 411) MEAN CORPUSCULAR VOLUME (BEAKER) 88.1 fL 79.0-92.2 (test code = 753) MEAN CORPUSCULAR HEMOGLOBIN 27.6 pg 25.7-32.2 (BEAKER) (test code = 751) MEAN CORPUSCULAR HEMOGLOBIN CONC 31.3 GM/DL 32.3-36.5 L (BEAKER) (test code = 752) RED CELL DISTRIBUTION WIDTH 15.8 % 11.6-14.4 H (BEAKER) (test code = 412) PLATELET COUNT (BEAKER) (test 196 K/CU MM 150-450 code = 756) MEAN PLATELET VOLUME (BEAKER) 10.9 fL 9.4-12.4 (test code = 754) NUCLEATED RED BLOOD CELLS 2 /100 WBC 0-0 H (BEAKER) (test code = 413) (CELLAVISION MANUAL DIFF)2019-05-23 08:52:00 Test Item Value Reference Range Interpretation Comments NEUTROPHILS - REL 76 % (CELLAVISION)(BEAKER) (test code = 2816) LYMPHOCYTES - REL 14 % (CELLAVISION)(BEAKER) (test code = 2817) MONOCYTES - REL 5 % (CELLAVISION)(BEAKER) (test code = 2818) EOSINOPHILS - REL 1 % (CELLAVISION)(BEAKER) (test code = 2819) BASOPHILS - REL 1 % (CELLAVISION)(BEAKER) (test code = 2820) MYELOCYTES - REL 1 % 0-0 H (CELLAVISION)(BEAKER) (test code = 2822) ATYPICAL LYMPHOCYTES - REL 2 % 0-0 H (CELLAVISION)(BEAKER) (test code = 2829) NEUTROPHILS - ABS 5.55 K/ul 1.78-5.38 H (CELLAVISION)(BEAKER) (test code = 2830) LYMPHOCYTES - ABS 1.02 K/ul 1.32-3.57 L (CELLAVISION)(BEAKER) (test code = 2831) MONOCYTES - ABS 0.37 K/uL 0.30-0.82 (CELLAVISION)(BEAKER) (test code = 2832) EOSINOPHILS - ABS 0.07 K/uL 0.04-0.54 (CELLAVISION)(BEAKER) (test code = 2834) BASOPHILS - ABS 0.07 K/uL 0.01-0.08 (CELLAVISION)(BEAKER) (test code = 2835) MYELOCYTES-ABS 0.07 K/uL 0.00-0.00 H (CELLAVISION)(BEAKER) (test code = 2837) ATYPICAL LYMPHOCYTES - ABS 0.15 K/uL 0.00-0.00 H (CELLAVISION)(BEAKER) (test code = 2858) TOTAL COUNTED (BEAKER) (test code 100 = 1351) MANUAL NRBC PER 100 CELLS (BEAKER) 3 /100 WBC 0-0 H (test code = 1353) WBC MORPHOLOGY (BEAKER) (test code Normal = 487) GIANT PLATELETS (BEAKER) (test Present code = 313) POLYCHROMATOPHILLIC RBCS(BEAKER) 1+ few (test code = 478) ANISOCYTOSIS (BEAKER) (test code = 1+ few 961) MICROCYTES (BEAKER) (test code = 1+ few 965) POIKILOCYTES (BEAKER) (test code = 1+ few 966) ELLIPTOCYTES (BEAKER) (test code = 1+ few 962) OVALOCYTES (BEAKER) (test code = 1+ few 477) TEAR DROP CELLS (BEAKER) (test 1+ few code = 481) BASOPHILIC STIPPLING (BEAKER) Present (test code = 473) ARTIFACT (CELLAVISION)(BEAKER) Present (test code = 3432) PLATELET CONCENTRATION Adequate (CELLAVISION)(BEAKER) (test code = 3438) Received comment: User comments: Slide comments:BLOOD [id number] 07:01:00 Test Item Value Reference Range Interpretation Comments CULTURE (BEAKER) (test No growth in 5 days code = 1095) BLOOD [id number] 07:01:00 Test Item Value Reference Range Interpretation Comments CULTURE (BEAKER) (test No growth in 5 days code = 1095) POCT-GLUCOSE [id number] 05:33:00 Test Item Value Reference Range Interpretation Comments POC-GLUCOSE METER 86 mg/dL 70-110 : TESTED A T [facility] 6720 (BEAKER) (test code = [place], 1538) [address]: Contract Paralegal/Techni josiah ID = [id number] for RYAN C, LO [id number] 04:38:00 Test Item Value Reference Range Interpretation Comments PHOSPHORUS (BEAKER) (test code = 3.2 mg/dL 2.3-4.7 604) [id number] 04:38:00 Test Item Value Reference Range Interpretation Comments MAGNESIUM (BEAKER) (test code = 1.9 mg/dL 1.6-2.6 627) BASIC METABOLIC [id number] 04:38:00 Test Item Value Reference Range Interpretation Comments SODIUM (BEAKER) 138 meq/L 136-145 (test code = 381) POTASSIUM (BEAKER) 4.3 meq/L 3.5-5.1 (test code = 379) CHLORIDE (BEAKER) 108 meq/L 98-107 H (test code = 382) CO2 (BEAKER) (test 25 meq/L 22-29 code = 355) BLOOD UREA NITROGEN 13 mg/dL 7-21 (BEAKER) (test code = 354) CREATININE (BEAKER) 0.87 mg/dL 0.57-1.25 (test code = 358) GLUCOSE RANDOM 93 mg/dL 70-105 (BEAKER) (test code = 652) CALCIUM (BEAKER) 8.3 mg/dL 8.4-10.2 L (test code = 697) EGFR (BEAKER) (test 90 mL/min/1.73 ESTIMA TORRES GFR IS code = 1092) sq m NOT ACCURATE CREATININE CLEARANCE IN PREDICTING GLOMERULAR FILTRATION RATE . ESTIMATED GFR I S NOT APPLICABLE FOR DIALYSIS PATIEN TS. POCT-GLUCOSE [id number] 00:27:00 Test Item Value Reference Range Interpretation Comments POC-GLUCOSE METER 130 mg/dL 70-110 H : TESTED A T [facility] 6720 (BEAKER) (test code = [facility], 1538) 7[address]: Contract Paralegal/Techni josiah ID = [id number] for DE BELA, LO ANAEROBIC [id number] 20:07:00 Test Item Value Reference Range Interpretation Comments CULTURE (BEAKER) (test No anaerobes isolated code = 1095) POCT-GLUCOSE [id number] 18:18:00 Test Item Value Reference Range Interpretation Comments POC-GLUCOSE METER 83 mg/dL 70-110 : TESTED A T [facility] 6720 (BEAKER) (test code = [facility], 1538) [id number]: Contract Paralegal/Techni josiah ID = [id number] for DUTY , [employer] SURGICALLY OBTAINED CULTURE + GRAM [id number] 16:25:00 Test Item Value Reference Interpretation Comments Range CULTURE (BEAKER) (test A <1+ E scherichia code = 1095) coliof a second type CULTURE (BEAKER) (test ESCHERICHIA COLI A 4 + Actinomyces code = 1095) odontolyticus Amikacin (test code = S 1) Ampicillin + Sulbactam S (test code = 6) Aztreonam (test code = S 32) Cefepime (test code = S 51) Cefoxitin (test code = S 68) Ceftazidime (test code S = 27) Ceftriaxone (test code S = 52) Ertapenem (test code = S 38) Gentamicin (test code S = 18) Levofloxacin (test R code = 22) Meropenem (test code = S 34) Piperacillin + S Tazobactam (test code = 29) Tetracycline (test R code = 2) Tobramycin (test code S = 25) Trimethoprim + S Sulfamethoxazole (test code = 47) GRAM STAIN RESULT <1+ WBCs (BEAKER) (test code = 1123) GRAM STAIN RESULT 1+ gram positive (BEAKER) (test code = cocci in pairs [id number]) POCT-GLUCOSE [id number] 12:31:00 Test Item Value Reference Range Interpretation Comments POC-GLUCOSE METER 86 mg/dL 70-110 : [facility] 6720 (BEAKER) (test code = [place], 1538) 713[address]: Contract Paralegal/Techni josiah ID = [id number] for Stephenie Andrade TROPONIN [id number] 12:30:00 Test Item Value Reference Range Interpretation Comments TROPONIN I (BEAKER) (test code = 397) < ng/mL 0.00-0.03 Troponin I (TnI) levels must [...] and persistent tachyarrhythmia.CBC W/PLT COUNT & AUTO DIFFERENTIAL 2019-05-22 07:54:00 Test Item Value Reference Range Interpretation Comments WHITE BLOOD CELL COUNT (BEAKER) 5.2 K/ L 3.5-10.5 (test code = 775) RED BLOOD CELL COUNT (BEAKER) 2.74 M/ L 4.63-6.08 L (test code = 761) HEMOGLOBIN (BEAKER) (test code = 7.5 GM/DL 13.7-17.5 L 410) HEMATOCRIT (BEAKER) (test code = 23.8 % 40.1-51.0 L 411) MEAN CORPUSCULAR VOLUME (BEAKER) 86.9 fL 79.0-92.2 (test code = 753) MEAN CORPUSCULAR HEMOGLOBIN 27.4 pg 25.7-32.2 (BEAKER) (test code = 751) MEAN CORPUSCULAR HEMOGLOBIN CONC 31.5 GM/DL 32.3-36.5 L (BEAKER) (test code = 752) RED CELL DISTRIBUTION WIDTH 15.4 % 11.6-14.4 H (BEAKER) (test code = 412) PLATELET COUNT (BEAKER) (test 186 K/CU MM 150-450 code = 756) MEAN PLATELET VOLUME (BEAKER) 11.0 fL 9.4-12.4 (test code = 754) NUCLEATED RED BLOOD CELLS 2 /100 WBC 0-0 H (BEAKER) (test code = 413) (CELLAVISION MANUAL DIFF)2019-05-22 07:54:00 Test Item Value Reference Range Interpretation Comments NEUTROPHILS - REL 51 % (CELLAVISION)(BEAKER) (test code = 2816) LYMPHOCYTES - REL 28 % (CELLAVISION)(BEAKER) (test code = 2817) MONOCYTES - REL 8 % (CELLAVISION)(BEAKER) (test code = 2818) EOSINOPHILS - REL 3 % (CELLAVISION)(BEAKER) (test code = 2819) METAMYELOCYTES - REL 2 % 0-0 H (CELLAVISION)(BEAKER) (test code = 2821) MYELOCYTES - REL 7 % 0-0 H (CELLAVISION)(BEAKER) (test code = 2822) ATYPICAL LYMPHOCYTES - REL 1 % 0-0 H (CELLAVISION)(BEAKER) (test code = 2829) NEUTROPHILS - ABS 2.65 K/ul 1.78-5.38 (CELLAVISION)(BEAKER) (test code = 2830) LYMPHOCYTES - ABS 1.46 K/ul 1.32-3.57 (CELLAVISION)(BEAKER) (test code = 2831) MONOCYTES - ABS 0.42 K/uL 0.30-0.82 (CELLAVISION)(BEAKER) (test code = 2832) EOSINOPHILS - ABS 0.16 K/uL 0.04-0.54 (CELLAVISION)(BEAKER) (test code = 2834) METAMYELOCYTES - ABS 0.10 K/uL 0.00-0.00 H (CELLAVISION)(BEAKER) (test code = 2836) MYELOCYTES-ABS 0.36 K/uL 0.00-0.00 H (CELLAVISION)(BEAKER) (test code = 2837) ATYPICAL LYMPHOCYTES - ABS 0.05 K/uL 0.00-0.00 H (CELLAVISION)(BEAKER) (test code = 2858) TOTAL COUNTED (BEAKER) (test code = 100 1351) SMUDGE CELLS (BEAKER) (test code = Present 1371) GIANT PLATELETS (BEAKER) (test code Present = 313) ANISOCYTOSIS (BEAKER) (test code = 1+ few 961) POIKILOCYTES (BEAKER) (test code = 1+ few 966) ARTIFACT (CELLAVISION)(BEAKER) Present (test code = 3432) PLATELET CONCENTRATION Adequate (CELLAVISION)(BEAKER) (test code = 3438) Received comment: User comments: Slide comments:POCT-GLUCOSE [id number] 06:24:00 Test Item Value Reference Range Interpretation Comments POC-GLUCOSE METER 94 mg/dL 70-110 : TESTED A T [facility] 6720 (BEAKER) (test code = [place], 1538) [address]: Contract Paralegal/Techni josiah ID = [id number] for RYAN C LO TSH/FREE T4 IF [id number] 04:30:00 Test Item Value Reference Range Interpretation Comments THYROID STIMULATING HORMONE 2.58 uIU/mL 0.35-4.94 (BEAKER) (test code = 772) [id number] 04:25:00 Test Item Value Reference Range Interpretation Comments PROTIME (BEAKER) (test code = 14.7 seconds 11.9-14.2 H 759) INR (BEAKER) (test code = 370) 1.2 <=5.9 PARTIAL THROMBOPLASTIN TIME 34.4 seconds 22.5-36.0 (BEAKER) (test code = 760) Effective 11/28/2018: PT Reference Range ChangeNew: 11.9-14.2 Previous: 11.7- 14.7RECOMMENDED COUMADIN/WARFARIN INR THERAPY RANGESSTANDARD DOSE: 2.0-3.0 Includes: PROPHYLAXIS for venous thrombosis, systemic embolization; TREATMENT for venous thrombosis and/or pulmonary embolus.HIGH RISK: Target INR is 2.5-3.5 for patients wiht mechanical heart valves.[id number] 04:08:00 Test Item Value Reference Range Interpretation Comments PHOSPHORUS (BEAKER) (test code = 3.1 mg/dL 2.3-4.7 604) [id number] 04:08:00 Test Item Value Reference Range Interpretation Comments MAGNESIUM (BEAKER) (test code = 1.9 mg/dL 1.6-2.6 627) BASIC METABOLIC [id number] 04:08:00 Test Item Value Reference Range Interpretation Comments SODIUM (BEAKER) 137 meq/L 136-145 (test code = 381) POTASSIUM (BEAKER) 4.5 meq/L 3.5-5.1 (test code = 379) CHLORIDE (BEAKER) 107 meq/L 98-107 (test code = 382) CO2 (BEAKER) (test 26 meq/L 22-29 code = 355) BLOOD UREA NITROGEN 16 mg/dL 7-21 (BEAKER) (test code = 354) CREATININE (BEAKER) 0.87 mg/dL 0.57-1.25 (test code = 358) GLUCOSE RANDOM 97 mg/dL 70-105 (BEAKER) (test code = 652) CALCIUM (BEAKER) 8.1 mg/dL 8.4-10.2 L (test code = 697) EGFR (BEAKER) (test 90 mL/min/1.73 ESTIMA TORRES GFR IS code = 1092) sq m NOT ACCURATE CREATININE CLEARANCE IN PREDICTING GLOMERULAR FILTRATION RATE . ESTIMATED GFR I S NOT APPLICABLE FOR DIALYSIS PATIEN TS. POCT-GLUCOSE [id number] 00:15:00 Test Item Value Reference Range Interpretation Comments POC-GLUCOSE METER 131 mg/dL 70-110 H : TESTED A T [facility] 6720 ([employer]) (test code = [employer] [facility], 1538) 54435: Contract Paralegal/Techni josiah ID = [id number] for LO LUIS VANCOMYCIN LEVEL, [id number] 21:40:00 Test Item Value Reference Range Interpretation Comments VANCOMYCIN TROUGH (BEAKER) (test 18.6 ug/mL 10.0-20.0 code = 522) Please draw 30 min prior to scheduled dose.If vancomycin trough level > 20 mcg/mL, hold next vancomycin dose, and contact MD and pharmacist.POCT-GLUCOSE [id number] 17:59:00 Test Item Value Reference Range Interpretation Comments POC-GLUCOSE METER 87 mg/dL 70-110 : TESTED A T [facility] 6720 ([employer]) (test code = [facility] [employer] [facility], 1538) 11660: Contract Paralegal/Techni josiah ID = [id number] for Perf as, Marry WOUND CULTURE + GRAM [id number] 12:55:00 Test Item Value Reference Range Interpretation Comments CULTURE (BEAKER) A 1+ Same org [place] has (test code = been isolated f rom 1095) cultures(s) of the same body site and collection date . Repeat identifi cation and susceptibil ity testing perform ed only after consultat ion with the [facility].Refe r to previous cultur e ofEscherichia c sena GRAM STAIN 1+ White blood RESULT (BEAKER) cells seen (test code = 1123) GRAM STAIN 2+ gram negative RESULT (BEAKER) rods (test code = 087967) GRAM STAIN 1+ gram positive RESULT (BEAKER) cocci in pairs (test code = 261081) 2+ Skin floraPOCT-GLUCOSE [id number] 11:49:00 Test Item Value Reference Range Interpretation Comments POC-GLUCOSE METER 113 mg/dL 70-110 H : TESTED A T [facility] (BEAKER) (test code = [facility], 1538) [id number]: Contract Paralegal/Techni josiah ID = [id number] for Pe rfas, Marry POCT-GLUCOSE [id number] 06:15:00 Test Item Value Reference Range Interpretation Comments POC-GLUCOSE METER 92 mg/dL 70-110 : TESTED A T [facility] (BEAKER) (test code = [facility] [employer] [facility], 1538) [id number]: Contract Paralegal/Techni josiah ID = [id number] for FANTASMA HAGAN [id number] 05:15:00 Test Item Value Reference Range Interpretation Comments PHOSPHORUS (BEAKER) (test code = 3.3 mg/dL 2.3-4.7 604) [id number] 05:15:00 Test Item Value Reference Range Interpretation Comments MAGNESIUM (BEAKER) (test code = 1.9 mg/dL 1.6-2.6 627) BASIC METABOLIC [id number] 05:15:00 Test Item Value Reference Range Interpretation Comments SODIUM (BEAKER) 135 meq/L 136-145 L (test code = 381) POTASSIUM (BEAKER) 4.7 meq/L 3.5-5.1 (test code = 379) CHLORIDE (BEAKER) 107 meq/L 98-107 (test code = 382) CO2 (BEAKER) (test 24 meq/L 22-29 code = 355) BLOOD UREA NITROGEN 20 mg/dL 7-21 (BEAKER) (test code = 354) CREATININE (BEAKER) 1.02 mg/dL 0.57-1.25 (test code = 358) GLUCOSE RANDOM 102 mg/dL 70-105 (BEAKER) (test code = 652) CALCIUM (BEAKER) 8.4 mg/dL 8.4-10.2 (test code = 697) EGFR (BEAKER) (test 74 mL/min/1.73 ESTIMA TORRES GFR IS code = 1092) sq m NOT ACCURATE CREATININE CLEARANCE IN PREDICTING GLOMERULAR FILTRATION RATE . ESTIMATED GFR I S NOT APPLICABLE FOR DIALYSIS PATIEN TS. [id number] 05:04:00 Test Item Value Reference Range Interpretation Comments PROTIME (BEAKER) (test code = 14.7 seconds 11.9-14.2 H 759) INR (BEAKER) (test code = 370) 1.2 <=5.9 PARTIAL THROMBOPLASTIN TIME 34.9 seconds 22.5-36.0 (BEAKER) (test code = 760) Effective 11/28/2018: PT Reference Range ChangeNew: 11.9-14.2 Previous: 11.7- 14.7RECOMMENDED COUMADIN/WARFARIN INR THERAPY RANGESSTANDARD DOSE: 2.0-3.0 Includes: PROPHYLAXIS for venous thrombosis, systemic embolization; TREATMENT for venous thrombosis and/or pulmonary embolus.HIGH RISK: Target INR is 2.5-3.5 for patients wiht mechanical heart valves.CBC W/PLT COUNT & AUTO [id number] 04:37:00 Test Item Value Reference Range Interpretation Comments WHITE BLOOD CELL COUNT (BEAKER) 5.8 K/ L 3.5-10.5 (test code = 775) RED BLOOD CELL COUNT (BEAKER) 2.80 M/ L 4.63-6.08 L (test code = 761) HEMOGLOBIN (BEAKER) (test code = 7.5 GM/DL 13.7-17.5 L 410) HEMATOCRIT (BEAKER) (test code = 23.7 % 40.1-51.0 L 411) MEAN CORPUSCULAR VOLUME (BEAKER) 84.6 fL 79.0-92.2 (test code = 753) MEAN CORPUSCULAR HEMOGLOBIN 26.8 pg 25.7-32.2 (BEAKER) (test code = 751) MEAN CORPUSCULAR HEMOGLOBIN CONC 31.6 GM/DL 32.3-36.5 L (BEAKER) (test code = 752) RED CELL DISTRIBUTION WIDTH 15.4 % 11.6-14.4 H (BEAKER) (test code = 412) PLATELET COUNT (BEAKER) (test 200 K/CU MM 150-450 code = 756) MEAN PLATELET VOLUME (BEAKER) 10.9 fL 9.4-12.4 (test code = 754) NUCLEATED RED BLOOD CELLS 1 /100 WBC 0-0 H (BEAKER) (test code = 413) NEUTROPHILS RELATIVE PERCENT 62 % (BEAKER) (test code = 429) LYMPHOCYTES RELATIVE PERCENT 19 % (BEAKER) (test code = 430) MONOCYTES RELATIVE PERCENT 11 % (BEAKER) (test code = 431) EOSINOPHILS RELATIVE PERCENT 4 % (BEAKER) (test code = 432) BASOPHILS RELATIVE PERCENT 1 % (BEAKER) (test code = 437) NEUTROPHILS ABSOLUTE COUNT 3.63 K/ L 1.78-5.38 (BEAKER) (test code = 670) LYMPHOCYTES ABSOLUTE COUNT 1.10 K/ L 1.32-3.57 L (BEAKER) (test code = 414) MONOCYTES ABSOLUTE COUNT (BEAKER) 0.62 K/ L 0.30-0.82 (test code = 415) EOSINOPHILS ABSOLUTE COUNT 0.24 K/ L 0.04-0.54 (BEAKER) (test code = 416) BASOPHILS ABSOLUTE COUNT (BEAKER) 0.04 K/ L 0.01-0.08 (test code = 417) IMMATURE GRANULOCYTES-RELATIVE 3 % 0-1 H PERCENT (BEAKER) (test code = 2801) POCT-GLUCOSE [id number] 00:17:00 Test Item Value Reference Range Interpretation Comments POC-GLUCOSE METER 119 mg/dL 70-110 H : TESTED Jaxson George [facility] 6720 (BEAKER) (test code = [place], 1538) [id number]: Contract Paralegal/Techni josiah ID = [id number] for FANTASMA ADAMES POCT-GLUCOSE [id number] 17:44:00 Test Item Value Reference Range Interpretation Comments POC-GLUCOSE METER 86 mg/dL 70-110 : TESTED A T [facility] 6720 (BEAKER) (test code = PRINCE Garcia [facility], 1538) [id number]: Contract Paralegal/Techni josiah ID = [id number] for Perf as, Marry HEMOGLOBIN [id number] 12:02:00 Test Item Value Reference Range Interpretation Comments HEMOGLOBIN A1C (BEAKER) (test code = 4.8 % 4.3-6.1 368) POCT-GLUCOSE [id number] 11:49:00 Test Item Value Reference Range Interpretation Comments POC-GLUCOSE METER 94 mg/dL 70-110 : TESTED A T [facility] 6720 (BEAKER) (test code = PRINCE Garcia [facility], 1538) [id number]: Contract Paralegal/Techni josiah ID = [id number] for Perf as, Marry VANCOMYCIN LEVEL, [id number] 11:10:00 Test Item Value Reference Range Interpretation Comments VANCOMYCIN TROUGH (BEAKER) (test 9.6 ug/mL 10.0-20.0 L code = 522) RAD, CHEST, 1 VIEW, NON [id number] 07:57:00Reason for exam:->pre-op. hx of COPD, PICC in situShould this be performed at the bedside?->YesFINAL REPORT RAD, CHEST, 1 VIEW, NON DEPT INDICATION: pre-op. hx of COPD, PICC in situ COMPARISON: May 18, 2019 FINDINGS: Portable frontal view of the chest. IMPRESSION: Support Lines: PICC tip overlies the SVC Lungs and pleura: Bilateral airspace opacities are slightly increased suggestive of worsening edema and/or worsening infection No pneumothorax.Heart and mediastinum: Stable contours. Additional findings: None. Signed: Jennie Camacho Verified Date/Time: 05/20/2019 07:57:33 Reading Location: [facility] Radiology Reading Room [id number] 06:22:00 Test Item Value Reference Range Interpretation Comments PHOSPHORUS (BEAKER) (test code = 3.4 mg/dL 2.3-4.7 604) [id number] 06:22:00 Test Item Value Reference Range Interpretation Comments MAGNESIUM (BEAKER) (test code = 2.1 mg/dL 1.6-2.6 627) BASIC METABOLIC [id number] 06:22:00 Test Item Value Reference Range Interpretation Comments SODIUM (BEAKER) 133 meq/L 136-145 L (test code = 381) POTASSIUM (BEAKER) 4.9 meq/L 3.5-5.1 (test code = 379) CHLORIDE (BEAKER) 105 meq/L 98-107 (test code = 382) CO2 (BEAKER) (test 22 meq/L 22-29 code = 355) BLOOD UREA NITROGEN 22 mg/dL 7-21 H (BEAKER) (test code = 354) CREATININE (BEAKER) 0.93 mg/dL 0.57-1.25 (test code = 358) GLUCOSE RANDOM 103 mg/dL 70-105 (BEAKER) (test code = 652) CALCIUM (BEAKER) 8.4 mg/dL 8.4-10.2 (test code = 697) EGFR (BEAKER) (test 83 mL/min/1.73 ESTIMA TORRES GFR IS code = 1092) sq m NOT ACCURATE CREATININE CLEARANCE IN PREDICTING GLOMERULAR FILTRATION RATE . ESTIMATED GFR I S NOT APPLICABLE FOR DIALYSIS PATIEN TS. POCT-GLUCOSE [id number] 05:55:00 Test Item Value Reference Range Interpretation Comments POC-GLUCOSE METER 110 mg/dL 70-110 : TESTED A T [facility] 6720 (BEAKER) (test code = PRINCE Garcia [place], 1538) 210[address]: Contract Paralegal/Techni josiah ID = [id number] for Ch u, Kerri LACTIC ACID, [id number] 04:59:00 Test Item Value Reference Range Interpretation Comments LACTATE BLOOD ARTERIAL (2) 0.7 mmol/L 0.5-2.2 (BEAKER) (test code = 2874) [id number] 04:31:00 Test Item Value Reference Range Interpretation Comments PROTIME (BEAKER) (test code = 15.1 seconds 11.9-14.2 H 759) INR (BEAKER) (test code = 370) 1.2 <=5.9 PARTIAL THROMBOPLASTIN TIME 34.2 seconds 22.5-36.0 (BEAKER) (test code = 760) Effective 11/28/2018: PT Reference Range ChangeNew: 11.9-14.2 Previous: 11.7- 14.7RECOMMENDED COUMADIN/WARFARIN INR THERAPY RANGESSTANDARD DOSE: 2.0-3.0 Includes: PROPHYLAXIS for venous thrombosis, systemic embolization; TREATMENT for venous thrombosis and/or pulmonary embolus.HIGH RISK: Target INR is 2.5-3.5 for patients wiht mechanical heart valves.CBC W/PLT COUNT & AUTO [id number] 04:21:00 Test Item Value Reference Range Interpretation Comments WHITE BLOOD CELL COUNT (BEAKER) 6.4 K/ L 3.5-10.5 (test code = 775) RED BLOOD CELL COUNT (BEAKER) 2.72 M/ L 4.63-6.08 L (test code = 761) HEMOGLOBIN (BEAKER) (test code = 7.3 GM/DL 13.7-17.5 L 410) HEMATOCRIT (BEAKER) (test code = 23.1 % 40.1-51.0 L 411) MEAN CORPUSCULAR VOLUME (BEAKER) 84.9 fL 79.0-92.2 (test code = 753) MEAN CORPUSCULAR HEMOGLOBIN 26.8 pg 25.7-32.2 (BEAKER) (test code = 751) MEAN CORPUSCULAR HEMOGLOBIN CONC 31.6 GM/DL 32.3-36.5 L (BEAKER) (test code = 752) RED CELL DISTRIBUTION WIDTH 15.1 % 11.6-14.4 H (BEAKER) (test code = 412) PLATELET COUNT (BEAKER) (test 176 K/CU MM 150-450 code = 756) MEAN PLATELET VOLUME (BEAKER) 11.5 fL 9.4-12.4 (test code = 754) NUCLEATED RED BLOOD CELLS 0 /100 WBC 0-0 (BEAKER) (test code = 413) NEUTROPHILS RELATIVE PERCENT 78 % (BEAKER) (test code = 429) LYMPHOCYTES RELATIVE PERCENT 12 % (BEAKER) (test code = 430) MONOCYTES RELATIVE PERCENT 7 % (BEAKER) (test code = 431) EOSINOPHILS RELATIVE PERCENT 1 % (BEAKER) (test code = 432) BASOPHILS RELATIVE PERCENT 1 % (BEAKER) (test code = 437) NEUTROPHILS ABSOLUTE COUNT 4.98 K/ L 1.78-5.38 (BEAKER) (test code = 670) LYMPHOCYTES ABSOLUTE COUNT 0.77 K/ L 1.32-3.57 L (BEAKER) (test code = 414) MONOCYTES ABSOLUTE COUNT (BEAKER) 0.47 K/ L 0.30-0.82 (test code = 415) EOSINOPHILS ABSOLUTE COUNT 0.06 K/ L 0.04-0.54 (BEAKER) (test code = 416) BASOPHILS ABSOLUTE COUNT (BEAKER) 0.03 K/ L 0.01-0.08 (test code = 417) IMMATURE GRANULOCYTES-RELATIVE 1 % 0-1 PERCENT (BEAKER) (test code = 2801) POCT-GLUCOSE [id number] 23:59:00 Test Item Value Reference Range Interpretation Comments POC-GLUCOSE METER 104 mg/dL 70-110 : TESTED A T [facility] 6720 (BEAKER) (test code = [facility], 1538) [id number]: Contract Paralegal/Techni josiah ID = [id number] for Yoanna Lovei POCT-GLUCOSE [id number] 18:37:00 Test Item Value Reference Range Interpretation Comments POC-GLUCOSE METER 103 mg/dL 70-110 : TESTED A T [facility] 6720 (BEAKER) (test code = [facility], 1538) [id number]: Contract Paralegal/Techni josiah ID = [id number] for Stephenie Singleton BASIC METABOLIC [id number] 12:51:00 Test Item Value Reference Range Interpretation Comments SODIUM (BEAKER) 133 meq/L 136-145 L (test code = 381) POTASSIUM (BEAKER) 4.9 meq/L 3.5-5.1 (test code = 379) CHLORIDE (BEAKER) 107 meq/L 98-107 (test code = 382) CO2 (BEAKER) (test 21 meq/L 22-29 L code = 355) BLOOD UREA NITROGEN 26 mg/dL 7-21 H (BEAKER) (test code = 354) CREATININE (BEAKER) 1.20 mg/dL 0.57-1.25 (test code = 358) GLUCOSE RANDOM 120 mg/dL 70-105 H (BEAKER) (test code = 652) CALCIUM (BEAKER) 8.8 mg/dL 8.4-10.2 (test code = 697) EGFR (BEAKER) (test 62 mL/min/1.73 ESTIMA TORRES GFR IS code = 1092) sq m NOT ACCURATE CREATININE CLEARANCE IN PREDICTING GLOMERULAR FILTRATION RATE . ESTIMATED GFR I S NOT APPLICABLE FOR DIALYSIS PATIEN TS. CBC W/PLT COUNT & AUTO [id number] 12:36:00 Test Item Value Reference Range Interpretation Comments WHITE BLOOD CELL COUNT (BEAKER) 8.3 K/ L 3.5-10.5 (test code = 775) RED BLOOD CELL COUNT (BEAKER) 2.91 M/ L 4.63-6.08 L (test code = 761) HEMOGLOBIN (BEAKER) (test code = 7.9 GM/DL 13.7-17.5 L 410) HEMATOCRIT (BEAKER) (test code = 24.5 % 40.1-51.0 L 411) MEAN CORPUSCULAR VOLUME (BEAKER) 84.2 fL 79.0-92.2 (test code = 753) MEAN CORPUSCULAR HEMOGLOBIN 27.1 pg 25.7-32.2 (BEAKER) (test code = 751) MEAN CORPUSCULAR HEMOGLOBIN CONC 32.2 GM/DL 32.3-36.5 L (BEAKER) (test code = 752) RED CELL DISTRIBUTION WIDTH 15.1 % 11.6-14.4 H (BEAKER) (test code = 412) PLATELET COUNT (BEAKER) (test 176 K/CU MM 150-450 code = 756) MEAN PLATELET VOLUME (BEAKER) 10.4 fL 9.4-12.4 (test code = 754) NUCLEATED RED BLOOD CELLS 0 /100 WBC 0-0 (BEAKER) (test code = 413) NEUTROPHILS RELATIVE PERCENT 87 % (BEAKER) (test code = 429) LYMPHOCYTES RELATIVE PERCENT 6 % (BEAKER) (test code = 430) MONOCYTES RELATIVE PERCENT 6 % (BEAKER) (test code = 431) EOSINOPHILS RELATIVE PERCENT 0 % (BEAKER) (test code = 432) BASOPHILS RELATIVE PERCENT 0 % (BEAKER) (test code = 437) NEUTROPHILS ABSOLUTE COUNT 7.21 K/ L 1.78-5.38 H (BEAKER) (test code = 670) LYMPHOCYTES ABSOLUTE COUNT 0.52 K/ L 1.32-3.57 L (BEAKER) (test code = 414) MONOCYTES ABSOLUTE COUNT (BEAKER) 0.50 K/ L 0.30-0.82 (test code = 415) EOSINOPHILS ABSOLUTE COUNT 0.01 K/ L 0.04-0.54 L (BEAKER) (test code = 416) BASOPHILS ABSOLUTE COUNT (BEAKER) 0.02 K/ L 0.01-0.08 (test code = 417) IMMATURE GRANULOCYTES-RELATIVE 1 % 0-1 PERCENT (BEAKER) (test code = 2801) POCT-GLUCOSE [id number] 12:19:00 Test Item Value Reference Range Interpretation Comments POC-GLUCOSE METER 110 mg/dL 70-110 : TESTED A T [facility] 6720 (BEAKER) (test code = [facility], 1538) [id number]: Contract Paralegal/Techni josiah ID = [id number] for Stephenie Singleton POCT-GLUCOSE [id number] 05:29:00 Test Item Value Reference Range Interpretation Comments POC-GLUCOSE METER 147 mg/dL 70-110 H : TESTED A T [facility] 6720 (BEAKER) (test code = [facility], 1538) [id number]: Contract Paralegal/Techni josiah ID = [id number] for NAM CHIANG [id number] 03:28:00 Test Item Value Reference Range Interpretation Comments PHOSPHORUS (BEAKER) (test code = 3.5 mg/dL 2.3-4.7 604) [id number] 03:28:00 Test Item Value Reference Range Interpretation Comments MAGNESIUM (BEAKER) (test code = 2.1 mg/dL 1.6-2.6 627) BASIC METABOLIC [id number] 03:28:00 Test Item Value Reference Range Interpretation Comments SODIUM (BEAKER) 132 meq/L 136-145 L (test code = 381) POTASSIUM (BEAKER) 5.0 meq/L 3.5-5.1 (test code = 379) CHLORIDE (BEAKER) 106 meq/L 98-107 (test code = 382) CO2 (BEAKER) (test 20 meq/L 22-29 L code = 355) BLOOD UREA NITROGEN 26 mg/dL 7-21 H (BEAKER) (test code = 354) CREATININE (BEAKER) 1.44 mg/dL 0.57-1.25 H (test code = 358) GLUCOSE RANDOM 150 mg/dL 70-105 H (BEAKER) (test code = 652) CALCIUM (BEAKER) 8.4 mg/dL 8.4-10.2 (test code = 697) EGFR (BEAKER) (test 50 mL/min/1.73 ESTIMA TORRES GFR IS code = 1092) sq m NOT ACCURATE CREATININE CLEARANCE IN PREDICTING GLOMERULAR FILTRATION RATE . ESTIMATED GFR I S NOT APPLICABLE FOR DIALYSIS PATIEN TS. CBC W/PLT COUNT & AUTO [id number] 03:24:00 Test Item Value Reference Range Interpretation Comments WHITE BLOOD CELL COUNT (BEAKER) 8.1 K/ L 3.5-10.5 (test code = 775) RED BLOOD CELL COUNT (BEAKER) 3.08 M/ L 4.63-6.08 L (test code = 761) HEMOGLOBIN (BEAKER) (test code = 8.3 GM/DL 13.7-17.5 L 410) HEMATOCRIT (BEAKER) (test code = 26.1 % 40.1-51.0 L 411) MEAN CORPUSCULAR VOLUME (BEAKER) 84.7 fL 79.0-92.2 (test code = 753) MEAN CORPUSCULAR HEMOGLOBIN 26.9 pg 25.7-32.2 (BEAKER) (test code = 751) MEAN CORPUSCULAR HEMOGLOBIN CONC 31.8 GM/DL 32.3-36.5 L (BEAKER) (test code = 752) RED CELL DISTRIBUTION WIDTH 15.3 % 11.6-14.4 H (BEAKER) (test code = 412) PLATELET COUNT (BEAKER) (test 194 K/CU MM 150-450 code = 756) MEAN PLATELET VOLUME (BEAKER) 11.0 fL 9.4-12.4 (test code = 754) NUCLEATED RED BLOOD CELLS 0 /100 WBC 0-0 (BEAKER) (test code = 413) NEUTROPHILS RELATIVE PERCENT 89 % (BEAKER) (test code = 429) LYMPHOCYTES RELATIVE PERCENT 5 % (BEAKER) (test code = 430) MONOCYTES RELATIVE PERCENT 6 % (BEAKER) (test code = 431) EOSINOPHILS RELATIVE PERCENT 0 % (BEAKER) (test code = 432) BASOPHILS RELATIVE PERCENT 0 % (BEAKER) (test code = 437) NEUTROPHILS ABSOLUTE COUNT 7.18 K/ L 1.78-5.38 H (BEAKER) (test code = 670) LYMPHOCYTES ABSOLUTE COUNT 0.36 K/ L 1.32-3.57 L (BEAKER) (test code = 414) MONOCYTES ABSOLUTE COUNT (BEAKER) 0.46 K/ L 0.30-0.82 (test code = 415) EOSINOPHILS ABSOLUTE COUNT 0.01 K/ L 0.04-0.54 L (BEAKER) (test code = 416) BASOPHILS ABSOLUTE COUNT (BEAKER) 0.02 K/ L 0.01-0.08 (test code = 417) IMMATURE GRANULOCYTES-RELATIVE 0 % 0-1 PERCENT (BEAKER) (test code = 2801) POCT-GLUCOSE [id number] 23:40:00 Test Item Value Reference Range Interpretation Comments POC-GLUCOSE METER 147 mg/dL 70-110 H : TESTED A T [facility] 6720 (BEAKER) (test code = [place], 1538) [id number]: Contract Paralegal/Techni josiah ID = [id number] for NAM CHIANG [id number] 19:16:00 Test Item Value Reference Range Interpretation Comments PHOSPHORUS (BEAKER) (test code = 3.6 mg/dL 2.3-4.7 604) [id number] 19:16:00 Test Item Value Reference Range Interpretation Comments MAGNESIUM (BEAKER) (test code = 2.1 mg/dL 1.6-2.6 627) BASIC METABOLIC [id number] 19:16:00 Test Item Value Reference Range Interpretation Comments SODIUM (BEAKER) 133 meq/L 136-145 L (test code = 381) POTASSIUM (BEAKER) 4.7 meq/L 3.5-5.1 (test code = 379) CHLORIDE (BEAKER) 106 meq/L 98-107 (test code = 382) CO2 (BEAKER) (test 18 meq/L 22-29 L code = 355) BLOOD UREA NITROGEN 28 mg/dL 7-21 H (BEAKER) (test code = 354) CREATININE (BEAKER) 1.66 mg/dL 0.57-1.25 H (test code = 358) GLUCOSE RANDOM 132 mg/dL 70-105 H (BEAKER) (test code = 652) CALCIUM (BEAKER) 8.8 mg/dL 8.4-10.2 (test code = 697) EGFR (BEAKER) (test 42 mL/min/1.73 ESTIMA TORRES GFR IS code = 1092) sq m NOT ACCURATE CREATININE CLEARANCE IN PREDICTING GLOMERULAR FILTRATION RATE . ESTIMATED GFR I S NOT APPLICABLE FOR DIALYSIS PATIEN TS. [id number] 19:10:00 Test Item Value Reference Range Interpretation Comments PROTIME (BEAKER) (test code = 17.2 seconds 11.9-14.2 H 759) INR (BEAKER) (test code = 370) 1.5 <=5.9 PARTIAL THROMBOPLASTIN TIME 38.3 seconds 22.5-36.0 H (BEAKER) (test code = 760) Effective 11/28/2018: PT Reference Range ChangeNew: 11.9-14.2 Previous: 11.7- 14.7RECOMMENDED COUMADIN/WARFARIN INR THERAPY RANGESSTANDARD DOSE: 2.0-3.0 Includes: PROPHYLAXIS for venous thrombosis, systemic embolization; TREATMENT for venous thrombosis and/or pulmonary embolus.HIGH RISK: Target INR is 2.5-3.5 for patients wiht mechanical heart valves.CBC W/PLT COUNT & AUTO [id number] 19:04:00 Test Item Value Reference Range Interpretation Comments WHITE BLOOD CELL COUNT (BEAKER) 12.4 K/ L 3.5-10.5 H (test code = 775) RED BLOOD CELL COUNT (BEAKER) 3.50 M/ L 4.63-6.08 L (test code = 761) HEMOGLOBIN (BEAKER) (test code = 9.4 GM/DL 13.7-17.5 L 410) HEMATOCRIT (BEAKER) (test code = 29.7 % 40.1-51.0 L 411) MEAN CORPUSCULAR VOLUME (BEAKER) 84.9 fL 79.0-92.2 (test code = 753) MEAN CORPUSCULAR HEMOGLOBIN 26.9 pg 25.7-32.2 (BEAKER) (test code = 751) MEAN CORPUSCULAR HEMOGLOBIN CONC 31.6 GM/DL 32.3-36.5 L (BEAKER) (test code = 752) RED CELL DISTRIBUTION WIDTH 15.5 % 11.6-14.4 H (BEAKER) (test code = 412) PLATELET COUNT (BEAKER) (test 250 K/CU MM 150-450 code = 756) MEAN PLATELET VOLUME (BEAKER) 10.7 fL 9.4-12.4 (test code = 754) NUCLEATED RED BLOOD CELLS 0 /100 WBC 0-0 (BEAKER) (test code = 413) NEUTROPHILS RELATIVE PERCENT 90 % (BEAKER) (test code = 429) LYMPHOCYTES RELATIVE PERCENT 5 % (BEAKER) (test code = 430) MONOCYTES RELATIVE PERCENT 4 % (BEAKER) (test code = 431) EOSINOPHILS RELATIVE PERCENT 1 % (BEAKER) (test code = 432) BASOPHILS RELATIVE PERCENT 0 % (BEAKER) (test code = 437) NEUTROPHILS ABSOLUTE COUNT 11.15 K/ L 1.78-5.38 H (BEAKER) (test code = 670) LYMPHOCYTES ABSOLUTE COUNT 0.57 K/ L 1.32-3.57 L (BEAKER) (test code = 414) MONOCYTES ABSOLUTE COUNT (BEAKER) 0.44 K/ L 0.30-0.82 (test code = 415) EOSINOPHILS ABSOLUTE COUNT 0.06 K/ L 0.04-0.54 (BEAKER) (test code = 416) BASOPHILS ABSOLUTE COUNT (BEAKER) 0.04 K/ L 0.01-0.08 (test code = 417) IMMATURE GRANULOCYTES-RELATIVE 1 % 0-1 PERCENT (BEAKER) (test code = 2801) POCT-GLUCOSE [id number] 18:43:00 Test Item Value Reference Range Interpretation Comments POC-GLUCOSE METER 142 mg/dL 70-110 H : TESTED A T [facility] 6720 (BEAKER) (test code = PRINCE Garcia [facility], 1538) [id number]: Contract Paralegal/Techni josiah ID = [id number] for Marry Suazo CREATININE, RANDOM [id number] 15:12:00 Test Item Value Reference Range Interpretation Comments CREATININE URINE (BEAKER) (test 91.3 mg/dL code = 375) Reference Range: No NormalsSODIUM, RANDOM [id number] 15:12:00 Test Item Value Reference Range Interpretation Comments SODIUM URINE (BEAKER) (test code = 130 meq/L 243) Reference Range: No NormalsCREATININE, RANDOM [id number] 14:12:00 Test Item Value Reference Range Interpretation Comments CREATININE URINE (BEAKER) (test 214.0 mg/dL code = 375) Reference Range: No NormalsSODIUM, RANDOM [id number] 14:09:00 Test Item Value Reference Range Interpretation Comments SODIUM URINE (BEAKER) (test code = 81 meq/L 243) Reference Range: No NormalsOSMOLALITY, [id number] 13:46:00 Test Item Value Reference Range Interpretation Comments OSMOLALITY URINE (BEAKER) (test 654 mOsm/kg 40-1,400 code = 614) POCT-GLUCOSE [id number] 11:37:00 Test Item Value Reference Range Interpretation Comments POC-GLUCOSE METER 105 mg/dL 70-110 : TESTED A T [facility] 6720 (BEAKER) (test code = [place], 1538) [id number]: Contract Paralegal/Techni josiah ID = [id number] for Pe Marry colon HEPATIC FUNCTION [id number] 02:54:00 Test Item Value Reference Range Interpretation Comments TOTAL PROTEIN (BEAKER) (test code = 5.9 gm/dL 6.0-8.3 L 770) ALBUMIN (BEAKER) (test code = 1145) 3.0 g/dL 3.5-5.0 L BILIRUBIN TOTAL (BEAKER) (test code 1.5 mg/dL 0.2-1.2 H = 377) BILIRUBIN DIRECT (BEAKER) (test 1.1 mg/dL 0.1-0.5 H code = 706) ALKALINE PHOSPHATASE (BEAKER) (test 87 U/L 40-150 code = 346) AST (SGOT) (BEAKER) (test code = 32 U/L 5-34 353) ALT (SGPT) (BEAKER) (test code = 32 U/L 6-55 347) [id number] 02:53:00 Test Item Value Reference Range Interpretation Comments PHOSPHORUS (BEAKER) (test code = 3.1 mg/dL 2.3-4.7 604) [id number] 02:53:00 Test Item Value Reference Range Interpretation Comments MAGNESIUM (BEAKER) (test code = 1.8 mg/dL 1.6-2.6 627) BASIC METABOLIC [id number] 02:53:00 Test Item Value Reference Range Interpretation Comments SODIUM (BEAKER) 134 meq/L 136-145 L (test code = 381) POTASSIUM (BEAKER) 4.1 meq/L 3.5-5.1 (test code = 379) CHLORIDE (BEAKER) 105 meq/L 98-107 (test code = 382) CO2 (BEAKER) (test 21 meq/L 22-29 L code = 355) BLOOD UREA NITROGEN 30 mg/dL 7-21 H (BEAKER) (test code = 354) CREATININE (BEAKER) 1.99 mg/dL 0.57-1.25 H (test code = 358) GLUCOSE RANDOM 104 mg/dL 70-105 (BEAKER) (test code = 652) CALCIUM (BEAKER) 8.9 mg/dL 8.4-10.2 (test code = 697) EGFR (BEAKER) (test 34 mL/min/1.73 ESTIMA TORRES GFR IS code = 1092) sq m NOT ACCURATE CREATININE CLEARANCE IN PREDICTING GLOMERULAR FILTRATION RATE . ESTIMATED GFR I S NOT APPLICABLE FOR DIALYSIS PATIEN TS. LACTIC ACID, [id number] 02:46:00 Test Item Value Reference Range Interpretation Comments LACTATE BLOOD VENOUS 1.5 mmol/L 0.5-2.2 Specime n slightly (2) (BEAKER) (test hemolyzed code = 0862) [id number] 02:33:00 Test Item Value Reference Range Interpretation Comments PARTIAL THROMBOPLASTIN TIME 35.5 seconds 22.5-36.0 (BEAKER) (test code = 760) PROTHROMBIN [id number] 02:32:00 Test Item Value Reference Range Interpretation Comments PROTIME (BEAKER) (test code = 18.2 seconds 11.9-14.2 H 759) INR (BEAKER) (test code = 370) 1.6 <=5.9 Effective 11/28/2018: PT Reference Range ChangeNew: 11.9-14.2 Previous: 11.7- 14.7RECOMMENDED COUMADIN/WARFARIN INR THERAPY RANGESSTANDARD DOSE: 2.0-3.0 Includes: PROPHYLAXIS for venous thrombosis, systemic embolization; TREATMENT for venous thrombosis and/or pulmonary embolus.HIGH RISK: Target INR is 2.5-3.5 for patients wiht mechanical heart valves.CBC W/PLT COUNT & AUTO [id number] 02:26:00 Test Item Value Reference Range Interpretation Comments WHITE BLOOD CELL COUNT (BEAKER) 10.0 K/ L 3.5-10.5 (test code = 775) RED BLOOD CELL COUNT (BEAKER) 3.92 M/ L 4.63-6.08 L (test code = 761) HEMOGLOBIN (BEAKER) (test code = 10.6 GM/DL 13.7-17.5 L 410) HEMATOCRIT (BEAKER) (test code = 33.9 % 40.1-51.0 L 411) MEAN CORPUSCULAR VOLUME (BEAKER) 86.5 fL 79.0-92.2 (test code = 753) MEAN CORPUSCULAR HEMOGLOBIN 27.0 pg 25.7-32.2 (BEAKER) (test code = 751) MEAN CORPUSCULAR HEMOGLOBIN CONC 31.3 GM/DL 32.3-36.5 L (BEAKER) (test code = 752) RED CELL DISTRIBUTION WIDTH 15.7 % 11.6-14.4 H (BEAKER) (test code = 412) PLATELET COUNT (BEAKER) (test 194 K/CU MM 150-450 code = 756) MEAN PLATELET VOLUME (BEAKER) 10.9 fL 9.4-12.4 (test code = 754) NUCLEATED RED BLOOD CELLS 0 /100 WBC 0-0 (BEAKER) (test code = 413) NEUTROPHILS RELATIVE PERCENT 77 % (BEAKER) (test code = 429) LYMPHOCYTES RELATIVE PERCENT 10 % (BEAKER) (test code = 430) MONOCYTES RELATIVE PERCENT 11 % (BEAKER) (test code = 431) EOSINOPHILS RELATIVE PERCENT 1 % (BEAKER) (test code = 432) BASOPHILS RELATIVE PERCENT 0 % (BEAKER) (test code = 437) NEUTROPHILS ABSOLUTE COUNT 7.72 K/ L 1.78-5.38 H (BEAKER) (test code = 670) LYMPHOCYTES ABSOLUTE COUNT 1.03 K/ L 1.32-3.57 L (BEAKER) (test code = 414) MONOCYTES ABSOLUTE COUNT (BEAKER) 1.11 K/ L 0.30-0.82 H (test code = 415) EOSINOPHILS ABSOLUTE COUNT 0.06 K/ L 0.04-0.54 (BEAKER) (test code = 416) BASOPHILS ABSOLUTE COUNT (BEAKER) 0.03 K/ L 0.01-0.08 (test code = 417) IMMATURE GRANULOCYTES-RELATIVE 1 % 0-1 PERCENT (BEAKER) (test code = 2801) RAD, CHEST, 1 VIEW, NON [id number] 02:24:00Reason for exam:->ccentral line placementShould this be performed at the bedside?->YesFINAL REPORT RAD, CHEST, 1 VIEW, NON DEPT INDICATION: ccentral line placement COMPARISON: Plain radiograph the chest dated the 2017. FINDINGS: Portable frontal view of the chest. IMPRESSION: Support Lines: Right upper extremity PICC with tip overlying the cavoatrial junction. Lungs and pleura: Prominent central pulmonary vasculature suggestive of pulmonary vascular congestion. Noovert pulmonary edema. No large pleural effusion or lobar consolidation. No pneumothorax.Heart and mediastinum: Stable contours. Additional findings: None. Signed: Radha Seymour Verified Date/Time: 05/18/2019 02:24:49 AFB CULTURE + [id number] 20:40:00 Test Item Value Reference Range Interpretation Comments CULTURE (BEAKER) (test No acid-fast bacilli code = 1095) isolated in 42 days AFB SMEAR (BEAKER) No acid fast bacilli (test code = 994) seen FUNGUS CULTURE + [id number] 09:54:00 Test Item Value Reference Range Interpretation Comments CULTURE (BEAKER) (test No fungus isolated in code = 1095) 28 days FUNGUS SMEAR (BEAKER) No fungi seen (test code = 1406) RAD, CHEST, 1 VIEW, NON [id number] 09:28:00Reason for exam:->preopShould this be performed at the bedside?->YesAddendum BeginsREPORT STATUS:A Reason for exam: Peroneal nerve biopsy right Signed: Dung Cartagena Verified Date/Time: 03/12/2018 09:28:11 Reading Location: [facility] C0V Neuro Reading RoomAddendum EndsFINAL REPORT Chest one view compared to May 07, 2014 Discussion: There is cardiac prominence. There may be some mild interstitial congestion but no focal infiltrate. No effusion or pneumothorax. Signed: Dung Cartagena Verified Date/Time: 02/19/2018 14:22:08 Reading Location: [facility] C0[facility] Consult Reading Room POCT-GLUCOSE METER 2018-02-24 18:10:00 Test Item Value Reference Range Interpretation Comments POC-GLUCOSE METER 125 mg/dL 70-[address] [facility] 67[address] (BEAKER) (test code = [place] 1538) [id number] 15:30:00 Test Item Value Reference Range Interpretation Comments MAGNESIUM (BEAKER) (test code = 1.8 mg/dL 1.6-2.6 627) BASIC METABOLIC [id number] 09:22:00 Test Item Value Reference Range Interpretation Comments SODIUM (BEAKER) 134 meq/L 136-145 L (test code = 381) POTASSIUM (BEAKER) 4.4 meq/L 3.5-5.1 Specimen slightly (test code = 379) hemolyzed CHLORIDE (BEAKER) 99 meq/L 98-107 (test code = 382) CO2 (BEAKER) (test 27 meq/L 22-29 code = 355) BLOOD UREA NITROGEN 18 mg/dL 7-21 (BEAKER) (test code = 354) CREATININE (BEAKER) 1.13 mg/dL 0.57-1.25 Specimen slightly (test code = 358) hemolyzed GLUCOSE RANDOM 103 mg/dL 70-105 (BEAKER) (test code = 652) CALCIUM (BEAKER) 9.6 mg/dL 8.4-10.2 (test code = 697) EGFR (BEAKER) (test 66 mL/min/1.73 ESTIMA TORRES GFR IS code = 1092) sq m NOT ACCURATE CREATININE CLEARANCE IN PREDICTING GLOMERULAR FILTRATION RATE . ESTIMATED GFR I S NOT APPLICABLE FOR DIALYSIS PATIEN TS. POCT-GLUCOSE [id number] 08:38:00 Test Item Value Reference Range Interpretation Comments POC-GLUCOSE METER 112 mg/dL 70-[address] [facility] 6720 (BEAKER) (test code = [place] 1538) [id number] CREATINE KINASE (CK)2018-02-24 07:12:00 Test Item Value Reference Range Interpretation Comments CREATINE KINASE TOTAL (BEAKER) (test 1449 U/L 29-200 H code = 380) PROTHROMBIN [id number] 06:24:00 Test Item Value Reference Range Interpretation Comments PROTIME (BEAKER) (test code = 17.4 seconds 11.7-14.7 H 759) INR (BEAKER) (test code = 370) 1.4 <=5.9 RECOMMENDED COUMADIN/WARFARIN INR THERAPY RANGESSTANDARD DOSE: 2.0 - 3.0 Includes: PROPHYLAXIS for venous thrombosis, systemic embolization; TREATMENT for venous thrombosis and/or pulmonary embolus.HIGH RISK: Target INR is 2.5-3.5 for patients with mechanical heart valves.While on warfarin.CBC W/PLT COUNT & AUTO [id number] 06:02:00 Test Item Value Reference Range Interpretation Comments WHITE BLOOD CELL COUNT (BEAKER) 5.9 K/ L 3.5-10.5 (test code = 775) RED BLOOD CELL COUNT (BEAKER) 4.03 M/ L 4.63-6.08 L (test code = 761) HEMOGLOBIN (BEAKER) (test code = 11.2 GM/DL 13.7-17.5 L 410) HEMATOCRIT (BEAKER) (test code = 35.5 % 40.1-51.0 L 411) MEAN CORPUSCULAR VOLUME (BEAKER) 88.1 fL 79.0-92.2 (test code = 753) MEAN CORPUSCULAR HEMOGLOBIN 27.8 pg 25.7-32.2 (BEAKER) (test code = 751) MEAN CORPUSCULAR HEMOGLOBIN CONC 31.5 GM/DL 32.3-36.5 L (BEAKER) (test code = 752) RED CELL DISTRIBUTION WIDTH 14.8 % 11.6-14.4 H (BEAKER) (test code = 412) PLATELET COUNT (BEAKER) (test 355 K/CU MM 150-450 code = 756) MEAN PLATELET VOLUME (BEAKER) 9.4 fL 9.4-12.4 (test code = 754) NUCLEATED RED BLOOD CELLS 0 /100 WBC 0-0 (BEAKER) (test code = 413) NEUTROPHILS RELATIVE PERCENT 61 % (BEAKER) (test code = 429) LYMPHOCYTES RELATIVE PERCENT 17 % (BEAKER) (test code = 430) MONOCYTES RELATIVE PERCENT 13 % (BEAKER) (test code = 431) EOSINOPHILS RELATIVE PERCENT 7 % (BEAKER) (test code = 432) BASOPHILS RELATIVE PERCENT 1 % (BEAKER) (test code = 437) NEUTROPHILS ABSOLUTE COUNT 3.63 K/ L 1.78-5.38 ([facility]) (test code = 670) LYMPHOCYTES ABSOLUTE COUNT 1.03 K/ L 1.32-3.57 L (AKER) (test code = 414) MONOCYTES ABSOLUTE COUNT (BEAKER) 0.77 K/ L 0.30-0.82 (test code = 415) EOSINOPHILS ABSOLUTE COUNT 0.39 K/ L 0.04-0.54 (BEAKER) (test code = 416) BASOPHILS ABSOLUTE COUNT (BEAKER) 0.04 K/ L 0.01-0.08 (test code = 417) IMMATURE GRANULOCYTES-RELATIVE 1 % 0-1 PERCENT ([facility]) (test code = 2801) POCT-GLUCOSE [id number] 20:59:00 Test Item Value Reference Range Interpretation Comments POC-GLUCOSE METER 112 mg/dL 70-110 H TESTED AT [place] [address] ([facility]) (test code = [facility] 1538) [id number] POCT-GLUCOSE [id number] 17:02:00 Test Item Value Reference Range Interpretation Comments POC-GLUCOSE METER 109 mg/dL 70-110 TESTED AT [place] [address] ([facility]) (test code = [facility] 1538) [id number] POCT-GLUCOSE [id number] 11:39:00 Test Item Value Reference Range Interpretation Comments POC-GLUCOSE METER 97 mg/dL 70-110 TESTED AT [place] [address] ([facility]) (test code = [facility] [address] 1538) POCT-GLUCOSE [id number] 07:35:00 Test Item Value Reference Range Interpretation Comments POC-GLUCOSE METER 109 mg/dL 70-110 TESTED AT [place] [address] ([facility]) (test code = [facility] [employer] [facility] 1538) [id number] CREATINE KINASE (CK)2018-02-23 07:19:00 Test Item Value Reference Range Interpretation Comments CREATINE KINASE TOTAL ([facility]) (test 1548 U/L 29-200 H code = 380) PROTHROMBIN [id number] 07:06:00 Test Item Value Reference Range Interpretation Comments PROTIME ([facility]) (test code = 18.5 seconds 11.7-14.7 H 759) INR ([facility]) (test code = 370) 1.5 <=5.9 RECOMMENDED COUMADIN/WARFARIN INR THERAPY RANGESSTANDARD DOSE: 2.0 - 3.0 Includes: PROPHYLAXIS for venous thrombosis, systemic embolization; TREATMENT for venous thrombosis and/or pulmonary embolus.HIGH RISK: Target INR is 2.5-3.5 for patients with mechanical heart valves.While on warfarin.CBC W/PLT COUNT & AUTO [id number] 06:54:00 Test Item Value Reference Range Interpretation Comments WHITE BLOOD CELL COUNT (BEAKER) 5.4 K/ L 3.5-10.5 (test code = 775) RED BLOOD CELL COUNT (BEAKER) 4.17 M/ L 4.63-6.08 L (test code = 761) HEMOGLOBIN (BEAKER) (test code = 11.7 GM/DL 13.7-17.5 L 410) HEMATOCRIT (BEAKER) (test code = 36.9 % 40.1-51.0 L 411) MEAN CORPUSCULAR VOLUME (BEAKER) 88.5 fL 79.0-92.2 (test code = 753) MEAN CORPUSCULAR HEMOGLOBIN 28.1 pg 25.7-32.2 (BEAKER) (test code = 751) MEAN CORPUSCULAR HEMOGLOBIN CONC 31.7 GM/DL 32.3-36.5 L (BEAKER) (test code = 752) RED CELL DISTRIBUTION WIDTH 15.1 % 11.6-14.4 H (BEAKER) (test code = 412) PLATELET COUNT (BEAKER) (test 363 K/CU MM 150-450 code = 756) MEAN PLATELET VOLUME (BEAKER) 9.6 fL 9.4-12.4 (test code = 754) NUCLEATED RED BLOOD CELLS 0 /100 WBC 0-0 (BEAKER) (test code = 413) NEUTROPHILS RELATIVE PERCENT 61 % (BEAKER) (test code = 429) LYMPHOCYTES RELATIVE PERCENT 16 % (BEAKER) (test code = 430) MONOCYTES RELATIVE PERCENT 14 % (BEAKER) (test code = 431) EOSINOPHILS RELATIVE PERCENT 7 % (BEAKER) (test code = 432) BASOPHILS RELATIVE PERCENT 1 % (BEAKER) (test code = 437) NEUTROPHILS ABSOLUTE COUNT 3.29 K/ L 1.78-5.38 (BEAKER) (test code = 670) LYMPHOCYTES ABSOLUTE COUNT 0.85 K/ L 1.32-3.57 L (BEAKER) (test code = 414) MONOCYTES ABSOLUTE COUNT ([facility]) 0.73 K/ L 0.30-0.82 (test code = 415) EOSINOPHILS ABSOLUTE COUNT 0.39 K/ L 0.04-0.54 (AKER) (test code = 416) BASOPHILS ABSOLUTE COUNT ([facility]) 0.05 K/ L 0.01-0.08 (test code = 417) IMMATURE GRANULOCYTES-RELATIVE 2 % 0-1 H PERCENT ([facility]) (test code = 2801) POCT-GLUCOSE [id number] 21:04:00 Test Item Value Reference Range Interpretation Comments POC-GLUCOSE METER 135 mg/dL 70-110 H TESTED AT [place] [address] ([facility]) (test code = [place] 1538) [address] POCT-GLUCOSE [id number] 17:31:00 Test Item Value Reference Range Interpretation Comments POC-GLUCOSE METER 113 mg/dL 70-110 H TESTED AT [place] [address] ([facility]) (test code = [place] 1538) [address] POCT-GLUCOSE [id number] 12:18:00 Test Item Value Reference Range Interpretation Comments POC-GLUCOSE METER 107 mg/dL 70-110 TESTED AT [place] [address] ([facility]) (test code = [place] 1538) [address] POCT-GLUCOSE [id number] 08:14:00 Test Item Value Reference Range Interpretation Comments POC-GLUCOSE METER 107 mg/dL 70-110 TESTED AT [place] [address] ([facility]) (test code = [place] 1538) [id number] CREATINE KINASE (CK)2018-02-22 07:55:00 Test Item Value Reference Range Interpretation Comments CREATINE KINASE TOTAL ([facility]) (test 1559 U/L 29-200 H code = 380) PROTHROMBIN [id number] 06:50:00 Test Item Value Reference Range Interpretation Comments PROTIME ([facility]) (test code = 18.4 seconds 11.7-14.7 H 759) INR ([facility]) (test code = 370) 1.5 <=5.9 RECOMMENDED COUMADIN/WARFARIN INR THERAPY RANGESSTANDARD DOSE: 2.0 - 3.0 Includes: PROPHYLAXIS for venous thrombosis, systemic embolization; TREATMENT for venous thrombosis and/or pulmonary embolus.HIGH RISK: Target INR is 2.5-3.5 for patients with mechanical heart valves.While on warfarin.CBC W/PLT COUNT & AUTO [id number] 06:33:00 Test Item Value Reference Range Interpretation Comments WHITE BLOOD CELL COUNT (BEAKER) 5.9 K/ L 3.5-10.5 (test code = 775) RED BLOOD CELL COUNT (BEAKER) 4.18 M/ L 4.63-6.08 L (test code = 761) HEMOGLOBIN (BEAKER) (test code = 11.7 GM/DL 13.7-17.5 L 410) HEMATOCRIT (BEAKER) (test code = 37.3 % 40.1-51.0 L 411) MEAN CORPUSCULAR VOLUME (BEAKER) 89.2 fL 79.0-92.2 (test code = 753) MEAN CORPUSCULAR HEMOGLOBIN 28.0 pg 25.7-32.2 (BEAKER) (test code = 751) MEAN CORPUSCULAR HEMOGLOBIN CONC 31.4 GM/DL 32.3-36.5 L (BEAKER) (test code = 752) RED CELL DISTRIBUTION WIDTH 14.9 % 11.6-14.4 H (BEAKER) (test code = 412) PLATELET COUNT (BEAKER) (test 387 K/CU MM 150-450 code = 756) MEAN PLATELET VOLUME (BEAKER) 9.8 fL 9.4-12.4 (test code = 754) NUCLEATED RED BLOOD CELLS 0 /100 WBC 0-0 (BEAKER) (test code = 413) NEUTROPHILS RELATIVE PERCENT 64 % (BEAKER) (test code = 429) LYMPHOCYTES RELATIVE PERCENT 15 % (BEAKER) (test code = 430) MONOCYTES RELATIVE PERCENT 14 % (BEAKER) (test code = 431) EOSINOPHILS RELATIVE PERCENT 5 % (BEAKER) (test code = 432) BASOPHILS RELATIVE PERCENT 1 % (BEAKER) (test code = 437) NEUTROPHILS ABSOLUTE COUNT 3.78 K/ L 1.78-5.38 (BEAKER) (test code = 670) LYMPHOCYTES ABSOLUTE COUNT 0.87 K/ L 1.32-3.57 L (BEAKER) (test code = 414) MONOCYTES ABSOLUTE COUNT (BEAKER) 0.82 K/ L 0.30-0.82 (test code = 415) EOSINOPHILS ABSOLUTE COUNT 0.31 K/ L 0.04-0.54 (BEAKER) (test code = 416) BASOPHILS ABSOLUTE COUNT ([facility]) 0.04 K/ L 0.01-0.08 (test code = 417) IMMATURE GRANULOCYTES-RELATIVE 1 % 0-1 PERCENT ([facility]) (test code = 2801) POCT-GLUCOSE [id number] 21:52:00 Test Item Value Reference Range Interpretation Comments POC-GLUCOSE METER 124 mg/dL 70-110 H TESTED AT [place] [address] ([facility]) (test code = [facility] 1538) [address] POCT-GLUCOSE [id number] 17:58:00 Test Item Value Reference Range Interpretation Comments POC-GLUCOSE METER 111 mg/dL 70-110 H TESTED AT [place] [address] ([facility]) (test code = [facility] 1538) [address] POCT-GLUCOSE [id number] 12:17:00 Test Item Value Reference Range Interpretation Comments POC-GLUCOSE METER 115 mg/dL 70-110 H TESTED AT [place] [address] ([facility]) (test code = [facility] 1538) [address] POCT-GLUCOSE [id number] 09:11:00 Test Item Value Reference Range Interpretation Comments POC-GLUCOSE METER 112 mg/dL 70-110 H TESTED AT [place] [address] ([facility]) (test code = [facility] 1538) [address] CREATINE KINASE (CK)2018-02-21 06:20:00 Test Item Value Reference Range Interpretation Comments CREATINE KINASE TOTAL ([facility]) (test 1509 U/L 29-200 H code = 380) PROTHROMBIN [id number] 05:55:00 Test Item Value Reference Range Interpretation Comments PROTIME ([facility]) (test code = 17.7 seconds 11.7-14.7 H 759) INR ([facility]) (test code = 370) 1.5 <=5.9 RECOMMENDED COUMADIN/WARFARIN INR THERAPY RANGESSTANDARD DOSE: 2.0 - 3.0 Includes: PROPHYLAXIS for venous thrombosis, systemic embolization; TREATMENT for venous thrombosis and/or pulmonary embolus.HIGH RISK: Target INR is 2.5-3.5 for patients with mechanical heart valves.While on warfarin.CBC W/PLT COUNT & AUTO [id number] 05:42:00 Test Item Value Reference Range Interpretation Comments WHITE BLOOD CELL COUNT (BEAKER) 7.5 K/ L 3.5-10.5 (test code = 775) RED BLOOD CELL COUNT (BEAKER) 4.16 M/ L 4.63-6.08 L (test code = 761) HEMOGLOBIN (BEAKER) (test code = 11.6 GM/DL 13.7-17.5 L 410) HEMATOCRIT (BEAKER) (test code = 36.8 % 40.1-51.0 L 411) MEAN CORPUSCULAR VOLUME (BEAKER) 88.5 fL 79.0-92.2 (test code = 753) MEAN CORPUSCULAR HEMOGLOBIN 27.9 pg 25.7-32.2 (BEAKER) (test code = 751) MEAN CORPUSCULAR HEMOGLOBIN CONC 31.5 GM/DL 32.3-36.5 L (BEAKER) (test code = 752) RED CELL DISTRIBUTION WIDTH 15.1 % 11.6-14.4 H (BEAKER) (test code = 412) PLATELET COUNT (BEAKER) (test 388 K/CU MM 150-450 code = 756) MEAN PLATELET VOLUME (BEAKER) 9.4 fL 9.4-12.4 (test code = 754) NUCLEATED RED BLOOD CELLS 0 /100 WBC 0-0 (BEAKER) (test code = 413) NEUTROPHILS RELATIVE PERCENT 67 % (BEAKER) (test code = 429) LYMPHOCYTES RELATIVE PERCENT 12 % (BEAKER) (test code = 430) MONOCYTES RELATIVE PERCENT 14 % (BEAKER) (test code = 431) EOSINOPHILS RELATIVE PERCENT 4 % (BEAKER) (test code = 432) BASOPHILS RELATIVE PERCENT 1 % (BEAKER) (test code = 437) NEUTROPHILS ABSOLUTE COUNT 5.00 K/ L 1.78-5.38 (BEAKER) (test code = 670) LYMPHOCYTES ABSOLUTE COUNT 0.90 K/ L 1.32-3.57 L (BEAKER) (test code = 414) MONOCYTES ABSOLUTE COUNT (BEAKER) 1.07 K/ L 0.30-0.82 H (test code = 415) EOSINOPHILS ABSOLUTE COUNT 0.33 K/ L 0.04-0.54 (BEAKER) (test code = 416) BASOPHILS ABSOLUTE COUNT (BEAKER) 0.05 K/ L 0.01-0.08 (test code = 417) IMMATURE GRANULOCYTES-RELATIVE 2 % 0-1 H PERCENT ([facility]) (test code = 2801) POCT-GLUCOSE [id number] 21:06:00 Test Item Value Reference Range Interpretation Comments POC-GLUCOSE METER 153 mg/dL 70-[address] [facility] 67 ([facility]) (test code = [facility] 1538) [address] POCT-GLUCOSE [id number] 12:35:00 Test Item Value Reference Range Interpretation Comments POC-GLUCOSE METER 99 mg/dL 70-110 TESTED AT [place] [address] ([facility]) (test code = [facility] [address] 1538) POCT-GLUCOSE [id number] 08:20:00 Test Item Value Reference Range Interpretation Comments POC-GLUCOSE METER 92 mg/dL 70-110 TESTED AT [place] [address] ([facility]) (test code = [facility] [address] 1538) T4, [id number] 07:10:00 Test Item Value Reference Range Interpretation Comments FREE T4 ([facility]) (test code = 655) 0.97 ng/dL 0.70-1.48 TSH/FREE T4 IF [id number] 06:18:00 Test Item Value Reference Range Interpretation Comments THYROID STIMULATING HORMONE 20.29 uIU/mL 0.35-4.94 H ([facility]) (test code = 772) BASIC METABOLIC [id number] 05:55:00 Test Item Value Reference Range Interpretation Comments SODIUM (BEAKER) 133 meq/L 136-145 L (test code = 381) POTASSIUM (BEAKER) 4.6 meq/L 3.5-5.1 (test code = 379) CHLORIDE (BEAKER) 101 meq/L 98-107 (test code = 382) CO2 (BEAKER) (test 26 meq/L 22-29 code = 355) BLOOD UREA NITROGEN 20 mg/dL 7-21 (BEAKER) (test code = 354) CREATININE (BEAKER) 0.99 mg/dL 0.57-1.25 (test code = 358) GLUCOSE RANDOM 99 mg/dL 70-105 (AKER) (test code = 652) CALCIUM (BEAKER) 9.2 mg/dL 8.4-10.2 (test code = 697) EGFR (BEAKER) (test 77 mL/min/1.73 ESTIMA TORRES GFR IS code = 1092) sq m NOT ACCURATE CREATININE CLEARANCE IN PREDICTING GLOMERULAR FILTRATION RATE . ESTIMATED GFR I S NOT APPLICABLE FOR DIALYSIS PATIEN TS. CREATINE KINASE (CK)2018-02-20 05:55:00 Test Item Value Reference Range Interpretation Comments CREATINE KINASE TOTAL (BEAKER) (test 1481 U/L 29-200 H code = 380) PROTHROMBIN [id number] 05:36:00 Test Item Value Reference Range Interpretation Comments PROTIME (BEAKER) (test code = 16.0 seconds 11.7-14.7 H 759) INR (BEAKER) (test code = 370) 1.3 <=5.9 RECOMMENDED COUMADIN/WARFARIN INR THERAPY RANGESSTANDARD DOSE: 2.0 - 3.0 Includes: PROPHYLAXIS for venous thrombosis, systemic embolization; TREATMENT for venous thrombosis and/or pulmonary embolus.HIGH RISK: Target INR is 2.5-3.5 for patients with mechanical heart valves.While on warfarin.CBC W/PLT COUNT & AUTO [id number] 05:19:00 Test Item Value Reference Range Interpretation Comments WHITE BLOOD CELL COUNT (BEAKER) 6.8 K/ L 3.5-10.5 (test code = 775) RED BLOOD CELL COUNT (BEAKER) 4.20 M/ L 4.63-6.08 L (test code = 761) HEMOGLOBIN (BEAKER) (test code = 11.6 GM/DL 13.7-17.5 L 410) HEMATOCRIT (BEAKER) (test code = 37.3 % 40.1-51.0 L 411) MEAN CORPUSCULAR VOLUME (BEAKER) 88.8 fL 79.0-92.2 (test code = 753) MEAN CORPUSCULAR HEMOGLOBIN 27.6 pg 25.7-32.2 (BEAKER) (test code = 751) MEAN CORPUSCULAR HEMOGLOBIN CONC 31.1 GM/DL 32.3-36.5 L (BEAKER) (test code = 752) RED CELL DISTRIBUTION WIDTH 15.2 % 11.6-14.4 H (BEAKER) (test code = 412) PLATELET COUNT (BEAKER) (test 385 K/CU MM 150-450 code = 756) MEAN PLATELET VOLUME (BEAKER) 9.4 fL 9.4-12.4 (test code = 754) NUCLEATED RED BLOOD CELLS 0 /100 WBC 0-0 (BEAKER) (test code = 413) NEUTROPHILS RELATIVE PERCENT 66 % (BEAKER) (test code = 429) LYMPHOCYTES RELATIVE PERCENT 14 % (BEAKER) (test code = 430) MONOCYTES RELATIVE PERCENT 12 % (BEAKER) (test code = 431) EOSINOPHILS RELATIVE PERCENT 5 % (BEAKER) (test code = 432) BASOPHILS RELATIVE PERCENT 1 % (BEAKER) (test code = 437) NEUTROPHILS ABSOLUTE COUNT 4.49 K/ L 1.78-5.38 (BEAKER) (test code = 670) LYMPHOCYTES ABSOLUTE COUNT 0.92 K/ L 1.32-3.57 L (BEAKER) (test code = 414) MONOCYTES ABSOLUTE COUNT (BEAKER) 0.81 K/ L 0.30-0.82 (test code = 415) EOSINOPHILS ABSOLUTE COUNT 0.33 K/ L 0.04-0.54 (BEAKER) (test code = 416) BASOPHILS ABSOLUTE COUNT (BEAKER) 0.04 K/ L 0.01-0.08 (test code = 417) IMMATURE GRANULOCYTES-RELATIVE 3 % 0-1 H PERCENT (BEAKER) (test code = 2801) POCT-GLUCOSE [id number] 21:57:00 Test Item Value Reference Range Interpretation Comments POC-GLUCOSE METER 115 mg/dL 70-110 H TESTED AT [place] [address] ([facility]) (test code = [facility] 1538) [id number] POCT-GLUCOSE [id number] 18:03:00 Test Item Value Reference Range Interpretation Comments POC-GLUCOSE METER 138 mg/dL 70-110 H TESTED AT [place] [address] ([facility]) (test code = [facility] 1538) [address] PROTEIN ELECTROPHORESIS, [id number] 17:26:00 Test Item Value Reference Range Interpretation Comments ALBUMIN FRACTION 2.2 g/dL 3.5-5.5 L (BEAKER) (test code = 405) ALPHA 1 FRACTION 0.5 g/dL 0.2-0.4 H (BEAKER) (test code = 389) ALPHA 2 FRACTION 1.1 g/dL 0.5-0.9 H (BEAKER) (test code = 390) BETA FRACTION 1.2 g/dL 0.6-1.1 H (BEAKER) (test code = 392) GAMMA GLOBULIN 1.2 g/dL 0.7-1.7 FRACTION (BEAKER) (test code = 391) INTERPRETATION-119 Pattern consistent with (BEAKER) (test code = acute inflammation as 2615) well as renal protein loss. No monoclonal bands detected. [id number] Yumiko Wagner MD (BEAKER) (test code = (electronic signature) 261) PROTEIN TOTAL SERUM, 6.1 gm/dL 6.0-8.3 SPEP (BEAKER) (test code = 8640) [id number] 14:35:00 Test Item Value Reference Range Interpretation Comments PARTIAL THROMBOPLASTIN TIME 33.7 seconds 22.5-36.0 (BEAKER) (test code = 760) PROTHROMBIN [id number] 14:34:00 Test Item Value Reference Range Interpretation Comments PROTIME (BEAKER) (test code = 16.1 seconds 11.7-14.7 H 759) INR (BEAKER) (test code = 370) 1.3 <=5.9 RECOMMENDED COUMADIN/WARFARIN INR THERAPY RANGESSTANDARD DOSE: 2.0 - 3.0 Includes: PROPHYLAXIS for venous thrombosis, systemic embolization; TREATMENT for venous thrombosis and/or pulmonary embolus.HIGH RISK: Target INR is 2.5-3.5 for patients with mechanical heart valves.POCT-GLUCOSE [id number] 13:04:00 Test Item Value Reference Range Interpretation Comments POC-GLUCOSE METER 111 mg/dL 70-[address] [facility] 67 ([facility]) (test code = [facility] 1538) [address] POCT-GLUCOSE [id number] 08:53:00 Test Item Value Reference Range Interpretation Comments POC-GLUCOSE METER 98 mg/dL 70-110 TESTED AT [place] [id number] ([facility]) (test code = [facility] [address] 1538) CREATINE KINASE (CK)2018-02-19 03:18:00 Test Item Value Reference Range Interpretation Comments CREATINE KINASE TOTAL (BEAKER) (test 1587 U/L 29-200 H code = 380) PROTHROMBIN [id number] 03:17:00 Test Item Value Reference Range Interpretation Comments PROTIME (BEAKER) (test code = 17.2 seconds 11.7-14.7 H 759) INR (BEAKER) (test code = 370) 1.4 <=5.9 RECOMMENDED COUMADIN/WARFARIN INR THERAPY RANGESSTANDARD DOSE: 2.0 - 3.0 Includes: PROPHYLAXIS for venous thrombosis, systemic embolization; TREATMENT for venous thrombosis and/or pulmonary embolus.HIGH RISK: Target INR is 2.5-3.5 for patients with mechanical heart valves.While on warfarin.CBC W/PLT COUNT & AUTO [id number] 02:48:00 Test Item Value Reference Range Interpretation Comments WHITE BLOOD CELL COUNT (BEAKER) 8.2 K/ L 3.5-10.5 (test code = 775) RED BLOOD CELL COUNT (BEAKER) 4.37 M/ L 4.63-6.08 L (test code = 761) HEMOGLOBIN (BEAKER) (test code = 12.1 GM/DL 13.7-17.5 L 410) HEMATOCRIT (BEAKER) (test code = 38.8 % 40.1-51.0 L 411) MEAN CORPUSCULAR VOLUME (BEAKER) 88.8 fL 79.0-92.2 (test code = 753) MEAN CORPUSCULAR HEMOGLOBIN 27.7 pg 25.7-32.2 (BEAKER) (test code = 751) MEAN CORPUSCULAR HEMOGLOBIN CONC 31.2 GM/DL 32.3-36.5 L (BEAKER) (test code = 752) RED CELL DISTRIBUTION WIDTH 15.2 % 11.6-14.4 H (BEAKER) (test code = 412) PLATELET COUNT (BEAKER) (test 395 K/CU MM 150-450 code = 756) MEAN PLATELET VOLUME (BEAKER) 9.3 fL 9.4-12.4 L (test code = 754) NUCLEATED RED BLOOD CELLS 0 /100 WBC 0-0 (BEAKER) (test code = 413) NEUTROPHILS RELATIVE PERCENT 67 % (BEAKER) (test code = 429) LYMPHOCYTES RELATIVE PERCENT 13 % (BEAKER) (test code = 430) MONOCYTES RELATIVE PERCENT 12 % (BEAKER) (test code = 431) EOSINOPHILS RELATIVE PERCENT 5 % (BEAKER) (test code = 432) BASOPHILS RELATIVE PERCENT 1 % (BEAKER) (test code = 437) NEUTROPHILS ABSOLUTE COUNT 5.53 K/ L 1.78-5.38 H (BEAKER) (test code = 670) LYMPHOCYTES ABSOLUTE COUNT 1.03 K/ L 1.32-3.57 L ([facility]) (test code = 414) MONOCYTES ABSOLUTE COUNT ([facility]) 1.00 K/ L 0.30-0.82 H (test code = 415) EOSINOPHILS ABSOLUTE COUNT 0.37 K/ L 0.04-0.54 ([facility]) (test code = 416) BASOPHILS ABSOLUTE COUNT ([facility]) 0.04 K/ L 0.01-0.08 (test code = 417) IMMATURE GRANULOCYTES-RELATIVE 3 % 0-1 H PERCENT ([facility]) (test code = 2801) POCT-GLUCOSE [id number] 23:49:00 Test Item Value Reference Range Interpretation Comments POC-GLUCOSE METER 161 mg/dL 70-110 H TESTED AT [place] [address] ([facility]) (test code = [facility] 1538) [id number] POCT-GLUCOSE [id number] 16:11:00 Test Item Value Reference Range Interpretation Comments POC-GLUCOSE METER 124 mg/dL 70-110 H TESTED AT [place] [address] ([facility]) (test code = [facility] 1538) [id number] POCT-GLUCOSE [id number] 12:21:00 Test Item Value Reference Range Interpretation Comments POC-GLUCOSE METER 145 mg/dL 70-110 H TESTED AT [place] [address] ([facility]) (test code = [facility] 1538) [id number] POCT-GLUCOSE [id number] 08:06:00 Test Item Value Reference Range Interpretation Comments POC-GLUCOSE METER 98 mg/dL 70-110 TESTED AT [place] [address] ([facility]) (test code = [facility] [address] 1538) PROTHROMBIN [id number] 03:22:00 Test Item Value Reference Range Interpretation Comments PROTIME ([facility]) (test code = 15.8 seconds 11.7-14.7 H 759) INR ([facility]) (test code = 370) 1.3 <=5.9 RECOMMENDED COUMADIN/WARFARIN INR THERAPY RANGESSTANDARD DOSE: 2.0 - 3.0 Includes: PROPHYLAXIS for venous thrombosis, systemic embolization; TREATMENT for venous thrombosis and/or pulmonary embolus.HIGH RISK: Target INR is 2.5-3.5 for patients with mechanical heart valves.While on warfarin.CREATINE KINASE (CK) 2018-02-18 03:11:00 Test Item Value Reference Range Interpretation Comments CREATINE KINASE TOTAL (BEAKER) (test 1703 U/L 29-200 H code = 380) CBC W/PLT COUNT & AUTO [id number] 02:56:00 Test Item Value Reference Range Interpretation Comments WHITE BLOOD CELL COUNT (BEAKER) 10.2 K/ L 3.5-10.5 (test code = 775) RED BLOOD CELL COUNT (BEAKER) 4.22 M/ L 4.63-6.08 L (test code = 761) HEMOGLOBIN (BEAKER) (test code = 11.7 GM/DL 13.7-17.5 L 410) HEMATOCRIT (BEAKER) (test code = 37.4 % 40.1-51.0 L 411) MEAN CORPUSCULAR VOLUME (BEAKER) 88.6 fL 79.0-92.2 (test code = 753) MEAN CORPUSCULAR HEMOGLOBIN 27.7 pg 25.7-32.2 (BEAKER) (test code = 751) MEAN CORPUSCULAR HEMOGLOBIN CONC 31.3 GM/DL 32.3-36.5 L (BEAKER) (test code = 752) RED CELL DISTRIBUTION WIDTH 15.2 % 11.6-14.4 H (BEAKER) (test code = 412) PLATELET COUNT (BEAKER) (test 414 K/CU MM 150-450 code = 756) MEAN PLATELET VOLUME (BEAKER) 9.5 fL 9.4-12.4 (test code = 754) NUCLEATED RED BLOOD CELLS 0 /100 WBC 0-0 (BEAKER) (test code = 413) NEUTROPHILS RELATIVE PERCENT 68 % (BEAKER) (test code = 429) LYMPHOCYTES RELATIVE PERCENT 13 % (BEAKER) (test code = 430) MONOCYTES RELATIVE PERCENT 10 % (BEAKER) (test code = 431) EOSINOPHILS RELATIVE PERCENT 4 % (BEAKER) (test code = 432) BASOPHILS RELATIVE PERCENT 1 % (BEAKER) (test code = 437) NEUTROPHILS ABSOLUTE COUNT 6.88 K/ L 1.78-5.38 H (BEAKER) (test code = 670) LYMPHOCYTES ABSOLUTE COUNT 1.27 K/ L 1.32-3.57 L (BEAKER) (test code = 414) MONOCYTES ABSOLUTE COUNT (BEAKER) 1.06 K/ L 0.30-0.82 H (test code = 415) EOSINOPHILS ABSOLUTE COUNT 0.39 K/ L 0.04-0.54 (BEAKER) (test code = 416) BASOPHILS ABSOLUTE COUNT (BEAKER) 0.06 K/ L 0.01-0.08 (test code = 417) IMMATURE GRANULOCYTES-RELATIVE 5 % 0-1 H PERCENT (BEAKER) (test code = 2801) POCT-GLUCOSE [id number] 20:48:00 Test Item Value Reference Range Interpretation Comments POC-GLUCOSE METER 148 mg/dL 70-110 H TESTED AT [place] [address] ([facility]) (test code = [facility] 1538) [address] POCT-GLUCOSE [id number] 16:47:00 Test Item Value Reference Range Interpretation Comments POC-GLUCOSE METER 106 mg/dL 70-110 TESTED AT [place] [address] ([facility]) (test code = [facility] 1538) [id number] CBC W/PLT COUNT & AUTO [id number] 12:51:00 Test Item Value Reference Range Interpretation Comments WHITE BLOOD CELL COUNT (BEAKER) 9.8 K/ L 3.5-10.5 (test code = 775) RED BLOOD CELL COUNT (BEAKER) 4.35 M/ L 4.63-6.08 L (test code = 761) HEMOGLOBIN (BEAKER) (test code = 12.0 GM/DL 13.7-17.5 L 410) HEMATOCRIT (BEAKER) (test code = 38.8 % 40.1-51.0 L 411) MEAN CORPUSCULAR VOLUME (BEAKER) 89.2 fL 79.0-92.2 (test code = 753) MEAN CORPUSCULAR HEMOGLOBIN 27.6 pg 25.7-32.2 (BEAKER) (test code = 751) MEAN CORPUSCULAR HEMOGLOBIN CONC 30.9 GM/DL 32.3-36.5 L (BEAKER) (test code = 752) RED CELL DISTRIBUTION WIDTH 15.2 % 11.6-14.4 H (BEAKER) (test code = 412) PLATELET COUNT (BEAKER) (test 422 K/CU MM 150-450 code = 756) MEAN PLATELET VOLUME (BEAKER) 9.8 fL 9.4-12.4 (test code = 754) NUCLEATED RED BLOOD CELLS 0 /100 WBC 0-0 (BEAKER) (test code = 413) (CELLAVISION MANUAL DIFF)2018-02-17 12:51:00 Test Item Value Reference Range Interpretation Comments NEUTROPHILS - REL 71 % (CELLAVISION)(BEAKER) (test code = 2816) LYMPHOCYTES - REL 13 % (CELLAVISION)(BEAKER) (test code = 2817) MONOCYTES - REL 4 % (CELLAVISION)(BEAKER) (test code = 2818) EOSINOPHILS - REL 3 % (CELLAVISION)(BEAKER) (test code = 2819) METAMYELOCYTES - REL 2 % 0-0 H (CELLAVISION)(BEAKER) (test code = 2821) MYELOCYTES - REL 1 % 0-0 H (CELLAVISION)(BEAKER) (test code = 2822) BANDS - REL (CELLAVISION)(BEAKER) 5 % 0-10 (test code = 2826) ATYPICAL LYMPHOCYTES - REL 1 % 0-0 H (CELLAVISION)(BEAKER) (test code = 2829) NEUTROPHILS - ABS 6.96 K/ul 1.78-5.38 H (CELLAVISION)(BEAKER) (test code = 2830) LYMPHOCYTES - ABS 1.27 K/ul 1.32-3.57 L (CELLAVISION)(BEAKER) (test code = 2831) MONOCYTES - ABS 0.39 K/uL 0.30-0.82 (CELLAVISION)(BEAKER) (test code = 2832) EOSINOPHILS - ABS 0.29 K/uL 0.04-0.54 (CELLAVISION)(BEAKER) (test code = 2834) METAMYELOCYTES - ABS 0.20 K/uL 0.00-0.00 H (CELLAVISION)(BEAKER) (test code = 2836) MYELOCYTES-ABS 0.10 K/uL 0.00-0.00 H (CELLAVISION)(BEAKER) (test code = 2837) BANDS - ABS (CELLAVISION)(BEAKER) 0.49 K/uL 0.00-0.80 (test code = 2840) ATYPICAL LYMPHOCYTES - ABS 0.10 K/uL 0.00-0.00 H (CELLAVISION)(BEAKER) (test code = 2858) TOTAL COUNTED (BEAKER) (test code = 100 1351) SMUDGE CELLS (BEAKER) (test code = Present 1371) GIANT PLATELETS (BEAKER) (test code Present = 313) POLYCHROMATOPHILLIC RBCS(BEAKER) 1+ few (test code = 478) ANISOCYTOSIS (BEAKER) (test code = 1+ few 961) MICROCYTES (BEAKER) (test code = 1+ few 965) PLATELET CONCENTRATION Adequate (CELLAVISION)(BEAKER) (test code = 3438) Received comment: User comments: Slide comments:POCT-GLUCOSE [id number] 12:34:00 Test Item Value Reference Range Interpretation Comments POC-GLUCOSE METER 114 mg/dL 70-[address] [facility] 67 (BEAKER) (test code = [facility] Rad[facility] 1538) [address] SURGICALLY OBTAINED CULTURE + GRAM [id number] 08:07:00 Test Item Value Reference Range Interpretation Comments CULTURE (BEAKER) (test code No growth = 1095) GRAM STAIN RESULT (BEAKER) No WBCs (test code = 1123) GRAM STAIN RESULT (BEAKER) No organisms seen (test code = 77569) POCT-GLUCOSE [id number] 07:35:00 Test Item Value Reference Range Interpretation Comments POC-GLUCOSE METER 108 mg/dL 70-110 TESTED AT [place] [address] (BEAKER) (test code = [facility] Rad[facility] 1538) [address] BASIC METABOLIC [id number] 07:06:00 Test Item Value Reference Range Interpretation Comments SODIUM (BEAKER) 132 meq/L 136-145 L (test code = 381) POTASSIUM (BEAKER) 4.9 meq/L 3.5-5.1 (test code = 379) CHLORIDE (BEAKER) 101 meq/L 98-107 (test code = 382) CO2 (BEAKER) (test 22 meq/L 22-29 code = 355) BLOOD UREA NITROGEN 17 mg/dL 7-21 (BEAKER) (test code = 354) CREATININE (BEAKER) 1.02 mg/dL 0.57-1.25 (test code = 358) GLUCOSE RANDOM 97 mg/dL 70-105 (BEAKER) (test code = 652) CALCIUM (BEAKER) 9.7 mg/dL 8.4-10.2 (test code = 697) EGFR (NELL) (test 75 mL/min/1.73 ESTIMA TORRES GFR IS code = 1092) sq m NOT ACCURATE CREATININE CLEARANCE IN PREDICTING GLOMERULAR FILTRATION RATE . ESTIMATED GFR I S NOT APPLICABLE FOR DIALYSIS PATIEN TS. CREATINE KINASE (CK)2018-02-17 07:06:00 Test Item Value Reference Range Interpretation Comments CREATINE KINASE TOTAL (NELL) (test 1855 U/L 29-200 H code = 380) PROTHROMBIN [id number] 06:47:00 Test Item Value Reference Range Interpretation Comments PROTIME (NELL) (test code = 15.7 seconds 11.7-14.7 H 759) INR (NELL) (test code = 370) 1.3 <=5.9 RECOMMENDED COUMADIN/WARFARIN INR THERAPY RANGESSTANDARD DOSE: 2.0 - 3.0 Includes: PROPHYLAXIS for venous thrombosis, systemic embolization; TREATMENT for venous thrombosis and/or pulmonary embolus.HIGH RISK: Target INR is 2.5-3.5 for patients with mechanical heart valves.While on warfarin.POCT-GLUCOSE METER 2018-02-16 21:29:00 Test Item Value Reference Range Interpretation Comments POC-GLUCOSE METER 124 mg/dL 70-[address] [facility] 67 [facility] (test code = MIMIRAMAN Garcia [place] [address]) [address] NEEDLE EMG, 2 [id number] 19:19:00Reason for exam:->muscle weakness and numbness in RLE. Myopathy vs vasculitisShould this be performed at the bedside?->YesBaylor [facility] HospitalNeurophysiology DepartmentELECTROMYOGRAPHY/NERVE CONDUCTION STUDY [facility]ST[facility] [address] [place] [address] Name: Og Kilpatrick : Date of : 1960 Gender: Male Date of Exam: 02/16/2018 6:18 PMReferring Physician: Dr. Brannon SharpExamining Physician: Dr. Alicia Kimble Patient History: Patient presents with a 2 week history of sudden onset of numbness in the right leg that then progressed to weakness of the foot and leg over the next day or so, accompanied by progressive swelling, erythema, bruising and blistering of right matos and inner thigh on right side. He endorses some improvement in foot strength. Exam showsno strength with right dorsiflexion/eversion/inversion and toe flexion/extension, moderate weakness in plantar flexion, knee extension and hipflexion, good strength in knee flexion; normal findings in upper and left lower limbs. This study was done to evaluate for myopathy (had elevated CK), right lumbosacral plexopathy or mononeuropathyTemperature: 29 CMotor Nerve Conduction:Nerve and Site Latency Am plitude Segment LatencyDifference Distance ConductionVelocityMedian.RWrist 4.2 ms 10.1 mV Abductor pollicis brevis-Wrist 4.2 ms Elbow 9.3 ms 8.4 mV Wrist-Elbow 5.1 ms 260 mm 51 m/sUlnar.RWrist 3.0 ms 14.5 mV Abductor digiti minimi (manus)- Wrist 3.0 ms Below elbow 7.8 ms 13.0 mV Wrist-Below elbow 4.8 ms 250 mm 52 m/sAbove elbow 10.2 ms 13.0 mV Below elbow-Above elbow 2.4 ms 110 mm 46 m/sTibial.R *Edema and thick scaly skinAnkle NR NR Abductor hallucis-Ankle Popliteal fossa NR NR Ankle-Popliteal fossaPeroneal.R *Edema and thick scaly skinAnkle NR NR Extensor digitorum brevis-Ankle Fibula (head) NR NR Ankle-Fibula (head) Tibial.LAnkle 6.3 ms 6.1 mV Abductor hallucis-Ankle Popliteal fossa TI TI Ankle-Popliteal fossa * Technically limited by body habitusPeroneal.R *Thick scaly skinAnkle NR NR Extensor digitorum brevis-Ankle Fibula (head) NR NR Ankle- Fibula (head) Peroneal.LFibula 1.8 ms 3.0 mV Tibialis anterior-Fibula Knee 4.5 ms 3.4 mV Fibula-Knee 2.7 ms 100 mm 37 m/sF-Wave StudiesNerve M-Latency F- LatencyMedian.R 9.3 28.3Ulnar.R 10.2 33.0Tibial.L 7.7 55.0Sensory Nerve Conduction:Nerve and Site Onset Latency PeakLatency Amplitude Segment LatencyDifference Distance ConductionVelocityMedian.RWrist2.8 ms 4.1 ms *3.3 corrected for temp 37 繝V Digit II (index finger)-Wrist 2.8 ms 130 mm 46 m/sUlnar.RWrist 2.7 ms 4.0 ms *3.2 corrected for temp 15 ⻖V Digit V (little finger)-Wrist 2.7 ms 110 mm 41 m/sRadial.RForearm 1.7 ms 2.8 ms 34 𗀻V Anatomical snuff box-Forearm 1.7ms 100 mm 36 m/sSural.R *Edema and thick scaly skinLower leg NR NR NR Ankle-Lower leg 140 mm Sural.L*Edema and thick scaly skinLower leg NR NR NR Ankle-Lower leg 140 mm Needle EMG Examination: Insertional Spontaneous Activity Volitional MUAPsMuscle Insertional Fibs +Wave Fasc Duration Amplitude Poly Recruitment Gastrocnemius (Medial head).R Increased 1+ 2+ None Normal Normal None Normal Vastus medialis.R Increased 2+ 2+ None - - - No units Vastus lateralis.R Normal None None None Normal Normal NoneNormal Tibialis posterior.R CRD 2+ 2+ None - - - No units Extensor hallucis longus.R Normal None None None - - - No units Gluteus Medius.R Normal None None None Normal Normal None Normal Tibialis anterior.L Normal None None None Normal Normal None Normal Gastrocnemius (Medial head).L Normal None None None Normal Normal [...] stimulation was normal, but proximal stimulation limited bybody habitus. The left peroneal at TA showed normal findings except mild velocity slowing. The righttibial and both peroneal at EDB's studies showed no responses, but noted severe thick skin changes bi laterally and edema on the right. F-wave latencies of the right median, ulnar and left tibial nerveswere normal.3. Electromyography of the right upper and both lower limbs was done using a disposable concentric needle. There was abnormal spontaneous activity in the right gastrocnemius, vastus medialis, and tibialis posterior. There were no units recruited in right EHL, tibialis posterior and vastus medialis. The remainder of the muscles tested showed normal findings. Limitations:- Severe edema in right lower limb and thickened skin in both feet limited studies of sural, right tibial and peroneal nerves [...] plexopathy, or focal muscle necrosis (though the latterdoes not explain clinical sensory deficits). There is no electrophysiologic evidence of generalized myopathy. A large-fiber peripheral polyneuropathy could not be properly evaluated given limitations in conductions but no findings in the upper limb. Alicia Kimble M.D. POCT-GLUCOSE [id number] 17:14:00 Test Item Value Reference Range Interpretation Comments POC-GLUCOSE METER 115 mg/dL 70-[address] [facility] 6720 ([facility]) (test code = [place] 1538) [id number] POCT-GLUCOSE [id number] 12:59:00 Test Item Value Reference Range Interpretation Comments POC-GLUCOSE METER 100 mg/dL 70-[address] [facility] 6720 (BEAKER) (test code = [place] 1538) [address] CBC W/PLT COUNT & AUTO [id number] 11:12:00 Test Item Value Reference Range Interpretation Comments WHITE BLOOD CELL COUNT (BEAKER) 11.4 K/ L 3.5-10.5 H (test code = 775) RED BLOOD CELL COUNT (BEAKER) 4.34 M/ L 4.63-6.08 L (test code = 761) HEMOGLOBIN (BEAKER) (test code = 12.0 GM/DL 13.7-17.5 L 410) HEMATOCRIT (BEAKER) (test code = 39.2 % 40.1-51.0 L 411) MEAN CORPUSCULAR VOLUME (BEAKER) 90.3 fL 79.0-92.2 (test code = 753) MEAN CORPUSCULAR HEMOGLOBIN 27.6 pg 25.7-32.2 (BEAKER) (test code = 751) MEAN CORPUSCULAR HEMOGLOBIN CONC 30.6 GM/DL 32.3-36.5 L (BEAKER) (test code = 752) RED CELL DISTRIBUTION WIDTH 15.4 % 11.6-14.4 H (BEAKER) (test code = 412) PLATELET COUNT (BEAKER) (test 368 K/CU MM 150-450 code = 756) MEAN PLATELET VOLUME (BEAKER) 9.8 fL 9.4-12.4 (test code = 754) NUCLEATED RED BLOOD CELLS 0 /100 WBC 0-0 (BEAKER) (test code = 413) (CELLAVISION MANUAL DIFF)2018-02-16 11:12:00 Test Item Value Reference Range Interpretation Comments NEUTROPHILS - REL 68 % (CELLAVISION)(BEAKER) (test code = 2816) LYMPHOCYTES - REL 14 % (CELLAVISION)(BEAKER) (test code = 2817) MONOCYTES - REL 7 % (CELLAVISION)(BEAKER) (test code = 2818) EOSINOPHILS - REL 3 % (CELLAVISION)(BEAKER) (test code = 2819) METAMYELOCYTES - REL 2 % 0-0 H (CELLAVISION)(BEAKER) (test code = 2821) MYELOCYTES - REL 3 % 0-0 H (CELLAVISION)(BEAKER) (test code = 2822) BANDS - REL (CELLAVISION)(BEAKER) 3 % 0-10 (test code = 2826) NEUTROPHILS - ABS 7.75 K/ul 1.78-5.38 H (CELLAVISION)(BEAKER) (test code = 2830) LYMPHOCYTES - ABS 1.60 K/ul 1.32-3.57 (CELLAVISION)(BEAKER) (test code = 2831) MONOCYTES - ABS 0.80 K/uL 0.30-0.82 (CELLAVISION)(BEAKER) (test code = 2832) EOSINOPHILS - ABS 0.34 K/uL 0.04-0.54 (CELLAVISION)(BEAKER) (test code = 2834) METAMYELOCYTES - ABS 0.23 K/uL 0.00-0.00 H (CELLAVISION)(BEAKER) (test code = 2836) MYELOCYTES-ABS 0.34 K/uL 0.00-0.00 H (CELLAVISION)(BEAKER) (test code = 2837) BANDS - ABS (CELLAVISION)(BEAKER) 0.34 K/uL 0.00-0.80 (test code = 2840) TOTAL COUNTED (BEAKER) (test code = 100 1351) WBC MORPHOLOGY (BEAKER) (test code Normal = 487) PLT MORPHOLOGY (BEAKER) (test code Normal = 486) POIKILOCYTES (BEAKER) (test code = 1+ few 966) SPHEROCYTES (BEAKER) (test code = 1+ few 768) ARTIFACT (CELLAVISION)(BEAKER) Present (test code = 3432) PLATELET CONCENTRATION Adequate (CELLAVISION)(BEAKER) (test code = 3438) Received comment: User comments: Slide comments:POCT-GLUCOSE [id number] 08:46:00 Test Item Value Reference Range Interpretation Comments POC-GLUCOSE METER 149 mg/dL 70-[address] [facility] 6720 (BEAKER) (test code = [place] 1538) [address] PROTHROMBIN [id number] 07:02:00 Test Item Value Reference Range Interpretation Comments PROTIME (BEAKER) (test code = 16.1 seconds 11.7-14.7 H 759) INR (BEAKER) (test code = 370) 1.3 <=5.9 RECOMMENDED COUMADIN/WARFARIN INR THERAPY RANGESSTANDARD DOSE: 2.0 - 3.0 Includes: PROPHYLAXIS for venous thrombosis, systemic embolization; TREATMENT for venous thrombosis and/or pulmonary embolus.HIGH RISK: Target INR is 2.5-3.5 for patients with mechanical heart valves.While on warfarin.BASIC METABOLIC [id number] 06:42:00 Test Item Value Reference Range Interpretation Comments SODIUM (BEAKER) 133 meq/L 136-145 L (test code = 381) POTASSIUM (BEAKER) 4.9 meq/L 3.5-5.1 (test code = 379) CHLORIDE (BEAKER) 100 meq/L 98-107 (test code = 382) CO2 (BEAKER) (test 25 meq/L 22-29 code = 355) BLOOD UREA NITROGEN 17 mg/dL 7-21 (BEAKER) (test code = 354) CREATININE (BEAKER) 1.11 mg/dL 0.57-1.25 (test code = 358) GLUCOSE RANDOM 97 mg/dL 70-105 (BEAKER) (test code = 652) CALCIUM (BEAKER) 9.7 mg/dL 8.4-10.2 (test code = 697) EGFR (BEAKER) (test 68 mL/min/1.73 ESTIMA TORRES GFR IS code = 1092) sq m NOT ACCURATE CREATININE CLEARANCE IN PREDICTING GLOMERULAR FILTRATION RATE . ESTIMATED GFR I S NOT APPLICABLE FOR DIALYSIS PATIEN TS. CREATINE KINASE (CK)2018-02-16 06:42:00 Test Item Value Reference Range Interpretation Comments CREATINE KINASE TOTAL (BEAKER) (test 2082 U/L 29-200 H code = 380) POCT-GLUCOSE [id number] 21:35:00 Test Item Value Reference Range Interpretation Comments POC-GLUCOSE METER 134 mg/dL 70-[address] [facility] 6720 (BEAKER) (test code = [place] [place] 1538) [address] CBC W/PLT COUNT & AUTO [id number] 12:57:00 Test Item Value Reference Range Interpretation Comments WHITE BLOOD CELL COUNT (BEAKER) 12.6 K/ L 3.5-10.5 H (test code = 775) RED BLOOD CELL COUNT (BEAKER) 4.26 M/ L 4.63-6.08 L (test code = 761) HEMOGLOBIN (BEAKER) (test code = 11.7 GM/DL 13.7-17.5 L 410) HEMATOCRIT (BEAKER) (test code = 37.6 % 40.1-51.0 L 411) MEAN CORPUSCULAR VOLUME (BEAKER) 88.3 fL 79.0-92.2 (test code = 753) MEAN CORPUSCULAR HEMOGLOBIN 27.5 pg 25.7-32.2 (BEAKER) (test code = 751) MEAN CORPUSCULAR HEMOGLOBIN CONC 31.1 GM/DL 32.3-36.5 L (BEAKER) (test code = 752) RED CELL DISTRIBUTION WIDTH 15.6 % 11.6-14.4 H (BEAKER) (test code = 412) PLATELET COUNT (BEAKER) (test 329 K/CU MM 150-450 code = 756) MEAN PLATELET VOLUME (BEAKER) 9.8 fL 9.4-12.4 (test code = 754) NUCLEATED RED BLOOD CELLS 0 /100 WBC 0-0 (BEAKER) (test code = 413) (CELLAVISION MANUAL DIFF)2018-02-15 12:57:00 Test Item Value Reference Range Interpretation Comments NEUTROPHILS - REL 68 % (CELLAVISION)(BEAKER) (test code = 2816) LYMPHOCYTES - REL 8 % (CELLAVISION)(BEAKER) (test code = 2817) MONOCYTES - REL 13 % (CELLAVISION)(BEAKER) (test code = 2818) EOSINOPHILS - REL 2 % (CELLAVISION)(BEAKER) (test code = 2819) METAMYELOCYTES - REL 3 % 0-0 H (CELLAVISION)(BEAKER) (test code = 2821) MYELOCYTES - REL 2 % 0-0 H (CELLAVISION)(BEAKER) (test code = 2822) BANDS - REL (CELLAVISION)(BEAKER) 2 % 0-10 (test code = 2826) ATYPICAL LYMPHOCYTES - REL 2 % 0-0 H (CELLAVISION)(BEAKER) (test code = 2829) NEUTROPHILS - ABS 8.57 K/ul 1.78-5.38 H (CELLAVISION)(BEAKER) (test code = 2830) LYMPHOCYTES - ABS 1.01 K/ul 1.32-3.57 L (CELLAVISION)(BEAKER) (test code = 2831) MONOCYTES - ABS 1.64 K/uL 0.30-0.82 H (CELLAVISION)(BEAKER) (test code = 2832) EOSINOPHILS - ABS 0.25 K/uL 0.04-0.54 (CELLAVISION)(BEAKER) (test code = 2834) METAMYELOCYTES - ABS 0.38 K/uL 0.00-0.00 H (CELLAVISION)(BEAKER) (test code = 2836) MYELOCYTES-ABS 0.25 K/uL 0.00-0.00 H (CELLAVISION)(BEAKER) (test code = 2837) BANDS - ABS (CELLAVISION)(BEAKER) 0.25 K/uL 0.00-0.80 (test code = 2840) ATYPICAL LYMPHOCYTES - ABS 0.25 K/uL 0.00-0.00 H (CELLAVISION)(BEAKER) (test code = 2858) TOTAL COUNTED (BEAKER) (test code = 100 1351) RBC MORPHOLOGY (BEAKER) (test code Normal = 762) SMUDGE CELLS (BEAKER) (test code = Present 1371) GIANT PLATELETS (BEAKER) (test code Present = 313) ARTIFACT (CELLAVISION)(BEAKER) Present (test code = 3432) PLATELET CONCENTRATION Adequate (CELLAVISION)(BEAKER) (test code = 3438) Received comment: User comments: Slide comments:U/S, EXTREMITY (NON-VASCULAR), RIGHT, [id number] 12:55:00Reason for exam:->R thigh, if any collection, concern for hematomaFINAL REPORT TECHNIQUE: Focused navarro scale ultrasound of the right thigh to assess for fluid collection. INDICATION: 57-year-old man with weakness of right lower extremity. COMPARISON: None. IMPRESSION:Edema in the soft tissues of the visualized right thigh. No fluid collection/hematoma. Signed: Angy Bautista MDReport Verified Date/Time: 02/15/2018 12:55:15 Reading Location: [facility] [id number] Ultrasound Reading Room TINE KINASE (CK)2018-02-15 08:12:00 Test Item Value Reference Range Interpretation Comments CREATINE KINASE TOTAL (BEAKER) (test 2222 U/L 29-200 H code = 380) BASIC METABOLIC [id number] 07:16:00 Test Item Value Reference Range Interpretation Comments SODIUM (BEAKER) 132 meq/L 136-145 L (test code = 381) POTASSIUM (BEAKER) 4.9 meq/L 3.5-5.1 (test code = 379) CHLORIDE (BEAKER) 101 meq/L 98-107 (test code = 382) CO2 (BEAKER) (test 20 meq/L 22-29 L code = 355) BLOOD UREA NITROGEN 17 mg/dL 7-21 (BEAKER) (test code = 354) CREATININE (BEAKER) 1.01 mg/dL 0.57-1.25 (test code = 358) GLUCOSE RANDOM 92 mg/dL 70-105 (BEAKER) (test code = 652) CALCIUM (BEAKER) 9.2 mg/dL 8.4-10.2 (test code = 697) EGFR (BEAKER) (test 76 mL/min/1.73 ESTIMA TORRES GFR IS code = 1092) sq m NOT ACCURATE CREATININE CLEARANCE IN PREDICTING GLOMERULAR FILTRATION RATE . ESTIMATED GFR I S NOT APPLICABLE FOR DIALYSIS PATIEN TS. HIV-1 ANTIGEN WITH HIV-1/2 [id number] 07:04:00 Test Item Value Reference Range Interpretation Comments HIV-1 ANTIGEN WITH HIV 1\\T\\2 Nonreactive Nonreactive ANTIBODY (2) (BEAKER) (test code = 2586) PROTHROMBIN [id number] 06:29:00 Test Item Value Reference Range Interpretation Comments PROTIME (BEAKER) (test code = 16.1 seconds 11.7-14.7 H 759) INR (BEAKER) (test code = 370) 1.3 <=5.9 RECOMMENDED COUMADIN/WARFARIN INR THERAPY RANGESSTANDARD DOSE: 2.0 - 3.0 Includes: PROPHYLAXIS for venous thrombosis, systemic embolization; TREATMENT for venous thrombosis and/or pulmonary embolus.HIGH RISK: Target INR is 2.5-3.5 for patients with mechanical heart valves.While on warfarin.POCT-GLUCOSE METER 2018-02-14 21:17:00 Test Item Value Reference Range Interpretation Comments POC-GLUCOSE METER 113 mg/dL 70-[address] [facility] 67[address] (BEAKER) (test code = [place] 1538) [address] CBC W/PLT COUNT & AUTO [id number] 12:43:00 Test Item Value Reference Range Interpretation Comments WHITE BLOOD CELL COUNT (BEAKER) 11.8 K/ L 3.5-10.5 H (test code = 775) RED BLOOD CELL COUNT (BEAKER) 4.11 M/ L 4.63-6.08 L (test code = 761) HEMOGLOBIN (BEAKER) (test code = 11.4 GM/DL 13.7-17.5 L 410) HEMATOCRIT (BEAKER) (test code = 36.1 % 40.1-51.0 L 411) MEAN CORPUSCULAR VOLUME (BEAKER) 87.8 fL 79.0-92.2 (test code = 753) MEAN CORPUSCULAR HEMOGLOBIN 27.7 pg 25.7-32.2 (BEAKER) (test code = 751) MEAN CORPUSCULAR HEMOGLOBIN CONC 31.6 GM/DL 32.3-36.5 L (BEAKER) (test code = 752) RED CELL DISTRIBUTION WIDTH 15.5 % 11.6-14.4 H (BEAKER) (test code = 412) PLATELET COUNT (BEAKER) (test 307 K/CU MM 150-450 code = 756) MEAN PLATELET VOLUME (BEAKER) 10.2 fL 9.4-12.4 (test code = 754) NUCLEATED RED BLOOD CELLS 0 /100 WBC 0-0 (BEAKER) (test code = 413) (CELLAVISION MANUAL DIFF)2018-02-14 12:43:00 Test Item Value Reference Range Interpretation Comments NEUTROPHILS - REL 62 % (CELLAVISION)(BEAKER) (test code = 2816) LYMPHOCYTES - REL 9 % (CELLAVISION)(BEAKER) (test code = 2817) MONOCYTES - REL 7 % (CELLAVISION)(BEAKER) (test code = 2818) EOSINOPHILS - REL 6 % (CELLAVISION)(BEAKER) (test code = 2819) METAMYELOCYTES - REL 2 % 0-0 H (CELLAVISION)(BEAKER) (test code = 2821) MYELOCYTES - REL 1 % 0-0 H (CELLAVISION)(BEAKER) (test code = 2822) BANDS - REL (CELLAVISION)(BEAKER) 13 % 0-10 H (test code = 2826) NEUTROPHILS - ABS 7.32 K/ul 1.78-5.38 H (CELLAVISION)(BEAKER) (test code = 2830) LYMPHOCYTES - ABS 1.06 K/ul 1.32-3.57 L (CELLAVISION)(BEAKER) (test code = 2831) MONOCYTES - ABS 0.83 K/uL 0.30-0.82 H (CELLAVISION)(BEAKER) (test code = 2832) EOSINOPHILS - ABS 0.71 K/uL 0.04-0.54 H (CELLAVISION)(BEAKER) (test code = 2834) METAMYELOCYTES - ABS 0.24 K/uL 0.00-0.00 H (CELLAVISION)(BEAKER) (test code = 2836) MYELOCYTES-ABS 0.12 K/uL 0.00-0.00 H (CELLAVISION)(BEAKER) (test code = 2837) BANDS - ABS (CELLAVISION)(BEAKER) 1.53 K/uL 0.00-0.80 H (test code = 2840) TOTAL COUNTED (BEAKER) (test code = 100 1351) WBC MORPHOLOGY (BEAKER) (test code Normal = 487) PLT MORPHOLOGY (BEAKER) (test code Normal = 486) POLYCHROMATOPHILLIC RBCS(BEAKER) 1+ few (test code = 478) ANISOCYTOSIS (BEAKER) (test code = 1+ few 961) POIKILOCYTES (BEAKER) (test code = 1+ few 966) ARTIFACT (CELLAVISION)(BEAKER) Present (test code = 3432) PLATELET CONCENTRATION Adequate (CELLAVISION)(BEAKER) (test code = 3438) Received comment: User comments: Slide comments:TISSUE [id number] 11:47:00 Surgical Pathology Report Case: [id number] Authorizing Provider: Gilles Muñoz MD Collected: 02/12/2018 1602 Ordering Location: [address] Received: 02/12/2018 1602 Service Pathologist: Shona Faust MD Specimen: Skin A. RIGHT LEG, SKIN PUNCH BIOPSY- LYMPHEDEMA- PURPURA- STASIS CHANGES- SUBEPIDERMAL VESICLE, POSSIBLY SECONDARY (SEE NOTE BELOW)NOTE:The differential diagnosis for the subepidermal vesicle includes secondary to vascular compromise, Clinical correlation is recommended.This case has also been reviewed at the [facility]at[facility] Consensus Conference. Signing Pathologist Direct Phone Line: [phone] signed by Shona Faust MD on 02/14/2018at 11:47 AMPreliminary result electronically signed by Shona Faust MD on 02/13/2018 at 5:10 [id number]; [id number] obesity, non- traumatic rhabdomyolysis, weakness of right lower extremity, atrial fibrill ation, hypertension. Right leg pain with numbness. Differential diagnosis: purpura, necrosis due to vasoocclusive phenomenon, rule out dermatomyositis.Skin punch biopsy right legThe specimen is received in a formalin-filled container and labeled with the patient's information and labeled "skin punch biopsy right leg" and consisting of skin punch biopsy measuring 0.3 cm in diameter x 0.5 cm in depth. Resection margin is inked blue. The specimen is bisected submitted entirely A1. CG/pl A. Sections reveal skin with increased blood vessels, focally with fibrin thrombi, and extravasated red blood cells,consistent with stasis changes. There is also dermal edema, with dilated vascular channels without bl ood. There is focal epidermal necrosis/necrotic keratinocytes with separation of the epidermis from the dermis.The following special studies were performed on this case and the interpretation is incorporated in the diagnostic report above:[id number] - Positive in lymphatic channelsCOMPREHENSIVE METABOLIC PANEL 2018-02-14 11:40:00 Test Item Value Reference Range Interpretation Comments TOTAL PROTEIN 6.8 gm/dL 6.0-8.3 (BEAKER) (test code = 770) ALBUMIN (BEAKER) 2.7 g/dL 3.5-5.0 L (test code = 1145) ALKALINE PHOSPHATASE 109 U/L 40-150 (BEAKER) (test code = 346) BILIRUBIN TOTAL 0.6 mg/dL 0.2-1.2 (BEAKER) (test code = 377) SODIUM (BEAKER) (test 133 meq/L 136-145 L code = 381) POTASSIUM (BEAKER) 4.8 meq/L 3.5-5.1 (test code = 379) CHLORIDE (BEAKER) 102 meq/L 98-107 (test code = 382) CO2 (BEAKER) (test 25 meq/L 22-29 code = 355) BLOOD UREA NITROGEN 15 mg/dL 7-21 (BEAKER) (test code = 354) CREATININE (BEAKER) 0.93 mg/dL 0.57-1.25 (test code = 358) GLUCOSE RANDOM 114 mg/dL 70-105 H (BEAKER) (test code = 652) CALCIUM (BEAKER) 9.6 mg/dL 8.4-10.2 (test code = 697) AST (SGOT) (BEAKER) 139 U/L 5-34 H (test code = 353) ALT (SGPT) (BEAKER) 152 U/L 6-55 H (test code = 347) EGFR (BEAKER) (test 83 mL/min/1.73 ESTIMA TORRES GFR IS code = 1092) sq m NOT ACCURATE CREATININE CLEARANCE IN PREDICTING GLOMERULAR FILTRATION RATE . ESTIMATED GFR I S NOT APPLICABLE FOR DIALYSIS PATIEN TS. CREATINE KINASE (CK)2018-02-14 11:40:00 Test Item Value Reference Range Interpretation Comments CREATINE KINASE TOTAL (BEAKER) (test 2477 U/L 29-200 H code = 380) CALCIUM, [id number] 07:18:00 Test Item Value Reference Range Interpretation Comments CALCIUM IONIZED (BEAKER) (test 1.02 mmol/L 1.12-1.27 L code = 698) PH, BLOOD (BEAKER) (test code = 7.45 1810) VITAMIN D, [id number] 06:53:00 Test Item Value Reference Range Interpretation Comments VITAMIN D 25-OH (BEAKER) (test 37.1 ng/mL 6.6-49.9 code = 2764) Effective 04/12/2017: Reference Range ChangeNew: 6.6-49.9 ng/mL Previous: 13.0- 47.8 ng/mLRecommendedVitamin D Target Range: 30.0-40.0 ng/mLPROTHROMBIN TIME/INR 2018-02-14 04:49:00 Test Item Value Reference Range Interpretation Comments PROTIME (BEAKER) (test code = 16.1 seconds 11.7-14.7 H 759) INR (BEAKER) (test code = 370) 1.3 <=5.9 RECOMMENDED COUMADIN/WARFARIN INR THERAPY RANGESSTANDARD DOSE: 2.0 - 3.0 Includes: PROPHYLAXIS for venous thrombosis, systemic embolization; TREATMENT for venous thrombosis and/or pulmonary embolus.HIGH RISK: Target INR is 2.5-3.5 for patients with mechanical heart valves.While on warfarin.ANTI-NUCLEAR ANTIBODY (OLIVIER)2018-02-14 03:08:00 Test Item Value Reference Range Interpretation Comments ANTI-NUCLEAR ANTIBODY (OLIVIER) (BEAKER) Negative Negative (test code = 418) Test performed by IFA method.Test performed by IFA method.CBC W/PLT COUNT & AUTO [id number] 14:29:00 Test Item Value Reference Range Interpretation Comments WHITE BLOOD CELL COUNT (BEAKER) 12.9 K/ L 3.5-10.5 H (test code = 775) RED BLOOD CELL COUNT (BEAKER) 4.10 M/ L 4.63-6.08 L (test code = 761) HEMOGLOBIN (BEAKER) (test code = 11.6 GM/DL 13.7-17.5 L 410) HEMATOCRIT (BEAKER) (test code = 36.1 % 40.1-51.0 L 411) MEAN CORPUSCULAR VOLUME (BEAKER) 88.0 fL 79.0-92.2 (test code = 753) MEAN CORPUSCULAR HEMOGLOBIN 28.3 pg 25.7-32.2 (BEAKER) (test code = 751) MEAN CORPUSCULAR HEMOGLOBIN CONC 32.1 GM/DL 32.3-36.5 L (BEAKER) (test code = 752) RED CELL DISTRIBUTION WIDTH 15.5 % 11.6-14.4 H (BEAKER) (test code = 412) PLATELET COUNT (BEAKER) (test 289 K/CU MM 150-450 code = 756) MEAN PLATELET VOLUME (BEAKER) 10.1 fL 9.4-12.4 (test code = 754) NUCLEATED RED BLOOD CELLS 0 /100 WBC 0-0 (BEAKER) (test code = 413) (CELLAVISION MANUAL DIFF)2018-02-13 14:29:00 Test Item Value Reference Range Interpretation Comments NEUTROPHILS - REL 74 % (CELLAVISION)(BEAKER) (test code = 2816) LYMPHOCYTES - REL 4 % (CELLAVISION)(BEAKER) (test code = 2817) MONOCYTES - REL 8 % (CELLAVISION)(BEAKER) (test code = 2818) EOSINOPHILS - REL 2 % (CELLAVISION)(BEAKER) (test code = 2819) METAMYELOCYTES - REL 1 % 0-0 H (CELLAVISION)(BEAKER) (test code = 2821) MYELOCYTES - REL 2 % 0-0 H (CELLAVISION)(BEAKER) (test code = 2822) BANDS - REL (CELLAVISION)(BEAKER) 8 % 0-10 (test code = 2826) ATYPICAL LYMPHOCYTES - REL 1 % 0-0 H (CELLAVISION)(BEAKER) (test code = 2829) NEUTROPHILS - ABS 9.55 K/ul 1.78-5.38 H (CELLAVISION)(BEAKER) (test code = 2830) LYMPHOCYTES - ABS 0.52 K/ul 1.32-3.57 L (CELLAVISION)(BEAKER) (test code = 2831) MONOCYTES - ABS 1.03 K/uL 0.30-0.82 H (CELLAVISION)(BEAKER) (test code = 2832) EOSINOPHILS - ABS 0.26 K/uL 0.04-0.54 (CELLAVISION)(BEAKER) (test code = 2834) METAMYELOCYTES - ABS 0.13 K/uL 0.00-0.00 H (CELLAVISION)(BEAKER) (test code = 2836) MYELOCYTES-ABS 0.26 K/uL 0.00-0.00 H (CELLAVISION)(BEAKER) (test code = 2837) BANDS - ABS (CELLAVISION)(BEAKER) 1.03 K/uL 0.00-0.80 H (test code = 2840) ATYPICAL LYMPHOCYTES - ABS 0.13 K/uL 0.00-0.00 H (CELLAVISION)(BEAKER) (test code = 2858) TOTAL COUNTED (BEAKER) (test code 100 = 1351) MANUAL NRBC PER 100 CELLS (BEAKER) 1 /100 WBC 0-0 H (test code = 1353) WBC MORPHOLOGY (BEAKER) (test code Normal = 487) PLT MORPHOLOGY (BEAKER) (test code Normal = 486) POLYCHROMATOPHILLIC RBCS(BEAKER) 1+ few (test code = 478) ANISOCYTOSIS (BEAKER) (test code = 1+ few 961) ARTIFACT (CELLAVISION)(BEAKER) Present (test code = 3432) PLATELET CONCENTRATION Adequate (CELLAVISION)(BEAKER) (test code = 3438) Received comment: User comments: Slide comments:CREATINE KINASE (CK), TOTAL AND [id number] 06:58:00 Test Item Value Reference Range Interpretation Comments CREATINE KINASE TOTAL (BEAKER) 3865 U/L 29-200 H (test code = 380) CREATINE KINASE-MB (BEAKER) (test 5.2 ng/mL 0.0-6.6 code = 750) CREATINE KINASE-MB INDEX (BEAKER) 0.1 % (test code = 395) CK-MB Reference Range:<6.7 Normal6.7-10.0 Borderline>10.0 AbnormalB-TYPE NATRIURETIC FACTOR (BNP)2018-02-13 06:52:00 Test Item Value Reference Range Interpretation Comments B-TYPE NATRIURETIC PEPTIDE (BEAKER) 215 pg/mL 0-100 H (test code = 700) COMPREHENSIVE METABOLIC [id number] 06:52:00 Test Item Value Reference Range Interpretation Comments TOTAL PROTEIN 6.7 gm/dL 6.0-8.3 (BEAKER) (test code = 770) ALBUMIN (BEAKER) 2.7 g/dL 3.5-5.0 L (test code = 1145) ALKALINE PHOSPHATASE 109 U/L 40-150 (BEAKER) (test code = 346) BILIRUBIN TOTAL 0.8 mg/dL 0.2-1.2 (BEAKER) (test code = 377) SODIUM (BEAKER) (test 134 meq/L 136-145 L code = 381) POTASSIUM (BEAKER) 4.8 meq/L 3.5-5.1 (test code = 379) CHLORIDE (BEAKER) 103 meq/L 98-107 (test code = 382) CO2 (BEAKER) (test 23 meq/L 22-29 code = 355) BLOOD UREA NITROGEN 15 mg/dL 7-21 (BEAKER) (test code = 354) CREATININE (BEAKER) 0.94 mg/dL 0.57-1.25 (test code = 358) GLUCOSE RANDOM 93 mg/dL 70-105 (BEAKER) (test code = 652) CALCIUM (BEAKER) 9.1 mg/dL 8.4-10.2 (test code = 697) AST (SGOT) (BEAKER) 170 U/L 5-34 H (test code = 353) ALT (SGPT) (BEAKER) 162 U/L 6-55 H (test code = 347) EGFR (BEAKER) (test 82 mL/min/1.73 ESTIMA TORRES GFR IS code = 1092) sq m NOT ACCURATE CREATININE CLEARANCE IN PREDICTING GLOMERULAR FILTRATION RATE . ESTIMATED GFR I S NOT APPLICABLE FOR DIALYSIS PATIEN TS. PROTHROMBIN [id number] 06:49:00 Test Item Value Reference Range Interpretation Comments PROTIME (BEAKER) (test code = 16.5 seconds 11.7-14.7 H 759) INR (BEAKER) (test code = 370) 1.3 <=5.9 RECOMMENDED COUMADIN/WARFARIN INR THERAPY RANGESSTANDARD DOSE: 2.0 - 3.0 Includes: PROPHYLAXIS for venous thrombosis, systemic embolization; TREATMENT for venous thrombosis and/or pulmonary embolus.HIGH RISK: Target INR is 2.5-3.5 for patients with mechanical heart valves.While on warfarin.HEPATITIS PANEL, [id number] 17:49:00 Test Item Value Reference Range Interpretation Comments HEPATITIS A IGM ANTIBODY (BEAKER) Nonreactive Nonreactive (test code = 498) HEPATITIS B CORE IGM ANTIBODY Nonreactive Nonreactive (BEAKER) (test code = 645) HEPATITIS C ANTIBODY (BEAKER) Nonreactive Nonreactive (test code = 367) HEPATITIS B SURFACE ANTIGEN (2) Nonreactive Nonreactive (BEAKER) (test code = 2585) PROTHROMBIN [id number] 17:21:00 Test Item Value Reference Range Interpretation Comments PROTIME (BEAKER) (test code = 15.8 seconds 11.7-14.7 H 759) INR (BEAKER) (test code = 370) 1.3 <=5.9 RECOMMENDED COUMADIN/WARFARIN INR THERAPY RANGESSTANDARD DOSE: 2.0 - 3.0 Includes: PROPHYLAXIS for venous thrombosis, systemic embolization; TREATMENT for venous thrombosis and/or pulmonary embolus.HIGH RISK: Target INR is 2.5-3.5 for patients with mechanical heart valves.[id number] 15:12:00 Test Item Value Reference Range Interpretation Comments CRYOGLOBULIN (BEAKER) (test code = Negative 674) CBC W/PLT COUNT & AUTO [id number] 15:01:00 Test Item Value Reference Range Interpretation Comments WHITE BLOOD CELL COUNT (BEAKER) 12.7 K/ L 3.5-10.5 H (test code = 775) RED BLOOD CELL COUNT (BEAKER) 4.31 M/ L 4.63-6.08 L (test code = 761) HEMOGLOBIN (BEAKER) (test code = 11.9 GM/DL 13.7-17.5 L 410) HEMATOCRIT (BEAKER) (test code = 38.2 % 40.1-51.0 L 411) MEAN CORPUSCULAR VOLUME (BEAKER) 88.6 fL 79.0-92.2 (test code = 753) MEAN CORPUSCULAR HEMOGLOBIN 27.6 pg 25.7-32.2 (BEAKER) (test code = 751) MEAN CORPUSCULAR HEMOGLOBIN CONC 31.2 GM/DL 32.3-36.5 L (BEAKER) (test code = 752) RED CELL DISTRIBUTION WIDTH 15.7 % 11.6-14.4 H (BEAKER) (test code = 412) PLATELET COUNT (BEAKER) (test 258 K/CU MM 150-450 code = 756) MEAN PLATELET VOLUME (BEAKER) 10.4 fL 9.4-12.4 (test code = 754) NUCLEATED RED BLOOD CELLS 0 /100 WBC 0-0 (BEAKER) (test code = 413) (CELLAVISION MANUAL DIFF)2018-02-12 15:01:00 Test Item Value Reference Range Interpretation Comments NEUTROPHILS - REL 74 % (CELLAVISION)(BEAKER) (test code = 2816) LYMPHOCYTES - REL 2 % (CELLAVISION)(BEAKER) (test code = 2817) MONOCYTES - REL 7 % (CELLAVISION)(BEAKER) (test code = 2818) METAMYELOCYTES - REL 1 % 0-0 H (CELLAVISION)(BEAKER) (test code = 2821) MYELOCYTES - REL 2 % 0-0 H (CELLAVISION)(BEAKER) (test code = 2822) BANDS - REL (CELLAVISION)(BEAKER) 14 % 0-10 H (test code = 2826) NEUTROPHILS - ABS 9.40 K/ul 1.78-5.38 H (CELLAVISION)(BEAKER) (test code = 2830) LYMPHOCYTES - ABS 0.25 K/ul 1.32-3.57 L (CELLAVISION)(BEAKER) (test code = 2831) MONOCYTES - ABS 0.89 K/uL 0.30-0.82 H (CELLAVISION)(BEAKER) (test code = 2832) METAMYELOCYTES - ABS 0.13 K/uL 0.00-0.00 H (CELLAVISION)(BEAKER) (test code = 2836) MYELOCYTES-ABS 0.25 K/uL 0.00-0.00 H (CELLAVISION)(BEAKER) (test code = 2837) BANDS - ABS (CELLAVISION)(BEAKER) 1.78 K/uL 0.00-0.80 H (test code = 2840) TOTAL COUNTED (BEAKER) (test code = 100 1351) WBC MORPHOLOGY (BEAKER) (test code Normal = 487) PLT MORPHOLOGY (BEAKER) (test code Normal = 486) POLYCHROMATOPHILLIC RBCS(BEAKER) 1+ few (test code = 478) ANISOCYTOSIS (BEAKER) (test code = 1+ few 961) ARTIFACT (CELLAVISION)(BEAKER) Present (test code = 3432) PLATELET CONCENTRATION Adequate (CELLAVISION)(BEAKER) (test code = 3438) Received comment: User comments: Slide comments:RETICULOCYTE [id number] 14:13:00 Test Item Value Reference Range Interpretation Comments RETICULOCYTE COUNT PCT (BEAKER) (test 1.5 % 0.5-1.8 code = 575) DOUBLE-STRANDED DNA (DSDNA) [id number] 08:42:00 Test Item Value Reference Range Interpretation Comments ANTI-DNA DS (BEAKER) (test code = Negative 1055) POCT-GLUCOSE [id number] 08:21:00 Test Item Value Reference Range Interpretation Comments POC-GLUCOSE METER 105 mg/dL 70-[address] [facility] [address] (BEAKER) (test code = [place] 1538) [address] CREATINE KINASE (CK), TOTAL AND [id number] 07:18:00 Test Item Value Reference Range Interpretation Comments CREATINE KINASE TOTAL (BEAKER) 5563 U/L 29-200 H (test code = 380) CREATINE KINASE-MB (BEAKER) (test 6.8 ng/mL 0.0-6.6 H code = 750) CREATINE KINASE-MB INDEX (BEAKER) 0.1 % (test code = 395) CK-MB Reference Range:<6.7 Normal6.7-10.0 Borderline>10.0 Abnormal [id number] 07:03:00 Test Item Value Reference Range Interpretation Comments PHOSPHORUS (BEAKER) (test code = 3.4 mg/dL 2.3-4.7 604) [id number] 07:03:00 Test Item Value Reference Range Interpretation Comments MAGNESIUM (BEAKER) (test code = 2.1 mg/dL 1.6-2.6 627) BASIC METABOLIC [id number] 07:03:00 Test Item Value Reference Range Interpretation Comments SODIUM (BEAKER) 133 meq/L 136-145 L (test code = 381) POTASSIUM (BEAKER) 5.1 meq/L 3.5-5.1 (test code = 379) CHLORIDE (BEAKER) 101 meq/L 98-107 (test code = 382) CO2 (BEAKER) (test 24 meq/L 22-29 code = 355) BLOOD UREA NITROGEN 15 mg/dL 7-21 (BEAKER) (test code = 354) CREATININE (BEAKER) 0.96 mg/dL 0.57-1.25 (test code = 358) GLUCOSE RANDOM 109 mg/dL 70-105 H (BEAKER) (test code = 652) CALCIUM (BEAKER) 9.5 mg/dL 8.4-10.2 (test code = 697) EGFR (BEAKER) (test 80 mL/min/1.73 ESTIMA TORRES GFR IS code = 1092) sq m NOT ACCURATE CREATININE CLEARANCE IN PREDICTING GLOMERULAR FILTRATION RATE . ESTIMATED GFR I S NOT APPLICABLE FOR DIALYSIS PATIEN TS. HEPATIC FUNCTION [id number] 07:03:00 Test Item Value Reference Range Interpretation Comments TOTAL PROTEIN (BEAKER) (test code = 6.8 gm/dL 6.0-8.3 770) ALBUMIN (BEAKER) (test code = 1145) 2.8 g/dL 3.5-5.0 L BILIRUBIN TOTAL (BEAKER) (test code 0.8 mg/dL 0.2-1.2 = 377) BILIRUBIN DIRECT (BEAKER) (test 0.5 mg/dL 0.1-0.5 code = 706) ALKALINE PHOSPHATASE (BEAKER) (test 120 U/L 40-150 code = 346) AST (SGOT) (BEAKER) (test code = 224 U/L 5-34 H 353) ALT (SGPT) (BEAKER) (test code = 193 U/L 6-55 H 347) RHEUMATOID FACTOR AB, REFLEX TO [id number] 05:42:00 Test Item Value Reference Range Interpretation Comments RHEUMATOID FACTOR (BEAKER) (test Positive code = 573) RHEUMATOID FACTOR [id number] 05:42:00 Test Item Value Reference Range Interpretation Comments RHEUMATOID FACTOR TITER (BEAKER) (test :2 code = 2285) POCT-GLUCOSE [id number] 21:43:00 Test Item Value Reference Range Interpretation Comments POC-GLUCOSE METER 142 mg/dL 70-[address] [facility] [address] (BEAKER) (test code = [place] 1538) [address] CBC W/PLT COUNT & AUTO [id number] 12:18:00 Test Item Value Reference Range Interpretation Comments WHITE BLOOD CELL COUNT (BEAKER) 12.0 K/ L 3.5-10.5 H (test code = 775) RED BLOOD CELL COUNT (BEAKER) 4.18 M/ L 4.63-6.08 L (test code = 761) HEMOGLOBIN (BEAKER) (test code = 11.4 GM/DL 13.7-17.5 L 410) HEMATOCRIT (BEAKER) (test code = 36.7 % 40.1-51.0 L 411) MEAN CORPUSCULAR VOLUME (BEAKER) 87.8 fL 79.0-92.2 (test code = 753) MEAN CORPUSCULAR HEMOGLOBIN 27.3 pg 25.7-32.2 (BEAKER) (test code = 751) MEAN CORPUSCULAR HEMOGLOBIN CONC 31.1 GM/DL 32.3-36.5 L (BEAKER) (test code = 752) RED CELL DISTRIBUTION WIDTH 15.7 % 11.6-14.4 H (BEAKER) (test code = 412) PLATELET COUNT (BEAKER) (test 255 K/CU MM 150-450 code = 756) MEAN PLATELET VOLUME (BEAKER) 10.3 fL 9.4-12.4 (test code = 754) NUCLEATED RED BLOOD CELLS 0 /100 WBC 0-0 (BEAKER) (test code = 413) (CELLAVISION MANUAL DIFF)2018-02-11 12:18:00 Test Item Value Reference Range Interpretation Comments NEUTROPHILS - REL 71 % (CELLAVISION)(BEAKER) (test code = 2816) LYMPHOCYTES - REL 5 % (CELLAVISION)(BEAKER) (test code = 2817) MONOCYTES - REL 9 % (CELLAVISION)(BEAKER) (test code = 2818) EOSINOPHILS - REL 2 % (CELLAVISION)(BEAKER) (test code = 2819) METAMYELOCYTES - REL 2 % 0-0 H (CELLAVISION)(BEAKER) (test code = 2821) MYELOCYTES - REL 4 % 0-0 H (CELLAVISION)(BEAKER) (test code = 2822) BANDS - REL (CELLAVISION)(BEAKER) 7 % 0-10 (test code = 2826) NEUTROPHILS - ABS 8.52 K/ul 1.78-5.38 H (CELLAVISION)(BEAKER) (test code = 2830) LYMPHOCYTES - ABS 0.60 K/ul 1.32-3.57 L (CELLAVISION)(BEAKER) (test code = 2831) MONOCYTES - ABS 1.08 K/uL 0.30-0.82 H (CELLAVISION)(BEAKER) (test code = 2832) EOSINOPHILS - ABS 0.24 K/uL 0.04-0.54 (CELLAVISION)(BEAKER) (test code = 2834) METAMYELOCYTES - ABS 0.24 K/uL 0.00-0.00 H (CELLAVISION)(BEAKER) (test code = 2836) MYELOCYTES-ABS 0.48 K/uL 0.00-0.00 H (CELLAVISION)(BEAKER) (test code = 2837) BANDS - ABS (CELLAVISION)(BEAKER) 0.84 K/uL 0.00-0.80 H (test code = 2840) TOTAL COUNTED (BEAKER) (test code = 100 1351) RBC MORPHOLOGY (BEAKER) (test code Normal = 762) SMUDGE CELLS (BEAKER) (test code = Present 1371) GIANT PLATELETS (BEAKER) (test code Present = 313) PLATELET CONCENTRATION Adequate (CELLAVISION)(BEAKER) (test code = 3438) Received comment: User comments: Slide comments:CREATINE KINASE (CK), TOTAL AND [id number] 07:41:00 Test Item Value Reference Range Interpretation Comments CREATINE KINASE TOTAL (BEAKER) 6548 U/L 29-200 H (test code = 380) CREATINE KINASE-MB (BEAKER) (test 7.2 ng/mL 0.0-6.6 H code = 750) CREATINE KINASE-MB INDEX (BEAKER) 0.1 % (test code = 395) CK-MB Reference Range:<6.7 Normal6.7-10.0 Borderline>10.0 Abnormal [id number] 07:33:00 Test Item Value Reference Range Interpretation Comments PHOSPHORUS (BEAKER) (test code = 3.5 mg/dL 2.3-4.7 604) [id number] 07:33:00 Test Item Value Reference Range Interpretation Comments MAGNESIUM (BEAKER) (test code = 2.2 mg/dL 1.6-2.6 627) BASIC METABOLIC [id number] 07:33:00 Test Item Value Reference Range Interpretation Comments SODIUM (BEAKER) 136 meq/L 136-145 (test code = 381) POTASSIUM (BEAKER) 4.8 meq/L 3.5-5.1 (test code = 379) CHLORIDE (BEAKER) 104 meq/L 98-107 (test code = 382) CO2 (BEAKER) (test 24 meq/L 22-29 code = 355) BLOOD UREA NITROGEN 18 mg/dL 7-21 (BEAKER) (test code = 354) CREATININE (BEAKER) 0.96 mg/dL 0.57-1.25 (test code = 358) GLUCOSE RANDOM 104 mg/dL 70-105 (BEAKER) (test code = 652) CALCIUM (BEAKER) 9.4 mg/dL 8.4-10.2 (test code = 697) EGFR (BEAKER) (test 80 mL/min/1.73 ESTIMA TORRES GFR IS code = 1092) sq m NOT ACCURATE CREATININE CLEARANCE IN PREDICTING GLOMERULAR FILTRATION RATE . ESTIMATED GFR I S NOT APPLICABLE FOR DIALYSIS PATIEN TS. HEPATIC FUNCTION [id number] 07:33:00 Test Item Value Reference Range Interpretation Comments TOTAL PROTEIN (BEAKER) (test code = 6.5 gm/dL 6.0-8.3 770) ALBUMIN (BEAKER) (test code = 1145) 2.8 g/dL 3.5-5.0 L BILIRUBIN TOTAL (BEAKER) (test code 0.7 mg/dL 0.2-1.2 = 377) BILIRUBIN DIRECT (BEAKER) (test 0.5 mg/dL 0.1-0.5 code = 706) ALKALINE PHOSPHATASE (BEAKER) (test 115 U/L 40-150 code = 346) AST (SGOT) (BEAKER) (test code = 228 U/L 5-34 H 353) ALT (SGPT) (BEAKER) (test code = 185 U/L 6-55 H 347) COMPLEMENT COMPONENT [id number] 07:13:00 Test Item Value Reference Range Interpretation Comments C4 COMPLEMENT (BEAKER) (test code = 33 mg/dL 15-57 394) COMPLEMENT COMPONENT [id number] 07:13:00 Test Item Value Reference Range Interpretation Comments C3 COMPLEMENT (BEAKER) (test code = 169 mg/dL 82-193 393) PTH, [id number] 07:12:00 Test Item Value Reference Range Interpretation Comments PARATHYROID HORMONE INTACT 92.1 pg/mL 8.5-72.5 H (BEAKER) (test code = 577) CALCIUM, [id number] 07:09:00 Test Item Value Reference Range Interpretation Comments CALCIUM IONIZED (BEAKER) (test 1.03 mmol/L 1.12-1.27 L code = 698) PH, BLOOD (BEAKER) (test code = 7.44 1810) POCT-GLUCOSE [id number] 21:37:00 Test Item Value Reference Range Interpretation Comments POC-GLUCOSE METER 146 mg/dL 70-[address] [facility] [address] ([facility]) (test code = [place] 1538) [address] PTH, [id number] 20:32:00 Test Item Value Reference Range Interpretation Comments PARATHYROID HORMONE INTACT 83.3 pg/mL 8.5-72.5 H (BEAKER) (test code = 577) [id number] 20:26:00 Test Item Value Reference Range Interpretation Comments FIBRINOGEN LEVEL (BEAKER) (test 1018 mg/dl 225-434 H code = 658) CALCIUM, [id number] 19:27:00 Test Item Value Reference Range Interpretation Comments CALCIUM IONIZED (BEAKER) (test 1.09 mmol/L 1.12-1.27 L code = 698) PH, BLOOD (AKER) (test code = 7.32 1810) CREATINE KINASE (CK), TOTAL AND [id number] 10:07:00 Test Item Value Reference Range Interpretation Comments CREATINE KINASE TOTAL (BEAKER) 8268 U/L 29-200 H (test code = 380) CREATINE KINASE-MB (BEAKER) (test 9.1 ng/mL 0.0-6.6 H code = 750) CREATINE KINASE-MB INDEX (BEAKER) 0.1 % (test code = 395) CK-MB Reference Range:<6.7 Normal6.7-10.0 Borderline>10.0 Abnormal [id number] 07:12:00 Test Item Value Reference Range Interpretation Comments PHOSPHORUS (BEAKER) (test code = 3.2 mg/dL 2.3-4.7 604) [id number] 07:12:00 Test Item Value Reference Range Interpretation Comments MAGNESIUM (BEAKER) (test code = 2.3 mg/dL 1.6-2.6 627) BASIC METABOLIC [id number] 07:12:00 Test Item Value Reference Range Interpretation Comments SODIUM (BEAKER) 135 meq/L 136-145 L (test code = 381) POTASSIUM (BEAKER) 4.3 meq/L 3.5-5.1 (test code = 379) CHLORIDE (BEAKER) 101 meq/L 98-107 (test code = 382) CO2 (BEAKER) (test 25 meq/L 22-29 code = 355) BLOOD UREA NITROGEN 25 mg/dL 7-21 H (BEAKER) (test code = 354) CREATININE (BEAKER) 1.21 mg/dL 0.57-1.25 (test code = 358) GLUCOSE RANDOM 119 mg/dL 70-105 H (BEAKER) (test code = 652) CALCIUM (BEAKER) 9.4 mg/dL 8.4-10.2 (test code = 697) EGFR (BEAKER) (test 61 mL/min/1.73 ESTIMA TORRES GFR IS code = 1092) sq m NOT ACCURATE CREATININE CLEARANCE IN PREDICTING GLOMERULAR FILTRATION RATE . ESTIMATED GFR I S NOT APPLICABLE FOR DIALYSIS PATIEN TS. CBC W/PLT COUNT & AUTO [id number] 05:27:00 Test Item Value Reference Range Interpretation Comments WHITE BLOOD CELL COUNT (BEAKER) 10.9 K/ L 3.5-10.5 H (test code = 775) RED BLOOD CELL COUNT (BEAKER) 4.30 M/ L 4.63-6.08 L (test code = 761) HEMOGLOBIN (BEAKER) (test code = 11.9 GM/DL 13.7-17.5 L 410) HEMATOCRIT (BEAKER) (test code = 37.0 % 40.1-51.0 L 411) MEAN CORPUSCULAR VOLUME (BEAKER) 86.0 fL 79.0-92.2 (test code = 753) MEAN CORPUSCULAR HEMOGLOBIN 27.7 pg 25.7-32.2 (BEAKER) (test code = 751) MEAN CORPUSCULAR HEMOGLOBIN CONC 32.2 GM/DL 32.3-36.5 L (BEAKER) (test code = 752) RED CELL DISTRIBUTION WIDTH 15.4 % 11.6-14.4 H (BEAKER) (test code = 412) PLATELET COUNT (BEAKER) (test 274 K/CU MM 150-450 code = 756) MEAN PLATELET VOLUME (BEAKER) 10.7 fL 9.4-12.4 (test code = 754) NUCLEATED RED BLOOD CELLS 0 /100 WBC 0-0 (BEAKER) (test code = 413) NEUTROPHILS RELATIVE PERCENT 75 % (BEAKER) (test code = 429) LYMPHOCYTES RELATIVE PERCENT 9 % (BEAKER) (test code = 430) MONOCYTES RELATIVE PERCENT 10 % (BEAKER) (test code = 431) EOSINOPHILS RELATIVE PERCENT 2 % (BEAKER) (test code = 432) BASOPHILS RELATIVE PERCENT 1 % (BEAKER) (test code = 437) NEUTROPHILS ABSOLUTE COUNT 8.13 K/ L 1.78-5.38 H (BEAKER) (test code = 670) LYMPHOCYTES ABSOLUTE COUNT 0.92 K/ L 1.32-3.57 L (BEAKER) (test code = 414) MONOCYTES ABSOLUTE COUNT (BEAKER) 1.07 K/ L 0.30-0.82 H (test code = 415) EOSINOPHILS ABSOLUTE COUNT 0.18 K/ L 0.04-0.54 (BEAKER) (test code = 416) BASOPHILS ABSOLUTE COUNT (BEAKER) 0.05 K/ L 0.01-0.08 (test code = 417) IMMATURE GRANULOCYTES-RELATIVE 5 % 0-1 H PERCENT (BEAKER) (test code = 2801) [id number] 02:32:00 Test Item Value Reference Range Interpretation Comments FIBRINOGEN LEVEL (BEAKER) (test 1050 mg/dl 225-434 H code = 658) RAPID DRUG SCREEN, [id number] 02:29:00 Test Item Value Reference Range Interpretation Comments BARBITURATE URINE (BEAKER) (test Negative Negative code = 725) BENZODIAZEPINE SCREEN URINE (BEAKER) Negative Negative (test code = 726) COCAINE (METAB.) SCREEN (BEAKER) Negative Negative (test code = 1164) METHADONE SCREEN (BEAKER) (test code Negative Negative = 1436) OPIATE SCREEN URINE (BEAKER) (test Positive Negative A code = 734) CANNABINOID SCREEN URINE (BEAKER) Negative Negative (test code = 727) AMPH/METHAMPH SCREEN (BEAKER) (test Negative Negative code = 1438) PHENCYCLIDINE SCREEN URINE (BEAKER) Negative Negative (test code = 608) OXYCODONE SCREEN URINE (BEAKER) Negative Negative (test code = 2761) DRUG CUTOFF CONC.Cocaine 300 ng/mL Cannabinoid 50 ng/mL Benzodiazepine 200 ng/mLBarbiturate 200 ng/mLPhencyclidine 25 ng/mLOpiate 300 ng/mLMethadone 300 ng/mLAmphetamine/ 1000 ng/mL MethamphetamineOxycodone 300 ng/mLThis assay provides an unconfirmed qualitative test result for the clinical managementof patients in emergency situations. Chain of custody not maintained. Some jrqu-voi-gaykzxe medications, as well as adulterants, may cause inaccurate results. Clinical correlation should be applied. A more comprehensive drug screen or confirmation of a detected drug may be performed upon request. [id number] 02:01:00 Test Item Value Reference Range Interpretation Comments PHOSPHORUS (BEAKER) (test code = 2.7 mg/dL 2.3-4.7 604) [id number] 02:01:00 Test Item Value Reference Range Interpretation Comments MAGNESIUM (BEAKER) (test code = 2.3 mg/dL 1.6-2.6 627) URINALYSIS W/ [id number] 01:40:00 Test Item Value Reference Range Interpretation Comments COLOR (BEAKER) (test code = 470) Yellow CLARITY (BEAKER) (test code = 469) Clear SPECIFIC GRAVITY UA (BEAKER) (test 1.017 1.001-1.035 code = 468) PH UA (BEAKER) (test code = 467) 6.0 5.0-8.0 PROTEIN UA (BEAKER) (test code = 20 mg/dL Negative A 464) GLUCOSE UA (BEAKER) (test code = Negative Negative 365) KETONES UA (BEAKER) (test code = Negative Negative 371) BILIRUBIN UA (BEAKER) (test code = Negative Negative 462) BLOOD UA (BEAKER) (test code = 461) Moderate Negative A NITRITE UA (BEAKER) (test code = Negative Negative 465) LEUKOCYTE ESTERASE UA (BEAKER) Negative Negative (test code = 466) UROBILINOGEN UA (BEAKER) (test code 3.0 mg/dL 0.2-1.0 H = 463) RBC UA (BEAKER) (test code = 519) 34 /HPF WBC UA (BEAKER) (test code = 520) 3 /HPF MUCUS (BEAKER) (test code = 1574) Rare SQUAMOUS EPITHELIAL (BEAKER) (test 1 /HPF code = 516) SOURCE(BEAKER) (test code = 2795) POCT-GLUCOSE [id number] 21:30:00 Test Item Value Reference Range Interpretation Comments POC-GLUCOSE METER 96 mg/dL 70-110 TESTED AT [facility] [address] (BEAKER) (test code = [place] [address] 1538) U/S, ABDOMINAL, [id number] 19:51:00Reason for exam:->abd distension FINAL REPORT HISTORY : Abdominal distention COMPARISON : [...] 6.2 cm and the left kidney 14.8 x5.7 x 5.6 cm in maximum size. There is no evidence of cysts, masses, stones or hydronephrosis. The portal vein measures to a maximum of 1.6 cm in diameter. There is no ascites or pleural effusion. The v isualized inferior vena cava, hepatic veins and abdominal aorta are within normal limits. The maximum diameter of the abdominal aorta is 2.0 cm. IMPRESSION : 1. Examination limited secondary to the patient's body habitus and shadowing bowel gas. 2. Splenomegaly. 3. Status post cholecystectomy. 4. Common bile duct not visualized. 5. Dilated main portal vein, a nonspecific finding but which can be seenin portal hypertension. Signed: [facility] Verified Date/Time: 02/09/2018 19:51:53 Reading Location: [address] Consult Reading Room C-REACTIVE [id number] 19:01:00 Test Item Value Reference Range Interpretation Comments C-REACTIVE PROTEIN (BEAKER) (test 32.66 mg/dL 0.00-0.50 H code = 676) URIC [id number] 18:57:00 Test Item Value Reference Range Interpretation Comments URIC ACID (BEAKER) (test code = 8.8 mg/dL 2.6-7.2 H 773) LACTATE DEHYDROGENASE (LDH)2018-02-09 18:57:00 Test Item Value Reference Range Interpretation Comments LACTATE DEHYDROGENASE (BEAKER) (test 633 U/L 125-220 H code = 635) HEMOGLOBIN [id number] 18:50:00 Test Item Value Reference Range Interpretation Comments HEMOGLOBIN A1C (BEAKER) (test code = 6.3 % 4.3-6.1 H 368) [id number] 18:05:00 Test Item Value Reference Range Interpretation Comments PROTIME (BEAKER) (test code = 16.5 seconds 11.7-14.7 H 759) INR (BEAKER) (test code = 370) 1.3 <=5.9 PARTIAL THROMBOPLASTIN TIME 37.6 seconds 22.5-36.0 H (BEAKER) (test code = 760) RECOMMENDED COUMADIN/WARFARIN INR THERAPY RANGESSTANDARD DOSE: 2.0 - 3.0 Includes: PROPHYLAXIS for venous thrombosis, systemic embolization; TREATMENT for venous thrombosis and/or pulmonary embolus.HIGH RISK: Target INR is 2.5-3.5 for patients with mechanical heart valves.CREATINE KINASE (CK), TOTAL AND MB 2018-02-09 15:38:00 Test Item Value Reference Range Interpretation Comments CREATINE KINASE TOTAL (BEAKER) 14661 U/L 29-200 H (test code = 380) CREATINE KINASE-MB (BEAKER) (test 21.6 ng/mL 0.0-6.6 H code = 750) CREATINE KINASE-MB INDEX (BEAKER) 0.2 % (test code = 395) CK-MB Reference Range:<6.7 Normal6.7-10.0 Borderline>10.0 AbnormalTROPONIN [id number] 15:14:00 Test Item Value Reference Range Interpretation Comments TROPONIN I (BEAKER) (test code = 0.03 ng/mL 0.00-0.03 397) Troponin I (TnI) levels must be interpreted [...] and persistent tachyarrhythmia.CBC W/PLT COUNT & AUTO DIFFERENTIAL 2018-02-09 15:14:00 Test Item Value Reference Range Interpretation Comments WHITE BLOOD CELL COUNT (BEAKER) 12.8 K/ L 3.5-10.5 H (test code = 775) RED BLOOD CELL COUNT (BEAKER) 4.88 M/ L 4.63-6.08 (test code = 761) HEMOGLOBIN (BEAKER) (test code = 13.5 GM/DL 13.7-17.5 L 410) HEMATOCRIT (BEAKER) (test code = 42.1 % 40.1-51.0 411) MEAN CORPUSCULAR VOLUME (BEAKER) 86.3 fL 79.0-92.2 (test code = 753) MEAN CORPUSCULAR HEMOGLOBIN 27.7 pg 25.7-32.2 (BEAKER) (test code = 751) MEAN CORPUSCULAR HEMOGLOBIN CONC 32.1 GM/DL 32.3-36.5 L (BEAKER) (test code = 752) RED CELL DISTRIBUTION WIDTH 15.3 % 11.6-14.4 H (BEAKER) (test code = 412) PLATELET COUNT (BEAKER) (test 281 K/CU MM 150-450 code = 756) MEAN PLATELET VOLUME (BEAKER) 10.4 fL 9.4-12.4 (test code = 754) NUCLEATED RED BLOOD CELLS 0 /100 WBC 0-0 (BEAKER) (test code = 413) NEUTROPHILS RELATIVE PERCENT 75 % (BEAKER) (test code = 429) LYMPHOCYTES RELATIVE PERCENT 7 % (BEAKER) (test code = 430) MONOCYTES RELATIVE PERCENT 11 % (BEAKER) (test code = 431) EOSINOPHILS RELATIVE PERCENT 2 % (BEAKER) (test code = 432) BASOPHILS RELATIVE PERCENT 1 % (BEAKER) (test code = 437) NEUTROPHILS ABSOLUTE COUNT 9.62 K/ L 1.78-5.38 H (BEAKER) (test code = 670) LYMPHOCYTES ABSOLUTE COUNT 0.91 K/ L 1.32-3.57 L (BEAKER) (test code = 414) MONOCYTES ABSOLUTE COUNT (BEAKER) 1.42 K/ L 0.30-0.82 H (test code = 415) EOSINOPHILS ABSOLUTE COUNT 0.19 K/ L 0.04-0.54 (BEAKER) (test code = 416) BASOPHILS ABSOLUTE COUNT (BEAKER) 0.06 K/ L 0.01-0.08 (test code = 417) IMMATURE GRANULOCYTES-RELATIVE 5 % 0-1 H PERCENT (BEAKER) (test code = 2991) B-TYPE NATRIURETIC FACTOR (BNP)2018-02-09 15:11:00 Test Item Value Reference Range Interpretation Comments B-TYPE NATRIURETIC PEPTIDE (BEAKER) 137 pg/mL 0-100 H (test code = 700) BASIC METABOLIC [id number] 15:06:00 Test Item Value Reference Range Interpretation Comments SODIUM (BEAKER) 134 meq/L 136-145 L (test code = 381) POTASSIUM (BEAKER) 4.4 meq/L 3.5-5.1 (test code = 379) CHLORIDE (BEAKER) 99 meq/L 98-107 (test code = 382) CO2 (BEAKER) (test 23 meq/L 22-29 code = 355) BLOOD UREA NITROGEN 25 mg/dL 7-21 H (BEAKER) (test code = 354) CREATININE (BEAKER) 1.27 mg/dL 0.57-1.25 H (test code = 358) GLUCOSE RANDOM 103 mg/dL 70-105 (BEAKER) (test code = 652) CALCIUM (BEAKER) 9.7 mg/dL 8.4-10.2 (test code = 697) EGFR (BEAKER) (test 58 mL/min/1.73 ESTIMA TORRES GFR IS code = 1092) sq m NOT ACCURATE CREATININE CLEARANCE IN PREDICTING GLOMERULAR FILTRATION RATE . ESTIMATED GFR I S NOT APPLICABLE FOR DIALYSIS PATIEN TS.
--- NOTE | 2022-11-02 12:46 | RAD REPORT ---
EXAM DESCRIPTION: US - Extremity Venous Uni Ltd - 11/02/2022 12:41 pm CLINICAL HISTORY: Pain;Swelling Leg swelling and edema. COMPARISON: Extrem Venous W Compress Tru dated 03/30/2019 FINDINGS: Right lower extremity venous system was interrogated with Doppler technique. Normal flow, compressibility and augmentation was noted. There is no DVT present. IMPRESSION: No evidence of right lower extremity deep venous thrombosis.
--- NOTE | 2022-11-02 13:21 | RAD REPORT ---
EXAM DESCRIPTION: RAD - Foot Right 3 View - 11/02/2022 1:04 pm CLINICAL HISTORY: Right foot pain FINDINGS: No fracture or dislocation is seen The first metatarsal head is enlarged. No cortical disruptions seen. This is of uncertain etiology. I t may be related to prior trauma. There is adjacent soft tissue swelling. Clinical correlation is rec ommended. Follow-up x-ray in couple weeks would helpful to assess stability. Moderate calcaneal spur. Spurs talonavicular joint. Bones appear osteoporotic
--- NOTE | 2022-11-02 13:25 | ER ---
Nurse's Notes [facility] Name: Lyle Kilpatrick Age: 62 yrs Sex: Male : 1960 Arrival Date: 11/02/2022 Time: 11:01 Bed 14 Private MD: Janet Naylor Diagnosis: Pain in right foot Presentation: 11/02 11:11 Chief complaint: Patient states: R lateral foot pain that began 3 days ago. Denies ss injury. Coronavirus screen: Client denies travel out of the [place] in the last 14 days. Ebola Screen: Patient denies exposure to infectious person. Patient denies travel to an Ebola-affected area in the 21 days before illness onset. Initial Sepsis Screen: Does the patient meet any 2 criteria? No. Patient's initial sepsis screen is negative. Does the patient have a suspected source of infection? No. Patient's initial sepsis screen is negative. Risk Assessment: Do you want to hurt yourself or someone else? Patient reports no desire to harm self or others. Onset of symptoms was October 30, 2022. 11:11 Method Of Arrival: Wheelchair ss 11:11 Acuity: HETAL 3 ss Historical: - Allergies: 11:11 No Known Allergies; ss - PMHx: 11:11 Atrial Fib; CHF; Hypothyroidism; ss - Immunization history:: Client reports having NOT received the Covid vaccine. - Social history:: Smoking status: Patient denies any tobacco usage or history of. Screenin:20 [facility] ED Fall Risk Assessment (Adult) History of falling in the last 3 months, aa5 including since admission No falls in past 3 months (0 pts) Confusion or Disorientation No (0 pts) Intoxicated or Sedated No (0 pts) Impaired Gait No (0 pts) Mobility Assist Device Used No (0 pt) Altered Elimination No (0 pt) Score/Fall Risk Level 0 - 2 = Low Risk Oriented to surroundings, Maintained a safe environment, Educated pt \T\ family on fall prevention, incl call for assistance when getting out of bed. Abuse screen: Denies threats or abuse. Nutritional screening: No deficits noted. Tuberculosis screening: No symptoms or risk factors identified. Assessment: 11:17 General: Appears comfortable, obese, Behavior is calm, cooperative. Pain: Complains of aa5 pain in right lateral aspect of foot Pain currently is 5 out of 10 on a pain scale. Quality of pain is described as aching, sharp, Pain began 2-3 days ago. Is continuous. Neuro: Level of Consciousness is awake, alert, obeys commands, Oriented to person, place, time, situation. Cardiovascular: Patient's skin is warm and dry. Edema is absent. Respiratory: Airway is patent Respiratory effort is even, unlabored, Respiratory pattern is regular, symmetrical. GI: Abdomen is obese. : No signs and/or symptoms were reported regarding the genitourinary system. EENT: No signs and/or symptoms were reported regarding the EENT system. Derm: Skin is pink, warm \T\ dry. Musculoskeletal: Range of motion: intact in all extremities. 11:21 Reassessment: Pt aware of wait time for radiology test to be completed, call light aa5 remains within reach. . 11:59 Reassessment: Pt to US. aa5 Vital Signs: 11:11 BP 139 / 59; Pulse 62; Resp 18; Temp 97.9(O); Pulse Ox 96% on R/A; Weight 179.62 kg; ss Pain 5/10; 11:11 Pain Scale: Adult ss ED Course: 11:05 Patient arrived in ED. am2 11:05 Janet Naylor FNP-C is Private Physician. am2 11:11 Paty Aparicio FNP-C is [facility]. kb 11:11 Rock Govea MD is Attending Physician. kb 11:11 Triage completed. ss 11:11 Arm band placed on right wrist. ss 11:16 Radha Clark, RN is Primary Nurse. aa5 11:17 Patient has correct armband on for positive identification. Bed in low position. Call aa5 light in reach. Side rails up X2. Adult w/ patient. 12:10 Report given to ANTONY Mathews. aa5 12:27 US Extremity Venous Unilateral Ltd In Process Unspecified. EDMS 13:06 Foot Right 3 View XRAY In Process Unspecified. EDMS Administered Medications: No medications were administered Outcome: 13:25 Discharge ordered by . kb 14:21 Patient left the ED. eh3 Signatures: Dispatcher [employer] EDMS Paty Aparicio FNP-C FNP-Radha Beasley, RN ANTONY aa5 Radha Dockery RN RN Lucia Vance am2 Bisi Serrano, RN RN eh3
--- NOTE | 2022-11-02 13:25 | EDPHYS ---
Physician Documentation [facility] Name: Lyle Kilpatrick Age: 62 yrs Sex: Male : 1960 Arrival Date: 11/02/2022 Time: 11:01 Bed 14 Private MD: Janet Naylor ED Physician Rock Govea HPI: 11/02 11:29 This 62 yrs old Male presents to ER via Wheelchair with complaints of Foot Pain. kb 11:29 The patient presents with pain, swelling. The complaints affect the lateral side of kb right foot. Context: The problem was sustained at home, resulted from an unknown cause. Onset: The symptoms/episode began/occurred 3 day(s) ago. Modifying factors: The symptoms are alleviated by nothing. the symptoms are aggravated by nothing. Associated signs and symptoms: Pertinent positives: swelling, Pertinent negatives calf tenderness, fever, nausea, numbness, rash, tingling, vomiting, warmth, weakness. Treatment prior to arrival includes: no previous treatment. Severity of symptoms: At their worst the symptoms were moderate, in the emergency department the symptoms are unchanged. The patient has not experienced similar symptoms in the past. The patient has not recently seen a physician. Pt reports pain to lateral aspect of right foot that started 3 days ago. Denies any known injury. States he does not have any control of that foot due to previous surgery. Reports swelling, but states that happens at times when he has his leg in a dependent position. Historical: - Allergies: 11:11 No Known Allergies; ss - PMHx: 11:11 Atrial Fib; CHF; Hypothyroidism; ss - Immunization history:: Client reports having NOT received the Covid vaccine. - Social history:: Smoking status: Patient denies any tobacco usage or history of. ROS: 11:28 Constitutional: Negative for fever, chills, and weight loss. kb 11:28 MS/extremity: Positive for pain, swelling, of the lateral side of right foot. 11:28 All other systems are negative. Exam: 11:28 Constitutional: This is a well developed, well nourished patient who is awake, alert, kb and in no acute distress. Head/Face: Normocephalic, atraumatic. ENT: Moist Mucous membranes Cardiovascular: Regular rate and rhythm with a normal S1 and S2. No gallops, murmurs, or rubs. No pulse deficits. Respiratory: Respirations even and unlabored. No increased work of breathing. Talking in full sentences Abdomen/GI: Soft, non-tender. No distention Skin: Warm, dry with normal turgor. Normal color. Neuro: Awake and alert, GCS 15, oriented to person, place, time, and situation. Moves all extremities. Normal gait. 11:28 Musculoskeletal/extremity: Extremities: grossly normal except: noted in the lateral side of right foot: pain, swelling, tenderness, ROM: no acute changes, Circulation is intact in all extremities. Sensation intact. Vital Signs: 11:11 BP 139 / 59; Pulse 62; Resp 18; Temp 97.9(O); Pulse Ox 96% on R/A; Weight 179.62 kg; ss Pain 5/10; 11:11 Pain Scale: Adult ss MDM: 11:11 Patient medically screened. kb 11:29 Data reviewed: vital signs, nurses notes. kb 13:24 Differential diagnosis: dislocation, closed fracture, contusion, dvt. Counseling: I had kb a detailed discussion with the patient and/or guardian regarding: the historical points, exam findings, and any diagnostic results supporting the discharge/admit diagnosis, lab results, radiology results, the need for outpatient follow up, a family practitioner, a hosting engineer, to return to the emergency department if symptoms worsen or persist or if there are any questions or concerns that arise at home. 11/02 11:15 Order name: Foot Right 3 View XRAY; Complete Time: 13:22 kb 11/02 11:15 Order name: US Extremity Venous Unilateral Ltd; Complete Time: 12:50 kb Administered Medications: No medications were administered Disposition Summary: 11/02/22 13:25 Discharge Ordered Location: Home kb Condition: Stable kb Diagnosis - Pain in right foot kb Followup: kb - With: Emergency Department - When: As needed - Reason: Worsening of condition Followup: kb - With: Private Physician - When: 2 - 3 days - Reason: Recheck today's complaints, Continuance of care, Re-evaluation by your physician Discharge Instructions: - Discharge Summary Sheet kb - Musculoskeletal Pain kb Forms: - Medication Reconciliation Form kb - Thank You Letter kb - Antibiotic Education kb - Prescription Opioid Use kb Signatures: Dispatcher [employer] EDPaty Aguiar, BERTIN-C BERTIN-Ckb Smirch, Radha, RN RN ss
[2022-11-02 14:28] VITALS: BP 139/59; TEMP 97.9; O2SAT 96
== END 2022-11-02 14:21 | disposition home or self-care (01) ==
LOC: ER 11:01
DX: M79.671 Pain in right foot (principal)
CPT/HCPCS: 93971; 99282